=== PATIENT | male | born 1955 | race African-American/Black ===

== ENCOUNTER 2017-05-06 11:20 | Inpatient (IN) | payer OTHER ==
[2017-05-06 13:55] VITALS: BMI 29.8
--- NOTE | 2017-05-06 13:59 | HP ---
Admission ROS S - HPI Allergies/Adverse Reactions: Allergies Allergy/AdvReac Type Severity Reaction Status Date / Time No Known Allergies Allergy Verified 04/05/15 13:32 - Ebola screening Have you traveled outside of the country in the last 21 days: No Have you had contact with anyone from an Ebola affected area: No Have you been sick,other than usual withdrawal symptoms: No Do you have a fever: No Patient History - Patient Medical History Hx Anemia: No Hx Asthma: No Hx Chronic Obstructive Pulmonary Disease (COPD): No Hx Cancer: No Hx Cardiac Disorders: No Hx Congestive Heart Failure: No Hx Hypertension: Yes Hx Hypercholesterolemia: No Hx Pacemaker: No HX Cerebrovascular Accident: No Hx Seizures: Yes (etoh related seizures ) Hx Dementia: No Hx Diabetes: No Hx Gastrointestinal Disorders: Yes (GERD, gallstones) Hx Liver Disease: No Hx Genitourinary Disorders: No Hx Sexually Transmitted Disorders: No Hx Renal Disease (ESRD): No Hx Thyroid Disease: No Hx Human Immunodeficiency Virus (HIV): No Hx Hepatitis C: Yes Hx Depression: Yes Hx Suicide Attempt: No (denies) Hx Bipolar Disorder: No Hx Schizophrenia: No - Patient Surgical History Past Surgical History: No Hx Neurologic Surgery: No Hx Cataract Extraction: No Hx Cardiac Surgery: No Hx Lung Surgery: No Hx Breast Surgery: No Hx Breast Biopsy: No Hx Abdominal Surgery: No Hx Appendectomy: No Hx Cholecystectomy: No Hx Genitourinary Surgery: No Hx Section: No Hx Orthopedic Surgery: No Anesthesia Reaction: No - PPD History Date: 04/07/15 Results: 0 mm - Smoking Cessation Smoking history: Current every day smoker Have you smoked in the past 12 months: Yes Aproximately how many cigarettes per day: 5 Hx Chewing Tobacco Use: No Family Disease History - Family Disease History Family Disease History: Heart Disease: Father (), CA: Mother () Admission Physical Exam BHS - Vital Signs Vital Signs: Vital Signs - 24 hr 05/06/17 13:45 Temperature 98.8 F Pulse Rate 112 H Respiratory 20 Rate Blood Pressure 130/86 BHS Breath Alcohol Content Breath Alcohol Content: 0.057 Urine Drug Screen - Results Drug Screen Negative: Yes Urine Drug Screen Results: BAR-Barbiturates
--- NOTE | 2017-05-06 14:19 | HP ---
CIWA Score - CIWA Score Nausea/Vomitin Muscle Tremors: 3 Anxiety: 3 Agitation: 3 Paroxysmal Sweats: 1-Minimal Palms Moist Orientation: 0-Oriented Tacttile Disturbances: 2-Mild Itch/Numbness/Burn Auditory Disturbances: 2-Mild Harshness/Frighten Visual Disturbances: 2-Mild Sensitivity Headache: 2-Mild CIWA-Ar Total Score: 21 Admission ROS BHS - HPI Chief Complaint: i need help to stop drinking alcohol Allergies/Adverse Reactions: Allergies Allergy/AdvReac Type Severity Reaction Status Date / Time No Known Allergies Allergy Verified 05/06/17 14:20 History of Present Illness: this 62 years old male with alcohol dependence,history of suboxone maintenance but stopped 03/05,last treatment 04/05/15 to 04/09/15 multiple admissions in detox, anxiety and depression hepatitis c history of hypertension,heptitis c,insomnia longest period of sobriety 6 and half years Exam Limitations: No Limitations - Ebola screening Have you traveled outside of the country in the last 21 days: No Have you had contact with anyone from an Ebola affected area: No Have you been sick,other than usual withdrawal symptoms: No Do you have a fever: No - Review of Systems Constitutional: Loss of Appetite, Malaise, Night Sweats, Changes in sleep, Weakness EENT: reports: Nose Congestion Respiratory: reports: No Symptoms reported, Other (copd) Cardiac: reports: Palpitations GI: reports: Diarrhea, Nausea, Vomiting, Abdominal cramping : reports: No Symptoms Reported Musculoskeletal: reports: Back Pain, Muscle Pain Integumentary: reports: Dryness Neuro: reports: Headache, Tremors Endocrine: reports: No Symptoms Reported Hematology: reports: No Symptoms Reported Psychiatric: reports: No Sypmtoms Reported, Judgement Intact, Mood/Affect Appropiate, Depressed, other Patient History - Patient Medical History Hx Anemia: No Hx Asthma: No Hx Chronic Obstructive Pulmonary Disease (COPD): No Hx Cancer: No Hx Cardiac Disorders: No Hx Congestive Heart Failure: No Hx Hypertension: Yes (on med) Hx Hypercholesterolemia: No Hx Pacemaker: No HX Cerebrovascular Accident: No Hx Seizures: Yes (etoh related seizures on 05/02/17) Hx Dementia: No Hx Diabetes: No Hx Gastrointestinal Disorders: Yes (GERD, gallstones) Hx Liver Disease: No Hx Genitourinary Disorders: No Hx Sexually Transmitted Disorders: No Hx Renal Disease (ESRD): No Hx Thyroid Disease: No Hx Human Immunodeficiency Virus (HIV): No Hx Hepatitis C: Yes (treated) Hx Depression: Yes Hx Suicide Attempt: No (denies) Hx Bipolar Disorder: No Hx Schizophrenia: No Other Medical History: no suicidal,no homicidal - Patient Surgical History Past Surgical History: No Hx Neurologic Surgery: No Hx Cataract Extraction: No Hx Cardiac Surgery: No Hx Lung Surgery: No Hx Breast Surgery: No Hx Breast Biopsy: No Hx Abdominal Surgery: No Hx Appendectomy: No Hx Cholecystectomy: No Hx Genitourinary Surgery: No Hx Section: No Hx Orthopedic Surgery: No Anesthesia Reaction: No - PPD History Previous Implant?: Yes Implanted On Prior [facility] Admission?: Yes Date: 04/07/15 Results: 0 mm PPD to be Administered?: Yes - Smoking Cessation Smoking history: Current every day smoker Have you smoked in the past 12 months: Yes Aproximately how many cigarettes per day: 5 Hx Chewing Tobacco Use: No Initiated information on smoking cessation: Yes 'Breaking Loose' booklet given: 05/06/17 - Substance & Tx. History Hx Alcohol Use: Yes Hx Substance Use: Yes Substance Use Type: Alcohol Hx Substance Use Treatment: Yes (last 04/05/15 to 04/09/15) - Substances Abused Alcohol Route: Oral Frequency: Daily Amount used: 2-3 pints vodka/ 2-3 6pk beers Age of first use: 11 Date of Last Use: 05/06/17 suboxone Route: Oral Frequency: 3-6 times per week Amount used: 2.8mg Age of first use: 61 Date of Last Use: 05/05/17 Family Disease History - Family Disease History Family Disease History: Heart Disease: Father (), CA: Mother () Admission Physical Exam BHS - Vital Signs Vital Signs: Vital Signs - 24 hr 05/06/17 13:45 Temperature 98.8 F Pulse Rate 112 H Respiratory 20 Rate Blood Pressure 130/86 - Physical General Appearance: Yes: Moderate Distress, Tremorous, Irritable, Sweating, Anxious HEENTM: Yes: Hearing grossly Normal, Normal ENT Inspection, BILLIE, Pharynx Normal Respiratory: Yes: Lungs Clear, Normal Breath Sounds, No Respiratory Distress Neck: Yes: Within Normal Limits Breast: Yes: Within Normal Limits Cardiology: Yes: Within Normal Limits, Regular Rhythm, Regular Rate, S1, S2 Abdominal: Yes: Within Normal Limits, Normal Bowel Sounds, Non Tender, Flat, Soft Genitourinary: Yes: Within Normal Limits Back: Yes: Muscle Spasm Musculoskeletal: Yes: Back pain, Muscle Pain Extremities: Yes: Within Normal Limits, Normal Range of Motion, Tremors Neurological: Yes: stretch box tender II-XII NML intact, Fully Oriented, Alert, Motor Strength 5/5 Integumentary: Yes: Dry Lymphatic: Yes: Within Normal Limits - Diagnostic (1) Alcohol dependence with uncomplicated withdrawal Current Visit: Yes Status: Acute (2) Essential hypertension Current Visit: Yes Status: Chronic Comment: stable, on meds, sees new primary at [facility] (3) GERD (gastroesophageal reflux disease) Current Visit: Yes Status: Chronic Comment: doing well with prilosec to f/u with GI, cont activia, probiotics not covered, (4) Low back pain Current Visit: Yes Status: Chronic Comment: flexeril, heat, stretches ORT = 7 (moderate risk) DIRE = 14 (borderline candidate for moth exterminator opiates) - (5) Nicotine dependence Current Visit: Yes Status: Acute Comment: counseled cessation - (6) Alcohol related seizure Current Visit: Yes Status: Acute (7) Hepatitis C Current Visit: Yes Status: Acute (8) Asthma Current Visit: Yes Status: Acute Cleared for Admission [facility] - Detox or Rehab [facility] Level of Care: Medically Managed Detox Regimen/Protocol: Librium [facility] Breath Alcohol Content Breath Alcohol Content: 0.057 Urine Drug Screen - Results Drug Screen Negative: Yes Urine Drug Screen Results: BAR-Barbiturates
[2017-05-06] MEDS ORDERED: ACETAMINOPHEN 325 MG TABLET (FP) PO PRN (14:48)
[2017-05-06] MEDS ORDERED: P-EPHED 60MG/TRIPROLIDI 2.5MG TABLET PO PRN (14:48)
[2017-05-06] MEDS ORDERED: MENTHOL/PHENOL 1 EACH UD MM PRN (14:48)
[2017-05-06] MEDS ORDERED: chlordiazePOXIDE HCL 25 MG CAPSULE PO PRN (14:48)
[2017-05-06] MEDS ORDERED: guaiFENesin/D-METHORPHAN HB 10 ML UNIT-DOSE CUPS PO PRN (14:48)
[2017-05-06] MEDS ORDERED: hydrOXYzine PAMOATE 50 MG CAPSULE (FP) PO PRN (14:48)
[2017-05-06] MEDS ORDERED: LOPERAMIDE HCL 2 MG CAPSULE PO PRN (14:48)
[2017-05-06] MEDS ORDERED: MAGNESIUM CITRATE 300 ML BOTTLE PO PRN (14:48)
[2017-05-06] MEDS ORDERED: IBUPROFEN 400 MG TABLET (FP) PO PRN (14:48)
[2017-05-06] MEDS ORDERED: diphenhydrAMINE HCL 50 MG CAPSULE PO PRN (14:48)
[2017-05-06] MEDS ORDERED: ALBUTEROL SO4 6.7 GM HFA INHALER IH PRN (14:53)
[2017-05-06] MEDS ORDERED: chlordiazePOXIDE HCL 25 MG CAPSULE PO ONE (15:54)
[2017-05-06] MEDS: chlordiazePOXIDE HCL 25 MG CAPSULE PO SCH ×2 (17:36→22:48)
[2017-05-06] MEDS: GABAPENTIN 300 MG CAPSULE (FP) PO SCH ×2 (17:36→22:48)
[2017-05-06] MEDS: CYCLOBENZAPRINE HCL 10 MG TABLET (FP) PO PRN ×2 (17:41→22:54)
--- NOTE | 2017-05-06 17:56 | CONSULT ---
[facility] Psychiatric Consult - Data Date of interview: 05/06/17 Admission source: [facility] Identifying data: Readmission to [facility] for this 62 y/o AA male seeking detox treatment on for alcohol and opioid dependence.Patient is a ,father of four,domiciled,unemployed and supported on Section 8 + SSD benefits. Substance Abuse History: Discussed with patient.Mr Singh confirms this [facility] report. Smoking Cessation. Smoking history: Current every day smoker. Have you smoked in the past 12 months: Yes. Aproximately how many cigarettes per day : 5. Hx Chewing Tobacco Use: No. Initiated information on smoking cessation: Yes. 'Breaking Loose' booklet given: 05/06/17. - Substance & Tx. History. Hx Alcohol Use: Yes. Hx Substance Use: Yes. Substance Use Type: Alcohol. Hx Substance Use Treatment: Yes (last 04/05/15 to 04/09/15) Medical History: Hypertension,arthritis,hepatitis C,withdrawat-related seizures, GERD/gallstones and a history of interstitial lung disease. Psychiatric History: Patient denies history of psychiatric hospitalizations.Mr Singh indicates that he is on seroquel 200 mg/hs to address chronic insomnia.Patient denies history of suicide attempts. Physical/Sexual Abuse/Trauma History: Patient denies. Additional Comment: Urine Drug Screen Results: BAR-Barbiturates.Noted. Mental Status Exam - Mental Status Exam Alert and Oriented to: Time Cognitive Function: Good Patient Appearance: Well Groomed Mood: Hopeful, Euthymic Affect: Appropriate, Normal Range Patient Behavior: Appropriate, Cooperative Speech Pattern: Clear Voice Loudness: Normal Thought Process: Goal Oriented Hallucinations: Denies Suicidal Ideation: Denies Homicidal Ideation: Denies Sleep: Poorly, Difficulty falling asleep Appetite: Good Muscle strength/Tone: Normal Gait/Station: Normal Psychiatric Findings - Problem List ([facility] 1, 2,3) (1) Alcohol dependence with uncomplicated withdrawal Current Visit: Yes Status: Acute (2) Opiate dependence Current Visit: Yes Status: Acute Comment: in suboxone program at [facility] (3) Nicotine dependence Current Visit: Yes Status: Acute Comment: counseled cessation - (4) Alcohol related seizure Current Visit: Yes Status: Acute (5) Hepatitis C Current Visit: Yes Status: Acute (6) Essential hypertension Current Visit: Yes Status: Chronic Comment: stable, on meds, sees new primary at [facility] (7) GERD (gastroesophageal reflux disease) Current Visit: Yes Status: Chronic Comment: doing well with prilosec to f/u with GI, cont activia, probiotics not covered, (8) Hepatitis C carrier Current Visit: Yes Status: Chronic Comment[facility] (9) Interstitial lung disease Current Visit: Yes Status: Chronic Comment: for f/u with pulmonary - has appt with pulmonary 3/4 but missed it - counseled nicotine cessation (10) Low back pain Current Visit: Yes Status: Chronic Comment: flexeril, heat, stretches ORT = 7 (moderate risk) DIRE = 14 (borderline candidate for supervisor intermediates opiates) - (11) Vitamin D deficiency Current Visit: Yes Status: Chronic Comment: cont weekly vitamin D 40771 (12) Insomnia Current Visit: Yes Status: Acute - Initial Treatment Plan Initial Treatment Plan: Psychoeducation.Detoxification.Seroquel 100 mg po hs ( reduced).Will titrate back to 200 mg/hs in next 24 hours if no oversedation.Side effects/benefits discussed with patient.Mr Singh is in agreement with this careplan.Observation.
[2017-05-06] MEDS: NICOTINE 21 MG/24 HOURS TOPICAL PATCH TD SCH (18:57)
[2017-05-06] MEDS: NICOTINE POLACRILEX 2 MG GUM BUC PRN ×2 (18:57→22:56)
[2017-05-06] MEDS ORDERED: PHENYTOIN NA EXTENDED 100 MG CAPSULE (FP) PO SCH (22:00)
[2017-05-06] MEDS: THIAMINE HCL 100 MG TABLET (FP) PO SCH (22:48)
[2017-05-06] MEDS: PHENobarbital 30 MG TABLET PO SCH (22:48)
[2017-05-06] MEDS: VERAPAMIL HCL 240 MG E.R. TABLET (FP) PO SCH (22:48)
[2017-05-06 23:33] LABS: URINE APPEARANCE CLEAR; URINE BILIRUBIN NEGATIVE (NEGATIVE); URINE BLOOD NEGATIVE (NEGATIVE); URINE COLOR LT. YELLOW; URINE GLUCOSE (UA) NEGATIVE (NEGATIVE); URINE KETONE NEGATIVE (NEGATIVE); URINE LEUK ESTERASE NEGATIVE (NEGATIVE); URINE NITRITE NEGATIVE (NEGATIVE); URINE PROTEIN NEGATIVE (NEGATIVE); URINE UROBILINOGEN 0.2 mg/dL (0.2-1.0)
[2017-05-07] MEDS: GABAPENTIN 300 MG CAPSULE (FP) PO SCH ×3 (05:50→22:43)
[2017-05-07] MEDS: chlordiazePOXIDE HCL 25 MG CAPSULE PO SCH ×4 (05:50→22:43)
[2017-05-07] MEDS: CYCLOBENZAPRINE HCL 10 MG TABLET (FP) PO PRN ×3 (05:50→22:53)
[2017-05-07] MEDS: NICOTINE POLACRILEX 2 MG GUM BUC PRN ×2 (05:54→12:52)
[2017-05-07] MEDS ORDERED: NICOTINE 21 MG/24 HOURS TOPICAL PATCH TD SCH (10:00)
[2017-05-07 10:03] LABS: MCH 31.9 pg (25.7-33.7); MCHC 34.3 g/dl (32.0-35.9); MEAN CELL VOLUME 93.1 fl (80-96); MEAN PLT VOLUME 10.3 fl (7.5-11.1); PLATELET COUNT 230 K/MM3 (134-434); RDW 14.9 % (11.9-15.9); WHITE BLOOD COUNT 7.9 K/mm3 (4.0-10.0)
[2017-05-07 10:29] LABS: ALBUMIN 3.7 g/dl (3.4-5.0); ALK PHOS 94 U/L (45-117); ANION GAP 11 (8-16); BILIRUBIN,TOTAL 0.3 mg/dL (0.2-1.0); CALCIUM 9.4 mg/dL (8.5-10.1); CO2 22 mmol/L (21-32); CREATININE 0.9 mg/dL (0.7-1.3); GLUCOSE,RANDOM 103 mg/dL (74-106); SGOT/AST 17 U/L (15-37); SGPT/ALT 23 U/L (12-78); TOT PROT 7.9 g/dl (6.4-8.2)
[2017-05-07] MEDS: HYDROCHLOROTHIAZIDE 25 MG TABLET (FP) PO SCH (10:53)
[2017-05-07] MEDS: ASPIRIN 81 MG CHEWABLE TABLETS PO SCH (10:53)
[2017-05-07] MEDS: VERAPAMIL HCL 240 MG E.R. TABLET (FP) PO SCH ×2 (10:53→22:43)
[2017-05-07] MEDS: PRENATAL VITAMINS W/ FOLIC ACID TABLET (FP) PO SCH (10:53)
[2017-05-07] MEDS: PHENobarbital 30 MG TABLET PO SCH ×2 (10:53→22:43)
[2017-05-07] MEDS: NICOTINE 21 MG/24 HOURS TOPICAL PATCH TD SCH (10:54)
--- NOTE | 2017-05-07 10:55 | PN ---
S CIWA - CIWA Score Nausea/Vomitin Muscle Tremors: 4-Moderate,w/Arms Extend Anxiety: 3 Agitation: 4-Moderately Restless Paroxysmal Sweats: 3 Orientation: 0-Oriented Tacttile Disturbances: 1-Very Mild Itch/Numbness Auditory Disturbances: 0-None Visual Disturbances: 0-None Headache: 1-Very Mild CIWA-Ar Total Score: 19 BHS Progress Note (SOAP) Subjective: nausea, sweats, interrupted sleep, anxiety, tremors Objective: 05/07/17 10:52 Vital Signs - 24 hr 05/06/17 05/06/17 05/06/17 13:45 18:06 22:29 Temperature 98.8 F 98.4 F 98.9 F Pulse Rate 112 H 114 H 102 H Respiratory 20 18 18 Rate Blood Pressure 130/86 121/88 121/94 05/07/17 05/07/17 05/07/17 03:30 06:50 10:25 Temperature 97.1 F L 97 F L Pulse Rate 87 81 Respiratory 18 18 18 Rate Blood Pressure 128/87 132/89 Laboratory Tests 05/06/17 05/07/17 05/07/17 20:56 06:00 06:00 WBC 7.9 RBC 4.85 Hgb 15.5 Hct 45.2 MCV 93.1 MCH 31.9 MCHC 34.3 RDW 14.9 Plt Count 230 MPV 10.3 Sodium 139 Potassium 4.2 Chloride 106 Carbon Dioxide 22 Anion Gap 11 BUN 6 L D Creatinine 0.9 Creat Clearance w eGFR > 60 Random Glucose 103 Calcium 9.4 Total Bilirubin 0.3 D AST 17 ALT 23 D Alkaline Phosphatase 94 Total Protein 7.9 Albumin 3.7 Urine Color Lt. yellow Urine Appearance Clear Urine pH 6.0 D Ur Specific [place] 1.010 Urine Protein Negative Urine Glucose (UA) Negative Urine Ketones Negative Urine Blood Negative Urine Nitrite Negative Urine Bilirubin Negative Urine Urobilinogen 0.2 Ur Leukocyte Esterase Negative RPR Titer 05/07/17 06:00 WBC RBC Hgb Hct MCV MCH MCHC RDW Plt Count MPV Sodium Potassium Chloride Carbon Dioxide Anion Gap BUN Creatinine Creat Clearance w eGFR Random Glucose Calcium Total Bilirubin AST ALT Alkaline Phosphatase Total Protein Albumin Urine Color Urine Appearance Urine pH Ur Specific [place] Urine Protein Urine Glucose (UA) Urine Ketones Urine Blood Urine Nitrite Urine Bilirubin Urine Urobilinogen Ur Leukocyte Esterase RPR Titer Nonreactive Assessment: 05/07/17 10:53 withdrawal sx Plan: cont detox, fluids, encourage ambulation, phenytoin level pending
[2017-05-07] MEDS ORDERED: PHENYTOIN NA EXTENDED 100 MG CAPSULE (FP) PO ONE (12:08)
[2017-05-07] MEDS ORDERED: RANITIDINE HCL 150 MG TABLET (FP) PO SCH (12:15)
[2017-05-07] MEDS: PANTOPRAZOLE 40 MG TABLET (FP) PO SCH (12:49)
[2017-05-07] MEDS: PHENYTOIN NA EXTENDED 100 MG CAPSULE (FP) PO SCH ×2 (14:08→22:46)
--- NOTE | 2017-05-07 14:30 | PN ---
[facility] Progress Note Note: NURSE Daniel JACOBS CALLED TO REPORT PT REFUSED DILANTIN AT 2PM DOSE DUE TO LOADING DOSE OF DILANTIN 300 MG ALREADY TAKEN THIS MORNING AND DOES NOT WANT MORE THAN 300 MG IN A DAY. PT'S DILANTIN LEVEL = <2.5. PLAN: MONITOR PT.
--- NOTE | 2017-05-07 15:02 | EKG ---
Test Reason : Blood Pressure : / mmHG Vent. Rate : 098 BPM Atrial Rate : 098 BPM P-R Int : 172 ms QRS Dur : 074 ms QT Int : 340 ms P-R-T Axes : 046 024 057 degrees QTc Int : 434 ms NORMAL SINUS RHYTHM POSSIBLE LEFT ATRIAL ENLARGEMENT BORDERLINE ECG NO PREVIOUS ECGS AVAILABLE Confirmed by ANDRES ALMEIDA, ARNALDO ([id number]) on 05/07/2017 3:02:33 PM Referred By: Confirmed By:ARNALDO CAMPOS MD
[2017-05-07] MEDS: MAG HYDROX/AL HYDROX/SIMETH 30 ML UNIT-DOSE CUP PO PRN ×2 (15:07→20:58)
[2017-05-07] MEDS: QUEtiapine FUMARATE 100 MG TABLET (FP) PO SCH (22:43)
[2017-05-07] MEDS: THIAMINE HCL 100 MG TABLET (FP) PO SCH (22:43)
[2017-05-08] MEDS: MAGNESIUM HYDROX 2400MG/30ML ORAL SUSPENSION 30 ML CUP PO PRN ×2 (03:10→13:19)
[2017-05-08] MEDS: MAG HYDROX/AL HYDROX/SIMETH 30 ML UNIT-DOSE CUP PO PRN ×2 (03:12→18:58)
[2017-05-08] MEDS: PHENYTOIN NA EXTENDED 100 MG CAPSULE (FP) PO SCH ×3 (05:55→22:37)
[2017-05-08] MEDS: GABAPENTIN 300 MG CAPSULE (FP) PO SCH ×3 (05:55→22:37)
[2017-05-08] MEDS: chlordiazePOXIDE HCL 25 MG CAPSULE PO SCH ×2 (05:55→10:51)
[2017-05-08] MEDS: PHENobarbital 30 MG TABLET PO SCH ×2 (10:50→22:32)
[2017-05-08] MEDS: PRENATAL VITAMINS W/ FOLIC ACID TABLET (FP) PO SCH (10:51)
[2017-05-08] MEDS: PANTOPRAZOLE 40 MG TABLET (FP) PO SCH (10:51)
[2017-05-08] MEDS: ASPIRIN 81 MG CHEWABLE TABLETS PO SCH (10:51)
[2017-05-08] MEDS: NICOTINE 21 MG/24 HOURS TOPICAL PATCH TD SCH (10:51)
[2017-05-08] MEDS: VERAPAMIL HCL 240 MG E.R. TABLET (FP) PO SCH ×2 (10:51→22:32)
--- NOTE | 2017-05-08 10:51 | PN ---
[facility] CIWA - CIWA Score Nausea/Vomitin-No Nausea/No Vomiting Muscle Tremors: 4-Moderate,w/Arms Extend Anxiety: 4-Mod. Anxious/Guarded Agitation: 3 Paroxysmal Sweats: 3 Orientation: 0-Oriented Tacttile Disturbances: 0-None Auditory Disturbances: 0-None Visual Disturbances: 0-None Headache: 0-None Present CIWA-Ar Total Score: 14 S Progress Note (SOAP) Subjective: Anxiety,tremors,sweating,interrupted sleep,restless. Objective: 05/08/17 10:50 Vital Signs - 8 hr 05/08/17 05/08/17 06:44 09:42 Temperature 97.4 F L 98.7 F Pulse Rate 105 H 92 H Respiratory 16 20 Rate Blood Pressure 107/77 121/88 Laboratory Last Values WBC 7.9 K/mm3 (4.0-10.0) 05/07/17 06:00 RBC 4.85 M/mm3 (4.00-5.60) 05/07/17 06:00 Hgb 15.5 GM/dL (11.7-16.9) 05/07/17 06:00 Hct 45.2 % (35.4-49) 05/07/17 06:00 MCV 93.1 fl (80-96) 05/07/17 06:00 MCH 31.9 pg (25.7-33.7) 05/07/17 06:00 MCHC 34.3 g/dl (32.0-35.9) 05/07/17 06:00 RDW 14.9 % (11.9-15.9) 05/07/17 06:00 Plt Count 230 K/MM3 (134-434) 05/07/17 06:00 MPV 10.3 fl (7.5-11.1) 05/07/17 06:00 Sodium 139 mmol/L (136-145) 05/07/17 06:00 Potassium 4.2 mmol/L (3.5-5.1) 05/07/17 06:00 Chloride 106 mmol/L (98-107) 05/07/17 06:00 Carbon Dioxide 22 mmol/L (21-32) 05/07/17 06:00 Anion Gap 11 (8-16) 05/07/17 06:00 BUN 6 mg/dL (7-18) L D 05/07/17 06:00 Creatinine 0.9 mg/dL (0.7-1.3) 05/07/17 06:00 Creat Clearance w eGFR > 60 (>60) 05/07/17 06:00 Random Glucose 103 mg/dL (74-106) 05/07/17 06:00 Calcium 9.4 mg/dL (8.5-10.1) 05/07/17 06:00 Total Bilirubin 0.3 mg/dL (0.2-1.0) D 05/07/17 06:00 AST 17 U/L (15-37) 05/07/17 06:00 ALT 23 U/L (12-78) D 05/07/17 06:00 Alkaline Phosphatase 94 U/L (45-117) 05/07/17 06:00 Total Protein 7.9 g/dl (6.4-8.2) 05/07/17 06:00 Albumin 3.7 g/dl (3.4-5.0) 05/07/17 06:00 Urine Color Lt. yellow 05/06/17 20:56 Urine Appearance Clear 05/06/17 20:56 Urine pH 6.0 (5.0-8.0) D 05/06/17 20:56 Ur Specific [place] 1.010 (1.005-1.025) 05/06/17 20:56 Urine Protein Negative (NEGATIVE) 05/06/17 20:56 Urine Glucose (UA) Negative (NEGATIVE) 05/06/17 20:56 Urine Ketones Negative (NEGATIVE) 05/06/17 20:56 Urine Blood Negative (NEGATIVE) 05/06/17 20:56 Urine Nitrite Negative (NEGATIVE) 05/06/17 20:56 Urine Bilirubin Negative (NEGATIVE) 05/06/17 20:56 Urine Urobilinogen 0.2 mg/dL (0.2-1.0) 05/06/17 20:56 Ur Leukocyte Esterase Negative (NEGATIVE) 05/06/17 20:56 Phenytoin < 2.5 ug/ml (10.0-20.0) L 05/07/17 06:00 RPR Titer Nonreactive (NONREACTIVE) 05/07/17 06:00 labs noted Assessment: 05/08/17 10:50 Withdrawal sx. Plan: Continue detox
[2017-05-08] MEDS: HYDROCHLOROTHIAZIDE 25 MG TABLET (FP) PO SCH (10:52)
[2017-05-08] MEDS: CYCLOBENZAPRINE HCL 10 MG TABLET (FP) PO PRN ×2 (10:54→22:39)
[2017-05-08] MEDS: METHYL SALICYLATE/MENTHOL OINT 30 GM TUBE TP SCH ×2 (11:02→22:37)
[2017-05-08] MEDS: NICOTINE POLACRILEX 2 MG GUM BUC PRN ×3 (11:03→22:39)
[2017-05-08] MEDS: chlordiazePOXIDE 5 MG CAPSULE PO SCH ×2 (18:53→23:00)
[2017-05-08] MEDS: THIAMINE HCL 100 MG TABLET (FP) PO SCH (22:32)
[2017-05-08] MEDS: QUEtiapine FUMARATE 100 MG TABLET (FP) PO SCH (22:33)
[2017-05-09] MEDS: chlordiazePOXIDE 5 MG CAPSULE PO SCH ×2 (05:21→10:59)
[2017-05-09] MEDS: GABAPENTIN 300 MG CAPSULE (FP) PO SCH ×4 (05:21→22:48)
[2017-05-09] MEDS: PHENYTOIN NA EXTENDED 100 MG CAPSULE (FP) PO SCH ×4 (05:21→22:45)
[2017-05-09] MEDS: NICOTINE POLACRILEX 2 MG GUM BUC PRN ×4 (05:27→22:49)
[2017-05-09] MEDS: NICOTINE 21 MG/24 HOURS TOPICAL PATCH TD SCH (10:58)
[2017-05-09] MEDS: PHENobarbital 30 MG TABLET PO SCH ×2 (10:59→22:46)
[2017-05-09] MEDS: HYDROCHLOROTHIAZIDE 25 MG TABLET (FP) PO SCH (10:59)
[2017-05-09] MEDS: ASPIRIN 81 MG CHEWABLE TABLETS PO SCH (10:59)
[2017-05-09] MEDS: PRENATAL VITAMINS W/ FOLIC ACID TABLET (FP) PO SCH (10:59)
[2017-05-09] MEDS: VERAPAMIL HCL 240 MG E.R. TABLET (FP) PO SCH ×2 (10:59→22:45)
[2017-05-09] MEDS: PANTOPRAZOLE 40 MG TABLET (FP) PO SCH (11:00)
[2017-05-09] MEDS: MAG HYDROX/AL HYDROX/SIMETH 30 ML UNIT-DOSE CUP PO PRN (11:02)
[2017-05-09] MEDS: METHYL SALICYLATE/MENTHOL OINT 30 GM TUBE TP SCH ×2 (11:02→22:45)
[2017-05-09] MEDS: CYCLOBENZAPRINE HCL 10 MG TABLET (FP) PO PRN ×2 (15:18→23:34)
[2017-05-09] MEDS: chlordiazePOXIDE HCL 10 MG CAPSULE PO SCH ×2 (18:09→22:46)
[2017-05-09] MEDS ORDERED: PHENYTOIN NA EXTENDED 100 MG CAPSULE (FP) PO ONE (21:42)
--- NOTE | 2017-05-09 21:48 | PN ---
BHS Progress Note (SOAP) Subjective: Tremors, Stomach Cramping, Vomiting, Diarrhea, Anxious, Body Aches, sweating. Objective: PT. A & O X 3, OBSERVED AMBULATING ON UNIT. NO ACUTE DISTRESS. 05/09/17 21:45 Vital Signs Temperature 97.7 F 05/09/17 19:09 Pulse Rate 86 05/09/17 19:09 Respiratory Rate 18 05/09/17 19:09 Blood Pressure 103/71 05/09/17 19:09 O2 Sat by Pulse Oximetry (%) Laboratory Tests 05/06/17 05/07/17 05/07/17 20:56 06:00 06:00 WBC 7.9 RBC 4.85 Hgb 15.5 Hct 45.2 MCV 93.1 MCH 31.9 MCHC 34.3 RDW 14.9 Plt Count 230 MPV 10.3 Sodium 139 Potassium 4.2 Chloride 106 Carbon Dioxide 22 Anion Gap 11 BUN 6 L D Creatinine 0.9 Creat Clearance w eGFR > 60 Random Glucose 103 Calcium 9.4 Total Bilirubin 0.3 D AST 17 ALT 23 D Alkaline Phosphatase 94 Total Protein 7.9 Albumin 3.7 Urine Color Lt. yellow Urine Appearance Clear Urine pH 6.0 D Ur Specific [place] 1.010 Urine Protein Negative Urine Glucose (UA) Negative Urine Ketones Negative Urine Blood Negative Urine Nitrite Negative Urine Bilirubin Negative Urine Urobilinogen 0.2 Ur Leukocyte Esterase Negative Phenytoin RPR Titer 05/07/17 05/07/17 05/09/17 06:00 06:00 08:00 WBC RBC Hgb Hct MCV MCH MCHC RDW Plt Count MPV Sodium Potassium Chloride Carbon Dioxide Anion Gap BUN Creatinine Creat Clearance w eGFR Random Glucose Calcium Total Bilirubin AST ALT Alkaline Phosphatase Total Protein Albumin Urine Color Urine Appearance Urine pH Ur Specific [place] Urine Protein Urine Glucose (UA) Urine Ketones Urine Blood Urine Nitrite Urine Bilirubin Urine Urobilinogen Ur Leukocyte Esterase Phenytoin < 2.5 L < 2.5 L RPR Titer Nonreactive LABS NOTED. RESULT OF REPEAT DILANTIN LEVEL FROM 05/09/2017 NOTED. 05/09/17 21:45 Assessment: 05/09/17 21:46 WITHDRAWAL SYMPTOMS. Plan: CONTINUE DETOX. DILANTIN, 300 MG PO X 1 ORDERED.
[2017-05-09] MEDS: QUEtiapine FUMARATE 100 MG TABLET (FP) PO SCH (22:46)
[2017-05-09] MEDS: THIAMINE HCL 100 MG TABLET (FP) PO SCH (22:46)
[2017-05-10] MEDS: MAG HYDROX/AL HYDROX/SIMETH 30 ML UNIT-DOSE CUP PO PRN (04:41)
[2017-05-10] MEDS: GABAPENTIN 300 MG CAPSULE (FP) PO SCH (05:52)
[2017-05-10] MEDS: PHENYTOIN NA EXTENDED 100 MG CAPSULE (FP) PO SCH (05:52)
[2017-05-10] MEDS: CYCLOBENZAPRINE HCL 10 MG TABLET (FP) PO PRN (05:53)
[2017-05-10] MEDS: chlordiazePOXIDE HCL 10 MG CAPSULE PO SCH ×2 (05:53→10:03)
[2017-05-10 09:50] VITALS: BP 110/79; PULSE 93; TEMP 97.8
[2017-05-10] MEDS: PRENATAL VITAMINS W/ FOLIC ACID TABLET (FP) PO SCH (10:03)
[2017-05-10] MEDS: HYDROCHLOROTHIAZIDE 25 MG TABLET (FP) PO SCH (10:03)
[2017-05-10] MEDS: METHYL SALICYLATE/MENTHOL OINT 30 GM TUBE TP SCH (10:03)
[2017-05-10] MEDS: ASPIRIN 81 MG CHEWABLE TABLETS PO SCH (10:03)
[2017-05-10] MEDS: PANTOPRAZOLE 40 MG TABLET (FP) PO SCH (10:03)
[2017-05-10] MEDS: NICOTINE 21 MG/24 HOURS TOPICAL PATCH TD SCH (10:04)
[2017-05-10] MEDS: VERAPAMIL HCL 240 MG E.R. TABLET (FP) PO SCH (10:04)
[2017-05-10] MEDS: PHENobarbital 30 MG TABLET PO SCH (10:04)
--- NOTE | 2017-05-10 14:13 | DS ---
[facility] Detox Discharge Summary Admission Date: 05/06/17 - History Present History: Alcohol Dependence Pertinent Past History: HTN Hepatitis C GERD Alcohol related seizure disorder - Physical Exam Results Vital Signs: Vital Signs Temperature 97.8 F 05/10/17 09:50 Pulse Rate 93 H 05/10/17 09:50 Respiratory Rate 18 05/10/17 09:50 Blood Pressure 110/79 05/10/17 09:50 O2 Sat by Pulse Oximetry (%) Pertinent Admission Physical Exam Findings: Withdrawal symptoms Laboratory Tests 05/06/17 05/07/17 05/07/17 20:56 06:00 06:00 WBC 7.9 RBC 4.85 Hgb 15.5 Hct 45.2 MCV 93.1 MCH 31.9 MCHC 34.3 RDW 14.9 Plt Count 230 MPV 10.3 Sodium 139 Potassium 4.2 Chloride 106 Carbon Dioxide 22 Anion Gap 11 BUN 6 L D Creatinine 0.9 Creat Clearance w eGFR > 60 Random Glucose 103 Calcium 9.4 Total Bilirubin 0.3 D AST 17 ALT 23 D Alkaline Phosphatase 94 Total Protein 7.9 Albumin 3.7 Urine Color Lt. yellow Urine Appearance Clear Urine pH 6.0 D Ur Specific [place] 1.010 Urine Protein Negative Urine Glucose (UA) Negative Urine Ketones Negative Urine Blood Negative Urine Nitrite Negative Urine Bilirubin Negative Urine Urobilinogen 0.2 Ur Leukocyte Esterase Negative Phenytoin RPR Titer 05/07/17 05/07/17 05/09/17 06:00 06:00 08:00 WBC RBC Hgb Hct MCV MCH MCHC RDW Plt Count MPV Sodium Potassium Chloride Carbon Dioxide Anion Gap BUN Creatinine Creat Clearance w eGFR Random Glucose Calcium Total Bilirubin AST ALT Alkaline Phosphatase Total Protein Albumin Urine Color Urine Appearance Urine pH Ur Specific [place] Urine Protein Urine Glucose (UA) Urine Ketones Urine Blood Urine Nitrite Urine Bilirubin Urine Urobilinogen Ur Leukocyte Esterase Phenytoin < 2.5 L < 2.5 L RPR Titer Nonreactive Labs noted - Treatment Hospital Course: Detox Protocol Followed, Detoxed Safely, Responded well, Discharged Condition Good - Medication Discharge Medications: Ambulatory Orders Aspirin [ASA -] 81 mg PO DAILY #30 tab.chew 04/08/15 Albuterol Sulfate Inhaler - [Ventolin Hfa Inhaler -] 2 inh PO Q4H PRN 05/06/17 Cyclobenzaprine HCl [Flexeril -] 10 mg PO TID 05/06/17 Gabapentin [Neurontin -] 300 mg PO Q8H 05/06/17 Hydrochlorothiazide [Hctz -] 25 mg PO DAILY 05/06/17 Omeprazole 20 mg PO DAILY 05/06/17 Phenobarbital - 30 mg PO BID 05/06/17 Phenytoin Na Extended [Dilantin -] 100 mg PO TID 05/06/17 Quetiapine Fumarate [Seroquel -] 200 mg PO HS 05/06/17 Verapamil HCl [Verapamil ER] 240 mg PO BID 05/06/17 Quetiapine Fumarate [Seroquel -] 200 mg PO HS #30 tab 05/07/17 - Diagnosis (1) Alcohol dependence with uncomplicated withdrawal Status: Acute (2) Alcohol related seizure Status: Acute (3) Hepatitis C Status: Chronic (4) Nicotine dependence Status: Chronic (5) Anxiety and depression Status: Chronic (6) Essential hypertension Status: Chronic (7) GERD (gastroesophageal reflux disease) Status: Chronic - AMA Did Patient Leave Against Medical Advice: No
== END 2017-05-10 10:20 | disposition home or self-care (01) | DRG 775 ==
LOC: YASAS 11:20 → Y3N 15:41
PROVIDERS: ADMIT Internal Medicine; ATTEND Internal Medicine
PROC: HZ2ZZZZ Detoxification Services for Substance Abuse Treatment (ICD-10-PCS; principal; 2017-05-06)
DX: F10.230 Alcohol dependence with withdrawal, uncomplicated (principal); F17.210 Nicotine dependence, cigarettes, uncomplicated; F41.8 Other specified anxiety disorders; I10 Essential (primary) hypertension; K21.9 Gastro-esophageal reflux disease without esophagitis; B18.2 Chronic viral hepatitis C; G40.909 Epilepsy, unspecified, not intractable, without status epilepticus; M54.5 Low back pain; E55.9 Vitamin D deficiency, unspecified; G47.00 Insomnia, unspecified
CPT/HCPCS: 36415; 80053; 80185; 81003; 85027; 86593; 93005; 93010

== ENCOUNTER 2017-05-14 15:38 | Inpatient (IN) | payer OTHER ==
[2017-05-14 15:57] VITALS: BMI 29.8
[2017-05-14] MEDS ORDERED: SODIUM CHLORIDE 1,000 ML IV STA (16:59)
--- NOTE | 2017-05-14 16:59 | PDOC ---
History of Present Illness - General Chief Complaint: Lethargy Stated Complaint: LETHARGY Time Seen by Provider: 05/14/17 15:44 History Source: Patient Exam Limitations: Clinical Condition - History of Present Illness Initial Comments: 05/14/17 17:17 Patient is a 62M with a history of HTN, EtOH abuse, Seizures 2/2 alcohol withdrawal, GERD, HCV and gallstones here today with altered mental status. He was found by EMS after a call in for intoxication, polisher implant found no evidence of intox at the scene. He was satting at 88% in the field which came up to 96% on nasal cannula. Per EMS, he was altered and confused. Today, he's complaining of pain in his left knee. He's confused and difficult to redirect. Past History - Past Medical History Allergies/Adverse Reactions: Allergies Allergy/AdvReac Type Severity Reaction Status Date / Time No Known Allergies Allergy Verified 05/14/17 15:57 Home Medications: Ambulatory Orders Aspirin [ASA -] 81 mg PO DAILY #30 tab.chew 04/08/15 Albuterol Sulfate Inhaler - [Ventolin Hfa Inhaler -] 2 inh PO Q4H PRN 05/06/17 Cyclobenzaprine HCl [Flexeril -] 10 mg PO TID 05/06/17 Gabapentin [Neurontin -] 300 mg PO Q8H 05/06/17 Hydrochlorothiazide [Hctz -] 25 mg PO DAILY 05/06/17 Omeprazole 20 mg PO DAILY 05/06/17 Phenobarbital - 30 mg PO BID 05/06/17 Phenytoin Na Extended [Dilantin -] 100 mg PO TID 05/06/17 Quetiapine Fumarate [Seroquel -] 200 mg PO HS 05/06/17 Verapamil HCl [Verapamil ER] 240 mg PO BID 05/06/17 Quetiapine Fumarate [Seroquel -] 200 mg PO HS #30 tab 05/07/17 Anemia: No Asthma: No Cancer: No Cardiac Disorders: No CVA: No COPD: No CHF: No Dementia: No Diabetes: No GI Disorders: Yes (GERD, gallstones) Disorders: No HTN: Yes (on med) Hypercholesterolemia: No Kidney Stones: No Liver Disease: No Suicide Attempt (Hx): No (denies) Seizures: Yes (etoh related seizures on 05/02/17) Thyroid Disease: No - Surgical History Abdominal Surgery: No Appendectomy: No Cardiac Surgery: No Cholecystectomy: No Lung Surgery: No Neurologic Surgery: No Orthopedic Surgery: No - Reproductive History Testicular Surgery: No - Psycho/Social/Smoking Cessation Hx Anxiety: Yes Suicidal Ideation: No Smoking Status: Yes Smoking History: Current every day smoker Have you smoked in the past 12 months: Yes Number of Cigarettes Smoked Daily: 10 Information on smoking cessation initiated: No 'Breaking Loose' booklet given: 05/06/17 Hx Alcohol Use: Yes Drug/Substance Use Hx: No Substance Use Type: Alcohol Hx Substance Use Treatment: Yes (last 04/05/15 to 04/09/15) Review of Systems - Review of Systems Able to Perform ROS?: No (Secondary to confusion) *Physical Exam - Vital Signs Last Vital Signs Temp Pulse Resp BP Pulse Ox 98.8 F 121 H 24 121/96 72 L 05/14/17 15:53 05/14/17 15:53 05/14/17 15:53 05/14/17 15:53 05/14/17 15:53 - Physical Exam Comments: 05/14/17 15:00 GENERAL: Alert but sleepy, difficult to redirect HEAD: No signs of trauma, normocephalic, atraumatic EYES: PERRLA, EOMI, conjunctiva clear ENT: Auricles normal inspection, hearing grossly normal, nares patent, oropharynx has reddish-orange deposits on tongue. LUNGS: Tachypneic, crackles at bases HEART: Regular rhythm, tachycardic, peripheral pulses normal and equal bilaterally. ABDOMEN: Soft, nontender, normoactive bowel sounds. No guarding, no rebound. No masses EXTREMITIES: Normal inspection, left knee pain with palpation NEUROLOGICAL: Cranial nerves II through XII grossly intact. Slurred speech, no focal sensorimotor deficits SKIN: Warm, Dry, normal turgor, orange-red material on right arm ED Treatment Course - LABORATORY CBC & Chemistry Diagram: 05/14/17 16:31 05/14/17 16:31 - RADIOLOGY Radiology Studies Ordered: Category Date Time Status HEAD CT WITHOUT CONTRAST [CT] Stat CT Scan 05/14/17 16:29 Ordered CHEST X-RAY PORTABLE* [RAD] Stat Radiology 05/14/17 16:12 Taken Medical Decision Making - Medical Decision Making 05/14/17 18:46 Patient is a 62M with a history of COPD, etoh abuse, etoh seizures, HCV, and GERD here today with AMS. Tachycardic, afebrile, blood pressure normal, tachypneic, and desatting on room air. Patient is confused. Differential diagnosis is broad, and includes: sepsis, copd exacerbation, aspiration pneumonia, and seizure. Will do broad workup to evaluate. SIRS plus possible lung source for sepsis. Sepsis order set used, given 1L, vanc, zosyn, duonebs. Patients mental status has improved significantly from initial presentation. CBC shows white count to 10.4. UA negative. CXR shwos bilateral infiltrates. Lactate 4.7. Possible seizure with aspiration. 05/14/17 19:[address] shows no intracranial pathology. Knee x-ray shows arthritic changes, no acute process is seen. 05/14/17 23:27 Admitted to med/surg. *DC/Admit/Observation/Transfer Diagnosis at time of Disposition: Pneumonia Qualifiers: Pneumonia type: due to unspecified organism Laterality: bilateral Lung location : unspecified part of lung Qualified Code(s): J18.9 - Pneumonia, unspecified organism - Discharge Dispostion Condition at time of disposition: Stable Admit: Yes
[2017-05-14 17:26] LABS: BASOPHIL 0.4 % (0-2.0); EOSINOPHIL 0.3 % (0-4.5); MCH 31.6 pg (25.7-33.7); MCHC 33.4 g/dl (32.0-35.9); MEAN CELL VOLUME 94.6 fl (80-96); MEAN PLT VOLUME 9.3 fl (7.5-11.1); RDW 15.1 % (11.9-15.9); WHITE BLOOD COUNT 10.4 K/mm3 (4.0-10.0)
[2017-05-14 17:42] LABS: URINE MARIJUANA THC POSITIVE ng/ml (CUTOFF=50)
[2017-05-14 17:46] LABS: INR 1.2 (0.82-1.09); PROTHROMBIN TIME (PATIENT) 13.2 SEC (9.98-11.88)
--- NOTE | 2017-05-14 17:46 | PDOC ---
Attending Attestation - Resident Resident Name: Randall Selby - ED Attending Attestation I have performed the following: I have examined & evaluated the patient, The case was reviewed & discussed with the resident, I agree w/resident's findings & plan, Exceptions are as noted - HPI HPI: 05/14/17 17:37 62 yo male with h/o etoh abuse, withdrawal seizures, copd hep C, recenlty dc'd from detox 05/10, here by EMS who stated pt was found outside homeless [facility] on ground. confused and hypoxic. per pt , states he drank half beer today, and was at the [facility] donating some clothes, states they found him in the bathroom. denies n/v no f/c denies any trauma. - Physicial Exam PE: 05/14/17 17:40 awake but drowsy, speech clear. lungs with crackles bilaterally heart regular tachycardic. abd soft NT ext wwp no edema. left knee FROM. no effusion. ankle hips NT FROM. all else atraumatic. - Medical Decision Making 05/14/17 17:46 62 yo M with h/o etoh , withdrawal seizures , copd, hep C, recently dc 05/10, here today with AMS, more lucid now than on arrival. differential seizure, withdrawal, intox, aspiration, copd, pna, bronchspasm from drug use. plan labs ekg nebs, cxr head ct tox screen. pt hypoxic oxygen sats 94% will likley admit for hypoxia , AMS 05/14/17 20:00 focused ED TTE, indication hypoxia focused ED cardiac ultrasound performed with curvilinear transducer. four view obtainedn ( parasternal long, short and subxiphoid and apical view) good contractility. no pericardial effusion. no signs of RV strain. impression: normal cardiac echo. lung ultrasound bilaterally, indication hypoxia bilateral lung sliding noted B lines bilaterally no plueral effusion impression: bilateral b lines, no pleural effusion, good sliding. cirilli will treat for pneumonia. elevated lactate and improving mental status concerns for post ictal, treated with nebs. abx. will admit to medicine. Heart Score/ECG Review #1 General ECG Interpretation: Sinus Rhythm (sinus tachycardia), Normal Rate (111) , Normal Intervals, No acute ischemic changes (q wave III) Compared to previous ECG there are: No significant change (comparison 05/06/17)
[2017-05-14 17:49] LABS: ACTIVATED PTT 34.4 SECONDS (26.9-34.4)
[2017-05-14] MEDS ORDERED: ALBUTEROL SO4 2.5/IPRATROPIUM 0.5 INH SOL 3 ML VIAL.NEB. NEB ONE ×2 (17:49→17:57)
[2017-05-14] MEDS ORDERED: VANCOMYCIN 1,500 MG in DEXTROSE 5%-WATER - 500 ML IVPB ONE (17:49)
[2017-05-14] MEDS ORDERED: PIPERACILLIN/TAZOB 3.375 GM/50 ML PRE-DOCKED IV ONE (17:50)
[2017-05-14] MEDS ORDERED: PIPERACILLIN/TAZOB 3.375 GM 50 ML IVPB ONE (17:57)
[2017-05-14 17:58] LABS: ALBUMIN 4.1 g/dl (3.4-5.0); ALK PHOS 101 U/L (45-117); ANION GAP 13 (8-16); BILIRUBIN,TOTAL 0.4 mg/dL (0.2-1.0); CALCIUM 9.5 mg/dL (8.5-10.1); CO2 24 mmol/L (21-32); CREATININE 1.4 mg/dL (0.7-1.3); GLUCOSE,RANDOM 101 mg/dL (74-106); SGOT/AST 21 U/L (15-37); SGPT/ALT 20 U/L (12-78); TOT PROT 8.9 g/dl (6.4-8.2)
[2017-05-14 18:00] LABS: PLATELET COUNT 289 K/MM3 (134-434)
[2017-05-14 18:01] LABS: CPK 325 IU/L (39-308); TROPONIN I < 0.02 ng/ml (0.00-0.05)
[2017-05-14 18:01] LABS: URINE APPEARANCE SLCLOUDY; URINE BILIRUBIN NEGATIVE (NEGATIVE); URINE BLOOD NEGATIVE (NEGATIVE); URINE COLOR YELLOW; URINE GLUCOSE (UA) NEGATIVE (NEGATIVE); URINE KETONE NEGATIVE (NEGATIVE); URINE LEUK ESTERASE NEGATIVE (NEGATIVE); URINE NITRITE NEGATIVE (NEGATIVE); URINE UROBILINOGEN NEGATIVE mg/dL (0.2-1.0)
[2017-05-14 18:03] LABS: URINE PROTEIN 1+ (NEGATIVE)
[2017-05-14 18:04] LABS: URINE HYALINE CAST 25 /lpf; URINE RBC NONE SEEN /hpf (0-3); URINE WBC 1 /hpf (3-5)
[2017-05-14 18:05] LABS: URINE MUCUS RARE
[2017-05-14 18:50] LABS: VENOUS BLOOD GAS HCO3 19.6 meq/L (19-25)
[2017-05-14 18:52] LABS: VENOUS PH 7.28 (7.32-7.42)
[2017-05-14] MEDS ORDERED: IBUPROFEN 600 MG TABLET (FP) PO ONE ×2 (20:27→20:41)
[2017-05-14] MEDS ORDERED: MAG HYDROX/AL HYDROX/SIMETH 30 ML UNIT-DOSE CUP PO ONE (20:27)
[2017-05-14] MEDS ORDERED: MAG HYDROX/AL HYDROX/SIMETH 30 ML UNIT-DOSE CUP ONE (20:41)
[2017-05-14] MEDS ORDERED: FOLIC ACID INJECTION - 1 MG, THIAMINE HCL 100 MG, MULTIVIT INJECTION ADULT 10 ML in SOD... IVPB ONE (20:44)
--- NOTE | 2017-05-14 20:55 | PN ---
Teaching Attending Note Name of Resident: Nikolay Cabrera ATTENDING PHYSICIAN STATEMENT I saw and evaluated the patient. I reviewed the resident's note and discussed the case with the resident. I agree with the resident's findings and plan as documented. SUBJECTIVE: 62 M with pmhx. of HTN, ETOH abuse, seizures due to Etoh withdrawlm GERD, HCV, and Gallstones who presents with AMS. Called by EMS for being ontoxicated and 02 sat 88% en field. Pt. states he was brought in by friend for knee pain on left. OBJECTIVE: Physical: VS: Vital Signs Period Temp Pulse Resp BP Sys/Causey Pulse Ox Last 24 Hr 98.8 F 106-121 24-24 113-124/95-100 72-94 GEN: NAD, Resting in bed HEENT: NCAT, PERRL, Tongue with white patches CARD: RRR S1, S2 RESP: Coarse breath sounds bilaterally bases ABD: BSx4, NTD to palpation EXT: - C/C/E, Pain on l. Knee palapation, no surrounding edema or erythema, no injury noted CBCD WBC 10.4 K/mm3 (4.0-10.0) H D 05/14/17 16:31 RBC 5.02 M/mm3 (4.00-5.60) 05/14/17 16:31 Hgb 15.9 GM/dL (11.7-16.9) 05/14/17 16:31 Hct 47.5 % (35.4-49) 05/14/17 16:31 MCV 94.6 fl (80-96) 05/14/17 16:31 MCHC 33.4 g/dl (32.0-35.9) 05/14/17 16:31 RDW 15.1 % (11.9-15.9) 05/14/17 16:31 Plt Count 289 K/MM3 (134-434) D 05/14/17 16:31 MPV 9.3 fl (7.5-11.1) 05/14/17 16:31 CMP Sodium 137 mmol/L (136-145) 05/14/17 16:31 Potassium 4.1 mmol/L (3.5-5.1) 05/14/17 16:31 Chloride 100 mmol/L (98-107) 05/14/17 16:31 Carbon Dioxide 24 mmol/L (21-32) 05/14/17 16:31 Anion Gap 13 (8-16) 05/14/17 16:31 BUN 9 mg/dL (7-18) D 05/14/17 16:31 Creatinine 1.4 mg/dL (0.7-1.3) H D 05/14/17 16:31 Creat Clearance w eGFR 51.18 (>60) 05/14/17 16:31 Random Glucose 101 mg/dL (74-106) 05/14/17 16:31 Calcium 9.5 mg/dL (8.5-10.1) 05/14/17 16:31 Total Bilirubin 0.4 mg/dL (0.2-1.0) D 05/14/17 16:31 AST 21 U/L (15-37) D 05/14/17 16:31 ALT 20 U/L (12-78) 05/14/17 16:31 Alkaline Phosphatase 101 U/L (45-117) 05/14/17 16:31 Total Protein 8.9 g/dl (6.4-8.2) H 05/14/17 16:31 Albumin 4.1 g/dl (3.4-5.0) 05/14/17 16:31 CARDIAC ENZYMES Creatine Kinase 325 IU/L (39-308) H 05/14/17 17:07 Troponin I < 0.02 ng/ml (0.00-0.05) 05/14/17 17:07 CXR: Bilateral airspace opacities c/w noncardiogenic pulmonary venous congestion Vs. PNA CT HEAD: Negative Knee Xray: Degenerative changes Home Medications Medication Instructions Recorded Aspirin [ASA -] 81 mg PO DAILY #30 tab.chew 04/08/15 Albuterol Sulfate Inhaler - 2 inh PO Q4H PRN 05/06/17 [Ventolin Hfa Inhaler -] Cyclobenzaprine HCl [Flexeril -] 10 mg PO TID 05/06/17 Gabapentin [Neurontin -] 300 mg PO Q8H 05/06/17 Hydrochlorothiazide [Hctz -] 25 mg PO DAILY 05/06/17 Omeprazole 20 mg PO DAILY 05/06/17 Phenobarbital - 30 mg PO BID 05/06/17 Phenytoin Na Extended [Dilantin -] 100 mg PO TID 05/06/17 Quetiapine Fumarate [Seroquel -] 200 mg PO HS 05/06/17 Verapamil HCl [Verapamil ER] 240 mg PO BID 05/06/17 Quetiapine Fumarate [Seroquel -] 200 mg PO HS #30 tab 05/07/17 ASSESSMENT AND PLAN: 62 M with pmhx of HTN, ETOH Abuse, COPD, Seizures due to Etoh withdrawl, GERD, HCV, and gallstones presents with AMS found to have bilateral pna 1.) AMS - Most likely due to polysubstance abuse - CIWA once pt. is more alert - Detox Consult - Banana bagm Thiamine, Folic A - Hold Flexaril 2.) Hypoxia - Most likely due to PNA, less likely COPD Exacerbation - ABG - CT Chest if no improvement 3.) Community Aquired Pna - Administered Vanco/Zosyn in ED - Chong cx - Urine Ag - Can switch to Ceftriaxone, Azithromycin in am 4.) ZEFERINO - IVF-Gentle - Hold HCTZ - IF no improvement can chk U. Lytes 5.) Seizure DO - C/W home meds - CHk. Dilantin levels 4.) HTN - Hold HCTZ - Continue other home meds 5.) COPD - Not in Exacerbation - C/W Nebs 5.) Dvt Ppx - Low risk SCDs Place in Med-Sx
--- NOTE | 2017-05-14 21:12 | HP ---
Admitting History and Physical - Admission History of Present Illness: 62yo M with significant history of COPD, Polysubstance abuse, seizures secondary to withdrawals, and HTN who was brought in by EMS when his friend found him with altered mental status, hypoxic, and in the bathroom at a homeless senior care he was donating to. Pt currently is fully alert and not confused, however he does not recall any of the events that occurred to bring him here. Pt states his friend brought him here for his knee pain that is related to his arthritis. He states recently he has been coughing up green- brown mucous, however he has had his cough ever since he was diagnosed with COPD. Pt admits to a long-term history of polysubstance abuse with his last drink at 2:00am 05/14 and last use of cocaine at 12:00am 05/14. Pt states he learned the cocaine was laced with other illicit drug after he had inhaled it. Denies any other symptoms including fever/chills, diarrhea/ constipation, dyspnea on exertion, headache, palpitations. ER Course notable for: 1) Vancomycin and Zosyn x1 dose administered 2) CXR revealing bilateral opacities without cardiomegaly 3) Knee Xray showing L knee with moderate degenerative changes 4) Labs - Lactic acidosis of 4.7, second LA pending 5) Increasing lucency in pt since first seen 6) Utox - Alcohol quant +, Opiates +, Benzo +, Cocaine +, Marijuana + History Source: Patient, Medical Record - Past Medical History Cardiovascular: Yes: HTN Pulmonary: Yes: COPD Gastrointestinal: Yes: GERD - Smoking History Smoking history: Current every day smoker Have you smoked in the past 12 months: Yes Aproximately how many cigarettes per day: 10 - Alcohol/Substance Use Hx Alcohol Use: Yes Home Medications - Allergies Allergies/Adverse Reactions: Allergies Allergy/AdvReac Type Severity Reaction Status Date / Time No Known Allergies Allergy Verified 05/14/17 15:57 - Home Medications Home Medications: Ambulatory Orders Aspirin [ASA -] 81 mg PO DAILY #30 tab.chew 04/08/15 Albuterol Sulfate Inhaler - [Ventolin Hfa Inhaler -] 2 inh PO Q4H PRN 05/06/17 Cyclobenzaprine HCl [Flexeril -] 10 mg PO TID 05/06/17 Gabapentin [Neurontin -] 300 mg PO Q8H 05/06/17 Hydrochlorothiazide [Hctz -] 25 mg PO DAILY 05/06/17 Omeprazole 20 mg PO DAILY 05/06/17 Phenobarbital - 30 mg PO BID 05/06/17 Phenytoin Na Extended [Dilantin -] 100 mg PO TID 05/06/17 Quetiapine Fumarate [Seroquel -] 200 mg PO HS 05/06/17 Verapamil HCl [Verapamil ER] 240 mg PO BID 05/06/17 Quetiapine Fumarate [Seroquel -] 200 mg PO HS #30 tab 05/07/17 Family Disease History - Family Disease History Family Disease History: Heart Disease: Father (), CA: Mother () Physical Examination Vital Signs: Vital Signs Temperature 98.8 F 05/14/17 15:53 Pulse Rate 98 H 05/14/17 20:54 Respiratory Rate 22 05/14/17 20:54 Blood Pressure 115/77 05/14/17 20:54 O2 Sat by Pulse Oximetry (%) 93 L 05/14/17 20:54 Constitutional: Yes: No Distress, Calm, Other (Resting comfortably with food at bedside) Eyes: Yes: Conjunctiva Clear, EOM Intact, PERRL HENT: Yes: Atraumatic, Normocephalic, Thrush, Other (Moist mucosa) Cardiovascular: Yes: Tachycardia (regular rhythm). No: Murmur Respiratory: Yes: Regular, Cough, On Nasal O2 (2.5L NC), Rhonchi (throughout all lung castillo). No: Accessory Muscle Use Gastrointestinal: Yes: Normal Bowel Sounds, Soft. No: Tenderness Edema: No Peripheral Pulses WNL: Yes Neurological: Yes: Alert, Oriented (oriented x3) Psychiatric: Yes: Alert, Oriented (x3) Labs: CBC, BMP 05/14/17 16:31 05/14/17 16:31 Imaging - Results Chest X-ray: Image Reviewed X-ray: Image Reviewed EKG: Image Reviewed Assessment/Plan 62yo M w/ pmhx of polysubstance abuse, COPD, alcohol withdrawal seizures who presented to the ER as hypoxic and altered. PT currently alert and not confused at this point. CXR shows b/l infilitrates/opacities. Knee XR shows mod osteoarthritis/degen changes. LA 4.7, 2.2. Utox + for cocaine, benzo, opiate, marijuana. Alcohol quant + # Altered mental status --Resolved --Pt is currently alert and oriented x3 --Most likely due to intoxication as alcohol quantitative was positive, but minimal --Resume regular diet in light of resolution # Hypoxia --Currently 2.5L NC SpO2 92% --Titrate to SpO2 >90% --History of COPD, but hypoxemia driven due to b/l opacities --Duonebs PRN --No steroids needed for current management # Sepsis 2/2 CAPna --Rocephin 1g IV q24h --Azithromycin 500mg IV qDaily --Lactic acidosis trending down; will continue to trend until normal --Gentle hydration due to underlying congestion on xray --Gentle boluses if needed --Blood Cx's x2 drawn, Urine culture # ZEFERINO --Cr 1.4; baseline ~0.8 from prior records --Most likely due to dehydration from sepsis pneumonia --Gentle boluses --Avoid nephrotoxic agents --Holding home HCTZ --Trend BMP --Urine electrolytes if not improving # Polysubstance abuse --CIWA 0 currently; Benzo + in Utox --Will follow and add librium taper if needed --Consulted En --Banana bag being administered currently --Folic acid daily --Thiamine daily --Low dosage nicotine patch ordered --Smoking cessation counselling --Holding home Flexeril # HTN --Continue home Verapamil 240mg PO BID --Vitals q4h FEN: Fluids: Gentle boluses if needed due to underlying congestion on CXR Electrolyte abnormalities: None currently Nutrition: Regular diet (AMS has resolved) PPX: DVT - SCDs both legs due to fall risk GI - Not truly needed; will continue home PPI for GERD Dispo: Admit to M/S Visit type - Emergency Visit Emergency Visit: Yes ED Registration Date: 05/14/17 Care time: The patient presented to the Emergency Department on the above date and was hospitalized for further evaluation of their emergent condition. - New Patient This patient is new to me today: Yes Date on this admission: 05/15/17 - Critical Care Critical Care patient: No
[2017-05-14] MEDS ORDERED: ALBUTEROL SO4 2.5/IPRATROPIUM 0.5 INH SOL 3 ML VIAL.NEB. NEB PRN (22:14)
[2017-05-14] MEDS: VERAPAMIL HCL 240 MG E.R. TABLET (FP) PO SCH (23:09)
[2017-05-14] MEDS: NICOTINE 7 MG/24 HOURS TOPICAL PATCH TD SCH (23:10)
[2017-05-14] MEDS: GABAPENTIN 300 MG CAPSULE (FP) PO SCH (23:10)
[2017-05-14] MEDS: QUEtiapine FUMARATE 200 MG TABLET PO SCH (23:10)
[2017-05-14] MEDS: NYSTATIN 500,000 UNITS/5 ML SUSPENSION PO SCH (23:10)
[2017-05-15] MEDS: GABAPENTIN 300 MG CAPSULE (FP) PO SCH ×3 (06:03→21:26)
[2017-05-15] MEDS ORDERED: chlordiazePOXIDE HCL 25 MG CAPSULE PO PRN (09:32)
[2017-05-15] MEDS ORDERED: chlordiazePOXIDE HCL 25 MG CAPSULE PO ONE (09:32)
[2017-05-15] MEDS ORDERED: PT OWN MED DRAWER 7, Y5N ONE ×3 (10:10→20:56)
[2017-05-15] MEDS ORDERED: cefTRIAXone SODIUM 1 GM VIAL ONE (10:10)
[2017-05-15] MEDS ORDERED: DEXTROSE 5%-WATER - 50 ML IVPB ONE (10:11)
[2017-05-15] MEDS: NYSTATIN 500,000 UNITS/5 ML SUSPENSION PO SCH (10:15)
[2017-05-15] MEDS: VERAPAMIL HCL 240 MG E.R. TABLET (FP) PO SCH ×2 (10:15→21:26)
[2017-05-15] MEDS: AZITHROMYCIN IVPB 250 ML IVPB SCH (10:15)
[2017-05-15] MEDS: ASPIRIN 81 MG CHEWABLE TABLETS PO SCH (10:15)
[2017-05-15] MEDS: FOLIC ACID 1 MG TABLET (FP) PO SCH (10:15)
[2017-05-15] MEDS: PANTOPRAZOLE 20 MG TABLET (FP) PO SCH (10:16)
[2017-05-15] MEDS: CEFTRIAXONE 1 GM in DEXTROSE 5%-WATER - 50 ML IVPB SCH (10:16)
[2017-05-15] MEDS: THIAMINE HCL 100 MG TABLET (FP) PO SCH (10:16)
[2017-05-15] MEDS: NICOTINE 7 MG/24 HOURS TOPICAL PATCH TD SCH (10:17)
[2017-05-15] MEDS: chlordiazePOXIDE HCL 25 MG CAPSULE PO SCH ×3 (11:06→22:26)
[2017-05-15 12:09] LABS: ALBUMIN 3.4 g/dl (3.4-5.0); ALK PHOS 86 U/L (45-117); ANION GAP 6 (8-16); BILIRUBIN,TOTAL 0.3 mg/dL (0.2-1.0); CALCIUM 9.3 mg/dL (8.5-10.1); CO2 28 mmol/L (21-32); CREATININE 0.9 mg/dL (0.7-1.3); GLUCOSE,RANDOM 97 mg/dL (74-106); SGOT/AST 17 U/L (15-37); SGPT/ALT 18 U/L (12-78); TOT PROT 7.3 g/dl (6.4-8.2)
--- NOTE | 2017-05-15 12:54 | EKG ---
Test Reason : Blood Pressure : / mmHG Vent. Rate : 116 BPM Atrial Rate : 116 BPM P-R Int : 166 ms QRS Dur : 076 ms QT Int : 308 ms P-R-T Axes : 040 -15 034 degrees QTc Int : 428 ms SINUS TACHYCARDIA POSSIBLE INFERIOR INFARCT , AGE UNDETERMINED POSSIBLE ANTERIOR INFARCT , AGE UNDETERMINED ABNORMAL ECG Confirmed by MD KAT, CLARISSA ([id number]) on 05/15/2017 12:54:23 PM Referred By: Confirmed By:CLARISSA STEPHENS MD
[2017-05-15 12:55] LABS: BASOPHIL 0.4 % (0-2.0); EOSINOPHIL 4.9 % (0-4.5); MCH 30.6 pg (25.7-33.7); MCHC 32.9 g/dl (32.0-35.9); MEAN CELL VOLUME 93.1 fl (80-96); MEAN PLT VOLUME 8.8 fl (7.5-11.1); NEUTROPHILS 56.8 % (42.8-82.8); PLATELET COUNT 211 K/MM3 (134-434); RDW 14.9 % (11.9-15.9); WHITE BLOOD COUNT 6.3 K/mm3 (4.0-10.0)
[2017-05-15] MEDS: ACETAMINOPHEN 325 MG TABLET (FP) PO PRN (13:22)
--- NOTE | 2017-05-15 13:23 | PN ---
Physical Exam: SUBJECTIVE: Patient seen and examined at bedside. No acute events overnight. Pt complains of vague mild abdominal discomfort. When asked, pt admits to feeling sweaty and slightly anxious. Initially pt stated he drank "occasionally", but on further questioning, pt admits to drinking a quart of vodka and a 6-pack of beer per day. No other complaints. Denies headache, cp, sob, vomiting. OBJECTIVE: Vital Signs Period Temp Pulse Resp BP Sys/Causey Pulse Ox Last 24 Hr 97.8 F-98 F 72-98 16-22 100-123/68-86 93-93 Limited physical exam due to lack of cooperation by patient GENERAL: rousable and somnolent, AAOx3, in no acute distress. HEAD: Normal with no signs of trauma. EYES: PERRLA, extraocular movements intact, sclera anicteric, conjunctiva clear. No ptosis. ENT: nares patent, oropharynx clear without exudates, moist mucous membranes. NECK: Trachea midline, full range of motion, supple. LUNGS: Breath sounds equal, clear to auscultation bilaterally, no wheezes, no crackles, no accessory muscle use. HEART: Regular rate and rhythm, S1, S2 without murmur, rub or gallop. ABDOMEN: Soft,nontender, nondistended, normoactive bowel sounds, no guarding, no rebound, no hepatosplenomegaly, no masses. EXTREMITIES: 2+ pulses, warm, well-perfused, no edema. NEUROLOGICAL: Cranial nerves II through XII grossly intact. Normal speech, gait not observed. PSYCH: Normal mood, normal affect. SKIN: Warm, dry, normal turgor, no rashes or lesions noted Laboratory Results - last 24 hr 05/14/17 05/15/17 05/15/17 23:20 11:35 11:35 WBC RBC Hgb Hct MCV MCH MCHC RDW Plt Count MPV Neutrophils % Lymphocytes % Monocytes % Eosinophils % Basophils % Sodium 139 Potassium 4.5 Chloride 105 Carbon Dioxide 28 Anion Gap 6 L BUN 9 Creatinine 0.9 D Creat Clearance w eGFR > 60 Random Glucose 97 Lactic Acid 1.8 Calcium 9.3 Total Bilirubin 0.3 D AST 17 ALT 18 Alkaline Phosphatase 86 Total Protein 7.3 Albumin 3.4 Phenytoin < 2.5 L 05/15/17 12:20 WBC 6.3 D RBC 4.39 Hgb 13.5 D Hct 40.9 MCV 93.1 MCH 30.6 MCHC 32.9 RDW 14.9 Plt Count 211 D MPV 8.8 Neutrophils % 56.8 D Lymphocytes % 29.1 D Monocytes % 8.8 Eosinophils % 4.9 H D Basophils % 0.4 Sodium Potassium Chloride Carbon Dioxide Anion Gap BUN Creatinine Creat Clearance w eGFR Random Glucose Lactic Acid Calcium Total Bilirubin AST ALT Alkaline Phosphatase Total Protein Albumin Phenytoin Active Medications Generic Name Dose Route Start Last Admin Trade Name Freq PRN Reason Stop Dose Admin Acetaminophen 650 mg 05/14/17 20:45 Tylenol - PO Q4H PRN FEVER OR PAIN Albuterol/Ipratropium 1 amp 05/14/17 22:14 Duoneb - NEB Q6H PRN SHORTNESS OF BREATH Aspirin 81 mg 05/15/17 10:00 05/15/17 10:15 Asa - PO 81 mg DAILY NICO Administration Chlordiazepoxide HCl 25 mg 05/15/17 09:32 Librium - PO 05/18/17 09:31 Q4H PRN WITHDRAWAL(CONT SUBST) Chlordiazepoxide HCl 50 mg 05/15/17 11:00 05/15/17 11:06 Librium - PO 05/16/17 05:01 Not Given [id number] NICO Chlordiazepoxide HCl 25 mg 05/16/17 11:00 Librium - PO 05/17/17 05:01 [id number] NICO Chlordiazepoxide HCl 15 mg 05/17/17 11:00 Librium - PO 05/18/17 05:01 [id number] NICO Folic Acid 1 mg 05/15/17 10:00 05/15/17 10:15 Folic Acid - PO 1 mg DAILY NICO Administration Gabapentin 300 mg 05/14/17 22:30 05/15/17 06:03 Neurontin - PO 300 mg TID NICO Administration Azithromycin 250 mls @ 250 mls/hr 05/15/17 10:00 05/15/17 10:15 Zithromax 500mg Ivpb (Pre-Docked) IVPB 250 mls/hr DAILY NICO Administration Ceftriaxone Sodium 1 gm/ 50 mls @ 100 mls/hr 05/15/17 10:00 05/15/17 10:16 Dextrose IVPB 100 mls/hr DAILY NICO Administration Nicotine 7 mg 05/14/17 22:00 05/15/17 10:17 Nicoderm Patch - TD 7 mg DAILY NICO Administration Nystatin 500,000 units 05/14/17 22:00 05/15/17 10:15 Nystatin Oral Suspension - PO 500,000 units DAILY NICO Administration Pantoprazole Sodium 20 mg 05/15/17 10:00 05/15/17 10:16 Protonix - PO 20 mg DAILY NICO Administration Quetiapine Fumarate 200 mg 05/14/17 22:00 05/14/17 23:10 Seroquel - PO 200 mg HS NICO Administration Thiamine HCl 100 mg 05/15/17 10:00 05/15/17 10:16 Vitamin B1 - PO 100 mg DAILY NICO Administration Verapamil HCl 240 mg 05/14/17 22:00 05/15/17 10:15 Calan Sr - PO 240 mg BID NICO Administration ASSESSMENT/PLAN: 62yo M w/ pmhx of polysubstance abuse, COPD, alcohol withdrawal seizures who presented to the ER as hypoxic and altered. PT currently alert and not confused at this point. CXR shows b/l infilitrates/opacities. Knee XR shows mod osteoarthritis/degen changes. LA 4.7, 2.2. Utox + for cocaine, benzo, opiate, marijuana. Alcohol quant + # Polysubstance abuse -Utox pos for multiple substances -Pt reports consumption of large volumes of alcohol until tomorrow -librium taper -Consulted En -Folic acid daily -Thiamine daily -Low dosage nicotine patch ordered -Smoking cessation counselling -Holding home Flexeril # Hypoxia -Currently 2.5L NC SpO2 93% -Titrate to SpO2 >90% -History of COPD, but hypoxemia driven due to b/l opacities -Duonebs PRN -No steroids needed for current management #possible CAP -Rocephin 1g IV q24h -Azithromycin 500mg IV qDaily -Gentle hydration due to underlying congestion on xray -Blood Cx's x2 drawn, Urine culture # HTN -Continue home Verapamil 240mg PO BID -Vitals q4h # ZEFERINO: Resolved -Cr 1.4-> 0.9; baseline ~0.8 from prior records -Most likely due to dehydration from sepsis pneumonia -Avoid nephrotoxic agents -Holding home HCTZ # Altered mental status: Resolved -Pt is currently alert and oriented x3 -Most likely due to intoxication as alcohol quantitative was positive, but minimal -Resume regular diet in light of resolution # Lactic acidosis: resolved -LA 4.7 -> 1.8 FEN: - Fluids: Gentle boluses if needed due to underlying congestion on CXR - Electrolyte abnormalities: None currently - Nutrition: Regular diet (AMS has resolved) PPX: DVT - SCDs both legs due to fall risk GI - Not truly needed; will continue home PPI for GERD Dispo: Admit to M/S Visit type - Emergency Visit Emergency Visit: No - New Patient This patient is new to me today: Yes Date on this admission: 05/15/17 - Critical Care Critical Care patient: No - Discharge Referral Referred to [facility] Med [facility] No
[2017-05-15] MEDS ORDERED: MAG HYDROX/AL HYDROX/SIMETH 30 ML UNIT-DOSE CUP PO ONE (14:07)
--- NOTE | 2017-05-15 14:25 | CONSULT ---
Consult Detox [facility] Reason for Current Admission/Consult: 62 y/o m pt admitted to 8w 2nd to hypoxia and AMS . Has h/o chronic alcoholism/polysubstance abuse and withdrawal sz's. - History History of Present Illness: M.pt with h/o chronic alcoholism reports 6 yrs sobriety , relapsed about 2 yrs ago . Since then he states drinking 2 pints of vodka and 2 six packs of beer / d. Went to detox 1yr. ago . Had no f/up services and started drinking again. - History Source History Provided By: Patient Limitations to Obtaining History: No Limitations - Alcohol/Substance Use Hx Alcohol Use: Yes Hx Substance Use: Yes Hx Substance Use Treatment: Yes ([facility] treatment center 2016) - Current Drug/Alcohol Use Alcohol Route: Oral Frequency: Daily Amount used: vodka 2 pts./d;beer 2 six pks /d Age of first use: 11 Date of Last Use: 05/14/17 - Past Medical History Cardio/Vascular: Yes: HTN Pulmonary: Yes: COPD Gastrointestinal: Yes: GERD Musculoskeletal: Yes: Osteoarthritis (left knee) - Significant Medical Findings: 62 y/o m pt aox3 ,w/o lying in bed c/o left knee pain pt w/o tremor, diaphoresis, pt is not agitated but calm states he recieved librium and is tolerating it well w/o withdrawl or sz. CIWA Score - CIWA Score Nausea/Vomitin-Mild Nausea/No Vomiting Muscle Tremors: 1-None Visible, but [place] Anxiety: 2 Agitation: 1-Slight > Activity Paroxysmal Sweats: 1-Minimal Palms Moist Orientation: 0-Oriented Tacttile Disturbances: 2-Mild Itch/Numbness/Burn Auditory Disturbances: 0-None Visual Disturbances: 0-None Headache: 0-None Present CIWA-Ar Total Score: 8 Assessment Plan - Diagnosis (1) Alcohol dependence with uncomplicated withdrawal Status: Chronic Comment: Pt has been to rehab in the past but does not want it at this time .States he adriano be attending AA once he is d/c'ed . Pt strongly encouraged to obtain in patient or out patient f/up treatment for chronic alcoholism upon completion of detox with librium. (2) Essential hypertension Status: Chronic Comment: stable, on meds, sees new primary at [facility] (3) GERD (gastroesophageal reflux disease) Status: Chronic Qualifiers: Esophagitis presence: esophagitis presence not specified Qualified Code(s): K21.9 - Gastro-esophageal reflux disease without esophagitis Comment: doing well with prilosec to f/u with GI, cont activia, probiotics not covered, (4) Hepatitis C Status: Chronic Qualifiers: Hepatic coma status: without hepatic coma - Plan Plan: alcohol detox with librium protocol. - Medication Detox Regimen/Protocol: Librium
--- NOTE | 2017-05-15 16:46 | PN ---
Teaching Attending Note Name of Resident: Rakesh Styles ATTENDING PHYSICIAN STATEMENT I saw and evaluated the patient. I reviewed the resident's note and discussed the case with the resident. I agree with the resident's findings and plan as documented. SUBJECTIVE: Patient has no complaints. OBJECTIVE: Vital Signs Period Temp Pulse Resp BP Sys/Causey Pulse Ox Last 24 Hr 97.8 F-98.4 F 72-110 16-24 100-125/68-100 92-98 HEART: S1S2, RRR LUNGS: Clear ABDOMEN: Soft, non-tender, non-distended, normal BS EXTREMITIES: No edema ASSESSMENT AND PLAN: This is a 62 year old man with a history of polysubstance abuse, COPD, alcohol withdrawal seizures who presented to the ER with confusion. 1. Acute metabolic encephalopathy secondary to substance abuse, sepsis, hypoxia - Improved 2. Acute hypoxic respiratory failure secondary to pneumonia - Continue oxygen to maintain saturation > 90% - Continue Rocephin, Zithromax, DuoNeb as needed 3. Severe sepsis (tachypnea, tachycardia, lactic acidosis) secondary to pneumonia - HR, RR, lactic acid improved - Continue Rocephin, Zithromax - If no improvement, consider changing abx to cover aspiration 4. Acute kidney injury secondary to dehydration, sepsis - Improved with IV fluid 5. Alcohol intoxication - Resolved 6. Alcohol withdrawal - Continue Librium detox 7. Polysubstance abuse - Continue thiamine, folic acid, nicotine patch 8. HTN - Continue Verapamil 9. COPD - Stable - Continue DuoNeb as needed
[2017-05-15] MEDS ORDERED: chlordiazePOXIDE 5 MG CAPSULE PO STA (17:17)
[2017-05-15] MEDS ORDERED: ONDANSETRON 4 MG/2 ML VIAL IVPUSH PRN (17:18)
[2017-05-15] MEDS ORDERED: chlordiazePOXIDE HCL 25 MG CAPSULE PO STA (17:53)
[2017-05-15] MEDS: MAG HYDROX/AL HYDROX/SIMETH 30 ML UNIT-DOSE CUP PO PRN (20:24)
[2017-05-15] MEDS: QUEtiapine FUMARATE 200 MG TABLET PO SCH (21:26)
[2017-05-16] MEDS: MAG HYDROX/AL HYDROX/SIMETH 30 ML UNIT-DOSE CUP PO PRN ×3 (02:02→17:07)
[2017-05-16] MEDS: ACETAMINOPHEN 325 MG TABLET (FP) PO PRN ×2 (03:44→19:59)
[2017-05-16] MEDS: chlordiazePOXIDE HCL 25 MG CAPSULE PO SCH ×4 (06:04→22:39)
[2017-05-16] MEDS: GABAPENTIN 300 MG CAPSULE (FP) PO SCH ×3 (06:05→22:40)
[2017-05-16] MEDS ORDERED: PT OWN MED DRAWER 7, Y5N ONE ×2 (09:32→22:35)
[2017-05-16] MEDS ORDERED: cefTRIAXone SODIUM 1 GM VIAL ONE (09:32)
[2017-05-16] MEDS ORDERED: DEXTROSE 5%-WATER - 50 ML IVPB ONE (09:33)
[2017-05-16] MEDS: ASPIRIN 81 MG CHEWABLE TABLETS PO SCH ×2 (09:36→09:50)
[2017-05-16] MEDS: VERAPAMIL HCL 240 MG E.R. TABLET (FP) PO SCH ×2 (09:37→22:39)
[2017-05-16] MEDS: PANTOPRAZOLE 20 MG TABLET (FP) PO SCH (09:37)
[2017-05-16] MEDS: NYSTATIN 500,000 UNITS/5 ML SUSPENSION PO SCH (09:37)
[2017-05-16] MEDS: FOLIC ACID 1 MG TABLET (FP) PO SCH (09:37)
[2017-05-16] MEDS: THIAMINE HCL 100 MG TABLET (FP) PO SCH (09:38)
[2017-05-16] MEDS: CEFTRIAXONE 1 GM in DEXTROSE 5%-WATER - 50 ML IVPB SCH (09:38)
[2017-05-16] MEDS: AZITHROMYCIN IVPB 250 ML IVPB SCH (09:39)
[2017-05-16] MEDS: NICOTINE 7 MG/24 HOURS TOPICAL PATCH TD SCH (09:40)
[2017-05-16] MEDS: CYCLOBENZAPRINE HCL 10 MG TABLET (FP) PO PRN ×2 (13:10→22:42)
--- NOTE | 2017-05-16 14:21 | PN ---
Physical Exam: SUBJECTIVE: Patient seen and examined at bedside. No acute events overnight. Pt complains of vague mild abdominal discomfort. Pt also has rhinorrhea. No other complaints at this time. Denies headache, cp, sob, diarrhea, fever. OBJECTIVE: Vital Signs Period Temp Pulse Resp BP Sys/Causey Pulse Ox Last 24 Hr 97.9 F-98.8 F 79-88 18-20 125-156/79-96 GENERAL: The patient is awake, alert, and fully oriented, in no acute distress. HEAD: Normal with no signs of trauma. EYES: sclera anicteric, conjunctiva clear. No ptosis. ENT: nares patent, oropharynx clear without exudates, moist mucous membranes. NECK: Trachea midline, full range of motion, supple. LUNGS: Breath sounds equal, clear to auscultation bilaterally, no wheezes, no crackles, no accessory muscle use. HEART: Regular rate and rhythm, S1, S2 without murmur, rub or gallop. ABDOMEN: Soft, nontender, nondistended, normoactive bowel sounds, no guarding, no rebound, no hepatosplenomegaly, no masses. EXTREMITIES: 2+ pulses, warm, well-perfused, no edema. NEUROLOGICAL: Cranial nerves II through XII grossly intact. Normal speech, gait not observed. PSYCH: Normal mood, normal affect. SKIN: Warm, dry, normal turgor, no rashes or lesions noted Active Medications Generic Name Dose Route Start Last Admin Trade Name Freq PRN Reason Stop Dose Admin Acetaminophen 650 mg 05/14/17 20:45 05/16/17 03:44 Tylenol - PO 650 mg Q4H PRN Administration FEVER OR PAIN Al Hydroxide/Mg Hydroxide 30 ml 05/15/17 20:07 05/16/17 09:41 Mylanta Oral Suspension - PO 30 ml Q6H PRN Administration DYSPEPSIA Albuterol/Ipratropium 1 amp 05/14/17 22:14 Duoneb - NEB Q6H PRN SHORTNESS OF BREATH Aspirin 81 mg 05/15/17 10:00 05/16/17 09:50 Asa - PO Not Given DAILY NICO Chlordiazepoxide HCl 25 mg 05/15/17 09:32 Librium - PO 05/18/17 09:31 Q4H PRN WITHDRAWAL(CONT SUBST) Chlordiazepoxide HCl 25 mg 05/16/17 11:00 05/16/17 11:19 Librium - PO 05/17/17 05:01 25 mg [id number] NICO Administration Chlordiazepoxide HCl 15 mg 05/17/17 11:00 Librium - PO 05/18/17 05:01 [id number] NICO Chlordiazepoxide HCl 10 mg 05/19/17 05:01 Librium - PO 05/19/17 18:01 Q6HPO NICO Cyclobenzaprine HCl 10 mg 05/16/17 11:27 05/16/17 13:10 Flexeril - PO 10 mg TID PRN Administration MUSCLE SPASMS Folic Acid 1 mg 05/15/17 10:00 05/16/17 09:37 Folic Acid - PO 1 mg DAILY NICO Administration Gabapentin 300 mg 05/14/17 22:30 05/16/17 13:09 Neurontin - PO 300 mg TID NICO Administration Azithromycin 250 mls @ 250 mls/hr 05/15/17 10:00 05/16/17 09:39 Zithromax 500mg Ivpb (Pre-Docked) IVPB 250 mls/hr DAILY NICO Administration Ceftriaxone Sodium 1 gm/ 50 mls @ 100 mls/hr 05/15/17 10:00 05/16/17 09:38 Dextrose IVPB 100 mls/hr DAILY NICO Administration Methyl Salicylate 1 applic 05/16/17 13:00 Moises-Pratt - TP DAILY NICO Nicotine 7 mg 05/14/17 22:00 05/16/17 09:40 Nicoderm Patch - TD 7 mg DAILY NICO Administration Nystatin 500,000 units 05/14/17 22:00 05/16/17 09:37 Nystatin Oral Suspension - PO 500,000 units DAILY NICO Administration Ondansetron HCl 4 mg 05/15/17 17:18 05/15/17 17:50 Zofran Injection IVPUSH 4 mg Q6H PRN Administration NAUSEA AND/OR VOMITING Pantoprazole Sodium 20 mg 05/15/17 10:00 05/16/17 09:37 Protonix - PO 20 mg DAILY NICO Administration Quetiapine Fumarate 200 mg 05/14/17 22:00 05/15/17 21:26 Seroquel - PO 200 mg HS NICO Administration Thiamine HCl 100 mg 05/15/17 10:00 05/16/17 09:38 Vitamin B1 - PO 100 mg DAILY NICO Administration Verapamil HCl 240 mg 05/14/17 22:00 05/16/17 09:37 Calan Sr - PO 240 mg BID NICO Administration ASSESSMENT/PLAN: 62yo M w/ pmhx of polysubstance abuse, COPD, alcohol withdrawal seizures who presented to the ER as hypoxic and altered. PT currently alert and not confused at this point. CXR shows b/l infilitrates/opacities. Knee XR shows mod osteoarthritis/degen changes. LA 4.7, 2.2. Utox + for cocaine, benzo, opiate, marijuana. Alcohol quant + # Polysubstance abuse -Utox pos for multiple substances -Pt reports consumption of large volumes of alcohol -Consulted En -Folic acid & Thiamine daily -Low dosage nicotine patch ordered -librium taper # Hypoxia -Currently 2.5L NC SpO2 93% -Titrate to SpO2 >90% -History of COPD -Duonebs PRN -No steroids needed for current management #Possible CAP -Rocephin, Azithromycin -Blood Cx's x2 drawn, Urine culture # HTN -Continue home Verapamil 240mg PO BID -Vitals q4h # ZEFERINO: Resolved -Cr 1.4-> 0.9; baseline ~0.8 from prior records -Most likely due to dehydration from sepsis pneumonia -Avoid nephrotoxic agents -Holding home HCTZ # Altered mental status: Resolved -Pt is currently alert and oriented x3 -Most likely due to intoxication as alcohol quantitative was positive, but minimal -Resume regular diet in light of resolution # Lactic acidosis: resolved -LA 4.7 -> 1.8 FEN: - Fluids: no on fluids - Electrolyte abnormalities: None currently - Nutrition: Regular diet (AMS has resolved) PPX: DVT - SCDs both legs due to fall risk GI - Not truly needed; will continue home PPI for GERD Dispo: Admit to M/S Visit type - Emergency Visit Emergency Visit: No - New Patient This patient is new to me today: No - Critical Care Critical Care patient: No - Discharge Referral [facility]erred to [facility] Med P.C.: No
[2017-05-16] MEDS: LORATADINE 10 MG TABLET PO SCH (15:20)
[2017-05-16] MEDS: METHYL SALICYLATE/MENTHOL OINT 30 GM TUBE TP SCH (15:21)
--- NOTE | 2017-05-16 15:52 | PN ---
Teaching Attending Note Name of Resident: Rakesh Styles ATTENDING PHYSICIAN STATEMENT I saw and evaluated the patient. I reviewed the resident's note and discussed the case with the resident. I agree with the resident's findings and plan as documented. SUBJECTIVE: Patient complains of abdominal pain for which he says he applies BenGay at home with relief. OBJECTIVE: Vital Signs Period Temp Pulse Resp BP Sys/Causey Pulse Ox Last 24 Hr 97.9 F-98.8 F 80-88 20-20 130-156/79-97 HEART: S1S2, RRR LUNGS: Clear ABDOMEN: Soft, non-tender, non-distended, normal BS EXTREMITIES: No edema ASSESSMENT AND PLAN: This is a 62 year old man with a history of polysubstance abuse, COPD, alcohol withdrawal seizures, GERD, hepatitis C who presented to the ER with confusion. 1. Acute metabolic encephalopathy secondary to substance abuse, sepsis, hypoxia - Resolved 2. Acute hypoxic respiratory failure secondary to pneumonia - Continue oxygen to maintain saturation > 90% - Continue Rocephin, Zithromax, DuoNeb as needed 3. Severe sepsis (tachypnea, tachycardia, lactic acidosis) secondary to pneumonia - Afebrile - HR, RR, lactic acid improved - Continue Rocephin, Zithromax 4. Acute kidney injury secondary to dehydration, sepsis - Improved with IV fluid 5. Alcohol intoxication - Resolved 6. Alcohol withdrawal - Continue Librium detox 7. Polysubstance abuse - Continue thiamine, folic acid, nicotine patch 8. HTN - Continue Verapamil 9. COPD - Stable - Continue DuoNeb as needed 10. GERD - Continue Protonix 11. Hepatitis C
[2017-05-16] MEDS: QUEtiapine FUMARATE 200 MG TABLET PO SCH (22:39)
[2017-05-17] MEDS: chlordiazePOXIDE HCL 25 MG CAPSULE PO SCH (06:26)
[2017-05-17] MEDS: GABAPENTIN 300 MG CAPSULE (FP) PO SCH ×3 (06:26→23:05)
[2017-05-17 07:36] LABS: BASOPHIL 0.5 % (0-2.0); EOSINOPHIL 3.9 % (0-4.5); MCH 30.8 pg (25.7-33.7); MCHC 33.5 g/dl (32.0-35.9); MEAN CELL VOLUME 91.8 fl (80-96); MEAN PLT VOLUME 8.5 fl (7.5-11.1); NEUTROPHILS 47.8 % (42.8-82.8); PLATELET COUNT 249 K/MM3 (134-434); RDW 14.9 % (11.9-15.9); WHITE BLOOD COUNT 7.2 K/mm3 (4.0-10.0)
[2017-05-17 08:20] LABS: ALBUMIN 3.2 g/dl (3.4-5.0); ANION GAP 8 (8-16); CALCIUM 8.8 mg/dL (8.5-10.1); CO2 27 mmol/L (21-32); GLUCOSE,RANDOM 89 mg/dL (74-106)
[2017-05-17 08:25] LABS: ALK PHOS 67 U/L (45-117); BILIRUBIN,TOTAL 0.6 mg/dL (0.2-1.0); CREATININE 0.8 mg/dL (0.7-1.3); SGOT/AST 13 U/L (15-37); SGPT/ALT 15 U/L (12-78); TOT PROT 6.7 g/dl (6.4-8.2)
--- NOTE | 2017-05-17 09:21 | PN ---
Physical Exam: SUBJECTIVE: Patient seen and examined. Abdominal pain is better. OBJECTIVE: Vital Signs Period Temp Pulse Resp BP Sys/Causey Pulse Ox Last 24 Hr 98.0 F-99.3 F 73-92 18-20 118-130/73-97 GENERAL: The patient is awake, alert, and fully oriented, in no acute distress. LUNGS: Breath sounds equal, clear to auscultation bilaterally, no wheezes, no crackles, no accessory muscle use. HEART: Regular rate and rhythm, S1, S2 without murmur, rub or gallop. ABDOMEN: Soft, nontender, nondistended, normoactive bowel sounds, no guarding, no rebound, no hepatosplenomegaly, no masses. EXTREMITIES: 2+ pulses, warm, well-perfused, no edema. Laboratory Results - last 24 hr 05/17/17 05/17/17 06:30 06:30 WBC 7.2 RBC 4.68 Hgb 14.4 Hct 42.9 MCV 91.8 MCH 30.8 MCHC 33.5 RDW 14.9 Plt Count 249 MPV 8.5 Neutrophils % 47.8 Lymphocytes % 40.2 H D Monocytes % 7.6 Eosinophils % 3.9 Basophils % 0.5 Sodium 142 Potassium 3.7 Chloride 107 Carbon Dioxide 27 Anion Gap 8 BUN 3 L D Creatinine 0.8 Creat Clearance w eGFR > 60 Random Glucose 89 Calcium 8.8 Total Bilirubin 0.6 D AST 13 L D ALT 15 Alkaline Phosphatase 67 D Total Protein 6.7 Albumin 3.2 L Active Medications Generic Name Dose Route Start Last Admin Trade Name Freq PRN Reason Stop Dose Admin Acetaminophen 650 mg 05/14/17 20:45 05/16/17 19:59 Tylenol - PO 650 mg Q4H PRN Administration FEVER OR PAIN Al Hydroxide/Mg Hydroxide 30 ml 05/15/17 20:07 05/16/17 17:07 Mylanta Oral Suspension - PO 30 ml Q6H PRN Administration DYSPEPSIA Albuterol/Ipratropium 1 amp 05/14/17 22:14 Duoneb - NEB Q6H PRN SHORTNESS OF BREATH Aspirin 81 mg 05/15/17 10:00 05/16/17 09:50 Asa - PO Not Given DAILY NICO Chlordiazepoxide HCl 25 mg 05/15/17 09:32 Librium - PO 05/18/17 09:31 Q4H PRN WITHDRAWAL(CONT SUBST) Chlordiazepoxide HCl 15 mg 05/17/17 11:00 Librium - PO 05/18/17 05:01 [id number] NICO Chlordiazepoxide HCl 10 mg 05/19/17 05:01 Librium - PO 05/19/17 18:01 Q6HPO NICO Cyclobenzaprine HCl 10 mg 05/16/17 11:27 05/16/17 22:42 Flexeril - PO 10 mg TID PRN Administration MUSCLE SPASMS Folic Acid 1 mg 05/15/17 10:00 05/16/17 09:37 Folic Acid - PO 1 mg DAILY NICO Administration Gabapentin 300 mg 05/14/17 22:30 05/17/17 06:26 Neurontin - PO 300 mg TID NICO Administration Azithromycin 250 mls @ 250 mls/hr 05/15/17 10:00 05/16/17 09:39 Zithromax 500mg Ivpb (Pre-Docked) IVPB 250 mls/hr DAILY NICO Administration Ceftriaxone Sodium 1 gm/ 50 mls @ 100 mls/hr 05/15/17 10:00 05/16/17 09:38 Dextrose IVPB 100 mls/hr DAILY NICO Administration Loratadine 10 mg 05/16/17 14:45 05/16/17 15:20 Claritin - PO 10 mg DAILY NICO Administration Methyl Salicylate 1 applic 05/16/17 13:00 05/16/17 15:21 Moises-Pratt - TP 1 applic DAILY NICO Administration Nicotine 7 mg 05/14/17 22:00 05/16/17 09:40 Nicoderm Patch - TD 7 mg DAILY NCIO Administration Nystatin 500,000 units 05/14/17 22:00 05/16/17 09:37 Nystatin Oral Suspension - PO 500,000 units DAILY NICO Administration Ondansetron HCl 4 mg 05/15/17 17:18 05/15/17 17:50 Zofran Injection IVPUSH 4 mg Q6H PRN Administration NAUSEA AND/OR VOMITING Pantoprazole Sodium 20 mg 05/15/17 10:00 05/16/17 09:37 Protonix - PO 20 mg DAILY NICO Administration Quetiapine Fumarate 200 mg 05/14/17 22:00 05/16/17 22:39 Seroquel - PO 200 mg HS NICO Administration Thiamine HCl 100 mg 05/15/17 10:00 08/26/17 09:38 Vitamin B1 - PO 100 mg DAILY NICO Administration Verapamil HCl 240 mg 05/14/17 22:00 05/16/17 22:39 Calan Sr - PO 240 mg BID NICO Administration ASSESSMENT/PLAN: This is a 62 year old man with a history of polysubstance abuse, COPD, alcohol withdrawal seizures, GERD, hepatitis C who presented to the ER with confusion. 1. Acute metabolic encephalopathy secondary to substance abuse, sepsis, hypoxia - Resolved 2. Acute hypoxic respiratory failure secondary to pneumonia - Continue oxygen to maintain saturation > 90% - Continue Rocephin, Zithromax (day 3) - Continue DuoNeb as needed 3. Severe sepsis (tachypnea, tachycardia, lactic acidosis) secondary to pneumonia - Afebrile - HR, RR, lactic acid improved - Continue Rocephin, Zithromax (day 3) 4. Acute kidney injury secondary to dehydration, sepsis - Improved with IV fluid 5. Alcohol intoxication - Resolved 6. Alcohol withdrawal - Continue Librium detox (finishes 05/19) 7. Polysubstance abuse - Continue thiamine, folic acid, nicotine patch 8. HTN - Continue Verapamil 9. COPD - Stable - Continue DuoNeb as needed 10. GERD - Continue Protonix 11. Hepatitis C Visit type - Emergency Visit Emergency Visit: Yes ED Registration Date: 05/14/17 Care time: The patient presented to the Emergency Department on the above date and was hospitalized for further evaluation of their emergent condition. - New Patient This patient is new to me today: No - Critical Care Critical Care patient: No - Discharge Referral Referred to [facility] Med P.C.: No
[2017-05-17] MEDS ORDERED: PT OWN MED DRAWER 7, Y5N ONE ×2 (09:26→21:03)
[2017-05-17] MEDS ORDERED: DEXTROSE 5%-WATER - 50 ML IVPB ONE (09:27)
[2017-05-17] MEDS ORDERED: cefTRIAXone SODIUM 1 GM VIAL ONE (09:27)
[2017-05-17] MEDS: ASPIRIN 81 MG CHEWABLE TABLETS PO SCH (09:31)
[2017-05-17] MEDS: VERAPAMIL HCL 240 MG E.R. TABLET (FP) PO SCH ×2 (09:31→23:05)
[2017-05-17] MEDS: FOLIC ACID 1 MG TABLET (FP) PO SCH (09:31)
[2017-05-17] MEDS: LORATADINE 10 MG TABLET PO SCH (09:31)
[2017-05-17] MEDS: CEFTRIAXONE 1 GM in DEXTROSE 5%-WATER - 50 ML IVPB SCH (09:32)
[2017-05-17] MEDS: THIAMINE HCL 100 MG TABLET (FP) PO SCH (09:32)
[2017-05-17] MEDS: PANTOPRAZOLE 20 MG TABLET (FP) PO SCH (09:32)
[2017-05-17] MEDS: AZITHROMYCIN IVPB 250 ML IVPB SCH (09:33)
[2017-05-17] MEDS: NICOTINE 7 MG/24 HOURS TOPICAL PATCH TD SCH (09:35)
[2017-05-17] MEDS: METHYL SALICYLATE/MENTHOL OINT 30 GM TUBE TP SCH (09:36)
[2017-05-17] MEDS: NYSTATIN 500,000 UNITS/5 ML SUSPENSION PO SCH (09:48)
[2017-05-17] MEDS: MAG HYDROX/AL HYDROX/SIMETH 30 ML UNIT-DOSE CUP PO PRN ×3 (10:39→23:04)
[2017-05-17] MEDS: CYCLOBENZAPRINE HCL 10 MG TABLET (FP) PO PRN (10:39)
[2017-05-17] MEDS: chlordiazePOXIDE 5 MG CAPSULE PO SCH ×3 (10:39→23:04)
[2017-05-17] MEDS: ACETAMINOPHEN 325 MG TABLET (FP) PO PRN ×3 (10:40→21:55)
[2017-05-17] MEDS: QUEtiapine FUMARATE 200 MG TABLET PO SCH (23:04)
[2017-05-18] MEDS: chlordiazePOXIDE 5 MG CAPSULE PO SCH ×3 (05:30→22:27)
[2017-05-18] MEDS: ACETAMINOPHEN 325 MG TABLET (FP) PO PRN ×3 (05:30→14:13)
[2017-05-18] MEDS: GABAPENTIN 300 MG CAPSULE (FP) PO SCH ×3 (05:30→22:28)
[2017-05-18] MEDS: CYCLOBENZAPRINE HCL 10 MG TABLET (FP) PO PRN ×3 (05:35→22:33)
[2017-05-18] MEDS ORDERED: PT OWN MED DRAWER 7, Y5N ONE (09:32)
[2017-05-18] MEDS ORDERED: cefTRIAXone SODIUM 1 GM VIAL ONE (09:32)
[2017-05-18] MEDS ORDERED: DEXTROSE 5%-WATER - 50 ML IVPB ONE (09:33)
[2017-05-18] MEDS: CEFTRIAXONE 1 GM in DEXTROSE 5%-WATER - 50 ML IVPB SCH ×2 (09:41→15:11)
[2017-05-18] MEDS: AZITHROMYCIN IVPB 250 ML IVPB SCH ×2 (09:42→15:11)
[2017-05-18] MEDS: THIAMINE HCL 100 MG TABLET (FP) PO SCH (09:43)
[2017-05-18] MEDS: NYSTATIN 500,000 UNITS/5 ML SUSPENSION PO SCH ×2 (09:43→12:22)
[2017-05-18] MEDS: NICOTINE 7 MG/24 HOURS TOPICAL PATCH TD SCH (09:43)
[2017-05-18] MEDS: LORATADINE 10 MG TABLET PO SCH (09:43)
[2017-05-18] MEDS: ASPIRIN 81 MG CHEWABLE TABLETS PO SCH ×2 (09:43→12:22)
[2017-05-18] MEDS: VERAPAMIL HCL 240 MG E.R. TABLET (FP) PO SCH ×2 (09:43→22:28)
[2017-05-18] MEDS: FOLIC ACID 1 MG TABLET (FP) PO SCH (09:43)
[2017-05-18] MEDS: MAG HYDROX/AL HYDROX/SIMETH 30 ML UNIT-DOSE CUP PO PRN ×3 (09:43→21:02)
[2017-05-18] MEDS: PANTOPRAZOLE 20 MG TABLET (FP) PO SCH (09:43)
[2017-05-18] MEDS: METHYL SALICYLATE/MENTHOL OINT 30 GM TUBE TP SCH (09:44)
[2017-05-18] MEDS ORDERED: LEVOFLOXACIN 750 MG TABLET PO SCH (15:30)
[2017-05-18] MEDS ORDERED: HYDROCHLOROTHIAZIDE 25 MG TABLET (FP) PO SCH (16:30)
--- NOTE | 2017-05-18 18:45 | PN ---
Addendum entered and electronically signed by Venkatesh Gonzalez, RES 05/18/17 19:16: PE: Neuro: AAOx3, horizontal nystagmus present when asking pt to track pen, + dysdiadokokinesia Pulm: b/l expiratory wheezing present Original Note: Physical Exam: SUBJECTIVE: Patient seen and examined, EMR consulted. Pt reports some L knee pain, a runny nose, and states that his breathing is better. He states that he feels ready for discharge. OBJECTIVE: Vital Signs Period Temp Pulse Resp BP Sys/Causey Pulse Ox Last 24 Hr 97.6 F-98.4 F 68-91 16-20 138-148/79-104 96-98 GENERAL: The patient is awake, alert, and fully oriented, in no acute distress. HEAD: Normal with no signs of trauma. EYES: PERRL, extraocular movements intact, sclera anicteric, conjunctiva clear. No ptosis. ENT: Ears normal, nares patent, oropharynx clear without exudates, moist mucous membranes. NECK: Trachea midline, full range of motion, supple. LUNGS: Breath sounds equal, clear to auscultation bilaterally, no wheezes, no crackles, no accessory muscle use. HEART: Regular rate and rhythm, S1, S2 without murmur, rub or gallop. ABDOMEN: Soft, nontender, nondistended, normoactive bowel sounds, no guarding, no rebound, no hepatosplenomegaly, no masses. EXTREMITIES: 2+ pulses, warm, well-perfused, no edema. NEUROLOGICAL: Cranial nerves II through XII grossly intact. Normal speech, gait not observed. PSYCH: Normal mood, normal affect. SKIN: Warm, dry, normal turgor, no rashes or lesions noted Active Medications Generic Name Dose Route Start Last Admin Trade Name Freq PRN Reason Stop Dose Admin Acetaminophen 650 mg 05/14/17 20:45 05/18/17 14:13 Tylenol - PO 650 mg Q4H PRN Administration FEVER OR PAIN Al Hydroxide/Mg Hydroxide 30 ml 05/15/17 20:07 05/18/17 14:13 Mylanta Oral Suspension - PO 30 ml Q6H PRN Administration DYSPEPSIA Albuterol/Ipratropium 1 amp 05/14/17 22:14 Duoneb - NEB Q6H PRN SHORTNESS OF BREATH Aspirin 81 mg 05/15/17 10:00 05/18/17 12:22 Asa - PO Not Given DAILY NICO Chlordiazepoxide HCl 10 mg 05/19/17 05:01 Librium - PO 05/19/17 18:01 Q6HPO NICO Chlordiazepoxide HCl 15 mg 05/18/17 15:15 05/18/17 16:44 Librium - PO 05/18/17 21:16 15 mg Q6H NICO Administration Cyclobenzaprine HCl 10 mg 05/16/17 11:27 05/18/17 12:23 Flexeril - PO 10 mg TID PRN Administration MUSCLE SPASMS Folic Acid 1 mg 05/15/17 10:00 05/18/17 09:43 Folic Acid - PO 1 mg DAILY NICO Administration Gabapentin 300 mg 05/14/17 22:30 05/18/17 14:13 Neurontin - PO Not Given TID NICO Hydrochlorothiazide 25 mg 05/18/17 16:30 05/18/17 16:44 Hctz - PO 25 mg DAILY NICO Administration Levofloxacin 750 mg 05/18/17 15:30 05/18/17 18:22 Levaquin PO 05/19/17 10:01 750 mg DAILY NICO Administration Loratadine 10 mg 05/16/17 14:45 05/18/17 09:43 Claritin - PO 10 mg DAILY [facility] Administration Methyl Salicylate 1 applic 05/16/17 13:00 05/18/17 09:44 Moises-Pratt - TP 1 applic DAILY [facility] Administration Nicotine 7 mg 05/14/17 22:00 05/18/17 09:43 Nicoderm Patch - TD 7 mg DAILY [facility] Administration Nystatin 500,000 units 05/14/17 22:00 05/18/17 12:22 Nystatin Oral Suspension - PO Not Given DAILY [facility] Ondansetron HCl 4 mg 05/15/17 17:18 05/15/17 17:50 Zofran Injection IVPUSH 4 mg Q6H PRN Administration NAUSEA AND/OR VOMITING Pantoprazole Sodium 20 mg 05/15/17 10:00 05/18/17 09:43 Protonix - PO 20 mg DAILY NICO Administration Quetiapine Fumarate 200 mg 05/14/17 22:00 05/17/17 23:04 Seroquel - PO 200 mg HS NICO Administration Thiamine HCl 100 mg 05/15/17 10:00 05/18/17 09:43 Vitamin B1 - PO 100 mg DAILY NICO Administration Verapamil HCl 240 mg 05/14/17 22:00 05/18/17 09:43 Calan Sr - PO 240 mg BID NICO Administration ASSESSMENT/PLAN: 62 year old man with a history of polysubstance abuse, COPD, alcohol withdrawal seizures, GERD, hepatitis C who presented to the ER with AMS and hypoxia, found to have acute alcohol intoxication and b/l lung opacities consistent with CAP. 1. Acute metabolic encephalopathy secondary to substance abuse, sepsis, hypoxia - Resolved 2. Acute hypoxic respiratory failure secondary to pneumonia - Pt satting 96% on RA - rocephin and azithromycin changed to levaquin 750mg PO (one dose today and one more courntey) - Continue DuoNeb as needed 3. Severe sepsis (tachypnea, tachycardia, lactic acidosis) secondary to pneumonia - Afebrile - HR, RR, lactic acid improved - levaquin 750mg PO 4. Acute kidney injury secondary to dehydration, sepsis - Improved with IV fluid 5. Alcohol intoxication - Resolved 6. Alcohol withdrawal - Continue Librium detox (finishes 05/19) 7. Polysubstance abuse - Continue thiamine, folic acid, nicotine patch 8. HTN - Continue Verapamil - resumed home med HCTZ 25mg PO qd as ZEFERINO is resolved and BP still a little high 9. COPD - Stable - Continue DuoNeb as needed 10. GERD - Continue Protonix #Dispo -discharge home once librium taper is finished -- Venkatesh Gonzalez MD PGY1 Problem List - Problems (1) Sepsis Code(s): A41.9 - SEPSIS, UNSPECIFIED ORGANISM (2) ZEFERINO (acute kidney injury) Code(s): N17.9 - ACUTE KIDNEY FAILURE, UNSPECIFIED (3) Hypertension Code(s): I10 - ESSENTIAL (PRIMARY) HYPERTENSION Visit type - Emergency Visit Emergency Visit: Yes ED Registration Date: 05/14/17 Care time: The patient presented to the Emergency Department on the above date and was hospitalized for further evaluation of their emergent condition. - New Patient This patient is new to me today: Yes Date on this admission: 05/18/17 - Critical Care Critical Care patient: No
--- NOTE | 2017-05-18 19:06 | EKG ---
Test Reason : Blood Pressure : / mmHG Vent. Rate : 111 BPM Atrial Rate : 111 BPM P-R Int : 162 ms QRS Dur : 074 ms QT Int : 322 ms P-R-T Axes : 034 -07 026 degrees QTc Int : 437 ms SINUS TACHYCARDIA INFERIOR INFARCT (CITED ON OR BEFORE 14-MAY-2017) ABNORMAL ECG WHEN COMPARED WITH ECG OF 14-MAY-2017 15:53, NO SIGNIFICANT CHANGE WAS FOUND Confirmed by ZAK BREWER MD ([id number]) on 05/18/2017 7:05:54 PM Referred By: Confirmed By:ZAK BREWER MD
--- NOTE | 2017-05-18 20:07 | PN ---
Teaching Attending Note Name of Resident: Venkatesh Gonzalez ATTENDING PHYSICIAN STATEMENT I saw and evaluated the patient. I reviewed the resident's note and discussed the case with the resident. I agree with the resident's findings and plan as documented. SUBJECTIVE: no fever or chills . no SOB OBJECTIVE: NAD CV : RRR LUngs : CTAB Ext : no edema . has tremor in hands ASSESSMENT AND PLAN: 62 year old man with a history of polysubstance abuse, COPD, alcohol withdrawal seizures, GERD, hepatitis C who presented to the ER with confusion, and was found to have severe sepsis from PNA. 1- severe sepsis 2/2 CAP: improved - lost his IV access. no fever or leukocytosis , can switch to levaquin for 2 more doses ( total 5 days ) - monitor 2- ETOH withdrawal : cont librium does not have signs of Wernicke's 3- ZEFERINO : resolved 4- H/o HTN : cont verapamil , add HCTZ possible dc tomorrow
[2017-05-18] MEDS: QUEtiapine FUMARATE 200 MG TABLET PO SCH (22:33)
[2017-05-19] MEDS: MAG HYDROX/AL HYDROX/SIMETH 30 ML UNIT-DOSE CUP PO PRN (03:08)
[2017-05-19] MEDS: ACETAMINOPHEN 325 MG TABLET (FP) PO PRN ×2 (03:15→06:25)
[2017-05-19] MEDS ORDERED: chlordiazePOXIDE 5 MG CAPSULE PO SCH ×2 (05:01)
[2017-05-19] MEDS: GABAPENTIN 300 MG CAPSULE (FP) PO SCH (05:09)
[2017-05-19 06:07] VITALS: BP 133/80; PULSE 66; TEMP 97.9
[2017-05-19] MEDS: CYCLOBENZAPRINE HCL 10 MG TABLET (FP) PO PRN (06:32)
--- NOTE | 2017-05-19 08:03 | DS ---
Physical Exam: SUBJECTIVE: Patient seen and examined. Per pt and nurse, no problems overnight. Pt complains of mild stomach pain after starting levaquin without nausea, emesis, diarrhea, or constipation. He states that he is ready to leave and needs help with transportation. He denies chest pain, SOB, cough, dizziness, confusion, and anxiety. OBJECTIVE: Vital Signs Period Temp Pulse Resp BP Sys/Causey Pulse Ox Last 24 Hr 97.9 F-98.4 F 66-91 16-20 133-148/80-104 98-98 PHYSICAL EXAM GENERAL: The patient is awake, alert, and fully oriented, in no acute distress. HEAD: Normal with no signs of trauma. EYES: PERRL, extraocular movements intact ENT: Ears normal, nares patent, oropharynx clear without exudates, moist mucous membranes. NECK: Trachea midline, full range of motion, supple. LUNGS: rales in RLL HEART: Regular rate and rhythm, S1, S2 without murmur, rub or gallop. ABDOMEN: Soft, nontender, nondistended, normoactive bowel sounds, no guarding, no rebound, no hepatosplenomegaly, no masses. EXTREMITIES: 2+ pulses, warm, well-perfused, no edema. NEUROLOGICAL: Cranial nerves II through XII grossly intact. Normal speech, gait not observed. PSYCH: slightly agitated SKIN: Warm, dry, normal turgor, no rashes or lesions noted. LABS CBC WBC 7.2 K/mm3 (4.0-10.0) 05/17/17 06:30 RBC 4.68 M/mm3 (4.00-5.60) 05/17/17 06:30 Hgb 14.4 GM/dL (11.7-16.9) 05/17/17 06:30 Hct 42.9 % (35.4-49) 05/17/17 06:30 MCV 91.8 fl (80-96) 05/17/17 06:30 MCH 30.8 pg (25.7-33.7) 05/17/17 06:30 MCHC 33.5 g/dl (32.0-35.9) 05/17/17 06:30 RDW 14.9 % (11.9-15.9) 05/17/17 06:30 Plt Count 249 K/MM3 (134-434) 05/17/17 06:30 MPV 8.5 fl (7.5-11.1) 05/17/17 06:30 Neutrophils % 47.8 % (42.8-82.8) 05/17/17 06:30 Lymphocytes % 40.2 % (8-40) H D 05/17/17 06:30 Monocytes % 7.6 % (3.8-10.2) 05/17/17 06:30 Eosinophils % 3.9 % (0-4.5) 05/17/17 06:30 Basophils % 0.5 % (0-2.0) 05/17/17 06:30 CMP Sodium 142 mmol/L (136-145) 05/17/17 06:30 Potassium 3.7 mmol/L (3.5-5.1) 05/17/17 06:30 Chloride 107 mmol/L (98-107) 05/17/17 06:30 Carbon Dioxide 27 mmol/L (21-32) 05/17/17 06:30 Anion Gap 8 (8-16) 05/17/17 06:30 BUN 3 mg/dL (7-18) L D 05/17/17 06:30 Creatinine 0.8 mg/dL (0.7-1.3) 05/17/17 06:30 Creat Clearance w eGFR > 60 (>60) 05/17/17 06:30 Random Glucose 89 mg/dL (74-106) 05/17/17 06:30 Lactic Acid 1.8 mmol/L (0.4-2.0) 05/14/17 23:20 Calcium 8.8 mg/dL (8.5-10.1) 05/17/17 06:30 Total Bilirubin 0.6 mg/dL (0.2-1.0) D 05/17/17 06:30 AST 13 U/L (15-37) L D 05/17/17 06:30 ALT 15 U/L (12-78) 05/17/17 06:30 Alkaline Phosphatase 67 U/L (45-117) D 05/17/17 06:30 Creatine Kinase 325 IU/L (39-308) H 05/14/17 17:07 Creatine Kinase Index 0.6 % (0.0-5.0) 05/14/17 17:07 CK-MB (CK-2) 2.135 ng/mL (0.5-3.6) 05/14/17 17:07 Troponin I < 0.02 ng/ml (0.00-0.05) 05/14/17 17:07 Total Protein 6.7 g/dl (6.4-8.2) 05/17/17 06:30 Albumin 3.2 g/dl (3.4-5.0) L 05/17/17 06:30 HOSPITAL COURSE: 62M w/ hx of polysubstance abuse, COPD, and alcohol withdrawal seizures who presented to ED with acute hypoxic respiratory failure and acute metabolic encephalopathy, found to have b/l lung infiltrates on CXR, admitted for CAP and acute alcohol intoxication. Utox tested positive for opiates, barbiturates, benzodiazepines, cocaine, marijuana, and alcohol. Pt was given O2, duonebs PRN, started on IV ceftriaxone and azithromycin and then transitioned to PO levaquin on day 4 for a total of a 5 day abx course. He was also given a librium taper, thiamine, folic acid, nicotine patch, verapamil for HTN, and protonix for GERD. On day of discharge, pt is afebrile, has no wbc count, has no SOB, is tolerating and improving on PO abx. Today is the last day of his librium taper. At around 9:30am, pt became agitated and wanted to leave AMA. The physician was paged by the nurse, but before he could arrive to the floor and speak with the patient, the pt already signed an AMA form and left. Date of Admission:05/14/17 Date of Discharge: 05/19/17 Minutes to complete discharge: 35 Discharge Summary Reason For Visit: PNEUMONIA Current Active Problems ZEFERINO (acute kidney injury) (Acute) Hypertension (Acute) Pneumonia (Acute) Sepsis (Acute) Condition: Improved - Instructions Disposition: AGAINST MEDICAL ADVICE - Home Medications Comprehensive Discharge Medication List: Ambulatory Orders Aspirin [ASA -] 81 mg PO DAILY #30 tab.chew 04/08/15 Albuterol Sulfate Inhaler - [Ventolin Hfa Inhaler -] 2 inh PO Q4H PRN 05/06/17 Cyclobenzaprine HCl [Flexeril -] 10 mg PO TID 05/06/17 Hydrochlorothiazide [Hctz -] 25 mg PO DAILY 05/06/17 Omeprazole 20 mg PO DAILY 05/06/17 Phenytoin Na Extended [Dilantin -] 100 mg PO TID 05/06/17 Quetiapine Fumarate [Seroquel -] 200 mg PO HS 05/06/17 Verapamil HCl [Verapamil ER] 240 mg PO BID 05/06/17 Omeprazole 40 mg PO DAILY 05/15/17 Tamsulosin HCl [Flomax] 0.4 mg PO DAILY 05/15/17 Thiamine HCl [B-1] 100 mg PO DAILY 05/15/17 Vitamin B Complex [B Complex] 1 each PO DAILY 05/15/17 Problem List - Problems (1) Sepsis Code(s): A41.9 - SEPSIS, UNSPECIFIED ORGANISM (2) ZEFERINO (acute kidney injury) Code(s): N17.9 - ACUTE KIDNEY FAILURE, UNSPECIFIED (3) Hypertension Code(s): I10 - ESSENTIAL (PRIMARY) HYPERTENSION This patient is new to me today: No Emergency Visit: Yes ED Registration Date: 05/14/17 Care time: The patient presented to the Emergency Department on the above date and was hospitalized for further evaluation of their emergent condition. Critical Care patient: No - Discharge Referral Referred to [facility] Med P.C.: No
--- NOTE | 2017-05-19 13:41 | PN ---
Teaching Attending Note Name of Resident: Venkatesh Gonzalez ATTENDING PHYSICIAN STATEMENT I saw and evaluated the patient. I reviewed the resident's note and discussed the case with the resident. I agree with the resident's findings and plan as documented. went to see patient , to learn that pt signed out AMA without waiting for information technology internship to see him and discuss risks
== END 2017-05-19 09:22 | disposition left against medical advice (07) | DRG 720 ==
LOC: JER 15:38 → J8W 20:37
PROVIDERS: ADMIT Internal Medicine; ATTEND Internal Medicine
PROC: HZ2ZZZZ Detoxification Services for Substance Abuse Treatment (ICD-10-PCS; principal; 2017-05-14)
DX: A41.9 Sepsis, unspecified organism (principal); J18.9 Pneumonia, unspecified organism; N17.9 Acute kidney failure, unspecified; J96.01 Acute respiratory failure with hypoxia; G93.41 Metabolic encephalopathy; I10 Essential (primary) hypertension; R65.20 Severe sepsis without septic shock; J44.9 Chronic obstructive pulmonary disease, unspecified; K21.9 Gastro-esophageal reflux disease without esophagitis; E87.2 Acidosis; E86.0 Dehydration; B19.20 Unspecified viral hepatitis C without hepatic coma; R41.82 Altered mental status, unspecified; F17.210 Nicotine dependence, cigarettes, uncomplicated; G40.909 Epilepsy, unspecified, not intractable, without status epilepticus; F10.230 Alcohol dependence with withdrawal, uncomplicated
CPT/HCPCS: 36415; 70450-TC; 71010-TC; 73560-TC-LT; 80053; 80185; 80307; 81003; 81015; 82553; 82803; 83605; 84484; 85025; 85610; 85730; 87040; 93005; 93010; 99285-25

== ENCOUNTER 2017-11-28 13:48 | Inpatient (IN) | payer OTHER ==
[2017-11-28 13:54] VITALS: BMI 31.1
[2017-11-28] MEDS ORDERED: ALBUTEROL SO4 2.5/IPRATROPIUM 0.5 INH SOL 3 ML VIAL.NEB. NEB ONE ×2 (14:01→16:54)
--- NOTE | 2017-11-28 14:16 | PDOC ---
Attending Attestation - HPI HPI: 11/28/17 15:21 The patient is a 62-year-old male, with a significant past medical history of EtOH abuse, withdrawal seizures, COPD, Hep C, who presents to the ED with progressively worsening cough, dyspnea on exertion, and chest discomfort over the past week. Patient states that his pain is beginning to radiate to his back and is associated with fever, chills, diaphoresis, nausea (1 episode of vomiting yesterday), and shortness of breath. Patient reports that he was diagnosed with bronchitis 2 months ago, which was treated with antibiotics and steroids. Patient's current symptoms are similar to his prior episode of bronchitis. Denies any diarrhea, or abdominal pain. Denies any urinary changes. Denies any recent travel. Allergies: NKA Surgical History: No reported surgeries Social History: Reports tobacco use (5 cigarettes a day) and alcohol use. PCP: Dr. Lu Gaitan - Physicial Exam PE: 11/28/17 15:23 Vitals: Triage Vital signs reviewed General Appearance: no acute distress, well nourished well developed, Head: Atraumatic, normocephalic Chest Wall: Nontender Cardiac: Regular rate and rhythm, no murmurs, no rubs, no gallops, Lungs: (+)Coarse breath sounds bilaterally. Abdomen: Soft, nondistended, normal bowel sounds, nontender to palpation Rectal: Exam deferred Extremities: Full range of motion to all extremities, no cyanosis, clubbing, or edema Skin: Warm and dry, no rashes or lesions, no petechiae Neuro: AOX3; Cranial Nerves 2-12 grossly intact. Psych: normal mood, normal affect - Medical Decision Making 11/28/17 15:30 62 year old male with history of EtOH abuse, withdrawal seizures, COPD, Hep C, who presents to the ED with progressively worsening cough, dyspnea on exertion, and chest discomfort over the past week. Plan: -labs -Chest X-Ray -EKG <Amy Payne - Last Filed: 11/28/17 15:30> - Resident Resident Name: Randall Selby - ED Attending Attestation I have performed the following: I have examined & evaluated the patient, The case was reviewed & discussed with the resident, I agree w/resident's findings & plan, Exceptions are as noted - Medical Decision Making 62 years old past medical history significant for EtOH abuse, withdrawal seizures COPD C progressive progressively worsening cough dyspnea on exertion and chest pain upon arrival to the emergency Department patient satting 85% status post DuoNeb's and Solu-Medrol patient feeling somewhat better We'll observe overnight for continued COPD treatment azithromycin for possible atypical pneumonia and further management. <Lucho Moon - Last Filed: 11/28/17 16:20> Heart Score/ECG Review - ECG Impressions Comment:: 11/28/17 14:15 EKG performed at 1403. Demonstrates a rate of sinus rhythm at 91 septal infarct age indeterminate no ST elevations no T-wave inversions Interpreted by me <Lucho Moon - Last Filed: 11/28/17 16:20> *Review of Systems - Review of Systems Able to Perform ROS?: Yes Comments:: 11/28/17 15:24 A complete review of 10 out of 10 review of systems is taken and is negative apart from what is previously mentioned below and in the HPI. <Amy Payne - Last Filed: 11/28/17 15:30> Attestations - Attestations 11/28/17 15:25 Documentation prepared by Amy Payne, acting as medical laboratory technicians for Lucho Moon MD. <Amy Payne - Last Filed: 11/28/17 15:30> - Attestations Physician Attestation: 11/28/17 16:20 A portion of this note was documented by scribe services under my direction I reviewed the details of note within reason and agree with the documentation with the following case summary and management plan written by me <Lucho Moon - Last Filed: 11/28/17 16:20>
[2017-11-28 14:34] LABS: BASO % 0.6 % (0-2.0); EOS % 2.7 % (0-4.5); HEMATOCRIT 41.5 % (35.4-49); HEMOGLOBIN 14.3 GM/dL (11.7-16.9); MCH 31.8 pg (25.7-33.7); MCHC 34.4 g/dl (32.0-35.9); MEAN CELL VOLUME 92.5 fl (80-96); MEAN PLT VOLUME 8.6 fl (7.5-11.1); MONO % 8.2 % (3.8-10.2); NEUT % 47.5 % (42.8-82.8); PLATELET COUNT 244 K/MM3 (134-434); RBC 4.49 M/mm3 (4.00-5.60); RDW 14.1 % (11.9-15.9); VENOUS PC02 49.7 mmHg (38-52); VENOUS PH 7.37 (7.32-7.42); WHITE BLOOD COUNT 8.9 K/mm3 (4.0-10.0)
[2017-11-28 14:35] LABS: VENOUS PO2 38.9 mmHg (28-48)
[2017-11-28 14:49] LABS: INR 1.11 (0.82-1.09); PROTHROMBIN TIME (PATIENT) 12.5 SEC (9.98-11.88)
[2017-11-28 14:52] LABS: ACTIVATED PTT 34.8 SECONDS (26.9-34.4)
[2017-11-28 15:02] LABS: ALBUMIN 3.8 g/dl (3.4-5.0); ANION GAP 12 (8-16); BLOOD UREA NITROGEN 11 mg/dL (7-18); CALCIUM 9.4 mg/dL (8.5-10.1); CHLORIDE 99 mmol/L (98-107); CO2 29 mmol/L (21-32); GLUCOSE,RANDOM 98 mg/dL (74-106); SGPT/ALT 16 U/L (12-78); SODIUM 140 mmol/L (136-145); TOT PROT 8.3 g/dl (6.4-8.2)
[2017-11-28 15:05] LABS: ALK PHOS 98 U/L (45-117); BILIRUBIN,TOTAL 0.4 mg/dL (0.2-1.0)
[2017-11-28 15:08] LABS: POTASSIUM 3.7 mmol/L (3.5-5.1); SGOT/AST 25 U/L (15-37)
[2017-11-28] MEDS ORDERED: methylPREDNISolone NA SUCC 125 MG/2 ML VIAL IVPB ONE (15:13)
[2017-11-28] MEDS ORDERED: AZITHROMYCIN IVPB 500 MG in DEXTROSE 5%-WATER - 250 ML IVPB ONE (15:13)
[2017-11-28] MEDS ORDERED: AZITHROMYCIN IVPB 250 ML IVPB ONE (15:15)
[2017-11-28] MEDS ORDERED: methylPREDNISolone NA SUCC 125 MG/2 ML VIAL ONE (15:15)
[2017-11-28 15:25] LABS: N-TERMINAL BNP 36 pg/ml (5-125)
--- NOTE | 2017-11-28 15:25 | PDOC ---
History of Present Illness - General Chief Complaint: Shortness of Breath Stated Complaint: CHEST DISCOMFORT Time Seen by Provider: 11/28/17 13:58 History Source: Patient Exam Limitations: No Limitations - History of Present Illness Initial Comments: 11/28/17 15:16 Patient is 62M with HTN, polysubstance abuse, seizures 2/2 alcohol withdrawal, HCV here today complaining of cough worsening over the past two weeks. He endorses associated chills, fevers. He states that he was diagnosed with bronchitis 2 months ago and was given antibiotics and steroids. He says that he felt better initially but worsened over the past two weeks. He states that he also got a letter from [facility] saying he had an abnormal chest x-ray. He endorses some associated right sided chest pain and shortness of breath. Patient is active smoker. Past History - Past Medical History Allergies/Adverse Reactions: Allergies Allergy/AdvReac Type Severity Reaction Status Date / Time No Known Allergies Allergy Verified 11/28/17 13:49 Home Medications: Ambulatory Orders Aspirin [ASA -] 81 mg PO DAILY #30 tab.chew 04/08/15 Albuterol Sulfate Inhaler - [Ventolin Hfa Inhaler -] 2 inh PO Q4H PRN 05/06/17 Cyclobenzaprine HCl [Flexeril -] 10 mg PO TID PRN 05/06/17 Hydrochlorothiazide [Hctz -] 25 mg PO DAILY 05/06/17 Phenytoin Na Extended [Dilantin -] 100 mg PO TID 05/06/17 Quetiapine Fumarate [Seroquel -] 200 mg PO HS 05/06/17 Verapamil HCl [Verapamil ER] 240 mg PO BID 05/06/17 Omeprazole 40 mg PO DAILY 05/15/17 Tamsulosin HCl [Flomax] 0.4 mg PO DAILY 05/15/17 Budesonide/Formeterol Fumarate [SYMBICORT 80/4.5mcg -] 2 inh PO BID 07/01/17 Phenobarbital - 30 mg PO BID 11/28/17 Anemia: No Asthma: No Cancer: No Cardiac Disorders: No CVA: No COPD: Yes (Interstitial Lung Disease) CHF: No Dementia: No Diabetes: No GI Disorders: Yes (GERD, gallstones) Disorders: No HTN: Yes (on med) Hypercholesterolemia: No Kidney Stones: No Liver Disease: No Seizures: Yes (etoh related seizures on 05/02/17) Thyroid Disease: No - Surgical History Abdominal Surgery: No Appendectomy: No Cardiac Surgery: No Cholecystectomy: No Lung Surgery: No Neurologic Surgery: No Orthopedic Surgery: No - Reproductive History Testicular Surgery: No - Suicide/Smoking/Psychosocial Hx Smoking Status: Yes Smoking History: Current every day smoker Have you smoked in the past 12 months: Yes Number of Cigarettes Smoked Daily: 4 Information on smoking cessation initiated: No 'Breaking Loose' booklet given: 05/06/17 Hx Alcohol Use: No Drug/Substance 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 HEAD, EYES, EARS, NOSE AND THROAT: No change in vision. No sore throat. CARDIOVASCULAR: Positive for chest pain or shortness of breath RESPIRATORY: Positive for cough, wheezing. Negative for hemoptysis. GASTROINTESTINAL: No nausea, vomiting, diarrhea or constipation. GENITOURINARY: No dysuria, frequency, or change in urination. SKIN: No rash NEUROLOGIC: Positive for headache. Negative for vertigo, loss of consciousness, or change in strength/sensation. HEMATOLOGIC/LYMPHATIC: No anemia, easy bleeding, or history of blood clots. ALLERGIC/IMMUNOLOGIC: No hives or skin allergy. *Physical Exam - Vital Signs Last Vital Signs Temp Pulse Resp BP Pulse Ox 98.5 F 99 H 20 139/83 93 L 11/28/17 13:50 11/28/17 13:50 11/28/17 13:50 11/28/17 13:50 11/28/17 14:45 - Physical Exam Comments: 11/28/17 15:26 GENERAL: Awake, alert, and fully oriented, in no acute distress HEAD: No signs of trauma, normocephalic, atraumatic EYES: PERRLA, EOMI, sclera anicteric, conjunctiva clear ENT: Auricles normal inspection, hearing grossly normal, nares patent, oropharynx clear without exudates. Moist mucosa NECK: Normal ROM, supple, no lymphadenopathy, JVD, or masses LUNGS: Tachypneic speaks full sentences, bilateral rales HEART: Regular rate and rhythm, normal S1 and S2, no murmurs, rubs or gallops, peripheral pulses normal and equal bilaterally. ABDOMEN: Soft, nontender, normoactive bowel sounds. No guarding, no rebound. No masses EXTREMITIES: Normal inspection, Normal range of motion, no edema. No clubbing or cyanosis. NEUROLOGICAL: Cranial nerves II through XII grossly intact. Normal speech, normal gait, no focal sensorimotor deficits SKIN: Warm, Dry, normal turgor, no rashes or lesions noted. ED Treatment Course - LABORATORY CBC & Chemistry Diagram: 11/28/17 14:20 11/28/17 14:20 - ADDITIONAL ORDERS Additional order review: Laboratory Results 11/28/17 11/28/17 11/28/17 14:20 14:20 14:20 PT with INR INR PTT (Actin FS) VBG pH 7.37 POC VBG pCO2 49.7 POC VBG pO2 38.9 Mixed VBG HCO3 27.8 H Sodium 140 Potassium 3.7 Chloride 99 Carbon Dioxide 29 Anion Gap 12 BUN 11 Creatinine 1.0 Creat Clearance w eGFR > 60 Random Glucose 98 Lactic Acid 2.0 Calcium 9.4 Total Bilirubin 0.4 D AST 25 D ALT 16 Alkaline Phosphatase 98 D Troponin I < 0.02 Total Protein 8.3 H D Albumin 3.8 11/28/17 14:20 PT with INR 12.50 H INR 1.11 PTT (Actin FS) 34.8 H VBG pH POC VBG pCO2 POC VBG pO2 Mixed VBG HCO3 Sodium Potassium Chloride Carbon Dioxide Anion Gap BUN Creatinine Creat Clearance w eGFR Random Glucose Lactic Acid Calcium Total Bilirubin AST ALT Alkaline Phosphatase Troponin I Total Protein Albumin 11/28/17 14:20 RBC 4.49 MCV 92.5 MCHC 34.4 RDW 14.1 MPV 8.6 Neutrophils % 47.5 Lymphocytes % 41.0 H Monocytes % 8.2 Eosinophils % 2.7 Basophils % 0.6 - RADIOLOGY Radiology Studies Ordered: Category Date Time Status CHEST X-RAY PORTABLE* [RAD] Stat Radiology 11/28/17 14:13 Completed Medical Decision Making - Medical Decision Making 11/28/17 15:33 Patient is 62M with history of HCV, HTN, polysubstance abuse, seizures secondary to withdrawal here today with shortness of breath. Vital signs notable for O2 saturation of 85%. Patient was started on duonebs immediately. Will evaluate with cbc, cmp, trop, ekg, cxr, blood cultures. On re-evaluation, patient's sat improved to 95% on duonebs, refused after 1 treatment completed because he says it makes him anxious. After removing duonebs , oxygen saturation dropped down to 86%, lungs sound slightly improved. EKG shows normal sinus rhythm, normal rate = 91. No st elevation/depression. No t wave inversions. Normal SC/QRS/QTc intervals. Bed side ultrasound shows no B-lines in either lung, moderate EF. 11/28/17 15:50 Laboratory Tests 11/28/17 11/28/17 11/28/17 14:13 14:20 14:20 WBC 8.9 Hgb 14.3 Hct 41.5 Plt Count 244 INR 1.11 VBG pH POC VBG pCO2 Troponin I B-Natriuretic Peptide Urine Nitrite Negative Ur Leukocyte Esterase Trace Urine WBC (Auto) <1 Urine RBC (Auto) <1 11/28/17 11/28/17 14:20 14:20 WBC Hgb Hct Plt Count INR VBG pH 7.37 POC VBG pCO2 49.7 Troponin I < 0.02 B-Natriuretic Peptide 36 Urine Nitrite Ur Leukocyte Esterase Urine WBC (Auto) Urine RBC (Auto) CBC normal. INR normal. VBG reassuring. Ua negative. Trop undetectable. BNP reassuring. CXR shows increased lung markings with signs of chronic lung disease, no acute infiltrate. Will give azithromycin and solumedrol and admit to obs due to hypoxia. *DC/Admit/Observation/Transfer Diagnosis at time of Disposition: COPD exacerbation - Discharge Dispostion Condition at time of disposition: Stable Admit: Yes - Referrals Referrals: Lu Gaitan [Primary Care Provider] - - Patient Instructions - Post Discharge Activity
[2017-11-28 15:30] LABS: URINE APPEARANCE CLEAR; URINE BILIRUBIN NEGATIVE (NEGATIVE); URINE BLOOD NEGATIVE (NEGATIVE); URINE COLOR YELLOW; URINE GLUCOSE (UA) NEGATIVE (NEGATIVE); URINE KETONE NEGATIVE (NEGATIVE); URINE LEUK ESTERASE TRACE (NEGATIVE); URINE NITRITE NEGATIVE (NEGATIVE); URINE PROTEIN NEGATIVE (NEGATIVE); URINE UROBILINOGEN NEGATIVE mg/dL (0.2-1.0)
[2017-11-28 15:32] LABS: EPI CELLS RARE /HPF (FEW); URINE MUCUS RARE
--- NOTE | 2017-11-28 16:14 | HP ---
CHIEF COMPLAINT: cough, shortness of breath, chest discomfort PCP: HISTORY OF PRESENT ILLNESS: Patient is a 62 year old male with a significant past medical history of ETOH abuse, withdrawal seizures, COPD and Hep C. He presents to the ED today with worsening coughing, dyspnea with ambulation and right discomfort x 1 week. States that he tried to manage his symptoms at home, but noted that his breathing became worse and he became weaker, prompting an ER visit. Patient further states that his chest pain is radiating to his back with associated fever and chills. Patient reports that he was treated for bronchitis 2 months prior with antibiotics and steriods but his symptoms never fully resolved. States his symptoms are similar to his prior episode. In the ED he was noted to have an oxygen saturation of 85%, room air after receiving the duoneb and solumedrol. He is a current everyday smoker. Reports his last seizure was over a year ago. ER course was notable for: (1) Trop 0.02 (2) chest xray - increased interstitial markings which have appearance of chronic lung disease (3) solumedrol 125mg (4) oxygen sat 85% room air Recent Travel: denies PAST MEDICAL HISTORY: ETOH abuse, withdrawal seizures, COPD and Hep C. PAST SURGICAL HISTORY: Social History: Smoking: current everyday smoker, 10 cigarettes per day Alcohol: ETOH abuse hx Drugs: denies Family History: Allergies No Known Allergies Allergy (Verified 11/28/17 13:49) HOME MEDICATIONS: Home Medications Medication Instructions Recorded Aspirin [ASA -] 81 mg PO DAILY #30 tab.chew 04/08/15 Albuterol Sulfate Inhaler - 2 inh PO Q4H PRN 05/06/17 [Ventolin Hfa Inhaler -] Cyclobenzaprine HCl [Flexeril -] 10 mg PO TID PRN 05/06/17 Hydrochlorothiazide [Hctz -] 25 mg PO DAILY 05/06/17 Phenytoin Na Extended [Dilantin -] 100 mg PO TID 05/06/17 Quetiapine Fumarate [Seroquel -] 200 mg PO HS 05/06/17 Verapamil HCl [Verapamil ER] 240 mg PO BID 05/06/17 Omeprazole 40 mg PO DAILY 05/15/17 Tamsulosin HCl [Flomax] 0.4 mg PO DAILY 05/15/17 Budesonide/Formeterol Fumarate 2 inh PO BID 07/01/17 [SYMBICORT 80/4.5mcg -] Phenobarbital - 30 mg PO BID 11/28/17 PHYSICAL EXAMINATION Vital Signs - 24 hr 11/28/17 11/28/17 11/28/17 13:50 14:45 16:02 Temperature 98.5 F Pulse Rate 99 H Pulse Rate [ 84 Apical] Respiratory 20 18 Rate Blood Pressure 139/83 Blood Pressure 125/78 [Left Arm] O2 Sat by Pulse 85 L 93 L 100 Oximetry (%) GENERAL: Awake, alert, and fully oriented, in no acute distress. HEAD: Normal with no signs of trauma. EYES: Pupils equal, round and reactive to light, extraocular movements intact, sclera anicteric, conjunctiva clear. No lid lag. EARS, NOSE, THROAT: Ears normal, nares patent, oropharynx clear without exudates. Moist mucous membranes. NECK: Normal range of motion, supple without lymphadenopathy, JVD, or masses. LUNGS:course breath sounds, right > left, mild wheezing, on 2 liters of nasal cannula HEART: Regular rate and rhythm ABDOMEN: Soft, nontender, not distended, normoactive bowel sounds, no guarding, no rebound, no masses. MUSCULOSKELETAL: Normal range of motion at all joints. No bony deformities or tenderness. No CVA tenderness. LOWER EXTREMITIES: non pitting edema bilateral lower extremity NEUROLOGICAL: Normal speech. Normal gait. PSYCHIATRIC: Cooperative. Good eye contact. Appropriate mood and affect. SKIN: Warm, dry, normal turgor, no rashes or lesions noted, normal capillary refill. Laboratory Results - last 24 hr 11/28/17 11/28/17 11/28/17 14:13 14:20 14:20 WBC 8.9 RBC 4.49 Hgb 14.3 Hct 41.5 MCV 92.5 MCH 31.8 MCHC 34.4 RDW 14.1 Plt Count 244 MPV 8.6 Neutrophils % 47.5 Lymphocytes % 41.0 H Monocytes % 8.2 Eosinophils % 2.7 Basophils % 0.6 PT with INR 12.50 H INR 1.11 PTT (Actin FS) 34.8 H VBG pH POC VBG pCO2 POC VBG pO2 Mixed VBG HCO3 Sodium Potassium Chloride Carbon Dioxide Anion Gap BUN Creatinine Creat Clearance w eGFR Random Glucose Lactic Acid Calcium Total Bilirubin AST ALT Alkaline Phosphatase Troponin I B-Natriuretic Peptide Total Protein Albumin Urine Color Yellow Urine Appearance Clear Urine pH 7.0 Ur Specific Murphy 1.012 Urine Protein Negative Urine Glucose (UA) Negative Urine Ketones Negative Urine Blood Negative Urine Nitrite Negative Urine Bilirubin Negative Urine Urobilinogen Negative Ur Leukocyte Esterase Trace Urine WBC (Auto) <1 Urine RBC (Auto) <1 Ur Epithelial Cells Rare Urine Mucus Rare 11/28/17 11/28/17 11/28/17 14:20 14:20 14:20 WBC RBC Hgb Hct MCV MCH MCHC RDW Plt Count MPV Neutrophils % Lymphocytes % Monocytes % Eosinophils % Basophils % PT with INR INR PTT (Actin FS) VBG pH 7.37 POC VBG pCO2 49.7 POC VBG pO2 38.9 Mixed VBG HCO3 27.8 H Sodium 140 Potassium 3.7 Chloride 99 Carbon Dioxide 29 Anion Gap 12 BUN 11 Creatinine 1.0 Creat Clearance w eGFR > 60 Random Glucose 98 Lactic Acid 2.0 Calcium 9.4 Total Bilirubin 0.4 D AST 25 D ALT 16 Alkaline Phosphatase 98 D Troponin I < 0.02 B-Natriuretic Peptide 36 Total Protein 8.3 H D Albumin 3.8 Urine Color Urine Appearance Urine pH Ur Specific Murphy Urine Protein Urine Glucose (UA) Urine Ketones Urine Blood Urine Nitrite Urine Bilirubin Urine Urobilinogen Ur Leukocyte Esterase Urine WBC (Auto) Urine RBC (Auto) Ur Epithelial Cells Urine Mucus ASSESSMENT/PLAN: Patient is a 62 year old male with a significant past medical history of ETOH abuse, withdrawal seizures, COPD and Hep C. He presents to the ED today with worsening coughing, dyspnea with ambulation and right discomfort x 1 week. States that he tried to manage his symptoms at home, but noted that his breathing became worse and he became weaker, prompting an ER visit. Patient further states that his chest pain is radiating to his back with associated fever and chills. Patient reports that he was treated for bronchitis 2 months prior with antibiotics and steriods but his symptoms never fully resolved. States his symptoms are similar to his prior episode. In the ED he was noted to have an oxygen saturation of 85%, room air after receiving the duoneb and solumedrol. He is a current everyday smoker. Reports his last seizure was over a year ago. Pulmonary: Shortness of breath Atypical pneumonia vs. acute bronchitis Monitor on tele Duonebs Antibotics for possible bronchitis Monitor on tele Azithromycin Cardiology Shortness of breath Rule out ACS Trend trops Echo Cardiology consult Neuro Seizure history Last seizure 1 yr ago On Dilantin 100mg TID Phenobarbital 30mg BID F.E.N. Fluids: PO Eletrolytes: monitor Nutrition: low sodium diet Prophylaxis: DVT: ambulatory GI: [facility] Hospitalist Screening - Colonoscopy Questionnaire Colonoscopy Questionnaire: Colonoscopy Questionnaire
--- NOTE | 2017-11-28 18:33 | EKG ---
Test Reason : Blood Pressure : / mmHG Vent. Rate : 091 BPM Atrial Rate : 091 BPM P-R Int : 168 ms QRS Dur : 076 ms QT Int : 350 ms P-R-T Axes : 049 012 059 degrees QTc Int : 430 ms NORMAL SINUS RHYTHM CANNOT RULE OUT SEPTAL INFARCT , AGE UNDETERMINED ABNORMAL ECG WHEN COMPARED WITH ECG OF 14-MAY-2017 17:06, SEPTAL INFARCT IS NOW PRESENT Confirmed by DANIELLA ALMEIDA, ZAK ([id number]) on 11/28/2017 6:33:10 PM Referred By: Confirmed By:ZAK BREWER MD
[2017-11-28] MEDS: NICOTINE 21 MG/24 HOURS TOPICAL PATCH TD SCH (18:44)
[2017-11-28] MEDS: PHENYTOIN NA EXTENDED 100 MG CAPSULE (FP) PO SCH (22:21)
[2017-11-28] MEDS: QUEtiapine FUMARATE 100 MG TABLET (FP) PO SCH (22:21)
[2017-11-28] MEDS: PHENobarbital 30 MG TABLET PO SCH (22:21)
[2017-11-28] MEDS: BUDESONIDE/FORMETEROL FUMARATE 80/4.5 mcg INHALER IH SCH (22:21)
[2017-11-28] MEDS: VERAPAMIL HCL 240 MG E.R. TABLET (FP) PO SCH (22:46)
[2017-11-29] MEDS: methylPREDNISolone NA SUCC 40 MG/1 ML VIAL IVPUSH SCH ×3 (03:35→17:48)
[2017-11-29] MEDS: PHENYTOIN NA EXTENDED 100 MG CAPSULE (FP) PO SCH ×3 (06:03→21:24)
[2017-11-29] MEDS ORDERED: METHADONE HCL 10 MG TABLET PO ONE (08:24)
--- NOTE | 2017-11-29 08:34 | PN ---
Physical Exam: SUBJECTIVE: Patient seen and examined at the bedside. States had some coughing overnight, but feels slightly better. Refused solumedrol overnight. No chest pain OBJECTIVE: Trops not drawn overnight NSR on monitoring manager, with PVCs Methadone dose verified by primary RN and ordered Vital Signs Period Temp Pulse Resp BP Sys/Causey Pulse Ox Last 24 Hr 97.8 F-98.9 F 66-99 18-20 105-139/63-83 85-100 GENERAL: Awake, alert, and fully oriented, in no acute distress. HEAD: Normal with no signs of trauma. EYES: Pupils equal, round and reactive to light, extraocular movements intact, sclera anicteric, conjunctiva clear. No lid lag. EARS, NOSE, THROAT: Ears normal, nares patent, oropharynx clear without exudates. Moist mucous membranes. NECK: Normal range of motion, supple without lymphadenopathy, JVD, or masses. LUNGS:course breath sounds, right > left, no wheezing, on 2 liters of nasal cannula, but now tolerating room air HEART: Regular rate and rhythm ABDOMEN: Soft, nontender, not distended, normoactive bowel sounds, no guarding, no rebound, no masses. MUSCULOSKELETAL: Normal range of motion at all joints. No bony deformities or tenderness. No CVA tenderness. LOWER EXTREMITIES: non pitting edema bilateral lower extremity NEUROLOGICAL: Normal speech. Normal gait. PSYCHIATRIC: Cooperative. Good eye contact. Appropriate mood and affect. SKIN: Warm, dry, normal turgor, no rashes or lesions noted, normal capillary refill. Laboratory Results - last 24 hr 11/28/17 11/28/17 11/28/17 14:13 14:20 14:20 WBC 8.9 RBC 4.49 Hgb 14.3 Hct 41.5 MCV 92.5 MCH 31.8 MCHC 34.4 RDW 14.1 Plt Count 244 MPV 8.6 Neutrophils % 47.5 Lymphocytes % 41.0 H Monocytes % 8.2 Eosinophils % 2.7 Basophils % 0.6 PT with INR 12.50 H INR 1.11 PTT (Actin FS) 34.8 H VBG pH POC VBG pCO2 POC VBG pO2 Mixed VBG HCO3 Sodium Potassium Chloride Carbon Dioxide Anion Gap BUN Creatinine Creat Clearance w eGFR Random Glucose Lactic Acid Calcium Total Bilirubin AST ALT Alkaline Phosphatase Troponin I B-Natriuretic Peptide Total Protein Albumin Urine Color Yellow Urine Appearance Clear Urine pH 7.0 Ur Specific [place] 1.012 Urine Protein Negative Urine Glucose (UA) Negative Urine Ketones Negative Urine Blood Negative Urine Nitrite Negative Urine Bilirubin Negative Urine Urobilinogen Negative Ur Leukocyte Esterase Trace Urine WBC (Auto) <1 Urine RBC (Auto) <1 Ur Epithelial Cells Rare Urine Mucus Rare 11/28/17 11/28/17 11/28/17 14:20 14:20 14:20 WBC RBC Hgb Hct MCV MCH MCHC RDW Plt Count MPV Neutrophils % Lymphocytes % Monocytes % Eosinophils % Basophils % PT with INR INR PTT (Actin FS) VBG pH 7.37 POC VBG pCO2 49.7 POC VBG pO2 38.9 Mixed VBG HCO3 27.8 H Sodium 140 Potassium 3.7 Chloride 99 Carbon Dioxide 29 Anion Gap 12 BUN 11 Creatinine 1.0 Creat Clearance w eGFR > 60 Random Glucose 98 Lactic Acid 2.0 Calcium 9.4 Total Bilirubin 0.4 D AST 25 D ALT 16 Alkaline Phosphatase 98 D Troponin I < 0.02 B-Natriuretic Peptide 36 Total Protein 8.3 H D Albumin 3.8 Urine Color Urine Appearance Urine pH Ur Specific [place] Urine Protein Urine Glucose (UA) Urine Ketones Urine Blood Urine Nitrite Urine Bilirubin Urine Urobilinogen Ur Leukocyte Esterase Urine WBC (Auto) Urine RBC (Auto) Ur Epithelial Cells Urine Mucus Active Medications Generic Name Dose Route Start Last Admin Trade Name Freq PRN Reason Stop Dose Admin Albuterol/Ipratropium 1 amp 11/28/17 18:37 Duoneb - NEB Q6H PRN SHORTNESS OF BREATH Aspirin 81 mg 11/29/17 10:00 Asa - PO DAILY [facility] Budesonide/Formoterol Fumarate 2 puff 11/28/17 22:00 11/28/17 22:21 Symbicort 80/4.5mcg - IH 2 puff BID NICO Administration Hydrochlorothiazide 25 mg 11/29/17 10:00 Hctz - PO DAILY NICO Azithromycin 500 mg/ Dextrose 250 mls @ 250 mls/hr 11/29/17 10:00 IVPB DAILY NICO Methadone HCl 50 mg 11/29/17 08:24 Dolophine - PO 11/29/17 08:25 ONCE ONE Methylprednisolone Sodium Succinate 40 mg 11/29/17 03:00 11/29/17 03:35 Solu-Medrol - IVPUSH Not Given Q8H-IV NICO Nicotine 21 mg 11/28/17 17:45 11/28/17 18:44 Nicoderm Patch - TD 21 mg DAILY NICO Administration Pantoprazole Sodium 40 mg 11/29/17 10:00 Protonix - PO DAILY NICO Phenobarbital 30 mg 11/28/17 22:00 11/28/17 22:21 Phenobarbital - PO 30 mg BID NICO Administration Phenytoin Sodium 100 mg 11/28/17 22:00 11/29/17 06:03 Dilantin - PO 100 mg TID NICO Administration Quetiapine Fumarate 200 mg 11/28/17 22:00 11/28/17 22:21 Seroquel - PO 200 mg HS NICO Administration Verapamil HCl 240 mg 11/28/17 22:00 11/28/17 22:46 Calan Sr - PO Not Given BID NICO ASSESSMENT/PLAN: Patient is a 62 year old male with a significant past medical history of ETOH abuse, withdrawal seizures, COPD and Hep C. He presents to the ED today with worsening coughing, dyspnea with ambulation and right discomfort x 1 week. States that he tried to manage his symptoms at home, but noted that his breathing became worse and he became weaker, prompting an ER visit. Patient further states that his chest pain is radiating to his back with associated fever and chills. Patient reports that he was treated for bronchitis 2 months prior with antibiotics and steriods but his symptoms never fully resolved. States his symptoms are similar to his prior episode. In the ED he was noted to have an oxygen saturation of 85%, room air after receiving the duoneb and solumedrol. He is a current everyday smoker. Reports his last seizure was over a year ago. Pulmonary: Shortness of breath/hypoxemia Atypical pneumonia vs. acute bronchitis Monitor on tele Duonebs Antibiotics for possible bronchitis Monitor on tele Sputum culture ordered Supplemental oxygen to maintain oxygen >90% Respiratory pre and post prior to d/c Cardiology Shortness of breath Rule out ACS No chest pain, dyspnea improving Trend trops Echo Cardiology consult Neuro Seizure history Last seizure > 1 yr ago On Dilantin 100mg TID Phenobarbital 30mg BID F.E.N. Fluids: PO Eletrolytes: monitor Nutrition: low sodium diet Prophylaxis: DVT: ambulatory GI: Protonix Disposition: full code. Visit type - Emergency Visit Emergency Visit: Yes ED Registration Date: 11/28/17 Care time: The patient presented to the Emergency Department on the above date and was hospitalized for further evaluation of their emergent condition. - New Patient This patient is new to me today: No - Critical Care Critical Care patient: No - Discharge Referral Referred to [facility] No
[2017-11-29 08:38] LABS: BASO % 0.1 % (0-2.0); HEMATOCRIT 40.6 % (35.4-49); HEMOGLOBIN 13.6 GM/dL (11.7-16.9); LYMPH % 6.6 % (8-40); MCH 31.1 pg (25.7-33.7); MCHC 33.6 g/dl (32.0-35.9); MEAN CELL VOLUME 92.7 fl (80-96); MEAN PLT VOLUME 8.7 fl (7.5-11.1); MONO % 2.3 % (3.8-10.2); PLATELET COUNT 233 K/MM3 (134-434); RBC 4.38 M/mm3 (4.00-5.60); RDW 13.9 % (11.9-15.9); WHITE BLOOD COUNT 12.6 K/mm3 (4.0-10.0)
[2017-11-29] MEDS ORDERED: METHADONE 40 MG, METHADONE 10 MG PO ONE (09:00)
[2017-11-29 09:01] LABS: ALBUMIN 3.6 g/dl (3.4-5.0); ANION GAP 7 (8-16); BILIRUBIN,TOTAL 0.4 mg/dL (0.2-1.0); BLOOD UREA NITROGEN 13 mg/dL (7-18); CALCIUM 9.1 mg/dL (8.5-10.1); CHLORIDE 102 mmol/L (98-107); CO2 28 mmol/L (21-32); CREATININE 0.9 mg/dL (0.7-1.3); GLUCOSE,RANDOM 121 mg/dL (74-106); SGOT/AST 14 U/L (15-37); SGPT/ALT 15 U/L (12-78); SODIUM 137 mmol/L (136-145)
[2017-11-29 09:03] LABS: ALK PHOS 93 U/L (45-117)
[2017-11-29] MEDS ORDERED: METHADONE HCL 40 MG DISPERSABLE TABLET ONE (09:13)
[2017-11-29] MEDS ORDERED: METHADONE HCL 10 MG TABLET ONE (09:14)
[2017-11-29] MEDS: ALBUTEROL SO4 2.5/IPRATROPIUM 0.5 INH SOL 3 ML VIAL.NEB. NEB PRN (09:15)
[2017-11-29] MEDS: PHENobarbital 30 MG TABLET PO SCH ×2 (09:16→21:24)
[2017-11-29] MEDS: PANTOPRAZOLE 40 MG TABLET (FP) PO SCH (09:17)
[2017-11-29] MEDS: HYDROCHLOROTHIAZIDE 25 MG TABLET (FP) PO SCH (09:17)
[2017-11-29] MEDS: ASPIRIN 81 MG CHEWABLE TABLETS PO SCH (09:17)
[2017-11-29] MEDS: VERAPAMIL HCL 240 MG E.R. TABLET (FP) PO SCH ×2 (09:17→21:25)
[2017-11-29] MEDS: BUDESONIDE/FORMETEROL FUMARATE 80/4.5 mcg INHALER IH SCH ×2 (09:18→21:24)
[2017-11-29] MEDS: NICOTINE 21 MG/24 HOURS TOPICAL PATCH TD SCH (09:18)
--- NOTE | 2017-11-29 09:24 | CON.CARD ---
Consult Consult Specialty:: Cardiology Referred by:: Hospitalist Reason for Consultation:: Cardiac evaluation - History of Present Illness Chief Complaint: Right sided chest pain History of Present Illness: Patient is a 62 year old male with underlying history of ETOH use, withdrawal seizures, COPD, hypertension and Hepatitis C who presents with cough, dyspnea and right chest discomfort. He tried to manage himself at home but his symptoms got worse prompting him to come into the hospital. He denies left sided chest pain, shortness of breath or palpitations at this time. He denies paroxysmal nocturnal dyspnea or orthopnea. He denies fever or chills. He denies nausea, vomiting, diarrhea or abdominal pain. He denies headache or lightheadedness. Patient reports that he was treated for bronchitis 2 months prior with antibiotics and steriods but his symptoms never fully resolved. - History Source History Provided By: Patient, Medical Record Limitations to Obtaining History: No Limitations - Past Medical History Cardio/Vascular: Yes: HTN Pulmonary: Yes: COPD Gastrointestinal: Yes: GERD, Other (Hepatitis C) Musculoskeletal: Yes: Osteoarthritis - Alcohol/Substance Use Hx Alcohol Use: Yes History of Substance Use: reports: Heroin - Smoking History Smoking history: Current every day smoker Have you smoked in the past 12 months: Yes Aproximately how many cigarettes per day: 4 Home Medications - Allergies Allergies/Adverse Reactions: Allergies Allergy/AdvReac Type Severity Reaction Status Date / Time No Known Allergies Allergy Verified 11/28/17 13:49 - Home Medications Home Medications: Ambulatory Orders Aspirin [ASA -] 81 mg PO DAILY #30 tab.chew 04/08/15 Albuterol Sulfate Inhaler - [Ventolin Hfa Inhaler -] 2 inh PO Q4H PRN 05/06/17 Cyclobenzaprine HCl [Flexeril -] 10 mg PO TID PRN 05/06/17 Hydrochlorothiazide [Hctz -] 25 mg PO DAILY 05/06/17 Phenytoin Na Extended [Dilantin -] 100 mg PO TID 05/06/17 Quetiapine Fumarate [Seroquel -] 200 mg PO HS 05/06/17 Verapamil HCl [Verapamil ER] 240 mg PO BID 05/06/17 Omeprazole 40 mg PO DAILY 05/15/17 Tamsulosin HCl [Flomax] 0.4 mg PO DAILY 05/15/17 Budesonide/Formeterol Fumarate [SYMBICORT 80/4.5mcg -] 2 inh PO BID 07/01/17 Methadone [Dolophine -] 50 mg PO DAILY 11/28/17 Phenobarbital - 30 mg PO BID 11/28/17 Loratadine [Claritin] 10 mg PO DAILY 11/29/17 Family Disease History - Family Disease History Family Disease History: Heart Disease: Father (), CA: Mother () Review of Systems - Review of Systems Constitutional: denies: Chills, Fever Cardiovascular: reports: Chest Pain, Shortness of Breath. denies: Palpitations Respiratory: reports: Cough, SOB. denies: Hemoptysis, Orthopnea, PND, SOB on Exertion Gastrointestinal: denies: Abdominal Pain, Constipation, Diarrhea, Melena, Nausea , Rectal Bleeding, Vomiting Musculoskeletal: reports: Joint Pain Neurological: denies: Dizziness, Headache, Seizure, Syncope Vital Signs: Vital Signs Temperature 98.4 F 11/29/17 06:30 Pulse Rate 90 11/29/17 06:30 Respiratory Rate 20 11/29/17 06:30 Blood Pressure 131/82 11/29/17 06:30 O2 Sat by Pulse Oximetry (%) 99 11/28/17 21:00 Constitutional: Yes: Well Nourished Eyes: Yes: PERRL HENT: Yes: Atraumatic Neck: Yes: Supple Respiratory: Yes: Diminished Gastrointestinal: Yes: Normal Bowel Sounds, Soft. No: Tenderness Cardiovascular: Yes: Regular Rate and Rhythm JVD: No Carotid Bruit: No PMI: Non-Displaced Heart Sounds: Yes: S1, S2 Edema: No - Other Data Labs, Other Data: CBC, BMP 11/29/17 08:15 11/29/17 08:15 INR, PTT INR 1.11 (0.82-1.09) 11/28/17 14:20 Troponin, BNP 11/28/17 11/29/17 11/29/17 14:20 08:15 08:15 Troponin I < 0.02 < 0.02 Cancelled B-Natriuretic Peptide 36 Laboratory Results - last 24 hr 11/29/17 11/29/17 11/29/17 08:15 08:15 08:15 WBC 12.6 H D RBC 4.38 Hgb 13.6 Hct 40.6 MCV 92.7 MCH 31.1 MCHC 33.6 RDW 13.9 Plt Count 233 MPV 8.7 Neutrophils % 91.0 H D Lymphocytes % 6.6 L D Monocytes % 2.3 L Eosinophils % 0.0 D Basophils % 0.1 Sodium 137 Potassium 4.0 Chloride 102 Carbon Dioxide 28 Anion Gap 7 L BUN 13 Creatinine 0.9 Creat Clearance w eGFR > 60 Random Glucose 121 H D Hemoglobin A1c % 5.6 Calcium 9.1 Magnesium 2.0 Total Bilirubin 0.4 AST 14 L D ALT 15 Alkaline Phosphatase 93 Troponin I < 0.02 Total Protein 8.0 Albumin 3.6 Normal sinus rhythm with nonspecific T abnormality Echo: Pending Imaging - Results Chest X-ray: Report Reviewed (Interstitial marking) Cat Scan: Report Reviewed (Chest CT interstitial lung disease, pulmonary hypertension, pumonary nodule) EKG: Report Reviewed Problem List - Problems (1) COPD exacerbation Code(s): J44.1 - CHRONIC OBSTRUCTIVE PULMONARY DISEASE W (ACUTE) EXACERBATION (2) Chest pain Code(s): R07.9 - CHEST PAIN, UNSPECIFIED Qualifiers: Chest pain type: unspecified Qualified Code(s): R07.9 - Chest pain, unspecified (3) HTN (hypertension) Code(s): I10 - ESSENTIAL (PRIMARY) HYPERTENSION Qualifiers: Hypertension type: essential hypertension Qualified Code(s): I10 - Essential (primary) hypertension (4) Alcohol related seizure Code(s): R56.9 - UNSPECIFIED CONVULSIONS (5) Alcohol dependence Code(s): F10.20 - ALCOHOL DEPENDENCE, UNCOMPLICATED Qualifiers: Substance use status: uncomplicated Qualified Code(s): F10.20 - Alcohol dependence, uncomplicated (6) GERD (gastroesophageal reflux disease) Code(s): K21.9 - GASTRO-ESOPHAGEAL REFLUX DISEASE WITHOUT ESOPHAGITIS Qualifiers: Esophagitis presence: esophagitis presence not specified Qualified Code(s) : K21.9 - Gastro-esophageal reflux disease without esophagitis (7) Hepatitis C Code(s): B19.20 - UNSPECIFIED VIRAL HEPATITIS C WITHOUT HEPATIC COMA Qualifiers: Hepatic coma status: without hepatic coma (8) Interstitial lung disease Code(s): J84.9 - INTERSTITIAL PULMONARY DISEASE, UNSPECIFIED Assessment/Plan 1. Right sided chest pain, etiology to be determined, ?musculoskeletal, underlying pulmonary nodule 2. Underlying interstitial lung disease 3. COPD 4. ETOH abuse with withdrawal seizures and previous drug use now on Methadone therapy 5. History of hypertension PLAN: 1. Further work up for pulmonary nodule to be considered 2. Continue Verapamil and HCTZ 3. Bronchodilator, steroids and O2 as needed 4. Transthoracic echocardiography to assess LV/RV and valvular function 5. Continue ASA Further plans are to follow Joshua Powell MD
[2017-11-29] MEDS: AZITHROMYCIN IVPB 500 MG in DEXTROSE 5%-WATER - 250 ML IVPB SCH (12:04)
--- NOTE | 2017-11-29 12:46 | PN ---
Progress Note (short form) - Note Progress Note: PULMONARY CONSULTATION DICTATED 11/29/17 IMP ACUTE HYPOXEMIC RESPIRATORY FAILURE COPD EXACERBATION BRONCHITIS CP ILD HTN TOBACCO ABUSE PLAN IV STEROIDS INHALED BRONCHODILATORS ABX O2 CHEST CT SPUTUM C+S PFTS OUTPATIENT SMOKING CESSATION COUNSELED DR CAMPUZANO Problem List - Problems (1) Acute hypoxemic respiratory failure Code(s): J96.01 - ACUTE RESPIRATORY FAILURE WITH HYPOXIA (2) COPD exacerbation Code(s): J44.1 - CHRONIC OBSTRUCTIVE PULMONARY DISEASE W (ACUTE) EXACERBATION (3) Alcohol dependence in early full remission Code(s): F10.21 - ALCOHOL DEPENDENCE, IN REMISSION (4) Interstitial lung disease Code(s): J84.9 - INTERSTITIAL PULMONARY DISEASE, UNSPECIFIED (5) Nicotine dependence Code(s): F17.200 - NICOTINE DEPENDENCE, UNSPECIFIED, UNCOMPLICATED (6) HTN (hypertension) Code(s): I10 - ESSENTIAL (PRIMARY) HYPERTENSION (7) Chest pain Code(s): R07.9 - CHEST PAIN, UNSPECIFIED
[2017-11-29] MEDS ORDERED: PT OWN MED DRAWER 7, Y5N ONE ×2 (14:52→21:18)
[2017-11-29] MEDS: MAGNESIUM HYDROX 2400MG/30ML ORAL SUSPENSION 30 ML CUP PO PRN (16:16)
[2017-11-29] MEDS: LORATADINE 10 MG TABLET PO SCH (16:16)
--- NOTE | 2017-11-29 17:41 | CONS ---
PULMONARY CONSULTATION DATE OF CONSULTATION: 11/29/2017 REFERRING PHYSICIAN: Sania Jules NP HISTORY OF PRESENT ILLNESS: The patient is a 62-year-old black male with past medical history of hypertension, COPD, polysubstance abuse ,history of seizures secondary to alcohol withdrawal, has not drank within 9 months. Admitted to [facility] with complaint of increasing shortness of breath, cough and chest congestion. The patient states he started developing similar symptoms approximately 2 months ago. At the time he was treated with steroids and antibiotics which offered some improvement. Since that time he had progressive shortness of breath, dyspnea on exertion, cough productive of greenish sputum. For the past 2 weeks he has increasing shortness of breath, dyspnea on exertion as well as orthopnea. Denied any fever, chills, nausea, vomiting, diaphoresis. States that he has cough productive of green sputum. He denies any hemoptysis. He also has been complaining of right-sided chest pain on and off, increasing with inspiration for the past couple of months. He has a history of tobacco use and he does have a history of chemical exposure in the past. PAST MEDICAL HISTORY: Again includes COPD, GERD, EtOH, seizures secondary to EtOH. CURRENT MEDICATIONS: Include Symbicort, Solu-Medrol, Zithromax, Seroquel, NicoDerm, phenobarbital, DuoNeb, Calan, Dilantin, aspirin, Protonix, hydrochlorothiazide. REVIEW OF SYSTEMS: Positive for cough, positive shortness of breath, positive sputum. No fever, no chills, no hemoptysis. Positive right-sided chest pain. No abdominal pain. No lower extremity edema. PHYSICAL EXAMINATION:General: The patient is a well-developed, well-nourished male, awake, alert, in no acute distress. Vital Signs: He is currently afebrile. Blood pressure is 131/82, respiratory rate 20, O2 saturation is 99% on 4 L. HEENT: Normocephalic, atraumatic. Neck: Supple. Heart: Regular. S1, S2. Chest: Bilateral wheezes and rhonchi throughout. Abdomen: Soft, bowel sounds are positive. Extremities: No cyanosis or edema. LABORATORY DATA: O2 saturation on admission was 85 on room air, currently 99% on 4 L. WBC is 12.6, hemoglobin 13.6, hematocrit 40.6, platelet count 233,000, 91 polyps, 6.6 lymphocytes and 2.3 monocytes. BUN 13, creatinine 0.9. Chest x-ray reveals no acute infiltrates and/or effusions. There are increased interstitial markings bilaterally. IMPRESSION: 1. Acute hypoxemic respiratory failure and chronic obstructive pulmonary disease. 2. Chronic obstructive pulmonary disease with acute exacerbation. 3. Likely underlying interstitial lung disease. 4. Chest pain, possibly pleuritic or viral, likely pleuritic. 5. Hypertension. 6. Tobacco abuse. PLAN: IV steroids, inhaled bronchodilators, CT scan of the chest, antibiotic therapy, supplemental O2, PFTs as an outpatient. Also check O2 saturation and post-exercise prior to discharge to determine whether the patient is a candidate for home O2. Also smoking cessation counseled. Monitor . Also sputum for culture and sensitivity. ISABEL CAMPUZANO M.D. [id number]
[2017-11-29] MEDS: QUEtiapine FUMARATE 100 MG TABLET (FP) PO SCH (21:25)
[2017-11-30] MEDS: methylPREDNISolone NA SUCC 40 MG/1 ML VIAL IVPUSH SCH ×3 (02:02→21:11)
[2017-11-30] MEDS ORDERED: PT OWN MED DRAWER 7, Y5N ONE ×2 (06:12→21:02)
[2017-11-30] MEDS: PHENYTOIN NA EXTENDED 100 MG CAPSULE (FP) PO SCH ×3 (06:14→21:11)
[2017-11-30] MEDS: BUDESONIDE/FORMETEROL FUMARATE 80/4.5 mcg INHALER IH SCH ×2 (09:09→21:11)
[2017-11-30] MEDS: LORATADINE 10 MG TABLET PO SCH (09:10)
[2017-11-30] MEDS: ASPIRIN 81 MG CHEWABLE TABLETS PO SCH (09:10)
[2017-11-30] MEDS: PHENobarbital 30 MG TABLET PO SCH ×2 (09:10→21:11)
[2017-11-30] MEDS: HYDROCHLOROTHIAZIDE 25 MG TABLET (FP) PO SCH (09:11)
[2017-11-30] MEDS: PANTOPRAZOLE 40 MG TABLET (FP) PO SCH (09:11)
[2017-11-30] MEDS: VERAPAMIL HCL 240 MG E.R. TABLET (FP) PO SCH ×2 (09:12→21:11)
[2017-11-30] MEDS: NICOTINE 21 MG/24 HOURS TOPICAL PATCH TD SCH (09:12)
[2017-11-30] MEDS ORDERED: METHADONE HCL 40 MG DISPERSABLE TABLET PO SCH (09:30)
[2017-11-30] MEDS ORDERED: METHADONE HCL 40 MG DISPERSABLE TABLET ONE (09:53)
[2017-11-30] MEDS ORDERED: METHADONE HCL 10 MG TABLET ONE (09:53)
[2017-11-30] MEDS: METHADONE 40 MG, METHADONE 10 MG PO SCH (09:58)
[2017-11-30] MEDS: AZITHROMYCIN IVPB 500 MG in DEXTROSE 5%-WATER - 250 ML IVPB SCH (10:51)
--- NOTE | 2017-11-30 11:18 | PN ---
Progress Note, Physician Chief Complaint: Not in distress Complains of right chest pain, but less History of Present Illness: Patient was seen and examined. Awake and alert. Chart was reviewed Denies shortness of breath or palpitations - Current Medication List Current Medications: Active Medications Albuterol/Ipratropium (Duoneb -) 1 amp NEB Q6H PRN PRN Reason: SHORTNESS OF BREATH Last Admin: 11/29/17 09:15 Dose: 1 amp Aspirin (Asa -) 81 mg PO DAILY [facility] Last Admin: 11/30/17 09:10 Dose: 81 mg Budesonide/Formoterol Fumarate (Symbicort 80/4.5mcg -) 2 puff IH BID [facility] Last Admin: 11/30/17 09:09 Dose: 2 puff Hydrochlorothiazide (Hctz -) 25 mg PO DAILY [facility] Last Admin: 11/30/17 09:11 Dose: 25 mg Azithromycin 500 mg/ Dextrose 250 mls @ 250 mls/hr IVPB DAILY [facility] Last Admin: 11/30/17 10:51 Dose: 250 mls/hr Loratadine (Claritin -) 10 mg PO DAILY [facility] Last Admin: 11/30/17 09:10 Dose: 10 mg Magnesium Hydroxide (Milk Of Magnesia -) 30 ml PO DAILY PRN PRN Reason: CONSTIPATION Last Admin: 11/29/17 16:16 Dose: 30 ml Methadone HCl 40 mg/ Methadone (HCl 10 mg) 50 mg PO DAILY@0600 [facility] Last Admin: 11/30/17 09:58 Dose: 50 mg Methylprednisolone Sodium Succinate (Solu-Medrol -) 40 mg IVPUSH Q8H-IV [facility] Last Admin: 11/30/17 09:09 Dose: 40 mg Nicotine (Nicoderm Patch -) 21 mg TD DAILY [facility] Last Admin: 11/30/17 09:12 Dose: 21 mg Pantoprazole Sodium (Protonix -) 40 mg PO DAILY [facility] Last Admin: 11/30/17 09:11 Dose: 40 mg Phenobarbital (Phenobarbital -) 30 mg PO BID [facility] Last Admin: 11/30/17 09:10 Dose: 30 mg Phenytoin Sodium (Dilantin -) 100 mg PO TID [facility] Last Admin: 11/30/17 06:14 Dose: 100 mg Quetiapine Fumarate (Seroquel -) 200 mg PO HS [facility] Last Admin: 11/29/17 21:25 Dose: 200 mg Verapamil HCl (Calan Sr -) 240 mg PO BID NICO Last Admin: 11/30/17 09:12 Dose: 240 mg - Objective Vital Signs: Vital Signs Temperature 98.0 F 11/30/17 09:00 Pulse Rate 87 11/30/17 09:00 Respiratory Rate 18 11/30/17 09:00 Blood Pressure 142/90 11/30/17 09:00 O2 Sat by Pulse Oximetry (%) 98 11/30/17 09:00 Constitutional: Yes: Well Nourished Eyes: Yes: PERRL HENT: Yes: Atraumatic Neck: Yes: Supple Cardiovascular: Yes: Regular Rate and Rhythm, S1, S2 Respiratory: Yes: CTA Bilaterally Gastrointestinal: Yes: Normal Bowel Sounds, Soft. No: Tenderness Edema: No Additional Findings/Remarks: - Review of Systems Constitutional: denies: Chills, Fever Cardiovascular: reports: Chest Pain, Shortness of Breath. denies: Palpitations Respiratory: reports: Cough, SOB. denies: Hemoptysis, Orthopnea, PND, SOB on Exertion Gastrointestinal: denies: Abdominal Pain, Constipation, Diarrhea, Melena, Nausea , Rectal Bleeding, Vomiting Musculoskeletal: reports: Joint Pain Neurological: denies: Dizziness, Headache, Seizure, Syncope Labs: CBC, BMP 11/29/17 08:15 11/29/17 08:15 INR, PTT INR 1.11 (0.82-1.09) 11/28/17 14:20 Problem List - Problems (1) COPD exacerbation Code(s): J44.1 - CHRONIC OBSTRUCTIVE PULMONARY DISEASE W (ACUTE) EXACERBATION (2) Chest pain Code(s): R07.9 - CHEST PAIN, UNSPECIFIED Qualifiers: Chest pain type: unspecified Qualified Code(s): R07.9 - Chest pain, unspecified (3) HTN (hypertension) Code(s): I10 - ESSENTIAL (PRIMARY) HYPERTENSION Qualifiers: Hypertension type: essential hypertension Qualified Code(s): I10 - Essential (primary) hypertension (4) Alcohol related seizure Code(s): R56.9 - UNSPECIFIED CONVULSIONS (5) Alcohol dependence Code(s): F10.20 - ALCOHOL DEPENDENCE, UNCOMPLICATED Qualifiers: Substance use status: uncomplicated Qualified Code(s): F10.20 - Alcohol dependence, uncomplicated (6) GERD (gastroesophageal reflux disease) Code(s): K21.9 - GASTRO-ESOPHAGEAL REFLUX DISEASE WITHOUT ESOPHAGITIS Qualifiers: Esophagitis presence: esophagitis presence not specified Qualified Code(s) : K21.9 - Gastro-esophageal reflux disease without esophagitis (7) Hepatitis C Code(s): B19.20 - UNSPECIFIED VIRAL HEPATITIS C WITHOUT HEPATIC COMA Qualifiers: Hepatic coma status: without hepatic coma (8) Interstitial lung disease Code(s): J84.9 - INTERSTITIAL PULMONARY DISEASE, UNSPECIFIED Assessment/Plan 1. Right sided chest pain, etiology to be determined, ?musculoskeletal, underlying pulmonary nodule 2. Underlying interstitial lung disease 3. COPD 4. ETOH abuse with withdrawal seizures and previous drug use now on Methadone therapy 5. History of hypertension PLAN: 1. Further work up for pulmonary nodule to be considered 2. Continue Verapamil and HCTZ 3. Bronchodilator, steroids and O2 as needed 4. Transthoracic echocardiography to assess LV/RV and valvular function 5. Continue ASA Further plans are to follow Joshua Powell MD
--- NOTE | 2017-11-30 14:54 | PN ---
Physical Exam: SUBJECTIVE: Patient seen and examined at the bedside. feels better, tolerating room air. No chest pain. OBJECTIVE: Respiratory pre and post ordered Lungs still course but improving since admission Vital Signs Period Temp Pulse Resp BP Sys/Causey Pulse Ox Last 24 Hr 97.7 F-98.3 F 79-87 18-20 117-142/71-90 98-98 GENERAL: Awake, alert, and fully oriented, in no acute distress. HEAD: Normal with no signs of trauma. EYES: Pupils equal, round and reactive to light, extraocular movements intact, sclera anicteric, conjunctiva clear. No lid lag. EARS, NOSE, THROAT: Ears normal, nares patent, oropharynx clear without exudates. Moist mucous membranes. NECK: Normal range of motion, supple without lymphadenopathy, JVD, or masses. LUNGS:course breath sounds, right > left, no wheezing, on room air HEART: Regular rate and rhythm ABDOMEN: Soft, nontender, not distended, normoactive bowel sounds, no guarding, no rebound, no masses. MUSCULOSKELETAL: Normal range of motion at all joints. No bony deformities or tenderness. No CVA tenderness. LOWER EXTREMITIES: non pitting edema bilateral lower extremity NEUROLOGICAL: Normal speech. Normal gait. PSYCHIATRIC: Cooperative. Good eye contact. Appropriate mood and affect. SKIN: Warm, dry, normal turgor, no rashes or lesions noted, normal capillary refill. Laboratory Results - last 24 hr 11/29/17 08:15 Hemoglobin A1c % 5.6 Active Medications Generic Name Dose Route Start Last Admin Trade Name Freq PRN Reason Stop Dose Admin Albuterol/Ipratropium 1 amp 11/28/17 18:37 11/29/17 09:15 Duoneb - NEB 1 amp Q6H PRN Administration SHORTNESS OF BREATH Aspirin 81 mg 11/29/17 10:00 11/30/17 09:10 Asa - PO 81 mg DAILY NICO Administration Budesonide/Formoterol Fumarate 2 puff 11/28/17 22:00 11/30/17 09:09 Symbicort 80/4.5mcg - IH 2 puff BID NICO Administration Hydrochlorothiazide 25 mg 11/29/17 10:00 11/30/17 09:11 Hctz - PO 25 mg DAILY NICO Administration Azithromycin 500 mg/ Dextrose 250 mls @ 250 mls/hr 11/29/17 10:00 11/30/17 10 :51 IVPB 250 mls/hr DAILY NICO Administration Loratadine 10 mg 11/29/17 15:30 11/30/17 09:10 Claritin - PO 10 mg DAILY NICO Administration Magnesium Hydroxide 30 ml 11/29/17 15:31 11/29/17 16:16 Milk Of Magnesia - PO 30 ml DAILY PRN Administration CONSTIPATION Methadone HCl 40 mg/ Methadone 50 mg 11/30/17 09:30 11/30/17 09:58 HCl 10 mg PO 50 mg DAILY@0600 NICO Administration Methylprednisolone Sodium Succinate 40 mg 11/29/17 03:00 11/30/17 09:09 Solu-Medrol - IVPUSH 40 mg Q8H-IV NICO Administration Nicotine 21 mg 11/28/17 17:45 11/30/17 09:12 Nicoderm Patch - TD 21 mg DAILY NICO Administration Pantoprazole Sodium 40 mg 11/29/17 10:00 11/30/17 09:11 Protonix - PO 40 mg DAILY NICO Administration Phenobarbital 30 mg 11/28/17 22:00 11/30/17 09:10 Phenobarbital - PO 30 mg BID NICO Administration Phenytoin Sodium 100 mg 11/28/17 22:00 11/30/17 14:26 Dilantin - PO 100 mg TID NICO Administration Quetiapine Fumarate 200 mg 11/28/17 22:00 11/29/17 21:25 Seroquel - PO 200 mg HS NICO Administration Verapamil HCl 240 mg 11/28/17 22:00 11/30/17 09:12 Calan Sr - PO 240 mg BID NICO Administration ASSESSMENT/PLAN: Patient is a 62 year old male with a significant past medical history of ETOH abuse with withdrawal seizures (last seizure 1 year ago), COPD, current everyday smoker and Hep C. He presents to the ED on 11/28/2017 with worsening coughing, dyspnea with ambulation and right discomfort x 1 week. States that he tried to manage his symptoms at home, but noted that his breathing became worse and he became weaker, prompting an ER visit. Patient further states that his chest pain is radiating to his back with associated fever and chills. Patient reports that he was treated for bronchitis 2 months prior with antibiotics and steriods but his symptoms never fully resolved. States his symptoms are similar to his prior episode. In the ED he was noted to have an oxygen saturation of 85%, room air after receiving the duoneb and solumedrol. Pulmonary: Shortness of breath/hypoxemia, improving COPD exacerbation/Bronchitis On Solumedrol 40mg q12 with taper Duonebs Antibiotics for possible bronchitis Monitor on tele Sputum culture ordered Supplemental oxygen to maintain oxygen >90% Respiratory pre and post prior to d/c Pulmonary referral on discharge Cardiology: Shortness of breath Rule out ACS No chest pain, dyspnea improving Trops negative x 2 Echo pending read Cardiology consult Neuro: Seizure history Last seizure > 1 yr ago On Dilantin 100mg TID Phenobarbital 30mg BID Psyche: Tobacco dependence On Nicotine patch Smoking cessation encouraged F.E.N. Fluids: PO Eletrolytes: monitor Nutrition: low sodium diet Prophylaxis: DVT: ambulatory GI: Protonix Disposition: full code. Visit type - Emergency Visit Emergency Visit: Yes ED Registration Date: 11/28/17 Care time: The patient presented to the Emergency Department on the above date and was hospitalized for further evaluation of their emergent condition. - New Patient This patient is new to me today: No - Critical Care Critical Care patient: No - Discharge Referral Referred to [facility] Med P.C.: No
--- NOTE | 2017-11-30 15:02 | PN ---
Progress Note, Physician History of Present Illness: PULMONARY ALERT,FEELING BETTER,LESS DYSPNEIC - Current Medication List Current Medications: Active Medications Albuterol/Ipratropium (Duoneb -) 1 amp NEB Q6H PRN PRN Reason: SHORTNESS OF BREATH Last Admin: 11/29/17 09:15 Dose: 1 amp Aspirin (Asa -) 81 mg PO DAILY [facility] Last Admin: 11/30/17 09:10 Dose: 81 mg Budesonide/Formoterol Fumarate (Symbicort 80/4.5mcg -) 2 puff IH BID [facility] Last Admin: 11/30/17 09:09 Dose: 2 puff Hydrochlorothiazide (Hctz -) 25 mg PO DAILY [facility] Last Admin: 11/30/17 09:11 Dose: 25 mg Azithromycin 500 mg/ Dextrose 250 mls @ 250 mls/hr IVPB DAILY [facility] Last Admin: 11/30/17 10:51 Dose: 250 mls/hr Loratadine (Claritin -) 10 mg PO DAILY [facility] Last Admin: 11/30/17 09:10 Dose: 10 mg Magnesium Hydroxide (Milk Of Magnesia -) 30 ml PO DAILY PRN PRN Reason: CONSTIPATION Last Admin: 11/29/17 16:16 Dose: 30 ml Methadone HCl 40 mg/ Methadone (HCl 10 mg) 50 mg PO DAILY@0600 [facility] Last Admin: 11/30/17 09:58 Dose: 50 mg Methylprednisolone Sodium Succinate (Solu-Medrol -) 40 mg IVPUSH Q8H-IV [facility] Last Admin: 11/30/17 09:09 Dose: 40 mg Nicotine (Nicoderm Patch -) 21 mg TD DAILY [facility] Last Admin: 11/30/17 09:12 Dose: 21 mg Pantoprazole Sodium (Protonix -) 40 mg PO DAILY [facility] Last Admin: 11/30/17 09:11 Dose: 40 mg Phenobarbital (Phenobarbital -) 30 mg PO BID [facility] Last Admin: 11/30/17 09:10 Dose: 30 mg Phenytoin Sodium (Dilantin -) 100 mg PO TID [facility] Last Admin: 11/30/17 14:26 Dose: 100 mg Quetiapine Fumarate (Seroquel -) 200 mg PO HS [facility] Last Admin: 11/29/17 21:25 Dose: 200 mg Verapamil HCl (Calan Sr -) 240 mg PO BID [facility] Last Admin: 11/30/17 09:12 Dose: 240 mg - Objective Vital Signs: Vital Signs Temperature 98.2 F 11/30/17 14:28 Pulse Rate 82 11/30/17 14:28 Respiratory Rate 18 11/30/17 14:28 Blood Pressure 117/73 11/30/17 14:28 O2 Sat by Pulse Oximetry (%) 98 11/30/17 09:00 Constitutional: Yes: Well Nourished, Calm Eyes: Yes: WNL HENT: Yes: WNL Neck: Yes: WNL Cardiovascular: Yes: Regular Rate and Rhythm, S1, S2 Respiratory: Yes: Wheezes (SCATTERED ELIZABETH WHEEZES) Gastrointestinal: Yes: Normal Bowel Sounds, Soft Extremities: Yes: WNL Edema: No Labs: CBC, BMP Problem List - Problems (1) Acute hypoxemic respiratory failure Code(s): J96.01 - ACUTE RESPIRATORY FAILURE WITH HYPOXIA (2) COPD exacerbation Code(s): J44.1 - CHRONIC OBSTRUCTIVE PULMONARY DISEASE W (ACUTE) EXACERBATION (3) Alcohol dependence in early full remission Code(s): F10.21 - ALCOHOL DEPENDENCE, IN REMISSION (4) Interstitial lung disease Code(s): J84.9 - INTERSTITIAL PULMONARY DISEASE, UNSPECIFIED (5) Nicotine dependence Code(s): F17.200 - NICOTINE DEPENDENCE, UNSPECIFIED, UNCOMPLICATED (6) HTN (hypertension) Code(s): I10 - ESSENTIAL (PRIMARY) HYPERTENSION Qualifiers: Hypertension type: essential hypertension Qualified Code(s): I10 - Essential (primary) hypertension (7) Chest pain Code(s): R07.9 - CHEST PAIN, UNSPECIFIED Qualifiers: Chest pain type: unspecified Qualified Code(s): R07.9 - Chest pain, unspecified Assessment/Plan IMP ACUTE HYPOXEMIC RESPIRATORY FAILURE IMPROVING COPD EXACERBATION IMPROVED BRONCHITIS CP ILD HTN TOBACCO ABUSE RLL NODULE MEDIASTINAL ADENOPATHY ? INFLAMMATORY ,? MALIGNANT PLAN IV STEROIDS INHALED BRONCHODILATORS ABX O2 PFTS OUTPATIENT SMOKING CESSATION COUNSELED PET SCAN OUTPATIENT TO EVALUATE RLL NODULE AND MEDIASTINAL ADENOPATHY DR CAMPUZANO Problem List - Problems (1) Acute hypoxemic respiratory failure Code(s): J96.01 - ACUTE RESPIRATORY FAILURE WITH HYPOXIA (2) COPD exacerbation Code(s): J44.1 - CHRONIC OBSTRUCTIVE PULMONARY DISEASE W (ACUTE) EXACERBATION (3) Alcohol dependence in early full remission Code(s): F10.21 - ALCOHOL DEPENDENCE, IN REMISSION (4) Interstitial lung disease Code(s): J84.9 - INTERSTITIAL PULMONARY DISEASE, UNSPECIFIED (5) Nicotine dependence Code(s): F17.200 - NICOTINE DEPENDENCE, UNSPECIFIED, UNCOMPLICATED (6) HTN (hypertension) Code(s): I10 - ESSENTIAL (PRIMARY) HYPERTENSION (7) Chest pain Code(s): R07.9 - CHEST PAIN, UNSPECIFIED
[2017-11-30] MEDS: ALBUTEROL SO4 2.5/IPRATROPIUM 0.5 INH SOL 3 ML VIAL.NEB. NEB PRN (15:24)
[2017-11-30] MEDS: MAGNESIUM HYDROX 2400MG/30ML ORAL SUSPENSION 30 ML CUP PO PRN (19:38)
[2017-11-30] MEDS: QUEtiapine FUMARATE 100 MG TABLET (FP) PO SCH (21:11)
[2017-12-01] MEDS ORDERED: METHADONE HCL 40 MG DISPERSABLE TABLET ONE (06:06)
[2017-12-01] MEDS ORDERED: METHADONE HCL 10 MG TABLET ONE (06:06)
[2017-12-01] MEDS: METHADONE 40 MG, METHADONE 10 MG PO SCH (06:08)
[2017-12-01] MEDS: PHENYTOIN NA EXTENDED 100 MG CAPSULE (FP) PO SCH ×2 (06:09→13:58)
[2017-12-01 09:31] VITALS: BP 132/89; PULSE 80; TEMP 98
[2017-12-01] MEDS: ASPIRIN 81 MG CHEWABLE TABLETS PO SCH (09:31)
[2017-12-01] MEDS: NICOTINE 21 MG/24 HOURS TOPICAL PATCH TD SCH (09:31)
[2017-12-01] MEDS: PHENobarbital 30 MG TABLET PO SCH (09:31)
[2017-12-01] MEDS: LORATADINE 10 MG TABLET PO SCH (09:31)
[2017-12-01] MEDS: PANTOPRAZOLE 40 MG TABLET (FP) PO SCH (09:31)
[2017-12-01] MEDS: HYDROCHLOROTHIAZIDE 25 MG TABLET (FP) PO SCH (09:31)
[2017-12-01] MEDS: methylPREDNISolone NA SUCC 40 MG/1 ML VIAL IVPUSH SCH (09:32)
[2017-12-01] MEDS: AZITHROMYCIN IVPB 500 MG in DEXTROSE 5%-WATER - 250 ML IVPB SCH (09:32)
--- NOTE | 2017-12-01 09:32 | PN ---
Progress Note (short form) - Note Progress Note: Chief Complaint: Events noted, notes reviewed, denies any chest pain but reports persistent dyspnea, History of Present Illness: Seen and examined on telemetry. Events noted, notes reviewed, denies any chest pain but reports persistent dyspnea, Echocardiography report noted normal LV systolic function with LVEF 55-60%, no valvular pathology noted, limited study - Current Medication List Current Medications Albuterol/Ipratropium (Duoneb -) 1 amp NEB Q6H PRN PRN Reason: SHORTNESS OF BREATH Last Admin: 11/30/17 15:24 Dose: 1 amp Aspirin (Asa -) 81 mg PO DAILY [facility] Last Admin: 11/30/17 09:10 Dose: 81 mg Budesonide/Formoterol Fumarate (Symbicort 80/4.5mcg -) 2 puff IH BID [facility] Last Admin: 11/30/17 21:11 Dose: 2 puff Hydrochlorothiazide (Hctz -) 25 mg PO DAILY [facility] Last Admin: 11/30/17 09:11 Dose: 25 mg Azithromycin 500 mg/ Dextrose 250 mls @ 250 mls/hr IVPB DAILY [facility] Last Admin: 11/30/17 10:51 Dose: 250 mls/hr Loratadine (Claritin -) 10 mg PO DAILY [facility] Last Admin: 11/30/17 09:10 Dose: 10 mg Magnesium Hydroxide (Milk Of Magnesia -) 30 ml PO DAILY PRN PRN Reason: CONSTIPATION Last Admin: 11/30/17 19:38 Dose: 30 ml Methadone HCl 40 mg/ Methadone (HCl 10 mg) 50 mg PO DAILY@0600 [facility] Last Admin: 12/01/17 06:08 Dose: 50 mg Methylprednisolone Sodium Succinate (Solu-Medrol -) 40 mg IVPUSH BID [facility] Last Admin: 11/30/17 21:11 Dose: 40 mg Nicotine (Nicoderm Patch -) 21 mg TD DAILY [facility] Last Admin: 11/30/17 09:12 Dose: 21 mg Pantoprazole Sodium (Protonix -) 40 mg PO DAILY [facility] Last Admin: 11/30/17 09:11 Dose: 40 mg Phenobarbital (Phenobarbital -) 30 mg PO BID [facility] Last Admin: 11/30/17 21:11 Dose: 30 mg Phenytoin Sodium (Dilantin -) 100 mg PO TID [facility] Last Admin: 12/01/17 06:09 Dose: 100 mg Quetiapine Fumarate (Seroquel -) 200 mg PO [facility] Last Admin: 11/30/17 21:11 Dose: 200 mg Verapamil HCl (Calan Sr -) 240 mg PO BID [facility] Last Admin: 11/30/17 21:11 Dose: 240 mg - Review of Systems Constitutional: denies: Chills, Fever Cardiovascular: As noted above Respiratory: denies: Cough or Sputum Production Gastrointestinal: denies: Nausea, Vomiting, Diarrhea, Constipation or Abdominal Pain Neurological: denies: Dizziness or Headache - Objective Vital Signs: Last Vital Signs Temp Pulse Resp BP Pulse Ox 98 F 80 20 132/89 96 12/01/17 09:30 12/01/17 09:30 12/01/17 09:30 12/01/17 09:30 11/30/17 21:00 Intake & Output 11/28/17 11/29/17 11/30/17 12/01/17 22:59 23:59 23:59 23:59 Intake Total 1171 Balance 1171 Weight Constitutional: Well Nourished Eyes: MAXIM, EOMI Neck: Supple Negative JVD No Bruit Cardiovascular: S1 S2 Regular Rate and Rhythm Respiratory: CTA Bilaterally Gastrointestinal: Soft Benign Normal Bowel Sounds Ext: No Edema Labs: CBC, BMP 11/29/17 08:15 11/29/17 08:15 Assessment/Plan ASSESSMENT: 1. Right sided chest pain, etiology to be determined, probably musculo-skeletal in origin 2. Interstitial lung disease 3. COPD 4. HTN 5. ETOH abuse with withdrawal seizures 6. Tobacco abuse 7. Prior history of drug abuse/on Methadone therapy PLAN: 1. Continue Verapamil SR 2. Add ACEI or ARBS, unless it is contraindicated 3. Continue HCTZ 4. Continue ASA 5. Steroids and bronchodilators as per the primary team 6. Antibiotics as per the primary team Rocío Abreu MD
[2017-12-01] MEDS: VERAPAMIL HCL 240 MG E.R. TABLET (FP) PO SCH (11:20)
[2017-12-01] MEDS: BUDESONIDE/FORMETEROL FUMARATE 80/4.5 mcg INHALER IH SCH (11:20)
--- NOTE | 2017-12-01 12:24 | PN ---
Progress Note, Physician History of Present Illness: pulmonary alert,feeling bettet,sob improving - Current Medication List Current Medications: Active Medications Albuterol/Ipratropium (Duoneb -) 1 amp NEB Q6H PRN PRN Reason: SHORTNESS OF BREATH Last Admin: 11/30/17 15:24 Dose: 1 amp Aspirin (Asa -) 81 mg PO DAILY [facility] Last Admin: 12/01/17 09:31 Dose: 81 mg Budesonide/Formoterol Fumarate (Symbicort 80/4.5mcg -) 2 puff IH BID [facility] Last Admin: 12/01/17 11:20 Dose: 2 puff Hydrochlorothiazide (Hctz -) 25 mg PO DAILY [facility] Last Admin: 12/01/17 09:31 Dose: 25 mg Azithromycin 500 mg/ Dextrose 250 mls @ 250 mls/hr IVPB DAILY [facility] Last Admin: 12/01/17 09:32 Dose: 250 mls/hr Loratadine (Claritin -) 10 mg PO DAILY [facility] Last Admin: 12/01/17 09:31 Dose: 10 mg Magnesium Hydroxide (Milk Of Magnesia -) 30 ml PO DAILY PRN PRN Reason: CONSTIPATION Last Admin: 11/30/17 19:38 Dose: 30 ml Methadone HCl 40 mg/ Methadone (HCl 10 mg) 50 mg PO DAILY@0600 [facility] Last Admin: 12/01/17 06:08 Dose: 50 mg Nicotine (Nicoderm Patch -) 21 mg TD DAILY [facility] Last Admin: 12/01/17 09:31 Dose: 21 mg Pantoprazole Sodium (Protonix -) 40 mg PO DAILY [facility] Last Admin: 12/01/17 09:31 Dose: 40 mg Phenobarbital (Phenobarbital -) 30 mg PO BID [facility] Last Admin: 12/01/17 09:31 Dose: 30 mg Phenytoin Sodium (Dilantin -) 100 mg PO TID [facility] Last Admin: 12/01/17 06:09 Dose: 100 mg Prednisone (Deltasone -) 40 mg PO BID [facility] Quetiapine Fumarate (Seroquel -) 200 mg PO HS [facility] Last Admin: 11/30/17 21:11 Dose: 200 mg Verapamil HCl (Calan Sr -) 240 mg PO BID [facility] Last Admin: 12/01/17 11:20 Dose: 240 mg - Objective Vital Signs: Vital Signs Temperature 98 F 12/01/17 09:30 Pulse Rate 80 03/13/18 09:30 Respiratory Rate 20 12/01/17 09:30 Blood Pressure 132/89 12/01/17 09:30 O2 Sat by Pulse Oximetry (%) 96 11/30/17 21:00 Constitutional: Yes: Well Nourished, Calm Eyes: Yes: WNL HENT: Yes: WNL Neck: Yes: WNL Cardiovascular: Yes: Regular Rate and Rhythm, S1, S2 Respiratory: Yes: Wheezes (few wheezes) Gastrointestinal: Yes: Normal Bowel Sounds, Soft Extremities: Yes: WNL Edema: No Labs: CBC, BMP Problem List - Problems (1) Acute hypoxemic respiratory failure Code(s): J96.01 - ACUTE RESPIRATORY FAILURE WITH HYPOXIA (2) COPD exacerbation Code(s): J44.1 - CHRONIC OBSTRUCTIVE PULMONARY DISEASE W (ACUTE) EXACERBATION (3) Alcohol dependence in early full remission Code(s): F10.21 - ALCOHOL DEPENDENCE, IN REMISSION (4) Interstitial lung disease Code(s): J84.9 - INTERSTITIAL PULMONARY DISEASE, UNSPECIFIED (5) Nicotine dependence Code(s): F17.200 - NICOTINE DEPENDENCE, UNSPECIFIED, UNCOMPLICATED (6) HTN (hypertension) Code(s): I10 - ESSENTIAL (PRIMARY) HYPERTENSION Qualifiers: Hypertension type: essential hypertension Qualified Code(s): I10 - Essential (primary) hypertension (7) Chest pain Code(s): R07.9 - CHEST PAIN, UNSPECIFIED Qualifiers: Chest pain type: unspecified Qualified Code(s): R07.9 - Chest pain, unspecified Assessment/Plan IMP ACUTE HYPOXEMIC RESPIRATORY FAILURE IMPROVING COPD EXACERBATION IMPROVED BRONCHITIS CP ILD HTN TOBACCO ABUSE RLL NODULE MEDIASTINAL ADENOPATHY ? INFLAMMATORY ,? MALIGNANT PLAN PREDNISONE WITH TAPER INHALED BRONCHODILATORS ABX HOME O2 PFTS OUTPATIENT SMOKING CESSATION COUNSELED PET SCAN OUTPATIENT TO EVALUATE RLL NODULE AND MEDIASTINAL ADENOPATHY DR CAMPUZANO Problem List - Problems (1) Acute hypoxemic respiratory failure Code(s): J96.01 - ACUTE RESPIRATORY FAILURE WITH HYPOXIA (2) COPD exacerbation Code(s): J44.1 - CHRONIC OBSTRUCTIVE PULMONARY DISEASE W (ACUTE) EXACERBATION (3) Alcohol dependence in early full remission Code(s): F10.21 - ALCOHOL DEPENDENCE, IN REMISSION (4) Interstitial lung disease Code(s): J84.9 - INTERSTITIAL PULMONARY DISEASE, UNSPECIFIED (5) Nicotine dependence Code(s): F17.200 - NICOTINE DEPENDENCE, UNSPECIFIED, UNCOMPLICATED (6) HTN (hypertension) Code(s): I10 - ESSENTIAL (PRIMARY) HYPERTENSION (7) Chest pain Code(s): R07.9 - CHEST PAIN, UNSPECIFIED
--- NOTE | 2017-12-01 13:07 | DS ---
Physical Exam: SUBJECTIVE: Patient seen and examined at the bedside. Sitting in chair, tolerating periods of room air. Noted to be de-sats with ambulations to 79% RA OBJECTIVE: Home oxygen ordered for patient Vital Signs Period Temp Pulse Resp BP Sys/Causey Pulse Ox Last 24 Hr 98 F-98.5 F 59-100 18-20 104-143/73-90 91-96 PHYSICAL EXAM GENERAL: Awake, alert, and fully oriented, in no acute distress. HEAD: Normal with no signs of trauma. EYES: Pupils equal, round and reactive to light, extraocular movements intact, sclera anicteric, conjunctiva clear. No lid lag. EARS, NOSE, THROAT: Ears normal, nares patent, oropharynx clear without exudates. Moist mucous membranes. NECK: Normal range of motion, supple without lymphadenopathy, JVD, or masses. LUNGS: diminished breath sounds, much improved, no wheezing, no accessory muscle , tolerating room air HEART: Regular rate and rhythm ABDOMEN: Soft, nontender, not distended, normoactive bowel sounds, no guarding, no rebound, no masses. MUSCULOSKELETAL: Normal range of motion at all joints. No bony deformities or tenderness. No CVA tenderness. LOWER EXTREMITIES: non pitting edema bilateral lower extremity NEUROLOGICAL: Normal speech. Normal gait. PSYCHIATRIC: Cooperative. Good eye contact. Appropriate mood and affect. SKIN: Warm, dry, normal turgor, no rashes or lesions noted, normal capillary refill. LABS HOSPITAL COURSE: Date of Admission:11/28/17 Date of Discharge: 12/01/17 ASSESSMENT/PLAN: Patient is a 62 year old male with a significant past medical history of ETOH abuse with withdrawal seizures (last seizure 1 year ago), COPD, current everyday smoker and Hep C. He presents to the ED on 11/28/2017 with worsening coughing, dyspnea with ambulation and right discomfort x 1 week. States that he tried to manage his symptoms at home, but noted that his breathing became worse and he became weaker, prompting an ER visit. Patient further states that his chest pain is radiating to his back with associated fever and chills. Patient reports that he was treated for bronchitis 2 months prior with antibiotics and steriods but his symptoms never fully resolved. States his symptoms are similar to his prior episode. In the ED he was noted to have an oxygen saturation of 85%, room air after receiving the duoneb and solumedrol. Pulmonary: Shortness of breath/hypoxemia, improving with steroids COPD exacerbation/Bronchitis Will need home oxygen, ordered Prednisone taper as outlined in d/c instructions Azithomycin 500m x 7 more days Pulmonary follow up with Dr. Vega in 2 weeks Cardiology: Shortness of breathing Ruled out for ACS Trops negative x 2 Cardiology followed during hospitalization Hypertension, chronic/controlled Neuro: Seizure history Last seizure > 1 yr ago On Dilantin 100mg TID Phenobarbital 30mg BID Psyche: Tobacco dependence On Nicotine patch Smoking cessation encouraged Disposition: full code. Discharge home Minutes to complete discharge: 60 Discharge Summary Reason For Visit: ACUTE EXACERBATION OF COPD Current Active Problems Acute hypoxemic respiratory failure (Acute) COPD exacerbation (Acute) Chest pain (Acute) HTN (hypertension) (Acute) Condition: Improved - Instructions Diet, Activity, Other Instructions: Mr. Rodrigues: Please continue the antibiotics and prednisone taper as ordered: Date Dose 12/02/2017 Prednisone 60mg daily at 8am 12/03/2017 Prednisone 60mg daily at 8am 12/04/2017 Prednisone 40mg daily at 8am 12/05/2017 Prednisone 40mg daily at 8am 12/06/2017 Prednisone 30mg daily at 8am 12/07/2017 Prednisone 30mg daily at 8am 12/08/2017 Prednisone 20mg daily at 8am 12/09/2017 Prednisone 20mg daily at 8am 12/10/2017 Prednisone 10mg daily at 8am 12/11/2017 Prednisone 10mg daily at 8am In addition, please continue the Azithromycin 500mg tablets daily for 7 more days to complete a 10 day course. During your hospitalization, we did a Chest CT that found a solid right lower lobe pulmonary nodule. We recommend that you repeat the CT chest in 3 month follow up with your primary care physician or with Dr. Vega. Please call me with any questions that you may have. Niyah Gregg Emerson SERVICE SUPPORT REPRESENTATIVE [phone] [facility] Referrals: Edis Vega MD [Staff Physician] - 2 Weeks Lu Gaitan [Primary Care Provider] - 1 Week - Home Medications Comprehensive Discharge Medication List: Ambulatory Orders Aspirin [ASA -] 81 mg PO DAILY #30 tab.chew 04/08/15 Albuterol Sulfate Inhaler - [Ventolin HFA Inhaler -] 2 inh PO Q4H PRN 08/16/17 Cyclobenzaprine HCl [Flexeril -] 10 mg PO TID PRN 05/06/17 Hydrochlorothiazide [Hctz -] 25 mg PO DAILY 05/06/17 Phenytoin Na Extended [Dilantin -] 100 mg PO TID 05/06/17 Quetiapine Fumarate [Seroquel -] 200 mg PO HS 05/06/17 Verapamil HCl [Verapamil ER] 240 mg PO BID 05/06/17 Omeprazole 40 mg PO DAILY 05/15/17 Tamsulosin HCl [Flomax] 0.4 mg PO DAILY 05/15/17 Methadone [Dolophine -] 50 mg PO DAILY 11/28/17 Phenobarbital - 30 mg PO BID 11/28/17 Loratadine [Claritin] 10 mg PO DAILY 11/29/17 Azithromycin 500 mg PO DAILY #7 tablet 12/01/17 Budesonide/Formeterol Fumarate [SYMBICORT 80/4.5mcg -] 2 inh PO BID #1 inhaler 12/01/17 Loratadine [Claritin -] 10 mg PO DAILY tablet 12/01/17 Nicotine Patch [Nicoderm Patch -] 21 mg TD DAILY #20 patch 12/01/17 Pantoprazole Sodium [Protonix -] 40 mg PO DAILY #10 tablet.ec 12/01/17 predniSONE [Deltasone -] See Taper PO DAILY #40 tablet 12/01/17 This patient is new to me today: No Emergency Visit: Yes ED Registration Date: 12/01/17 Care time: The patient presented to the Emergency Department on the above date and was hospitalized for further evaluation of their emergent condition. Critical Care patient: No - Discharge Referral Referred to [facility] Med P.C.: No
[2017-12-01] MEDS ORDERED: predniSONE 20 MG TABLET (UD) PO ONE (14:00)
[2017-12-01] MEDS ORDERED: predniSONE 20 MG TABLET (UD) PO SCH (22:00)
== END 2017-12-01 13:59 | disposition home or self-care (01) | DRG 140 ==
LOC: JER 13:48 → JERBED 16:18 → J4S 17:33 → OBSVTOIN 12-01 13:02
PROVIDERS: ADMIT Internal Medicine; ATTEND Nurse Practitioner Family
DX: J44.1 Chronic obstructive pulmonary disease with (acute) exacerbation (principal); J96.01 Acute respiratory failure with hypoxia; B19.20 Unspecified viral hepatitis C without hepatic coma; F17.210 Nicotine dependence, cigarettes, uncomplicated; I10 Essential (primary) hypertension; F10.20 Alcohol dependence, uncomplicated; K21.9 Gastro-esophageal reflux disease without esophagitis; J84.9 Interstitial pulmonary disease, unspecified; R91.1 Solitary pulmonary nodule; R59.9 Enlarged lymph nodes, unspecified
CPT/HCPCS: 36415; 71045-TC-FY; 71250-TC; 80053; 81003; 81015; 82803; 83036; 83605; 83735; 83880; 84484; 85025; 85610; 85730; 87040; 87070; 87086; 87186; 87205; 93005; 93010; 93306-TC; 94640; 94761; 99284-25; G0378; J7620

== ENCOUNTER 2018-09-03 11:42 | Emergency (ER) | payer OTHER ==
[2018-09-03 11:53] VITALS: TEMP 99; BMI 30.2
--- NOTE | 2018-09-03 13:05 | PDOC ---
History of Present Illness - General Chief Complaint: Shortness of Breath Stated Complaint: CHEST PAIN Time Seen by Provider: 09/03/18 12:31 History Source: Patient - History of Present Illness Initial Comments: 09/03/18 15:23 The patient is a 63 year old male with a PMH of COPD on 4 L on Oxygen, Hepatitis C, current smoker, h/o of RLL nodule, ETOH abuse, withdrawal seizures? , that presents to ED complaining of productive cough, right sided chest pain for 2 weeks, worse in the past 3 days. The pain is present on right side of the chest, intermittent, worse with respiration, 7/10 in severity, associated with SOB and coughing up brownish sputum. The patient went to his Pulmunologist 2-3 days ago and was prescribed steroids and antibiotics. Due to unknown reason, the patient was not able to pick it up from pharmacy. the patient also states that doesn't have supply of Oxygen at home for the past 3 weeks. He denies fever, chills, sick contact, recent travel, hemoptysis, weight loss, palpitations, dizziness. Past History - Past Medical History Allergies/Adverse Reactions: Allergies Allergy/AdvReac Type Severity Reaction Status Date / Time No Known Allergies Allergy Verified 11/28/17 13:49 Home Medications: Ambulatory Orders Aspirin [ASA -] 81 mg PO DAILY #30 tab.chew 04/08/15 Albuterol Sulfate Inhaler - [Ventolin HFA Inhaler -] 2 inh PO Q4H PRN 05/06/17 Hydrochlorothiazide [Hctz -] 25 mg PO DAILY 05/06/17 Quetiapine Fumarate [Seroquel -] 200 mg PO HS 05/06/17 Verapamil HCl [Verapamil ER] 240 mg PO BID 05/06/17 Omeprazole 40 mg PO DAILY 05/15/17 Tamsulosin HCl [Flomax] 0.4 mg PO DAILY 05/15/17 Methadone [Dolophine -] 70 mg PO DAILY 11/28/17 Loratadine [Claritin] 10 mg PO DAILY 11/29/17 Budesonide/Formeterol Fumarate [SYMBICORT 80/4.5mcg -] 2 inh PO BID #1 inhaler 12/01/17 Azithromycin 250 mg PO DAILY 4 Days #4 tablet 09/03/18 Furosemide 20 mg PO DAILY 3 Days #3 tablet 09/03/18 Prednisone [Deltasone] 60 mg PO DAILY #9 tablet 09/03/18 Anemia: No Asthma: No Cancer: No Cardiac Disorders: No CVA: No COPD: Yes (Interstitial Lung Disease) CHF: No Dementia: No Diabetes: No GI Disorders: Yes (GERD, gallstones) Disorders: No HTN: Yes (on med) Hypercholesterolemia: No Kidney Stones: No Liver Disease: No Seizures: Yes (etoh related seizures on 05/02/17) Thyroid Disease: No Other medical history: 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 - Surgical History Abdominal Surgery: No Appendectomy: No Cardiac Surgery: No Cholecystectomy: No Lung Surgery: No Neurologic Surgery: No Orthopedic Surgery: No - Reproductive History Testicular Surgery: No - Suicide/Smoking/Psychosocial Hx Smoking Status: Yes Smoking History: Current every day smoker Have you smoked in the past 12 months: Yes Number of Cigarettes Smoked Daily: 5 Information on smoking cessation initiated: No 'Breaking Loose' booklet given: 05/06/17 Hx Alcohol Use: No Drug/Substance Use Hx: Yes (methadone program) Substance Use Type: Alcohol, Cocaine, Heroin Hx Substance Use Treatment: Yes (detox, [facility]hab[facility] Respiratory Specific PMHX - Complaint Specific PMHX TB (Tuberculosis): No Review of Systems - Review of Systems Able to Perform ROS?: Yes Constitutional: No: Symptoms Reported HEENTM: No: Symptoms Reported Respiratory: Yes: Symptoms reported, See HPI, Cough, Shortness of Breath, Wheezing, Productive cough. No: Hemoptysis Cardiac (ROS): Yes: See HPI ABD/GI: No: Symptoms Reported, Diarrhea, Nausea, Vomiting : No: Symptoms Reported, Burning, Dysuria Musculoskeletal: No: Symptoms Reported Neurological: No: Symptoms reported, Headache *Physical Exam - Vital Signs Last Vital Signs Temp Pulse Resp BP Pulse Ox 99.0 F 99 H 18 133/83 92 L 09/03/18 11:45 09/03/18 11:45 09/03/18 11:45 09/03/18 11:45 09/03/18 11:45 - Physical Exam General Appearance: Yes: Nourished, Appropriately Dressed, Mild Distress. No: Apparent Distress HEENT: positive: EOMI, BILLIE Respiratory/Chest: positive: Crackles, Rales, Rhonchi, Wheezing (expiratory). negative: Chest Tender, Accessory Muscle Use Cardiovascular: positive: Regular Rhythm, Regular Rate, S1, S2, Edema (1+ peripheral edema). negative: Murmur Vascular Pulses: Dorsalis-Pedis (R): 2+, Doralis-Pedis (L): 2+ Gastrointestinal/Abdominal: positive: Normal Bowel Sounds, Soft. negative: Organomegaly, Guarding Neurologic: positive: software designer II-XII NML intact, Alert, Motor Strength 5/5 Moderate Sedation - Procedure Monitoring Vital Signs: Procedure Monitoring Vital Signs Temperature 99.0 F 09/03/18 11:45 Pulse Rate 99 H 09/03/18 11:45 Respiratory Rate 18 09/03/18 11:45 Blood Pressure 133/83 09/03/18 11:45 O2 Sat by Pulse Oximetry (%) 92 L 09/03/18 11:45 ED Treatment Course - LABORATORY CBC & Chemistry Diagram: 09/03/18 12:54 09/03/18 12:54 Medical Decision Making - Medical Decision Making 09/03/18 15:37 The patient is a 63 year old male that presents complaining of SOB, chest pain and productive cough. Differential diagnosis includes COPD, bronchitis, pneumonia, ACS. We ordered CBC, CMP, cardiac profile, EKG, CXR. He was given Azithromycin 500 mg, Prednisone 60 mg and Furosemide 20 mg, Tylenol. 09/03/18 15:39 Lab work came back normal, he is feeling better. The patient walked without Oxygen, his Oxygen Saturation went down to 80 %. 95 % on 4 l of Oxygen. 09/03/18 16:10 The patient is going to be discharged on Prednisone 60 mg for 3 days, Azithromycin 250 mg for 4 more days and Lasix 20 mg for 3 days. We recommend follow up with Pulmunologist and PCP in a week. 09/03/18 16:22 troponins negative 09/03/18 16:39 *DC/Admit/Observation/Transfer Diagnosis at time of Disposition: COPD (chronic obstructive pulmonary disease) Qualifiers: COPD type: unspecified COPD Qualified Code(s): J44.9 - Chronic obstructive pulmonary disease, unspecified - Discharge Dispostion Disposition: HOME Condition at time of disposition: Good Decision to Admit order: No - Prescriptions Prescriptions: Azithromycin 250 mg PO DAILY 4 Days #4 tablet Furosemide 20 mg PO DAILY 3 Days #3 tablet Prednisone [Deltasone] 60 mg PO DAILY #9 tablet - Referrals Referrals: Lu Gaitan [Primary Care Provider] - 1 week Edis Vega MD [Staff Physician] - 1 week - Patient Instructions Printed Discharge Instructions: Chronic Obstructive Pulmonary Disease Additional Instructions: You were seen in Emergency Room for cough, chest pain and shortness of breath. You had lab work done that was normal. We also did chest x ray that didn't show pneumonia or new changes. We prescribed Prednisone 60 mg daily (3 tablets/day) for 3 days, Lasix 20 mg daily, Azithromycin 250 mg (antibiotic) for 4 days. Please see your primary care physician and Pulmunologist next week. If you have shortness of breath, chest pain, palpitations, or worsening of any of your symptoms come to Emergency Room as soon as possible. - Post Discharge Activity
[2018-09-03 13:11] LABS: BASO % 0.7 % (0-2.0); EOS % 1.3 % (0-4.5); HEMATOCRIT 43.4 % (35.4-49); LYMPH % 27.5 % (8-40); MCH 31.8 pg (25.7-33.7); MCHC 34.5 g/dl (32.0-35.9); MEAN CELL VOLUME 92.2 fl (80-96); MEAN PLT VOLUME 10.3 fl (7.5-11.1); MONO % 5.1 % (3.8-10.2); NEUT % 65.4 % (42.8-82.8); PLATELET COUNT 253 K/MM3 (134-434); RBC 4.71 M/mm3 (4.00-5.60); RDW 15.5 % (11.9-15.9); WHITE BLOOD COUNT 8.2 K/mm3 (4.0-10.0)
--- NOTE | 2018-09-03 13:26 | PDOC ---
Attending Attestation - Resident Resident Name: JenaKarthikObederikTeresa - ED Attending Attestation I have performed the following: I have examined & evaluated the patient, The case was reviewed & discussed with the resident, I agree w/resident's findings & plan, Exceptions are as noted - Medical Decision Making 09/03/18 15:46 63 years old EtOH abuse COPD presents to the ED for lack of portable oxygen at home productive cough with sputum dyspnea and difficulty filling prescriptions Chest x-ray with congestive changes patient states he has intermittently needed some Lasix in the past he was treated with albuterol and steroids here in the emergency department and is feeling subjectively better we have enlisted the services of our social work [employer] however arranged for his oxygen to be delivered home his insurance is active we will call in a prescription for azithromycin as well as steroids and bloody treatment and a 3 day course of Lasix He was advised to follow-up with his doctor on Thursday or return to the emergency department for any severe worsening symptoms or for any concerns. <Lucho Moon - Last Filed: 09/03/18 15:57> - HPI HPI: 09/03/18 14:44 The patient is a 63 year old male with a significant past medical history of etoh abuse, withdrawal seizures, COPD, and Hepatitis C who presents to the emergency department with shortness of breath for about 2 weeks. The patient reports some associated productive cough with his shortness of breath that has been intermittent. He states that he has had some similar presentation in the past. He denies any fever, chills, nausea, vomiting, diarrhea, constipation or urinary symptoms. He denies any sick contact, chest pain, headache or dizziness. The patient denies any other complaints. Documentation prepared by Shila Owusu, acting as medical insurance coder for Lucho Moon MD. - Physicial Exam PE: 09/03/18 14:51 Vitals: Triage vital signs reviewed General Appearance: No acute distress, well nourished, well developed Head: Atraumatic Neck: Supple; No nuchal rigidity Chest Wall: Nontender Cardiac: Regular rate and rhythm, no murmurs, no rubs, no gallops Lungs: (+)expiratory wheezing. good air movement bilaterally Abdomen: Soft, nondistended, normal bowel sounds, nontender to palpation Genitourinary: Rectal: Exam deferred Extremities: Full range of motion to all extremities, no cyanosis, clubbing, or edema Skin: Warm and dry, no rashes or lesions, no rash, no petechiae Neuro: AOX3; Cranial Nerves 2-12 grossly intact, Strength intact to all extremities, Sensation intact to all extremities, gait normal Psych: Normal mood, normal affect <Shila Owusu - Last Filed: 09/03/18 16:15> Heart Score/ECG Review - ECG Impressions Comment:: 09/03/18 15:57 EKG performed at 1147 demonstrates sinus tachycardia [address] elevations or T- wave inversions normal access Interpreted by me. <Lucho Moon - Last Filed: 09/03/18 15:57>
[2018-09-03] MEDS ORDERED: predniSONE 20 MG TABLET (UD) PO ONE (13:41)
[2018-09-03] MEDS ORDERED: AZITHROMYCIN 500 MG TABLET PO ONE (13:41)
[2018-09-03] MEDS ORDERED: ACETAMINOPHEN 500 MG TABLET (FP) PO ONE ×2 (13:42→13:57)
[2018-09-03] MEDS ORDERED: predniSONE 20 MG TABLET (UD) ONE (13:54)
[2018-09-03] MEDS ORDERED: AZITHROMYCIN 250 MG TABLET ONE (13:55)
[2018-09-03] MEDS ORDERED: ACETAMINOPHEN 325 MG TABLET (FP) ONE (13:55)
[2018-09-03 14:03] LABS: ALBUMIN 3.5 g/dl (3.4-5.0); ALK PHOS 92 U/L (45-117); ANION GAP 5 MMOL/L (8-16); BILIRUBIN,TOTAL 0.5 mg/dL (0.2-1); BLOOD UREA NITROGEN 8 mg/dL (7-18); CALCIUM 9.1 mg/dL (8.5-10.1); CHLORIDE 102 mmol/L (98-107); CO2 30 mmol/L (21-32); GLUCOSE,RANDOM 84 mg/dL (74-106); POTASSIUM 4.6 mmol/L (3.5-5.1); SGOT/AST 41 U/L (15-37); SGPT/ALT 20 U/L (13-61); SODIUM 137 mmol/L (136-145); TOT PROT 8.2 g/dl (6.4-8.2)
[2018-09-03] MEDS ORDERED: FUROSEMIDE 100 MG/10 ML INJECTABLE VIAL IVPB ONE (14:05)
--- NOTE | 2018-09-03 14:10 | EKG ---
Test Reason : Blood Pressure : / mmHG Vent. Rate : 103 BPM Atrial Rate : 103 BPM P-R Int : 182 ms QRS Dur : 078 ms QT Int : 338 ms P-R-T Axes : 043 012 047 degrees QTc Int : 442 ms SINUS TACHYCARDIA WITH OCCASIONAL PREMATURE VENTRICULAR COMPLEXES POSSIBLE LEFT ATRIAL ENLARGEMENT ANTERIOR INFARCT (CITED ON OR BEFORE 14-MAY-2017) ABNORMAL ECG WHEN COMPARED WITH ECG OF 28-NOV-2017 14:03, PREMATURE VENTRICULAR COMPLEXES ARE NOW PRESENT QUESTIONABLE CHANGE IN INITIAL FORCES OF SEPTAL LEADS Confirmed by RED PINTO MD ([id number]) on 09/03/2018 2:10:20 PM Referred By: Confirmed By:RED PINTO MD
[2018-09-03] MEDS ORDERED: FUROSEMIDE 40 MG/4 ML INJECTABLE VIAL ONE (14:13)
[2018-09-03 15:07] VITALS: BP 122/82; PULSE 79
== END 2018-09-03 16:34 | disposition home or self-care (01) ==
LOC: JER 11:42
PROC: 3E033GC Introduction of Other Therapeutic Substance into Peripheral Vein, Percutaneous Approach (ICD-10-PCS; principal; 2018-09-03)
DX: J44.9 Chronic obstructive pulmonary disease, unspecified (principal)
CPT/HCPCS: 36415; 71045-TC-FY; 80053; 84484; 85025; 87804; 93005; 93010; 96374; 99284-25

== ENCOUNTER 2019-06-30 10:57 | Inpatient (IN) | payer OTHER ==
--- NOTE | 2019-06-30 11:14 | PDOC ---
Attending Attestation - Resident Resident Name: Marivel Bradshaw - HPI HPI: 06/30/19 11:17 pt presents to the ED complaining of a two week history of worsening shortness of breath and productive cough. History of COPD, supposed to be on home O2 but "doesn't have it". STates that his PMD told him two weeks ago that he needed to go to the hospital to be admitted for IV antibiotics. - Physicial Exam PE: 06/30/19 12:14 Agree with resident exam. PAtient is saturating 98% on NRB and speaking in complete sentences. Lungs: diffuse rhonchi. CV: rrr no m/r/g Ext: + non pitting, symmetric edema. - Critical Care Time Total Critical Care Time: 30 Critical Care Statement: The care of this patient involved high complexity decision making to prevent further life threatening deterioration of the patient 's condition and/or to evaluate & treat vital organ system(s) failure or risk of failure. - Medical Decision Making 06/30/19 12:30 Pt presents to the ED complaining of worsening shortness of breath and productive cough. History of severe COPD, non compliant with home O2. Differential includes PNA, COPD exacerbation, less likely PE. will check labs and CXR, treat with nebs, steroids and antibiotics and admit to medicine.
[2019-06-30] MEDS ORDERED: methylPREDNISolone NA SUCC 125 MG/2 ML VIAL IVPUSH ONE (11:15)
[2019-06-30] MEDS ORDERED: methylPREDNISolone NA SUCC 125 MG/2 ML VIAL ONE (11:38)
[2019-06-30] MEDS ORDERED: ALBUTEROL SO4 2.5/IPRATROPIUM 0.5 INH SOL 3 ML VIAL.NEB. NEB ONE ×2 (11:38→14:07)
[2019-06-30 11:42] LABS: BASO % 0.7 % (0-2.0); EOS % 1.3 % (0-4.5); HEMOGLOBIN 14.4 GM/dL (11.7-16.9); LYMPH % 22.6 % (8-40); MCH 27.1 pg (25.7-33.7); MCHC 31.2 g/dl (32.0-35.9); MEAN CELL VOLUME 86.9 fl (80-96); MEAN PLT VOLUME 8.9 fl (7.5-11.1); MONO % 6.2 % (3.8-10.2); NEUT % 69.2 % (42.8-82.8); PLATELET COUNT 220 K/MM3 (134-434); RDW 18.1 % (11.9-15.9); WHITE BLOOD COUNT 8.1 K/mm3 (4.0-10.0)
[2019-06-30] MEDS: ALBUTEROL SO4 2.5/IPRATROPIUM 0.5 INH SOL 3 ML VIAL.NEB. NEB SCH ×3 (11:46→19:55)
--- NOTE | 2019-06-30 12:28 | PDOC ---
History of Present Illness - General Chief Complaint: Shortness of Breath Stated Complaint: SHORTNESS OF BREATH Time Seen by Provider: 06/30/19 11:10 Past History - Past Medical History Allergies/Adverse Reactions: Allergies Allergy/AdvReac Type Severity Reaction Status Date / Time No Known Allergies Allergy Verified 11/28/17 13:49 Home Medications: Ambulatory Orders Aspirin [ASA -] 81 mg PO DAILY #30 tab.chew 04/08/15 Albuterol Sulfate Inhaler - [Ventolin HFA Inhaler -] 2 inh PO Q4H PRN 05/06/17 Hydrochlorothiazide [Hctz -] 25 mg PO DAILY 05/06/17 Quetiapine Fumarate [Seroquel -] 300 mg PO HS 05/06/17 Verapamil HCl [Verapamil ER] 240 mg PO BID 05/06/17 Omeprazole 40 mg PO DAILY 05/15/17 Methadone [Dolophine -] 70 mg PO DAILY 11/28/17 Anemia: No Asthma: No Cancer: No Cardiac Disorders: No CVA: No COPD: Yes (Interstitial Lung Disease) CHF: No Dementia: No Diabetes: No GI Disorders: Yes (GERD, gallstones) Disorders: No HTN: Yes (on med) Hypercholesterolemia: No Kidney Stones: No Liver Disease: No Seizures: Yes (etoh related seizures on 05/02/17) Thyroid Disease: No - Surgical History Abdominal Surgery: No Appendectomy: No Cardiac Surgery: No Cholecystectomy: No Lung Surgery: No Neurologic Surgery: No Orthopedic Surgery: No - Reproductive History Testicular Surgery: No - Immunization History Immunization Up to Date: Yes - Psycho Social/Smoking Cessation Hx Smoking Status: Yes Smoking History: Never smoked Have you smoked in the past 12 months: Yes Number of Cigarettes Smoked Daily: 5 Information on smoking cessation initiated: No 'Breaking Loose' booklet given: 05/06/17 Hx Alcohol Use: No Drug/Substance Use Hx: No Substance Use Type: Alcohol, Cocaine, Heroin Hx Substance Use Treatment: Yes [facility]detox[facility] *Physical Exam - Vital Signs Last Vital Signs Temp Pulse Resp BP Pulse Ox 98.0 F 101 H 26 H 117/73 99 06/30/19 11:02 06/30/19 11:02 06/30/19 11:02 06/30/19 11:02 06/30/19 11:53 ED Treatment Course - LABORATORY CBC & Chemistry Diagram: 06/30/19 11:21 06/30/19 12:34 - ADDITIONAL ORDERS Additional order review: Laboratory Results 06/30/19 06/30/19 11:21 11:00 Sodium Cancelled Potassium Cancelled Chloride Cancelled Carbon Dioxide Cancelled Anion Gap Cancelled BUN Cancelled Creatinine Cancelled Est GFR (CKD-EPI)AfAm Cancelled Est GFR (CKD-EPI)NonAf Cancelled Random Glucose Cancelled Calcium Cancelled Total Bilirubin Cancelled AST Cancelled ALT Cancelled Alkaline Phosphatase Cancelled Creatine Kinase 209 Troponin I 0.04 B-Natriuretic Peptide Cancelled Total Protein Cancelled Albumin Cancelled 06/30/19 11:21 RBC 5.30 MCV 86.9 MCHC 31.2 L RDW 18.1 H MPV 8.9 D Neutrophils % 69.2 Lymphocytes % 22.6 Monocytes % 6.2 Eosinophils % 1.3 Basophils % 0.7 - Medications Given in the ED: ED Medications Discontinued Medications Generic Name Dose Route Start Last Admin Trade Name Freq PRN Reason Stop Dose Admin Levofloxacin 500 mg in 100 mls @ 100 mls/hr 06/30/19 11:15 06/30/19 11:46 Levaquin 500 Mg Premixed Ivpb - IVPB 06/30/19 12:14 100 mls/hr ONCE ONE Administration Protocol Methylprednisolone Sodium Succinate 125 mg 06/30/19 11:15 06/30/19 11:46 Solu-Medrol - IVPUSH 06/30/19 11:16 125 mg ONCE ONE Administration Medical Decision Making - Medical Decision Making HPI: 64yoM with PMH of EtOH abuse, smoking since age 12, COPD (supposed to be on 3- 4 L oxygen at home) presenting with shortness of breath and cough. Patient states he has been short of breath for the past month. He has not had home oxygen for the past month due to insurance issues. Patient has also not been taking albuterol due to insurance reasons as well. Was last on steroids about two weeks ago. His shortness of breath is such that he has almost passed out, having fallen on his knees today. Reports congestion and cough productive of brown sputum for the past month. Also has chest pain. Endorses chills and subjective fever. PCP: a provider in [facility] (does not remember the name) Pulm: Dr. Ellison ROS: Constitutional: +fever, +chills HEENT: no throat pain, +congestion Cardiovascular: +chest pain, no palpitations Respiratory: +cough, +shortness of breath Gastrointestinal: no abdominal pain, no nausea Genitourinary: no dysuria, no hematuria Musculoskeletal: no myalgia, no arthralgia Skin: no rash, no itching Neurologic: no headache, +weakness PE: General: Awake, alert, and fully oriented, in no acute distress Head: No signs of trauma Eyes: EOMI, sclera anicteric ENT: Moist mucus membranes Neck: Normal ROM, supple Lungs: Rales at bilateral bases with prolonged expiratory phase Cardio: Regular rhythm, S1 and S2 present Abdomen: Soft, nontender. No guarding, no rebound, no masses Extremities: Normal range of motion, Distal pulses present SKIN: Warm, Dry, normal turgor Neurologic: Cranial nerves II through XII grossly intact. Normal speech ED Course/MDM: DDX including but not limited to COPD exacerbation, CHF, ACS, PE, PNE, bronchitis Per staff report, Patient was satting in the 70s upon arrival Labs, EKG Duonebs Solu-medrol Levaquin EKG: rate 89, Qtc 464, NSR, flattened/inverted t waves in anterior and inferior distribution not present on previous EKG in 08/2018 Patient states he feels better after receiving duonebs and steroids 06/30/19 12:27 CBC WBC 8.1 K/mm3 (4.0-10.0) 06/30/19 11:21 RBC 5.30 M/mm3 (4.00-5.60) 06/30/19 11:21 Hgb 14.4 GM/dL (11.7-16.9) 06/30/19 11:21 Hct 46.0 % (35.4-49) 06/30/19 11:21 MCV 86.9 fl (80-96) 06/30/19 11:21 MCH 27.1 pg (25.7-33.7) D 06/30/19 11:21 MCHC 31.2 g/dl (32.0-35.9) L 06/30/19 11:21 RDW 18.1 % (11.9-15.9) H 06/30/19 11:21 Plt Count 220 K/MM3 (134-434) 06/30/19 11:21 MPV 8.9 fl (7.5-11.1) D 06/30/19 11:21 Absolute Neuts (auto) 5.6 K/mm3 (1.5-8.0) 06/30/19 11:21 Neutrophils % 69.2 % (42.8-82.8) 06/30/19 11:21 Lymphocytes % 22.6 % (8-40) 06/30/19 11:21 Monocytes % 6.2 % (3.8-10.2) 06/30/19 11:21 Eosinophils % 1.3 % (0-4.5) 06/30/19 11:21 Basophils % 0.7 % (0-2.0) 06/30/19 11:21 Nucleated RBC % 0 % (0-0) 06/30/19 11:21 No leukocytosis CMP Sodium 138 mmol/L (136-145) 06/30/19 12:34 Potassium 4.2 mmol/L (3.5-5.1) 06/30/19 12:34 Chloride 105 mmol/L (98-107) 06/30/19 12:34 Carbon Dioxide 29 mmol/L (21-32) 06/30/19 12:34 Anion Gap 4 MMOL/L (8-16) L 06/30/19 12:34 BUN 13.9 mg/dL (7-18) 06/30/19 12:34 Creatinine 1.1 mg/dL (0.55-1.3) 06/30/19 12:34 Est GFR (CKD-EPI)AfAm 81.22 06/30/19 12:34 Est GFR (CKD-EPI)NonAf 70.07 06/30/19 12:34 Random Glucose 109 mg/dL (74-106) H 06/30/19 12:34 Calcium 9.0 mg/dL (8.5-10.1) 06/30/19 12:34 Total Bilirubin 0.6 mg/dL (0.2-1) 06/30/19 12:34 AST 17 U/L (15-37) 06/30/19 12:34 ALT 14 U/L (13-61) 06/30/19 12:34 Alkaline Phosphatase 83 U/L (45-117) 06/30/19 12:34 Creatine Kinase 209 U/L (26-308) 06/30/19 11:00 Creatine Kinase Index 1.1 % (0.0-5.0) 06/30/19 11:00 CK-MB (CK-2) 2.4 ng/mL (0.5-3.6) 06/30/19 11:00 Troponin I 0.04 ng/ml (0.00-0.05) 06/30/19 11:00 B-Natriuretic Peptide 1326.2 pg/ml (5-125) H 06/30/19 12:34 Total Protein 7.4 g/dl (6.4-8.2) 06/30/19 12:34 Albumin 3.2 g/dl (3.4-5.0) L 06/30/19 12:34 Electrolytes unremarkable Cr normal Tpn 0.04 BNP elevated (was 36 in November 2017) 40 lasix ordered Patient satting in the low 90s on 5L NC. Explained the benefits of nonrebreather mask. Patient declined as the mask is uncomfortable. CXR: "Findings: No osseous abnormalities are identified. Cardiac silhouette is within normal limits with diffuse airspace disease which appears to have mildly progressed compared to prior exam.. Mediastinum is within normal limits with no evidence of widening. Aortic knob and descending aorta are well defined. There is no focal infiltrate or pleural effusion. No pneumothorax or pulmonary contusion is identified. IMPRESSION: Diffuse airspace disease with no evidence of focal infiltrate or significant pleural effusion. " 06/30/19 14:42 Patient with severe underlying COPD with worsened signs of COPD including cough , dyspnea, and sputum production. Discussed case with Dr. Yeboah who accepted patient for admission under Dr. Bartholomew 06/30/19 15:34 Discharge - Discharge Information Problems reviewed: Yes Clinical Impression/Diagnosis: COPD exacerbation Condition: Guarded - Admission Yes - Follow up/Referral - Patient Discharge Instructions - Post Discharge Activity
[2019-06-30 13:40] LABS: ALBUMIN 3.2 g/dl (3.4-5.0); BILIRUBIN,TOTAL 0.6 mg/dL (0.2-1); BLOOD UREA NITROGEN 13.9 mg/dL (7-18); CREATININE 1.1 mg/dL (0.55-1.3); POTASSIUM 4.2 mmol/L (3.5-5.1); TOT PROT 7.4 g/dl (6.4-8.2)
[2019-06-30] MEDS ORDERED: FUROSEMIDE 40 MG/4 ML INJECTABLE VIAL IVPUSH ONE ×2 (13:53→19:11)
[2019-06-30] MEDS ORDERED: FUROSEMIDE 40 MG/4 ML INJECTABLE VIAL ONE (14:07)
[2019-06-30] MEDS ORDERED: ALBUTEROL SO4 0.083% IH SOL 2.5 MG/3 ML VIAL.NEB. NEB PRN (16:19)
--- NOTE | 2019-06-30 16:24 | HP ---
CHIEF COMPLAINT: SOB PCP: HISTORY OF PRESENT ILLNESS: Patient is a 64 y/o male with a history of ETOH abuse, COPD ( on 3-4 liters), HTN, and GERD who presents shortness of breath. Patient reports he has been having it for a week but it is getting worse. Patient reprots he can usually walk a few blocks but hasnt been able to walk half a block before getting short of breath. Patient reports he has also been coughing and having green productive sputum. Denies sick contacts. Patient is supposed to be on 3-4 L of oxygen at home but has not had insurance for the past month. Patient has not been compliant with his medications. Patient denies nausea, vomiting, chest pain , or diarrhea. ER course was notable for: (1) (2) (3) Recent Travel: denies PAST MEDICAL HISTORY: ETOH abuse, COPD ( on 3-4 liters), HTN, and GERD PAST SURGICAL HISTORY: Social History: Smokin-12 cigarettes a day Alcohol: not for "years" Drugs: denies Allergies No Known Allergies Allergy (Verified 11/28/17 13:49) HOME MEDICATIONS: Home Medications Medication Instructions Recorded Aspirin [ASA -] 81 mg PO DAILY #30 tab.chew 04/08/15 Albuterol Sulfate Inhaler - 2 inh PO Q4H PRN 05/06/17 [Ventolin HFA Inhaler -] Hydrochlorothiazide [Hctz -] 25 mg PO DAILY 05/06/17 Quetiapine Fumarate [Seroquel -] 300 mg PO HS 05/06/17 Verapamil HCl [Verapamil ER] 240 mg PO BID 05/06/17 Omeprazole 40 mg PO DAILY 05/15/17 Methadone [Dolophine -] 70 mg PO DAILY 11/28/17 REVIEW OF SYSTEMS CONSTITUTIONAL: Absent: fever, chills, diaphoresis, generalized weakness, malaise, loss of appetite, weight change HEENT: Absent: rhinorrhea, nasal congestion, throat pain, throat swelling, difficulty swallowing, mouth swelling, ear pain, eye pain, visual changes CARDIOVASCULAR: Absent: chest pain, syncope, palpitations, irregular heart rate, lightheadedness , peripheral edema RESPIRATORY: ough, shortness of breath, dyspnea with exertion, Absent: corthopnea, wheezing, stridor, hemoptysis GASTROINTESTINAL: Absent: abdominal pain, abdominal distension, nausea, vomiting, diarrhea, constipation, melena, hematochezia GENITOURINARY: Absent: dysuria, frequency, urgency, hesitancy, hematuria, flank pain, genital pain MUSCULOSKELETAL: Absent: myalgia, arthralgia, joint swelling, back pain, neck pain SKIN: Absent: rash, itching, pallor HEMATOLOGIC/IMMUNOLOGIC: Absent: easy bleeding, easy bruising, lymphadenopathy, frequent infections ENDOCRINE: Absent: unexplained weight gain, unexplained weight loss, heat intolerance, cold intolerance NEUROLOGIC: Absent: headache, focal weakness or paresthesias, dizziness, unsteady gait, seizure, mental status changes, bladder or bowel incontinence PSYCHIATRIC: Absent: anxiety, depression, suicidal or homicidal ideation, hallucinations. PHYSICAL EXAMINATION Vital Signs - 24 hr 06/30/19 06/30/19 06/30/19 11:02 11:53 16:04 Temperature 98.0 F Pulse Rate 101 H Respiratory 26 H Rate Blood Pressure 117/73 O2 Sat by Pulse 73 L 99 91 L Oximetry (%) GENERAL: Awake, alert, and fully oriented, in no acute distress. Obese HEAD: Normal with no signs of trauma. EYES: Pupils equal, round and reactive to light, extraocular movements intact, EARS, NOSE, THROAT: Moist mucous membranes. LUNGS: expiratory wheezing, not tacypnic, no accessory muscle use HEART: Regular rate and rhythm, normal S1 and S2 without murmur, rub or gallop. ABDOMEN: Soft, nontender, not distended, normoactive bowel sounds, no guarding, no rebound, no masses. MUSCULOSKELETAL: Normal range of motion at all joints. LOWER EXTREMITIES: 2+ pulses, warm, well-perfused. No calf tenderness. 1+ pitting edema. SKIN: Warm, dry, normal turgor, no rashes or lesions noted, normal capillary refill. CBC, BMP 06/30/19 11:21 06/30/19 12:34 ASSESSMENT/PLAN: Patient is a 64 y/o male with a history of ETOH abuse, COPD ( on 3-4 liters), HTN, and GERD who is admitted for COPD exacerbation. #COPD exacerbation - likely 2/2 to non compliance with oxygen, medications, and concurrent infection - solumedrol 60 q6h - Ceftriaxone and Azithromycin - duonebs and albuterol - f/u with Dr. Vega - patient on 6L NC and satting ~92 - change patient to venti mask if saturation does not stay between 88-92 - f/u urine legionella, sputum cx - symbicort 2 puff bid #RLL nodule - seen on CT last year - patient reports primary postie aware but has not had repeat imaging per patient #ETOH abuse - Methadone 70 #HTN - continue verapamil - continue HCTZ #DVT ppx - Lovenox 40 sq FEN - sodium controlled diet Dispo: monitor on med surg Visit type - Emergency Visit Emergency Visit: Yes ED Registration Date: 06/30/19 Care time: The patient presented to the Emergency Department on the above date and was hospitalized for further evaluation of their emergent condition. - New Patient This patient is new to me today: Yes Date on this admission: 06/30/19 - Critical Care Critical Care patient: No ATTENDING PHYSICIAN STATEMENT I saw and evaluated the patient. I reviewed the resident's note and discussed the case with the resident. I agree with the resident's findings and plan as documented. SUBJECTIVE: OBJECTIVE: ASSESSMENT AND PLAN:
--- NOTE | 2019-06-30 16:45 | PN ---
Teaching Attending Note Name of Resident: Ayala Yeboah ATTENDING PHYSICIAN STATEMENT I saw and evaluated the patient. I reviewed the resident's note and discussed the case with the resident. I agree with the resident's findings and plan as documented. SUBJECTIVE: Patient is a 64 y/o male with a history of ETOH abuse, COPD ( 4 liters at home) , HTN, and GERD who presents shortness of breath. c/o having brownish sputum. Patient uses 4liter oxygen at home, but run out of oxygen and the insurance was not paying for and his symptoms were getting worse ,came to ED. for worsening symptoms. OBJECTIVE: Vital Signs Temperature 98.0 F 06/30/19 11:02 Pulse Rate 101 H 06/30/19 11:02 Respiratory Rate 26 H 06/30/19 11:02 Blood Pressure 117/73 06/30/19 11:02 O2 Sat by Pulse Oximetry (%) 91 L 06/30/19 16:04 GENERAL: The patient is awake, alert, and fully oriented, in no acute distress. HEAD: Normal with no signs of trauma. EYES: PERRL, extraocular movements intact, sclera anicteric, conjunctiva clear. ENT: Ears normal, oropharynx clear without exudates, moist mucous membranes. NECK: Trachea midline, full range of motion, supple. LUNGS: decreased Breath sounds bl, positive for rhonchi , no crackles, no accessory muscle use. HEART: Regular rate and rhythm, S1, S2 without murmur, rub or gallop. ABDOMEN: Soft, NT,ND, normoactive bowel sounds, no guarding, no rebound, no hepatosplenomegaly, no masses. EXTREMITIES: 2+ pulses, warm, well-perfused, no edema. NEUROLOGICAL: Cranial nerves II through XII grossly intact. Normal speech, gait not observed. PSYCH: Normal mood, normal affect. SKIN: Warm, dry, normal turgor, no rashes or lesions noted CBCD WBC 8.1 K/mm3 (4.0-10.0) 06/30/19 11:21 RBC 5.30 M/mm3 (4.00-5.60) 06/30/19 11:21 Hgb 14.4 GM/dL (11.7-16.9) 06/30/19 11:21 Hct 46.0 % (35.4-49) 06/30/19 11:21 MCV 86.9 fl (80-96) 06/30/19 11:21 MCHC 31.2 g/dl (32.0-35.9) L 06/30/19 11:21 RDW 18.1 % (11.9-15.9) H 06/30/19 11:21 Plt Count 220 K/MM3 (134-434) 06/30/19 11:21 MPV 8.9 fl (7.5-11.1) D 06/30/19 11:21 CMP Sodium 138 mmol/L (136-145) 06/30/19 12:34 Potassium 4.2 mmol/L (3.5-5.1) 06/30/19 12:34 Chloride 105 mmol/L (98-107) 06/30/19 12:34 Carbon Dioxide 29 mmol/L (21-32) 06/30/19 12:34 Anion Gap 4 MMOL/L (8-16) L 06/30/19 12:34 BUN 13.9 mg/dL (7-18) 06/30/19 12:34 Creatinine 1.1 mg/dL (0.55-1.3) 06/30/19 12:34 Random Glucose 109 mg/dL (74-106) H 06/30/19 12:34 Calcium 9.0 mg/dL (8.5-10.1) 06/30/19 12:34 Total Bilirubin 0.6 mg/dL (0.2-1) 06/30/19 12:34 AST 17 U/L (15-37) 06/30/19 12:34 ALT 14 U/L (13-61) 06/30/19 12:34 Alkaline Phosphatase 83 U/L (45-117) 06/30/19 12:34 Total Protein 7.4 g/dl (6.4-8.2) 06/30/19 12:34 Albumin 3.2 g/dl (3.4-5.0) L 06/30/19 12:34 CARDIAC ENZYMES Creatine Kinase 209 U/L (26-308) 06/30/19 11:00 Troponin I 0.04 ng/ml (0.00-0.05) 06/30/19 11:00 Current Medications Generic Name Dose Route Start Last Admin Trade Name Freq PRN Reason Stop Dose Admin Albuterol Sulfate 1 amp 06/30/19 16:19 Ventolin 0.083% Nebulizer Soln - NEB Q4H PRN WHEEZING Albuterol/Ipratropium 1 amp 06/30/19 20:00 Duoneb - NEB RQID NICO Budesonide/Formoterol Fumarate 2 puff 06/30/19 22:00 Symbicort 160/4.5mcg - IH BID NICO Enoxaparin Sodium 40 mg 07/01/19 10:00 Lovenox - SQ DAILY NICO Methylprednisolone Sodium Succinate 60 mg 06/30/19 18:00 Solu-Medrol - IVPUSH Q8H-IV [facility] Home Medications Medication Instructions Recorded Aspirin [ASA -] 81 mg PO DAILY #30 tab.chew 04/08/15 Albuterol Sulfate Inhaler - 2 inh PO Q4H PRN 05/06/17 [Ventolin HFA Inhaler -] Hydrochlorothiazide [Hctz -] 25 mg PO DAILY 05/06/17 Quetiapine Fumarate [Seroquel -] 300 mg PO HS 05/06/17 Verapamil HCl [Verapamil ER] 240 mg PO BID 05/06/17 Omeprazole 40 mg PO DAILY 05/15/17 Methadone [Dolophine -] 70 mg PO DAILY 11/28/17 ASSESSMENT AND PLAN: Patient is a 64 y/o male with a history of ETOH abuse, COPD ( 4 liters at home) , HTN, and GERD who presents shortness of breath, with javed color sputum with worsening symptoms since he run out of his oxygen supply. # Acute COpd exacerbation: on Solu medrol, symbicort, pulmonary consult, Duoneb.CXr report reviewed. increased the oxygen to 5liter for now. # Acute Bronchitis: on Rocephin, zithromax continue # Hx of Polysubstance abuse: on Methadone # Hx of HTN: on verapamil # Elevated BNP: CHF exacerbation , will give a dose of lasix 20mg iv x 1 dose now. DVT Px: Lovenox
[2019-06-30] MEDS: NICOTINE 14 MG/24 HOURS TOPICAL PATCH TD SCH (18:31)
[2019-06-30] MEDS: methylPREDNISolone NA SUCC 40 MG/1 ML VIAL IVPUSH SCH ×2 (18:31→18:52)
[2019-06-30 18:48] VITALS: BMI 30.2
[2019-06-30] MEDS ORDERED: FLU VACCINE QUAD 60 MCG/0.5 ML (MDV 19-20) IM ONE (18:49)
[2019-06-30] MEDS: VERAPAMIL HCL 240 MG E.R. TABLET PO SCH (21:17)
[2019-06-30] MEDS: BUDESONIDE/FORMETEROL FUMARATE 160/4.5 mcg INHALER IH SCH (21:17)
[2019-06-30] MEDS ORDERED: QUEtiapine FUMARATE 300 MG TABLET PO ONE (22:15)
[2019-07-01] MEDS ORDERED: PT OWN MED DRAWER 7, Y5N ONE ×3 (04:24→20:26)
[2019-07-01] MEDS: methylPREDNISolone NA SUCC 40 MG/1 ML VIAL IVPUSH SCH ×3 (05:48→17:34)
[2019-07-01] MEDS ORDERED: METHADONE 40 MG, METHADONE 30 MG PO SCH ×2 (07:30)
[2019-07-01] MEDS ORDERED: METHADONE HCL 10 MG TABLET ONE (08:02)
[2019-07-01] MEDS ORDERED: METHADONE HCL 40 MG DISPERSABLE TABLET ONE (08:03)
[2019-07-01] MEDS: METHADONE 40 MG, METHADONE 30 MG PO SCH (08:05)
[2019-07-01] MEDS: ALBUTEROL SO4 2.5/IPRATROPIUM 0.5 INH SOL 3 ML VIAL.NEB. NEB SCH ×4 (08:15→20:51)
[2019-07-01 08:23] LABS: BASO % 0.3 % (0-2.0); HEMATOCRIT 44.6 % (35.4-49); HEMOGLOBIN 14.1 GM/dL (11.7-16.9); LYMPH % 7.2 % (8-40); MCH 27.3 pg (25.7-33.7); MCHC 31.6 g/dl (32.0-35.9); MEAN CELL VOLUME 86.5 fl (80-96); MEAN PLT VOLUME 9.1 fl (7.5-11.1); MONO % 3.7 % (3.8-10.2); NEUT % 88.8 % (42.8-82.8); PLATELET COUNT 237 K/MM3 (134-434); RBC 5.16 M/mm3 (4.00-5.60); RDW 18.5 % (11.9-15.9); WHITE BLOOD COUNT 8.7 K/mm3 (4.0-10.0)
[2019-07-01 08:52] LABS: ALBUMIN 3.3 g/dl (3.4-5.0); BILIRUBIN,TOTAL 0.5 mg/dL (0.2-1); BLOOD UREA NITROGEN 22.4 mg/dL (7-18); CALCIUM 9.3 mg/dL (8.5-10.1); CREATININE 1.2 mg/dL (0.55-1.3); MAGNESIUM 1.8 mg/dL (1.8-2.4); PHOSPHOROUS 2.1 mg/dL (2.5-4.9); POTASSIUM 4.7 mmol/L (3.5-5.1); TOT PROT 7.8 g/dl (6.4-8.2)
--- NOTE | 2019-07-01 09:08 | PN ---
Teaching Attending Note Name of Resident: Rosa Vazquez ATTENDING PHYSICIAN STATEMENT I saw and evaluated the patient. I reviewed the resident's note and discussed the case with the resident. I agree with the resident's findings and plan as documented. SUBJECTIVE: Patient is feeling better with no acute distress. continues oxygen 5 liter for now. OBJECTIVE: Vital Signs Temperature 98.3 F 07/01/19 05:56 Pulse Rate 79 07/01/19 05:56 Respiratory Rate 18 07/01/19 05:56 Blood Pressure 115/75 07/01/19 05:56 O2 Sat by Pulse Oximetry (%) 92 L 06/30/19 21:00 GENERAL: The patient is awake, alert, and fully oriented, in no acute distress. HEAD: Normal with no signs of trauma. EYES: PERRL, extraocular movements intact, sclera anicteric, conjunctiva clear. ENT: Ears normal, oropharynx clear without exudates, moist mucous membranes. NECK: Trachea midline, full range of motion, supple. LUNGS: decreased Breath sounds bl, positive for rhonchi , no crackles, no accessory muscle use. HEART: RRR, S1, S2 without murmur, rub or gallop. ABDOMEN: Soft, NT,ND, normoactive bowel sounds, no guarding, no rebound, no hepatosplenomegaly, no masses. EXTREMITIES: 2+ pulses, warm, well-perfused, no edema. NEUROLOGICAL: Cranial nerves II through XII grossly intact. Normal speech, gait not observed. PSYCH: Normal mood, normal affect. SKIN: Warm, dry, normal turgor, no rashes or lesions noted CBCD WBC 8.7 K/mm3 (4.0-10.0) 07/01/19 07:40 RBC 5.16 M/mm3 (4.00-5.60) 07/01/19 07:40 Hgb 14.1 GM/dL (11.7-16.9) 07/01/19 07:40 Hct 44.6 % (35.4-49) 07/01/19 07:40 MCV 86.5 fl (80-96) 07/01/19 07:40 MCHC 31.6 g/dl (32.0-35.9) L 07/01/19 07:40 RDW 18.5 % (11.9-15.9) H 07/01/19 07:40 Plt Count 237 K/MM3 (134-434) 07/01/19 07:40 MPV 9.1 fl (7.5-11.1) 07/01/19 07:40 CMP Sodium 138 mmol/L (136-145) 07/01/19 07:45 Potassium 4.7 mmol/L (3.5-5.1) 07/01/19 07:45 Chloride 100 mmol/L (98-107) 07/01/19 07:45 Carbon Dioxide 29 mmol/L (21-32) 07/01/19 07:45 Anion Gap 8 MMOL/L (8-16) 07/01/19 07:45 BUN 22.4 mg/dL (7-18) H 07/01/19 07:45 Creatinine 1.2 mg/dL (0.55-1.3) 07/01/19 07:45 Random Glucose 128 mg/dL (74-106) H 07/01/19 07:45 Calcium 9.3 mg/dL (8.5-10.1) 07/01/19 07:45 Total Bilirubin 0.5 mg/dL (0.2-1) 07/01/19 07:45 AST 14 U/L (15-37) L 07/01/19 07:45 ALT 15 U/L (13-61) 07/01/19 07:45 Alkaline Phosphatase 81 U/L (45-117) 07/01/19 07:45 Total Protein 7.8 g/dl (6.4-8.2) 07/01/19 07:45 Albumin 3.3 g/dl (3.4-5.0) L 07/01/19 07:45 CARDIAC ENZYMES Creatine Kinase 209 U/L (26-308) 06/30/19 11:00 Troponin I 0.03 ng/ml (0.00-0.05) 06/30/19 21:30 Current Medications Generic Name Dose Route Start Last Admin Trade Name Freq PRN Reason Stop Dose Admin Albuterol Sulfate 1 amp 06/30/19 16:19 06/30/19 21:10 Ventolin 0.083% Nebulizer Soln - NEB 1 amp Q4H PRN Administration WHEEZING Albuterol/Ipratropium 1 amp 06/30/19 20:00 06/30/19 19:55 Duoneb - NEB Not Given RQID NICO Aspirin 81 mg 07/01/19 10:00 Asa - PO DAILY [facility] Azithromycin 500 mg 07/01/19 10:00 Zithromax - PO 07/01/19 10:01 ONCE ONE Budesonide/Formoterol Fumarate 2 puff 06/30/19 22:00 06/30/19 21:17 Symbicort 160/4.5mcg - IH 2 puff BID NICO Administration Enoxaparin Sodium 40 mg 07/01/19 10:00 Lovenox - SQ DAILY [facility] Ceftriaxone Sodium 1 gm/ 50 mls @ 200 mls/hr 07/01/19 10:00 Dextrose IVPB DAILY [facility] Protocol Methadone HCl 40 mg/ Methadone 70 mg 07/01/19 07:30 07/01/19 08:05 HCl 30 mg PO 70 mg DAILY@0600 NICO Administration Methylprednisolone Sodium Succinate 60 mg 07/01/19 06:00 07/01/19 05:48 Solu-Medrol - IVPUSH 60 mg Q8H-IV NICO Administration Nicotine 14 mg 06/30/19 16:54 06/30/19 18:31 Nicoderm Patch - TD 14 mg DAILY [facility] Administration Pantoprazole Sodium 40 mg 07/01/19 10:00 Protonix - PO DAILY [facility] Verapamil HCl 240 mg 06/30/19 22:00 06/30/19 21:17 Calan Sr - PO 240 mg BID NICO Administration Home Medications Medication Instructions Recorded Aspirin [ASA -] 81 mg PO DAILY #30 tab.chew 04/08/15 Albuterol Sulfate Inhaler - 2 inh PO Q4H PRN 05/06/17 [Ventolin HFA Inhaler -] Hydrochlorothiazide [Hctz -] 25 mg PO DAILY 05/06/17 Quetiapine Fumarate [Seroquel -] 300 mg PO HS 05/06/17 Verapamil HCl [Verapamil ER] 240 mg PO BID 05/06/17 Omeprazole 40 mg PO DAILY 05/15/17 Methadone [Dolophine -] 70 mg PO DAILY 11/28/17 CXR: diffuse airway disease, no infiltrate ASSESSMENT AND PLAN: Patient is a 64 y/o male with a history of ETOH abuse, COPD ( 4 liters at home) , HTN, and GERD who presents shortness of breath, with javed color sputum with worsening symptoms since he run out of his oxygen supply. # Acute COpd exacerbation: on Solu medrol, symbicort, pulmonary consult, Duoneb.CXr report reviewed. increased the oxygen to 5liter for now. # Acute Bronchitis: on Rocephin, zithromax will continue # Hx of Polysubstance abuse: on Methadone # Hx of HTN: on verapamil # Elevated BNP: CHF exacerbation , will give a dose of lasix 20mg iv x 1 dose now. # Low phos: replete, repeat the level in am , ordered 3 doses. level is 2.1 DVT Px: Lovenox cxr for am
[2019-07-01] MEDS ORDERED: cefTRIAXone SODIUM 1 GM VIAL ONE (09:30)
[2019-07-01] MEDS ORDERED: DEXTROSE 5%-WATER - 50 ML IVPB ONE (09:31)
[2019-07-01] MEDS: VERAPAMIL HCL 240 MG E.R. TABLET PO SCH ×2 (09:33→21:06)
[2019-07-01] MEDS: ASPIRIN 81 MG CHEWABLE TABLETS PO SCH (09:33)
[2019-07-01] MEDS: ENOXAPARIN NA (PORCINE) 40 MG/0.4 ML DISP.SYRIN SQ SCH (09:33)
[2019-07-01] MEDS: PANTOPRAZOLE 40 MG TABLET (FP) PO SCH (09:33)
[2019-07-01] MEDS: NICOTINE 14 MG/24 HOURS TOPICAL PATCH TD SCH (09:34)
[2019-07-01] MEDS: BUDESONIDE/FORMETEROL FUMARATE 160/4.5 mcg INHALER IH SCH ×2 (09:34→21:09)
[2019-07-01] MEDS: CEFTRIAXONE 1 GM in DEXTROSE 5%-WATER - 50 ML IVPB SCH (09:34)
[2019-07-01] MEDS ORDERED: AZITHROMYCIN 250 MG TABLET PO ONE ×2 (10:00→16:30)
[2019-07-01] MEDS ORDERED: HYDROCHLOROTHIAZIDE 25 MG TABLET (FP) PO SCH (10:00)
[2019-07-01] MEDS ORDERED: METHADONE HCL 40 MG DISPERSABLE TABLET PO SCH (10:00)
--- NOTE | 2019-07-01 14:36 | EKG ---
Test Reason : Blood Pressure : / mmHG Vent. Rate : 089 BPM Atrial Rate : 089 BPM P-R Int : 168 ms QRS Dur : 074 ms QT Int : 382 ms P-R-T Axes : 046 043 -33 degrees QTc Int : 464 ms NORMAL SINUS RHYTHM BIATRIAL ENLARGEMENT ANTERIOR INFARCT (CITED ON OR BEFORE 14-MAY-2017) NONSPECIFIC ST ABNORMALITY ABNORMAL ECG Confirmed by NORM PRATT MD ([id number]) on 07/01/2019 2:36:02 PM Referred By: Confirmed By:NORM PRATT MD
--- NOTE | 2019-07-01 14:37 | PN ---
Progress Note (short form) - Note Progress Note: PULMONARY CONSULTATION DICTATED 07/01/19 IMP ACUTE ON CHRONIC HYPOXEMIC RESPIRATORY FAILURE COPD O2 DEPENDENT WITH ACUTE EXACERBATION ILD ETOH TOBACCO ABUSE RLL NODULE PLAN IV STEROIDS INHALED BRONCHODILATORS O2 CHEST CT SMOKING CESSATION COUNSELED DR CAMPUZANO Problem List - Problems (1) Acute on chronic respiratory failure with hypoxemia Code(s): J96.21 - ACUTE AND CHRONIC RESPIRATORY FAILURE WITH HYPOXIA (2) COPD exacerbation Code(s): J44.1 - CHRONIC OBSTRUCTIVE PULMONARY DISEASE W (ACUTE) EXACERBATION (3) COPD (chronic obstructive pulmonary disease) Code(s): J44.9 - CHRONIC OBSTRUCTIVE PULMONARY DISEASE, UNSPECIFIED Qualifiers: COPD type: unspecified COPD Qualified Code(s): J44.9 - Chronic obstructive pulmonary disease, unspecified (4) Tobacco abuse Code(s): Z72.0 - TOBACCO USE (5) Tobacco abuse counseling Code(s): Z71.6 - TOBACCO ABUSE COUNSELING (6) Lung nodule Code(s): R91.1 - SOLITARY PULMONARY NODULE
--- NOTE | 2019-07-01 15:16 | PN ---
Physical Exam: SUBJECTIVE: Patient seen and examined. pt endorsed improvement of shortness of breath and improved work of breathing. OBJECTIVE: Vital Signs Period Temp Pulse Resp BP Sys/Causey Pulse Ox Last 24 Hr 97.6 F-99.8 F 68-103 18-20 105-149/69-99 89-97 GENERAL: The patient is awake, alert, and fully oriented, in no acute distress. HEAD: Normal with no signs of trauma. EYES: PERRL, extraocular movements intact, sclera anicteric, conjunctiva clear. No ptosis. ENT: oropharynx clear without exudates, moist mucous membranes. LUNGS: Breath sounds equal, clear to auscultation bilaterally decreased in lower castillo,and crackles, but no accessory muscle use. HEART: Regular rate and rhythm, S1, S2 without murmur, rub or gallop. ABDOMEN: Soft, nontender, nondistended, normoactive bowel sounds, no guarding, no rebound, no hepatosplenomegaly, no masses. EXTREMITIES: 2+ pulses, warm, well-perfused, no edema. Laboratory Results - last 24 hr 06/30/19 07/01/19 07/01/19 21:30 07:40 07:45 WBC 8.7 RBC 5.16 Hgb 14.1 Hct 44.6 MCV 86.5 MCH 27.3 MCHC 31.6 L RDW 18.5 H Plt Count 237 MPV 9.1 Absolute Neuts (auto) 7.8 Neutrophils % 88.8 H D Lymphocytes % 7.2 L D Monocytes % 3.7 L Eosinophils % 0.0 D Basophils % 0.3 Nucleated RBC % 0 Sodium 138 Potassium 4.7 Chloride 100 Carbon Dioxide 29 Anion Gap 8 BUN 22.4 H Creatinine 1.2 Est GFR (CKD-EPI)AfAm 73.11 Est GFR (CKD-EPI)NonAf 63.08 Random Glucose 128 H Calcium 9.3 Phosphorus 2.1 L Magnesium 1.8 Total Bilirubin 0.5 AST 14 L ALT 15 Alkaline Phosphatase 81 Troponin I 0.03 Total Protein 7.8 Albumin 3.3 L Active Medications Generic Name Dose Route Start Last Admin Trade Name Freq PRN Reason Stop Dose Admin Albuterol Sulfate 1 amp 06/30/19 16:19 06/30/19 21:10 Ventolin 0.083% Nebulizer Soln - NEB 1 amp Q4H PRN Administration WHEEZING Albuterol/Ipratropium 1 amp 06/30/19 20:00 07/01/19 11:17 Duoneb - NEB 1 amp RQID NICO Administration Aspirin 81 mg 07/01/19 10:00 07/01/19 09:33 Asa - PO 81 mg DAILY NICO Administration Budesonide/Formoterol Fumarate 2 puff 06/30/19 22:00 07/01/19 09:34 Symbicort 160/4.5mcg - IH 2 puff BID NICO Administration Enoxaparin Sodium 40 mg 07/01/19 10:00 07/01/19 09:33 Lovenox - SQ 40 mg DAILY NICO Administration Ceftriaxone Sodium 1 gm/ 50 mls @ 200 mls/hr 07/01/19 10:00 07/01/19 09:34 Dextrose IVPB 200 mls/hr DAILY NICO Administration Protocol Methadone HCl 40 mg/ Methadone 70 mg 07/01/19 07:30 07/01/19 08:05 HCl 30 mg PO 70 mg DAILY@0600 NICO Administration Methylprednisolone Sodium Succinate 60 mg 07/01/19 06:00 07/01/19 09:34 Solu-Medrol - IVPUSH 60 mg Q8H-IV NICO Administration Nicotine 14 mg 06/30/19 16:54 07/01/19 09:34 Nicoderm Patch - TD 14 mg DAILY NICO Administration Pantoprazole Sodium 40 mg 07/01/19 10:00 07/01/19 09:33 Protonix - PO 40 mg DAILY NICO Administration Potassium Phos/Sodium Phos 1 packet 07/01/19 10:00 Phos-Nak Packet - PO 07/02/19 10:01 BID NICO Verapamil HCl 240 mg 06/30/19 22:00 07/01/19 09:33 Calan Sr - PO 240 mg BID NICO Administration ASSESSMENT/PLAN: Patient is a 64 y/o male with a history of ETOH abuse, COPD ( on 3-4 liters), HTN, and GERD who is admitted for COPD exacerbation. COPD exacerbation Improved pt ran out of oxygen for a few months and has been non compliant to medication regimen IV solumedrol 60 q6h Ceftriaxone and Azithromycin duonebs and albuterol Pt on 5L symbicort [address] Vega CHEST CT ordered , COUNSELED on SMOKING CESSATION change patient to venti mask if saturation does not stay between 88-92 f/u urine legionella, sputum cx ICS at bedside Dizziness negative orthostatics on VS RLL nodule seen on CT last year patient reports primary wash and greaser aware but has not had repeat imaging per patient Chest CT ordered Polysubstance abuse Methadone 70 monitor for alcohol withdrawal HTN continue verapamil DVT ppx Lovenox 40 sq FEN sodium controlled diet Visit type - Emergency Visit Emergency Visit: Yes ED Registration Date: 06/30/19 Care time: The patient presented to the Emergency Department on the above date and was hospitalized for further evaluation of their emergent condition. - New Patient This patient is new to me today: Yes Date on this admission: 07/01/19 - Critical Care Critical Care patient: No - Discharge Referral Referred to [facility] No ATTENDING PHYSICIAN STATEMENT I saw and evaluated the patient. I reviewed the resident's note and discussed the case with the resident. I agree with the resident's findings and plan as documented. SUBJECTIVE: OBJECTIVE: ASSESSMENT AND PLAN:
[2019-07-01] MEDS: NAPH,MB-DB/K PH,MBDB POWDER PACKET PO SCH ×2 (16:17→21:06)
--- NOTE | 2019-07-01 18:15 | CONS ---
DATE OF CONSULTATION: 07/01/2019 PULMONARY CONSULTATION REFERRING PHYSICIAN: Levon Bartholomew MD HISTORY OF PRESENT ILLNESS: Patient is a 64-year-old male known to me from previous hospitalizations with past medical history of COPD on home O2 at 3-4 L, questionable compliance, EtOH abuse, hypertension, GERD, longstanding history of tobacco use, smoked 2 packs per day for many years, currently smokes 8-12 cigarettes daily who presented to [facility] with complaint of 1-week history of increasing shortness of breath, cough, and chest congestion. He is normally able to ambulate a few blocks and for the past week or so, started developing shortness of breath with minimal exertion. Denies any chest pain. Has an occasional cough, which is productive of green sputum. Denies hemoptysis. There is no history of recent travel. There is no history of DVT or PE in the past. 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 There is no history of respiratory failure in the past and no ventilator support. PAST MEDICAL HISTORY: Again, includes hypertension, GERD, COPD, EtOH. REVIEW OF SYSTEMS: Positive for cough. Positive shortness of breath. No fever. No chills. No hemoptysis. No abdominal pain. CURRENT MEDICATIONS: Include Solu-Medrol 60 q.8, Symbicort 160/4.5, ceftriaxone, Lovenox, NicoDerm, Ventolin, DuoNeb, Calan, aspirin, methadone, Protonix, phosphorus. PHYSICAL EXAMINATION: General: Patient is a well-developed, well-nourished male, awake, alert, currently in no acute distress. Vital Signs: He is afebrile, blood pressure is 115/74, respiratory rate is 18, and O2 saturation is 89% on 4 L. HEENT: Exam is normocephalic, atraumatic. Neck: Supple. Heart: Regular, S1, S2. Chest: Bilateral wheezes. Abdomen: Soft. Bowel sounds positive. Extremities: No cyanosis. Edema. LABORATORY DATA: WBC is 8.7, hemoglobin 14.1, hematocrit 44.6, platelet count 237,000. BUN 22, creatinine 1.2. BNP is 1326. CHEST X-RAY: Reveals decreased airspace bilaterally. Note is patient underwent a chest CT in 2018, at that time, was noted to have evidence of interstitial lung disease as well as COPD with a right lower lobe nodule and mediastinal adenopathy. Patient never followed up as an outpatient and apparently is being followed by a row boss hoeing in the [place] who is aware of the x-ray findings, but the patient has not had followup chest CT. IMPRESSION: Acute on chronic hypoxemic respiratory failure secondary to: 1. Chronic obstructive pulmonary disease with acute exacerbation. 2. Advanced interstitial lung disease. 3. Tobacco abuse. 4. EtOH abuse. 5. Right lower lobe nodule. PLAN: IV steroids. Inhaled bronchodilators. Supplemental O2. CT scan of the chest. Smoking cessation counseled. ISABEL CAMPUZANO M.D. [id number]
[2019-07-01] MEDS ORDERED: DOCUSATE SODIUM 100 MG CAPSULE (FP) PO ONE (21:27)
[2019-07-01] MEDS: QUEtiapine FUMARATE 300 MG TABLET PO SCH (22:38)
[2019-07-02] MEDS: methylPREDNISolone NA SUCC 40 MG/1 ML VIAL IVPUSH SCH ×3 (02:01→17:38)
[2019-07-02] MEDS ORDERED: METHADONE HCL 40 MG DISPERSABLE TABLET ONE (06:03)
[2019-07-02] MEDS ORDERED: METHADONE HCL 10 MG TABLET ONE (06:03)
[2019-07-02] MEDS: METHADONE 40 MG, METHADONE 30 MG PO SCH (06:07)
[2019-07-02 08:09] LABS: BASO % 0.3 % (0-2.0); HEMATOCRIT 44.7 % (35.4-49); LYMPH % 2.9 % (8-40); MCH 26.8 pg (25.7-33.7); MCHC 31.2 g/dl (32.0-35.9); MEAN CELL VOLUME 85.7 fl (80-96); MEAN PLT VOLUME 9.2 fl (7.5-11.1); MONO % 5.1 % (3.8-10.2); NEUT % 91.7 % (42.8-82.8); PLATELET COUNT 244 K/MM3 (134-434); RBC 5.22 M/mm3 (4.00-5.60); RDW 18.6 % (11.9-15.9); WHITE BLOOD COUNT 17.7 K/mm3 (4.0-10.0)
[2019-07-02 08:26] LABS: BLOOD UREA NITROGEN 27.7 mg/dL (7-18); CALCIUM 9.5 mg/dL (8.5-10.1); CREATININE 1.1 mg/dL (0.55-1.3); POTASSIUM 4.6 mmol/L (3.5-5.1)
[2019-07-02] MEDS: ALBUTEROL SO4 2.5/IPRATROPIUM 0.5 INH SOL 3 ML VIAL.NEB. NEB SCH ×4 (09:05→20:38)
[2019-07-02] MEDS ORDERED: cefTRIAXone SODIUM 1 GM VIAL ONE (10:51)
[2019-07-02] MEDS ORDERED: DEXTROSE 5%-WATER - 50 ML IVPB ONE (10:51)
[2019-07-02] MEDS ORDERED: PT OWN MED DRAWER 7, Y5N ONE (10:51)
[2019-07-02] MEDS: ASPIRIN 81 MG CHEWABLE TABLETS PO SCH (11:05)
[2019-07-02] MEDS: ENOXAPARIN NA (PORCINE) 40 MG/0.4 ML DISP.SYRIN SQ SCH (11:05)
[2019-07-02] MEDS: VERAPAMIL HCL 240 MG E.R. TABLET PO SCH ×2 (11:05→21:28)
[2019-07-02] MEDS: CEFTRIAXONE 1 GM in DEXTROSE 5%-WATER - 50 ML IVPB SCH (11:06)
[2019-07-02] MEDS: PANTOPRAZOLE 40 MG TABLET (FP) PO SCH (11:06)
[2019-07-02] MEDS: NICOTINE 14 MG/24 HOURS TOPICAL PATCH TD SCH (11:06)
[2019-07-02] MEDS: NAPH,MB-DB/K PH,MBDB POWDER PACKET PO SCH (11:06)
[2019-07-02] MEDS: BUDESONIDE/FORMETEROL FUMARATE 160/4.5 mcg INHALER IH SCH ×2 (11:07→21:27)
--- NOTE | 2019-07-02 11:18 | PN ---
Progress Note (short form) - Note Progress Note: Patient is comfortable with no acute distress. Vital Signs Temperature 97.4 F L 07/02/19 06:11 Pulse Rate 74 07/02/19 06:11 Respiratory Rate 18 07/02/19 06:11 Blood Pressure 129/81 07/02/19 06:11 O2 Sat by Pulse Oximetry (%) 90 L 07/01/19 21:00 GENERAL: The patient is awake, alert, and fully oriented, in no acute distress. HEAD: Normal with no signs of trauma. EYES: PERRL, extraocular movements intact, sclera anicteric, conjunctiva clear. ENT: Ears normal, oropharynx clear without exudates, moist mucous membranes. NECK: Trachea midline, full range of motion, supple. LUNGS: decreased Breath sounds bl, positive for rhonchi , no crackles, no accessory muscle use. HEART: RRR, S1, S2 without murmur, rub or gallop. ABDOMEN: Soft, NT,ND, normoactive bowel sounds, no guarding, no rebound, no hepatosplenomegaly, no masses. EXTREMITIES: 2+ pulses, warm, well-perfused, no edema. NEUROLOGICAL: Cranial nerves II through XII grossly intact. Normal speech, gait not observed. PSYCH: Normal mood, normal affect. SKIN: Warm, dry, normal turgor, no rashes or lesions noted CBCD WBC 17.7 K/mm3 (4.0-10.0) H 07/02/19 06:54 RBC 5.22 M/mm3 (4.00-5.60) 07/02/19 06:54 Hgb 14.0 GM/dL (11.7-16.9) 07/02/19 06:54 Hct 44.7 % (35.4-49) 07/02/19 06:54 MCV 85.7 fl (80-96) 07/02/19 06:54 MCHC 31.2 g/dl (32.0-35.9) L 07/02/19 06:54 RDW 18.6 % (11.9-15.9) H 07/02/19 06:54 Plt Count 244 K/MM3 (134-434) 07/02/19 06:54 MPV 9.2 fl (7.5-11.1) 07/02/19 06:54 CMP Sodium 138 mmol/L (136-145) 07/02/19 07:00 Potassium 4.6 mmol/L (3.5-5.1) 07/02/19 07:00 Chloride 101 mmol/L (98-107) 07/02/19 07:00 Carbon Dioxide 30 mmol/L (21-32) 07/02/19 07:00 Anion Gap 6 MMOL/L (8-16) L 07/02/19 07:00 BUN 27.7 mg/dL (7-18) H 07/02/19 07:00 Creatinine 1.1 mg/dL (0.55-1.3) 07/02/19 07:00 Random Glucose 114 mg/dL (74-106) H 07/02/19 07:00 Calcium 9.5 mg/dL (8.5-10.1) 07/02/19 07:00 Total Bilirubin 0.5 mg/dL (0.2-1) 07/01/19 07:45 AST 14 U/L (15-37) L 07/01/19 07:45 ALT 15 U/L (13-61) 07/01/19 07:45 Alkaline Phosphatase 81 U/L (45-117) 07/01/19 07:45 Total Protein 7.8 g/dl (6.4-8.2) 07/01/19 07:45 Albumin 3.3 g/dl (3.4-5.0) L 07/01/19 07:45 CARDIAC ENZYMES Creatine Kinase 209 U/L (26-308) 06/30/19 11:00 Troponin I 0.03 ng/ml (0.00-0.05) 06/30/19 21:30 Current Medications Generic Name Dose Route Start Last Admin Trade Name Freq PRN Reason Stop Dose Admin Albuterol Sulfate 1 amp 06/30/19 16:19 06/30/19 21:10 Ventolin 0.083% Nebulizer Soln - NEB 1 amp Q4H PRN Administration WHEEZING Albuterol/Ipratropium 1 amp 06/30/19 20:00 07/02/19 09:05 Duoneb - NEB 1 amp RQID NICO Administration Aspirin 81 mg 07/01/19 10:00 07/01/19 09:33 Asa - PO 81 mg DAILY NICO Administration Budesonide/Formoterol Fumarate 2 puff 06/30/19 22:00 10/11/19 21:09 Symbicort 160/4.5mcg - IH 2 puff BID NICO Administration Enoxaparin Sodium 40 mg 07/01/19 10:00 07/01/19 09:33 Lovenox - SQ 40 mg DAILY NICO Administration Ceftriaxone Sodium 1 gm/ 50 mls @ 200 mls/hr 07/01/19 10:00 07/01/19 09:34 Dextrose IVPB 200 mls/hr DAILY NICO Administration Protocol Methadone HCl 40 mg/ Methadone 70 mg 07/01/19 07:30 07/02/19 06:07 HCl 30 mg PO 70 mg DAILY@0600 NICO Administration Methylprednisolone Sodium Succinate 60 mg 07/01/19 06:00 07/02/19 02:01 Solu-Medrol - IVPUSH Not Given Q8H-IV NICO Nicotine 14 mg 06/30/19 16:54 07/01/19 09:34 Nicoderm Patch - TD 14 mg DAILY NICO Administration Pantoprazole Sodium 40 mg 07/01/19 10:00 07/01/19 09:33 Protonix - PO 40 mg DAILY NICO Administration Quetiapine Fumarate 300 mg 07/01/19 22:00 07/01/19 22:38 Seroquel - PO 300 mg HS NICO Administration Verapamil HCl 240 mg 06/30/19 22:00 07/01/19 21:06 Calan Sr - PO 240 mg BID NICO Administration Home Medications Medication Instructions Recorded Aspirin [ASA -] 81 mg PO DAILY #30 tab.chew 04/08/15 Albuterol Sulfate Inhaler - 2 inh PO Q4H PRN 05/06/17 [Ventolin HFA Inhaler -] Hydrochlorothiazide [Hctz -] 25 mg PO DAILY 05/06/17 Quetiapine Fumarate [Seroquel -] 300 mg PO HS 05/06/17 Verapamil HCl [Verapamil ER] 240 mg PO BID 05/06/17 Omeprazole 40 mg PO DAILY 05/15/17 Methadone [Dolophine -] 70 mg PO DAILY 11/28/17 CXR: diffuse airway disease, no infiltrate ASSESSMENT AND PLAN: Patient is a 64 y/o male with a history of ETOH abuse, COPD ( 4 liters at home) , HTN, and GERD who presents shortness of breath, with javed color sputum with worsening symptoms since he run out of his oxygen supply. # Acute COpd exacerbation: on Solu medrol, symbicort, pulmonary consult, Navdeep. CXr report reviewed. keep sao2 more than 93%. # Acute Bronchitis: on Rocephin, continue # Hx of Polysubstance abuse: on Methadone # Hx of HTN: on verapamil # Elevated BNP: CHF exacerbation ,s/p one dose of lasix 20mg iv # Low phos: replete, repleted. DVT Px: Lovenox cxr for am Visit type - Emergency Visit Emergency Visit: Yes ED Registration Date: 06/30/19 Care time: The patient presented to the Emergency Department on the above date and was hospitalized for further evaluation of their emergent condition. - New Patient This patient is new to me today: No - Critical Care Critical Care patient: No - Discharge Referral Referred to [facility] No
--- NOTE | 2019-07-02 12:14 | PN ---
Progress Note (short form) - Note Progress Note: Breathing feels a little better today but not at his baseline. No CP. No hemoptysis. Intake & Output 06/29/19 06/30/19 07/01/19 07/02/19 23:59 23:59 23:59 23:59 Intake Total 170 10 Output Total 300 200 850 Balance -300 -30 -840 Weight 222 lb 6.4 oz Last Vital Signs Temp Pulse Resp BP Pulse Ox 97.4 F L 74 18 129/81 90 L 07/02/19 06:11 07/02/19 06:11 07/02/19 06:11 07/02/19 06:11 07/01/19 21:00 Active Medications Albuterol Sulfate (Ventolin 0.083% Nebulizer Soln -) 1 amp NEB Q4H PRN PRN Reason: WHEEZING Last Admin: 06/30/19 21:10 Dose: 1 amp Albuterol/Ipratropium (Duoneb -) 1 amp NEB RQID NICO Last Admin: 07/02/19 09:05 Dose: 1 amp Aspirin (Asa -) 81 mg PO DAILY NICO Last Admin: 07/02/19 11:05 Dose: 81 mg Budesonide/Formoterol Fumarate (Symbicort 160/4.5mcg -) 2 puff IH BID NICO Last Admin: 07/02/19 11:07 Dose: 2 puff Enoxaparin Sodium (Lovenox -) 40 mg SQ DAILY NICO Last Admin: 07/02/19 11:05 Dose: 40 mg Ceftriaxone Sodium 1 gm/ (Dextrose) 50 mls @ 200 mls/hr IVPB DAILY NICO; Protocol Last Admin: 07/02/19 11:06 Dose: 200 mls/hr Methadone HCl 40 mg/ Methadone (HCl 30 mg) 70 mg PO DAILY@0600 NICO Last Admin: 07/02/19 06:07 Dose: 70 mg Methylprednisolone Sodium Succinate (Solu-Medrol -) 60 mg IVPUSH Q8H-IV NICO Last Admin: 07/02/19 11:07 Dose: 60 mg Nicotine (Nicoderm Patch -) 14 mg TD DAILY NICO Last Admin: 07/02/19 11:06 Dose: 14 mg Pantoprazole Sodium (Protonix -) 40 mg PO DAILY NICO Last Admin: 07/02/19 11:06 Dose: 40 mg Quetiapine Fumarate (Seroquel -) 300 mg PO HS [facility] Last Admin: 07/01/19 22:38 Dose: 300 mg Verapamil HCl (Calan Sr -) 240 mg PO BID [facility] Last Admin: 07/02/19 11:05 Dose: 240 mg GENERAL: awake, alert, and oriented, in no acute distress. HEAD: Normal with no signs of trauma. EYES: PERRL, extraocular movements intact, sclera anicteric, conjunctiva clear. ENT: Ears normal, oropharynx clear without exudates, moist mucous membranes. NECK: Trachea midline, full range of motion, supple. LUNGS: Scattered rhonchi and mild expiratory wheeze HEART: RRR, S1, S2 without murmur, rub or gallop. ABDOMEN: Soft, NT,ND, normoactive bowel sounds, no guarding, no rebound, no hepatosplenomegaly, no masses. EXTREMITIES: 2+ pulses, warm, well-perfused, no edema. NEUROLOGICAL: non-focal PSYCH: Normal mood, normal affect. SKIN: Warm, dry, normal turgor, no rashes or lesions noted Laboratory Results - last 24 hr 07/02/19 07/02/19 06:54 07:00 WBC 17.7 H RBC 5.22 Hgb 14.0 Hct 44.7 MCV 85.7 MCH 26.8 MCHC 31.2 L RDW 18.6 H Plt Count 244 MPV 9.2 Absolute Neuts (auto) 16.2 H Neutrophils % 91.7 H Lymphocytes % 2.9 L D Monocytes % 5.1 Eosinophils % 0.0 Basophils % 0.3 Nucleated RBC % 0 Sodium 138 Potassium 4.6 Chloride 101 Carbon Dioxide 30 Anion Gap 6 L BUN 27.7 H Creatinine 1.1 Est GFR (CKD-EPI)AfAm 81.22 Est GFR (CKD-EPI)NonAf 70.07 Random Glucose 114 H Calcium 9.5 Problem List - Problems (1) Acute on chronic respiratory failure with hypoxemia Code(s): J96.21 - ACUTE AND CHRONIC RESPIRATORY FAILURE WITH HYPOXIA (2) COPD exacerbation Code(s): J44.1 - CHRONIC OBSTRUCTIVE PULMONARY DISEASE W (ACUTE) EXACERBATION (3) COPD (chronic obstructive pulmonary disease) Code(s): J44.9 - CHRONIC OBSTRUCTIVE PULMONARY DISEASE, UNSPECIFIED Qualifiers: COPD type: unspecified COPD Qualified Code(s): J44.9 - Chronic obstructive pulmonary disease, unspecified (4) Tobacco abuse Code(s): Z72.0 - TOBACCO USE (5) Tobacco abuse counseling Code(s): Z71.6 - TOBACCO ABUSE COUNSELING (6) Lung nodule Code(s): R91.1 - SOLITARY PULMONARY NODULE IMP ACUTE ON CHRONIC HYPOXEMIC RESPIRATORY FAILURE COPD O2 DEPENDENT WITH ACUTE EXACERBATION ILD ETOH TOBACCO ABUSE RLL 10 x 7 mm NODULE PLAN IV STEROIDS INHALED BRONCHODILATORS O2 CHEST CT SMOKING CESSATION COUNSELED DR RANGEL
[2019-07-02 12:30] LABS: ANISOCYTOSIS 1+; MACROCYTOSIS 1+; OVALOCYTE 1+; PLATELET ESTIMATE NORMAL; TARGET CELLS 1+; TEAR DROP CELLS 1+
[2019-07-02] MEDS: QUEtiapine FUMARATE 300 MG TABLET PO SCH (21:28)
[2019-07-03] MEDS: methylPREDNISolone NA SUCC 40 MG/1 ML VIAL IVPUSH SCH ×2 (01:50→10:38)
[2019-07-03] MEDS ORDERED: METHADONE HCL 10 MG TABLET ONE (05:38)
[2019-07-03] MEDS ORDERED: METHADONE HCL 40 MG DISPERSABLE TABLET ONE (05:38)
[2019-07-03] MEDS: METHADONE 40 MG, METHADONE 30 MG PO SCH (05:58)
[2019-07-03] MEDS: ALBUTEROL SO4 2.5/IPRATROPIUM 0.5 INH SOL 3 ML VIAL.NEB. NEB SCH ×5 (08:48→20:05)
--- NOTE | 2019-07-03 10:22 | PN ---
Progress Note (short form) - Note Progress Note: Patient is feeling better today with no acute distress. Vital Signs Temperature 97.9 F 07/03/19 06:00 Pulse Rate 63 07/03/19 06:00 Respiratory Rate 18 07/03/19 06:00 Blood Pressure 126/82 07/03/19 06:00 O2 Sat by Pulse Oximetry (%) 93 L 07/02/19 22:00 GENERAL: The patient is awake, alert, and fully oriented, in no acute distress. HEAD: Normal with no signs of trauma. EYES: PERRL, extraocular movements intact, sclera anicteric, conjunctiva clear. ENT: Ears normal, oropharynx clear without exudates, moist mucous membranes. NECK: Trachea midline, full range of motion, supple. LUNGS: decreased Breath sounds bl, positive for rhonchi , no crackles, no accessory muscle use. HEART: RRR, S1, S2 without murmur, rub or gallop. ABDOMEN: Soft, NT,ND, normoactive bowel sounds, no guarding, no rebound, no hepatosplenomegaly, no masses. EXTREMITIES: 2+ pulses, warm, well-perfused, no edema. NEUROLOGICAL: Cranial nerves II through XII grossly intact. Normal speech, gait is stable PSYCH: Normal mood, normal affect. SKIN: Warm, dry, normal turgor, no rashes or lesions noted CBCD WBC 17.7 K/mm3 (4.0-10.0) H 07/02/19 06:54 RBC 5.22 M/mm3 (4.00-5.60) 07/02/19 06:54 Hgb 14.0 GM/dL (11.7-16.9) 07/02/19 06:54 Hct 44.7 % (35.4-49) 07/02/19 06:54 MCV 85.7 fl (80-96) 07/02/19 06:54 MCHC 31.2 g/dl (32.0-35.9) L 07/02/19 06:54 RDW 18.6 % (11.9-15.9) H 07/02/19 06:54 Plt Count 244 K/MM3 (134-434) 07/02/19 06:54 MPV 9.2 fl (7.5-11.1) 07/02/19 06:54 CMP Sodium 138 mmol/L (136-145) 07/02/19 07:00 Potassium 4.6 mmol/L (3.5-5.1) 07/02/19 07:00 Chloride 101 mmol/L (98-107) 07/02/19 07:00 Carbon Dioxide 30 mmol/L (21-32) 07/02/19 07:00 Anion Gap 6 MMOL/L (8-16) L 07/02/19 07:00 BUN 27.7 mg/dL (7-18) H 07/02/19 07:00 Creatinine 1.1 mg/dL (0.55-1.3) 07/02/19 07:00 Random Glucose 114 mg/dL (74-106) H 07/02/19 07:00 Calcium 9.5 mg/dL (8.5-10.1) 07/02/19 07:00 Total Bilirubin 0.5 mg/dL (0.2-1) 07/01/19 07:45 AST 14 U/L (15-37) L 07/01/19 07:45 ALT 15 U/L (13-61) 07/01/19 07:45 Alkaline Phosphatase 81 U/L (45-117) 07/01/19 07:45 Total Protein 7.8 g/dl (6.4-8.2) 07/01/19 07:45 Albumin 3.3 g/dl (3.4-5.0) L 07/01/19 07:45 CARDIAC ENZYMES Creatine Kinase 209 U/L (26-308) 06/30/19 11:00 Troponin I 0.03 ng/ml (0.00-0.05) 06/30/19 21:30 Current Medications Generic Name Dose Route Start Last Admin Trade Name Freq PRN Reason Stop Dose Admin Albuterol Sulfate 1 amp 06/30/19 16:19 06/30/19 21:10 Ventolin 0.083% Nebulizer Soln - NEB 1 amp Q4H PRN Administration WHEEZING Albuterol/Ipratropium 1 amp 06/30/19 20:00 07/03/19 08:48 Duoneb - NEB 1 amp RQID NICO Administration Aspirin 81 mg 07/01/19 10:00 07/02/19 11:05 Asa - PO 81 mg DAILY NICO Administration Budesonide/Formoterol Fumarate 2 puff 06/30/19 22:00 10/12/19 21:27 Symbicort 160/4.5mcg - IH Not Given BID NICO Enoxaparin Sodium 40 mg 07/01/19 10:00 07/02/19 11:05 Lovenox - SQ 40 mg DAILY NICO Administration Ceftriaxone Sodium 1 gm/ 50 mls @ 200 mls/hr 07/01/19 10:00 07/02/19 11:06 Dextrose IVPB 200 mls/hr DAILY NICO Administration Protocol Methadone HCl 40 mg/ Methadone 70 mg 07/01/19 07:30 07/03/19 05:58 HCl 30 mg PO 70 mg DAILY@0600 NICO Administration Methylprednisolone Sodium Succinate 60 mg 07/01/19 06:00 07/03/19 01:50 Solu-Medrol - IVPUSH Not Given Q8H-IV NICO Nicotine 14 mg 06/30/19 16:54 07/02/19 11:06 Nicoderm Patch - TD 14 mg DAILY NICO Administration Pantoprazole Sodium 40 mg 07/01/19 10:00 07/02/19 11:06 Protonix - PO 40 mg DAILY NICO Administration Quetiapine Fumarate 300 mg 07/01/19 22:00 07/02/19 21:28 Seroquel - PO 300 mg HS NICO Administration Verapamil HCl 240 mg 06/30/19 22:00 07/02/19 21:28 Calan Sr - PO 240 mg BID NICO Administration Home Medications Medication Instructions Recorded Aspirin [ASA -] 81 mg PO DAILY #30 tab.chew 04/08/15 Albuterol Sulfate Inhaler - 2 inh PO Q4H PRN 05/06/17 [Ventolin HFA Inhaler -] Hydrochlorothiazide [Hctz -] 25 mg PO DAILY 05/06/17 Quetiapine Fumarate [Seroquel -] 300 mg PO HS 05/06/17 Verapamil HCl [Verapamil ER] 240 mg PO BID 05/06/17 Omeprazole 40 mg PO DAILY 05/15/17 Methadone [Dolophine -] 70 mg PO DAILY 11/28/17 CXR: diffuse airway disease, no infiltrate ASSESSMENT AND PLAN: Patient is a 64 y/o male with a history of ETOH abuse, COPD ( 4 liters at home) , HTN, and GERD who presents shortness of breath, with javed color sputum with worsening symptoms since he run out of his oxygen supply. # Acute COpd exacerbation: on Solu medrol, symbicort, pulmonary consult, Navdeep. continue oxygen therapy # Acute Bronchitis: continue Rocephin # Hx of Polysubstance abuse: on Methadone # Hx of HTN: on verapamil # Elevated BNP: CHF exacerbation , s/p lasix # Low phos: replete, repeat the level in am , ordered 3 doses. level is 2.1 DVT Px: Lovenox discharge planning with oxygen arrangement Visit type - Emergency Visit Emergency Visit: Yes ED Registration Date: 06/30/19 Care time: The patient presented to the Emergency Department on the above date and was hospitalized for further evaluation of their emergent condition. - New Patient This patient is new to me today: No - Critical Care Critical Care patient: No - Discharge Referral Referred to [facility] No
[2019-07-03] MEDS ORDERED: DEXTROSE 5%-WATER - 50 ML IVPB ONE (10:27)
[2019-07-03] MEDS ORDERED: cefTRIAXone SODIUM 1 GM VIAL ONE (10:27)
[2019-07-03] MEDS: NICOTINE 14 MG/24 HOURS TOPICAL PATCH TD SCH (10:37)
[2019-07-03] MEDS: PANTOPRAZOLE 40 MG TABLET (FP) PO SCH (10:37)
[2019-07-03] MEDS: ENOXAPARIN NA (PORCINE) 40 MG/0.4 ML DISP.SYRIN SQ SCH (10:37)
[2019-07-03] MEDS: VERAPAMIL HCL 240 MG E.R. TABLET PO SCH ×2 (10:37→21:06)
[2019-07-03] MEDS: ASPIRIN 81 MG CHEWABLE TABLETS PO SCH (10:37)
[2019-07-03] MEDS: BUDESONIDE/FORMETEROL FUMARATE 160/4.5 mcg INHALER IH SCH ×2 (10:38→21:05)
[2019-07-03] MEDS: CEFTRIAXONE 1 GM in DEXTROSE 5%-WATER - 50 ML IVPB SCH (10:38)
--- NOTE | 2019-07-03 11:29 | PN ---
Progress Note (short form) - Note Progress Note: Breathing feels a little better today but still not at his baseline. No CP. No hemoptysis. Intake & Output 06/30/19 07/01/19 07/02/19 07/03/19 23:59 23:59 23:59 23:59 Intake Total 170 20 Output Total 300 200 850 300 Balance -300 -30 -830 -300 Weight 222 lb 6.4 oz Last Vital Signs Temp Pulse Resp BP Pulse Ox 97.9 F 63 18 126/82 93 L 07/03/19 06:00 07/03/19 06:00 07/03/19 06:00 07/03/19 06:00 07/02/19 22:00 Active Medications Albuterol Sulfate (Ventolin 0.083% Nebulizer Soln -) 1 amp NEB Q4H PRN PRN Reason: WHEEZING Last Admin: 06/30/19 21:10 Dose: 1 amp Albuterol/Ipratropium (Duoneb -) 1 amp NEB RQID [facility] Last Admin: 07/03/19 08:48 Dose: 1 amp Aspirin (Asa -) 81 mg PO DAILY [facility] Last Admin: 07/03/19 10:37 Dose: 81 mg Budesonide/Formoterol Fumarate (Symbicort 160/4.5mcg -) 2 puff IH BID [facility] Last Admin: 07/03/19 10:38 Dose: 2 puff Enoxaparin Sodium (Lovenox -) 40 mg SQ DAILY [facility] Last Admin: 07/03/19 10:37 Dose: 40 mg Ceftriaxone Sodium 1 gm/ (Dextrose) 50 mls @ 200 mls/hr IVPB DAILY NICO; Protocol Last Admin: 07/03/19 10:38 Dose: 200 mls/hr Methadone HCl 40 mg/ Methadone (HCl 30 mg) 70 mg PO DAILY@0600 [facility] Last Admin: 07/03/19 05:58 Dose: 70 mg Methylprednisolone Sodium Succinate (Solu-Medrol -) 60 mg IVPUSH Q8H-IV NICO Last Admin: 07/03/19 10:38 Dose: 60 mg Nicotine (Nicoderm Patch -) 14 mg TD DAILY [facility] Last Admin: 07/03/19 10:37 Dose: 14 mg Pantoprazole Sodium (Protonix -) 40 mg PO DAILY N[facility] Last Admin: 07/03/19 10:37 Dose: 40 mg Quetiapine Fumarate (Seroquel -) 300 mg PO HS [facility] Last Admin: 07/02/19 21:28 Dose: 300 mg Verapamil HCl (Calan Sr -) 240 mg PO BID [facility] Last Admin: 07/03/19 10:37 Dose: 240 mg GENERAL: awake, alert, and oriented, in no acute distress. HEAD: Normal with no signs of trauma. EYES: PERRL, extraocular movements intact, sclera anicteric, conjunctiva clear. ENT: Ears normal, oropharynx clear without exudates, moist mucous membranes. NECK: Trachea midline, full range of motion, supple. LUNGS: Scattered rhonchi and mild expiratory wheeze HEART: RRR, S1, S2 without murmur, rub or gallop. ABDOMEN: Soft, NT,ND, normoactive bowel sounds, no guarding, no rebound, no hepatosplenomegaly, no masses. EXTREMITIES: 2+ pulses, warm, well-perfused, no edema. NEUROLOGICAL: non-focal PSYCH: Normal mood, normal affect. SKIN: Warm, dry, normal turgor, no rashes or lesions noted Laboratory Results - last 24 hr 07/02/19 06:54 Neutrophils % (Manual) 79.2 Band Neutrophils % 1.0 Lymphocytes % (Manual) 2.9 L Monocytes % (Manual) 3 L Eosinophils % (Manual) 12.9 H Basophils % (Manual) 0.0 Myelocytes % (Man) 0 Promyelocytes % (Man) 0 Blast Cells % (Manual) 0 Metamyelocytes 0 Hypochromia 0 Platelet Estimate Normal Platelet Comment Present Polychromasia 1+ Poikilocytosis 1+ Anisocytosis 1+ Microcytosis 1+ Macrocytosis 1+ Spherocytes 1+ Target Cells 1+ Tear Drop Cells 1+ Ovalocytes 1+ Bovill Cells 1+ Acanthocytes (Spur) 1+ Problem List - Problems (1) Acute on chronic respiratory failure with hypoxemia Code(s): J96.21 - ACUTE AND CHRONIC RESPIRATORY FAILURE WITH HYPOXIA (2) COPD exacerbation Code(s): J44.1 - CHRONIC OBSTRUCTIVE PULMONARY DISEASE W (ACUTE) EXACERBATION (3) COPD (chronic obstructive pulmonary disease) Code(s): J44.9 - CHRONIC OBSTRUCTIVE PULMONARY DISEASE, UNSPECIFIED Qualifiers: COPD type: unspecified COPD Qualified Code(s): J44.9 - Chronic obstructive pulmonary disease, unspecified (4) Tobacco abuse Code(s): Z72.0 - TOBACCO USE (5) Tobacco abuse counseling Code(s): Z71.6 - TOBACCO ABUSE COUNSELING (6) Lung nodule Code(s): R91.1 - SOLITARY PULMONARY NODULE IMP ACUTE ON CHRONIC HYPOXEMIC RESPIRATORY FAILURE COPD O2 DEPENDENT WITH ACUTE EXACERBATION ILD ETOH TOBACCO ABUSE RLL 10 x 7 mm NODULE PLAN IV STEROIDS INHALED BRONCHODILATORS O2 CHEST CT SMOKING CESSATION COUNSELED WILL NEED PRE AND POST AMBULATION O2 SATURATION CHECK PRIOR TO DC: PATIENT REPORTS THAT HE HAD HOME O2 BEFORE DR RANGEL
[2019-07-03] MEDS ORDERED: MINERAL OIL/PETROLAT/WATER TOPICAL CREAM 454 GM JAR TP PRN (12:00)
[2019-07-03] MEDS ORDERED: PT OWN MED DRAWER 7, Y5N ONE ×2 (18:18→20:51)
[2019-07-03] MEDS: QUEtiapine FUMARATE 300 MG TABLET PO SCH (21:06)
[2019-07-04] MEDS: methylPREDNISolone NA SUCC 40 MG/1 ML VIAL IVPUSH SCH ×2 (01:11→09:08)
[2019-07-04] MEDS ORDERED: METHADONE HCL 10 MG TABLET ONE (05:20)
[2019-07-04] MEDS ORDERED: METHADONE HCL 40 MG DISPERSABLE TABLET ONE (05:20)
[2019-07-04] MEDS: METHADONE 40 MG, METHADONE 30 MG PO SCH (05:41)
[2019-07-04] MEDS: ALBUTEROL SO4 2.5/IPRATROPIUM 0.5 INH SOL 3 ML VIAL.NEB. NEB SCH ×2 (07:20→11:45)
[2019-07-04] MEDS ORDERED: cefTRIAXone SODIUM 1 GM VIAL ONE (08:54)
[2019-07-04] MEDS: PANTOPRAZOLE 40 MG TABLET (FP) PO SCH (09:08)
[2019-07-04] MEDS: ASPIRIN 81 MG CHEWABLE TABLETS PO SCH (09:08)
[2019-07-04] MEDS: NICOTINE 14 MG/24 HOURS TOPICAL PATCH TD SCH (09:09)
[2019-07-04] MEDS: BUDESONIDE/FORMETEROL FUMARATE 160/4.5 mcg INHALER IH SCH (09:18)
[2019-07-04] MEDS ORDERED: PT OWN MED DRAWER 7, Y5N ONE (09:21)
[2019-07-04] MEDS: ENOXAPARIN NA (PORCINE) 40 MG/0.4 ML DISP.SYRIN SQ SCH (09:22)
[2019-07-04] MEDS: VERAPAMIL HCL 240 MG E.R. TABLET PO SCH (09:22)
[2019-07-04 09:29] LABS: BASO % 0.2 % (0-2.0); HEMATOCRIT 49.8 % (35.4-49); HEMOGLOBIN 15.2 GM/dL (11.7-16.9); LYMPH % 7.8 % (8-40); MCH 26.3 pg (25.7-33.7); MCHC 30.5 g/dl (32.0-35.9); MEAN CELL VOLUME 86.1 fl (80-96); MEAN PLT VOLUME 9.1 fl (7.5-11.1); MONO % 6.5 % (3.8-10.2); NEUT % 85.5 % (42.8-82.8); PLATELET COUNT 256 K/MM3 (134-434); RBC 5.78 M/mm3 (4.00-5.60); RDW 18.6 % (11.9-15.9); WHITE BLOOD COUNT 18.6 K/mm3 (4.0-10.0)
--- NOTE | 2019-07-04 09:37 | PN ---
Teaching Attending Note Name of Resident: Rosa Vazquez ATTENDING PHYSICIAN STATEMENT I saw and evaluated the patient. I reviewed the resident's note and discussed the case with the resident. I agree with the resident's findings and plan as documented. SUBJECTIVE: OBJECTIVE: Vital Signs Temperature 98.1 F 07/04/19 06:00 Pulse Rate 72 07/04/19 06:00 Respiratory Rate 18 07/04/19 06:00 Blood Pressure 155/106 H 07/04/19 06:00 O2 Sat by Pulse Oximetry (%) 95 07/03/19 21:00 GENERAL: The patient is awake, alert, and fully oriented, in no acute distress. HEAD: Normal with no signs of trauma. EYES: PERRL, extraocular movements intact, sclera anicteric, conjunctiva clear. ENT: Ears normal, oropharynx clear without exudates, moist mucous membranes. NECK: Trachea midline, full range of motion, supple. LUNGS: decreased Breath sounds bl, positive for rhonchi , no crackles, no accessory muscle use. HEART: RRR, S1, S2 without murmur, rub or gallop. ABDOMEN: Soft, NT,ND, normoactive bowel sounds, no guarding, no rebound, no hepatosplenomegaly, no masses. EXTREMITIES: 2+ pulses, warm, well-perfused, no edema. NEUROLOGICAL: Cranial nerves II through XII grossly intact. Normal speech, gait is stable PSYCH: Normal mood, normal affect. SKIN: Warm, dry, normal turgor, no rashes or lesions noted CBCD WBC 18.6 K/mm3 (4.0-10.0) H 07/04/19 09:10 RBC 5.78 M/mm3 (4.00-5.60) H 07/04/19 09:10 Hgb 15.2 GM/dL (11.7-16.9) 07/04/19 09:10 Hct 49.8 % (35.4-49) H 07/04/19 09:10 MCV 86.1 fl (80-96) 07/04/19 09:10 MCHC 30.5 g/dl (32.0-35.9) L 07/04/19 09:10 RDW 18.6 % (11.9-15.9) H 07/04/19 09:10 Plt Count 256 K/MM3 (134-434) 07/04/19 09:10 MPV 9.1 fl (7.5-11.1) 07/04/19 09:10 CMP Sodium 138 mmol/L (136-145) 07/02/19 07:00 Potassium 4.6 mmol/L (3.5-5.1) 07/02/19 07:00 Chloride 101 mmol/L (98-107) 07/02/19 07:00 Carbon Dioxide 30 mmol/L (21-32) 07/02/19 07:00 Anion Gap 6 MMOL/L (8-16) L 07/02/19 07:00 BUN 27.7 mg/dL (7-18) H 07/02/19 07:00 Creatinine 1.1 mg/dL (0.55-1.3) 07/02/19 07:00 Random Glucose 114 mg/dL (74-106) H 07/02/19 07:00 Calcium 9.5 mg/dL (8.5-10.1) 07/02/19 07:00 Total Bilirubin 0.5 mg/dL (0.2-1) 07/01/19 07:45 AST 14 U/L (15-37) L 07/01/19 07:45 ALT 15 U/L (13-61) 07/01/19 07:45 Alkaline Phosphatase 81 U/L (45-117) 07/01/19 07:45 Total Protein 7.8 g/dl (6.4-8.2) 07/01/19 07:45 Albumin 3.3 g/dl (3.4-5.0) L 07/01/19 07:45 CARDIAC ENZYMES Creatine Kinase 209 U/L (26-308) 06/30/19 11:00 Troponin I 0.03 ng/ml (0.00-0.05) 06/30/19 21:30 Current Medications Generic Name Dose Route Start Last Admin Trade Name Freq PRN Reason Stop Dose Admin Albuterol Sulfate 1 amp 06/30/19 16:19 06/30/19 21:10 Ventolin 0.083% Nebulizer Soln - NEB 1 amp Q4H PRN Administration WHEEZING Albuterol/Ipratropium 1 amp 06/30/19 20:00 07/04/19 07:20 Duoneb - NEB 1 amp RQID NICO Administration Aspirin 81 mg 07/01/19 10:00 07/04/19 09:08 Asa - PO 81 mg DAILY NICO Administration Budesonide/Formoterol Fumarate 2 puff 06/30/19 22:00 07/04/19 09:18 Symbicort 160/4.5mcg - IH 2 puff BID NICO Administration Enoxaparin Sodium 40 mg 07/01/19 10:00 07/04/19 09:22 Lovenox - SQ 40 mg DAILY NICO Administration Ceftriaxone Sodium 1 gm/ 50 mls @ 200 mls/hr 07/01/19 10:00 07/03/19 10:38 Dextrose IVPB 200 mls/hr DAILY NICO Administration Protocol Methadone HCl 40 mg/ Methadone 70 mg 07/01/19 07:30 07/04/19 05:41 HCl 30 mg PO 70 mg DAILY@0600 NICO Administration Methylprednisolone Sodium Succinate 60 mg 07/01/19 06:00 07/04/19 09:08 Solu-Medrol - IVPUSH 60 mg Q8H-IV NICO Administration Multi-Ingredient Lotion 1 applic 07/03/19 12:00 Eucerin (Large Jar) - TP DAILY PRN DRY SKIN Nicotine 14 mg 06/30/19 16:54 07/04/19 09:09 Nicoderm Patch - TD 14 mg DAILY NICO Administration Pantoprazole Sodium 40 mg 07/01/19 10:00 07/04/19 09:08 Protonix - PO 40 mg DAILY NICO Administration Quetiapine Fumarate 300 mg 07/01/19 22:00 07/03/19 21:06 Seroquel - PO 300 mg HS NICO Administration Verapamil HCl 240 mg 06/30/19 22:00 07/04/19 09:22 Calan Sr - PO 240 mg BID NICO Administration Home Medications Medication Instructions Recorded Aspirin [ASA -] 81 mg PO DAILY #30 tab.chew 04/08/15 Albuterol Sulfate Inhaler - 2 inh PO Q4H PRN 05/06/17 [Ventolin HFA Inhaler -] Hydrochlorothiazide [Hctz -] 25 mg PO DAILY 05/06/17 Quetiapine Fumarate [Seroquel -] 300 mg PO HS 05/06/17 Verapamil HCl [Verapamil ER] 240 mg PO BID 05/06/17 Omeprazole 40 mg PO DAILY 05/15/17 Methadone [Dolophine -] 70 mg PO DAILY 11/28/17 Microbiology 07/01/19 13:00 Sputum - Expectorated Gram Stain - Final 07/01/19 13:00 Sputum - Expectorated Sputum Culture - Final NORMAL RESPIRATORY PRASANTH 07/01/19 13:00 Urine For Antigen Detection Legionella Antigen - Final; negative 07/01/19 13:00 Urine For Antigen Detection Streptococcus pneumoniae Antigen (M - Final CXR: diffuse airway disease, no infiltrate ASSESSMENT AND PLAN: Patient is a 64 y/o male with a history of ETOH abuse, COPD ( 4 liters at home) , HTN, and GERD who presents shortness of breath, with javed color sputum with worsening symptoms since he run out of his oxygen supply. # Acute COpd exacerbation: on Solu medrol, symbicort, pulmonary consult, Navdeep. continue oxygen therapy # Acute Bronchitis: continue Rocephin # Hx of Polysubstance abuse: on Methadone # Hx of HTN: on verapamil # Elevated BNP: CHF exacerbation , s/p lasix # Low phos: replete, repeat the level in am , ordered 3 doses. level is 2.1 DVT Px: Lovenox discharge planning with oxygen arrangement
[2019-07-04 09:57] LABS: BLOOD UREA NITROGEN 23.7 mg/dL (7-18); CALCIUM 9.8 mg/dL (8.5-10.1); CREATININE 1.2 mg/dL (0.55-1.3); POTASSIUM 4.3 mmol/L (3.5-5.1)
--- NOTE | 2019-07-04 10:18 | PN ---
Progress Note (short form) - Note Progress Note: Breathing feels a little better today. After taking inhalers while trying to scrape the residue off with a plastic spoon noted some blood. No CP. Intake & Output 07/01/19 07/02/19 07/03/19 07/04/19 23:59 23:59 23:59 23:59 Intake Total 170 20 0 130 Output Total 200 850 300 0 Balance -30 -830 -300 130 Last Vital Signs Temp Pulse Resp BP Pulse Ox 98.1 F 72 18 155/106 H 95 07/04/19 06:00 07/04/19 06:00 07/04/19 06:00 07/04/19 06:00 07/03/19 21:00 Active Medications Albuterol Sulfate (Ventolin 0.083% Nebulizer Soln -) 1 amp NEB Q4H PRN PRN Reason: WHEEZING Last Admin: 06/30/19 21:10 Dose: 1 amp Albuterol/Ipratropium (Duoneb -) 1 amp NEB RQID [facility] Last Admin: 07/04/19 07:20 Dose: 1 amp Aspirin (Asa -) 81 mg PO DAILY [facility] Last Admin: 07/04/19 09:08 Dose: 81 mg Budesonide/Formoterol Fumarate (Symbicort 160/4.5mcg -) 2 puff IH BID [facility] Last Admin: 07/04/19 09:18 Dose: 2 puff Enoxaparin Sodium (Lovenox -) 40 mg SQ DAILY [facility] Last Admin: 07/04/19 09:22 Dose: 40 mg Methadone HCl 40 mg/ Methadone (HCl 30 mg) 70 mg PO DAILY@0600 [facility] Last Admin: 07/04/19 05:41 Dose: 70 mg Methylprednisolone Sodium Succinate (Solu-Medrol -) 60 mg IVPUSH Q8H-IV [facility] Last Admin: 07/04/19 09:08 Dose: 60 mg Multi-Ingredient Lotion (Eucerin (Large Jar) -) 1 applic TP DAILY PRN PRN Reason: DRY SKIN Nicotine (Nicoderm Patch -) 14 mg TD DAILY [facility] Last Admin: 07/04/19 09:09 Dose: 14 mg Pantoprazole Sodium (Protonix -) 40 mg PO DAILY [facility] Last Admin: 07/04/19 09:08 Dose: 40 mg Quetiapine Fumarate (Seroquel -) 300 mg PO HS [facility] Last Admin: 07/03/19 21:06 Dose: 300 mg Verapamil HCl (Calan Sr -) 240 mg PO BID [facility] Last Admin: 07/04/19 09:22 Dose: 240 mg GENERAL: awake, alert, and oriented, in no acute distress. HEAD: Normal with no signs of trauma. EYES: PERRL, extraocular movements intact, sclera anicteric, conjunctiva clear. ENT: Ears normal, oropharynx clear without exudates, moist mucous membranes. NECK: Trachea midline, full range of motion, supple. LUNGS: Scattered rhonchi, no wheezing appreciated HEART: RRR, S1, S2 without murmur, rub or gallop. ABDOMEN: Soft, NT,ND, normoactive bowel sounds, no guarding, no rebound, no hepatosplenomegaly, no masses. EXTREMITIES: 2+ pulses, warm, well-perfused, no edema. NEUROLOGICAL: non-focal PSYCH: Normal mood, normal affect. SKIN: Warm, dry, normal turgor, no rashes or lesions noted Laboratory Results - last 24 hr 07/04/19 07/04/19 09:10 09:10 WBC 18.6 H RBC 5.78 H Hgb 15.2 Hct 49.8 H MCV 86.1 MCH 26.3 MCHC 30.5 L RDW 18.6 H Plt Count 256 MPV 9.1 Absolute Neuts (auto) 15.9 H Neutrophils % 85.5 H Lymphocytes % 7.8 L D Monocytes % 6.5 Eosinophils % 0.0 Basophils % 0.2 Nucleated RBC % 0 Sodium 139 Potassium 4.3 Chloride 102 Carbon Dioxide 29 Anion Gap 8 BUN 23.7 H Creatinine 1.2 Est GFR (CKD-EPI)AfAm 73.11 Est GFR (CKD-EPI)NonAf 63.08 Random Glucose 135 H Calcium 9.8 Problem List - Problems (1) Acute on chronic respiratory failure with hypoxemia Code(s): J96.21 - ACUTE AND CHRONIC RESPIRATORY FAILURE WITH HYPOXIA (2) COPD exacerbation Code(s): J44.1 - CHRONIC OBSTRUCTIVE PULMONARY DISEASE W (ACUTE) EXACERBATION (3) COPD (chronic obstructive pulmonary disease) Code(s): J44.9 - CHRONIC OBSTRUCTIVE PULMONARY DISEASE, UNSPECIFIED Qualifiers: COPD type: unspecified COPD Qualified Code(s): J44.9 - Chronic obstructive pulmonary disease, unspecified (4) Tobacco abuse Code(s): Z72.0 - TOBACCO USE (5) Tobacco abuse counseling Code(s): Z71.6 - TOBACCO ABUSE COUNSELING (6) Lung nodule Code(s): R91.1 - SOLITARY PULMONARY NODULE IMP ACUTE ON CHRONIC HYPOXEMIC RESPIRATORY FAILURE COPD O2 DEPENDENT WITH ACUTE EXACERBATION ILD ETOH TOBACCO ABUSE RLL 10 x 7 mm NODULE PLAN CAN CHANGE TO PREDNISONE INHALED BRONCHODILATORS O2 CHEST CT PENDING SMOKING CESSATION COUNSELED PRE AND POST AMBULATION O2 SATURATION CHECK PRIOR TO DC: PATIENT REPORTS THAT HE HAD HOME O2 BEFORE DR RANGEL
[2019-07-04 10:25] VITALS: BP 110/61; TEMP 98.5
[2019-07-04 11:45] VITALS: PULSE 91
--- NOTE | 2019-07-04 12:54 | DS ---
Physical Exam: SUBJECTIVE: Patient seen and examined OBJECTIVE: Vital Signs Period Temp Pulse Resp BP Sys/Causey Pulse Ox Last 24 Hr 97.9 F-99 F 72-91 18-22 110-155/61-106 91-96 PHYSICAL EXAM GENERAL: The patient is awake, alert, and fully oriented, in no acute distress. HEAD: Normal with no signs of trauma. EYES: PERRL, extraocular movements intact, sclera anicteric, conjunctiva clear. No ptosis. ENT: oropharynx clear without exudates, moist mucous membranes. LUNGS: Breath sounds equal, clear to auscultation bilaterally decreased in lower castillo, but no accessory muscle use. HEART: Regular rate and rhythm, S1, S2 without murmur, rub or gallop. ABDOMEN: Soft, nontender, nondistended, normoactive bowel sounds, no guarding, no rebound, no hepatosplenomegaly, no masses. EXTREMITIES: 2+ pulses, warm, well-perfused, no edema. LABS Laboratory Results - last 24 hr 07/04/19 07/04/19 09:10 09:10 WBC 18.6 H RBC 5.78 H Hgb 15.2 Hct 49.8 H MCV 86.1 MCH 26.3 MCHC 30.5 L RDW 18.6 H Plt Count 256 MPV 9.1 Absolute Neuts (auto) 15.9 H Neutrophils % 85.5 H Lymphocytes % 7.8 L D Monocytes % 6.5 Eosinophils % 0.0 Basophils % 0.2 Nucleated RBC % 0 Sodium 139 Potassium 4.3 Chloride 102 Carbon Dioxide 29 Anion Gap 8 BUN 23.7 H Creatinine 1.2 Est GFR (CKD-EPI)AfAm 73.11 Est GFR (CKD-EPI)NonAf 63.08 Random Glucose 135 H Calcium 9.8 HOSPITAL COURSE: Date of Admission:06/30/19 Patient is a 64 y/o male with a history of ETOH abuse, COPD ( on 3-4 liters), HTN, and GERD who is admitted for COPD exacerbation. Pt ran out of oxygen for a few months and has been non compliant to medication regimen. During admission, pt was treated for exacerbation of his COPD with IV solumedrol 60 q6h, Ceftriaxone and Azithromycin,duonebs and albuterol, symbicort 2 puff bid, and [address] Vega CHEST CT needed (RLL nodule as per pt prmary pulm aware but has not repeated any imaging) so pt will f/u o/p. urine legionella, sputum cx were negative. pt advised on smoking cessation as to current health issues. Pt dischaged on prednisone taper with protonix, symbicort, duonebs, albuterol and oxygen. 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) Asthma (Acute) COPD exacerbation (Acute) Tobacco abuse counseling (Acute) Alcohol dependence (Chronic) Alcohol dependence in early full remission (Chronic) Anxiety and depression (Chronic) COPD (chronic obstructive pulmonary disease) (Chronic) Cocaine dependence (Chronic) Cocaine dependence in remission (Chronic) Drug-induced mood disorder (Chronic) Essential hypertension (Chronic) GERD (gastroesophageal reflux disease) (Chronic) HTN (hypertension) (Chronic) Hepatitis C carrier (Chronic) Hypertension (Chronic) Insomnia (Chronic) Interstitial lung disease (Chronic) Low back pain (Chronic) Lung nodule (Chronic) Nicotine dependence (Chronic) Opiate dependence (Chronic) Seizure (Chronic) Tobacco abuse (Chronic) Condition: Improved - Instructions Diet, Activity, Other Instructions: You came in for shortness of breath. You were found to be in a COPD exacerbation. We treated you with supplemental oxygen, steroids, medications to help open your airway and short course of antibiotics. You were seen by a Microbiology Manager, Dr. Vega. As was discussed during your hospital visit, PLEASE STOP SMOKING! This is a dangerous for your health [facility] as you have 2 active diseases affecting your lungs (Interstitial Lung Disease and COPD) AND dangerous short term as you require oxygen and FIRE and OXYGEN DO NOT MIX. You are putting yourself and those around you for an EXPLOSION! We imaged your chest and found that you have a Right Lower Lobe lung nodule. Please follow up for a Chest CT within the next month and discuss with your Microbiology Manager when you follow up. Please resume your medications as they were prescribed. Please follow up with your PCP, Dr. Gaitan, within 1 week. Please follow up with your Microbiology Manager, Dr. Vega within 1 week If you begin to experience Worsening breathing, Shortness of breath, chest pain , fevers, found smelling sputum with cough, or bleeding please return to the Emergency Room immediately Referrals: Edis Vega MD [Staff Physician] - 1 Week Lu Gaitan [Primary Care Provider] - 1 Week Disposition: HOME - Home Medications Comprehensive Discharge Medication List: Ambulatory Orders Quetiapine Fumarate [Seroquel -] 300 mg PO HS 05/06/17 Methadone [Dolophine -] 70 mg PO DAILY 11/28/17 Albuterol 2.5/Ipratropium 0.5 [Duoneb -] 1 amp NEB RQID #25 amp 07/04/19 Albuterol Sulfate Inhaler - [Ventolin HFA Inhaler -] 2 inh PO Q4H PRN #1 inhaler 07/04/19 Budesonide/Formeterol Fumarate [SYMBICORT 160/4.5mcg -] 2 inh IH BID #1 inhaler 07/04/19 Nicotine Patch [Nicoderm Patch -] 14 mg TD DAILY #2 patch 07/04/19 Pantoprazole Sodium [Protonix -] 40 mg PO DAILY #30 tablet.ec 07/04/19 Prednisone [Prednisone 50 MG TABLETS] See Taper PO DAILY #30 tablet 07/04/19 Verapamil HCl ER [Calan Sr -] 240 mg PO BID #60 tablet.er 07/04/19 Problem List - Problems (1) Acute hypoxemic respiratory failure Problems reviewed: Yes Code(s): J96.01 - ACUTE RESPIRATORY FAILURE WITH HYPOXIA (2) Acute on chronic respiratory failure with hypoxemia Code(s): J96.21 - ACUTE AND CHRONIC RESPIRATORY FAILURE WITH HYPOXIA (3) Alcohol-induced mood disorder Code(s): F10.94 - ALCOHOL USE, UNSPECIFIED WITH ALCOHOL-INDUCED MOOD DISORDER (4) Alcohol-induced sleep disorder Code(s): F10.982 - ALCOHOL USE, UNSPECIFIED WITH ALCOHOL-INDUCED SLEEP DISORDER (5) COPD exacerbation Code(s): J44.1 - CHRONIC OBSTRUCTIVE PULMONARY DISEASE W (ACUTE) EXACERBATION (6) Chest pain Code(s): R07.9 - CHEST PAIN, UNSPECIFIED Qualifiers: Chest pain type: unspecified Qualified Code(s): R07.9 - Chest pain, unspecified (7) Tobacco abuse counseling Code(s): Z71.6 - TOBACCO ABUSE COUNSELING (8) Alcohol dependence Code(s): F10.20 - ALCOHOL DEPENDENCE, UNCOMPLICATED Qualifiers: Substance use status: uncomplicated Qualified Code(s): F10.20 - Alcohol dependence, uncomplicated (9) COPD (chronic obstructive pulmonary disease) Code(s): J44.9 - CHRONIC OBSTRUCTIVE PULMONARY DISEASE, UNSPECIFIED Qualifiers: COPD type: unspecified COPD Qualified Code(s): J44.9 - Chronic obstructive pulmonary disease, unspecified (10) Cocaine dependence Code(s): F14.20 - COCAINE DEPENDENCE, UNCOMPLICATED (11) Cocaine dependence in remission Code(s): F14.21 - COCAINE DEPENDENCE, IN REMISSION (12) Drug-induced mood disorder Code(s): F19.94 - OTH PSYCHOACTIVE SUBSTANCE USE, UNSP W MOOD DISORDER (13) Essential hypertension Code(s): I10 - ESSENTIAL (PRIMARY) HYPERTENSION (14) GERD (gastroesophageal reflux disease) Code(s): K21.9 - GASTRO-ESOPHAGEAL REFLUX DISEASE WITHOUT ESOPHAGITIS Qualifiers: Esophagitis presence: esophagitis presence not specified Qualified Code(s) : K21.9 - Gastro-esophageal reflux disease without esophagitis (15) HTN (hypertension) Code(s): I10 - ESSENTIAL (PRIMARY) HYPERTENSION Qualifiers: Hypertension type: essential hypertension Qualified Code(s): I10 - Essential (primary) hypertension (16) Hypertension Code(s): I10 - ESSENTIAL (PRIMARY) HYPERTENSION (17) Insomnia Code(s): G47.00 - INSOMNIA, UNSPECIFIED (18) Interstitial lung disease Code(s): J84.9 - INTERSTITIAL PULMONARY DISEASE, UNSPECIFIED (19) Lung nodule Code(s): R91.1 - SOLITARY PULMONARY NODULE (20) Methadone maintenance therapy patient Code(s): F11.20 - OPIOID DEPENDENCE, UNCOMPLICATED (21) Nicotine dependence Code(s): F17.200 - NICOTINE DEPENDENCE, UNSPECIFIED, UNCOMPLICATED (22) Opiate dependence Code(s): F11.20 - OPIOID DEPENDENCE, UNCOMPLICATED (23) Tobacco abuse Code(s): Z72.0 - TOBACCO USE This patient is new to me today: No Emergency Visit: Yes ED Registration Date: 06/30/19 Care time: The patient presented to the Emergency Department on the above date and was hospitalized for further evaluation of their emergent condition. Critical Care patient: No - Discharge Referral Referred to [facility] Med [facility] No ATTENDING PHYSICIAN STATEMENT I saw and evaluated the patient. I reviewed the resident's note and discussed the case with the resident. I agree with the resident's findings and plan as documented. SUBJECTIVE: OBJECTIVE: ASSESSMENT AND PLAN:
== END 2019-07-04 13:33 | disposition home or self-care (01) | DRG 291 ==
LOC: JER 10:57 → JERBED 15:35 → J7W 18:08
PROVIDERS: ADMIT Internal Medicine; ATTEND Internal Medicine
DX: I11.0 Hypertensive heart disease with heart failure (principal); J96.21 Acute and chronic respiratory failure with hypoxia; J44.1 Chronic obstructive pulmonary disease with (acute) exacerbation; J84.9 Interstitial pulmonary disease, unspecified; I50.33 Acute on chronic diastolic (congestive) heart failure; F11.90 Opioid use, unspecified, uncomplicated; R91.1 Solitary pulmonary nodule; Z86.59 Personal history of other mental and behavioral disorders; F17.210 Nicotine dependence, cigarettes, uncomplicated; Z71.6 Tobacco abuse counseling; J20.9 Acute bronchitis, unspecified; K21.9 Gastro-esophageal reflux disease without esophagitis
CPT/HCPCS: 36415; 71045-TC-FY; 80048; 80053; 82550; 82553; 83735; 83880; 84100; 84484; 85025; 87070; 87205; 87899; 93005; 93010; 94010; 94640; 94761; 99284-25; Q2036

== ENCOUNTER 2020-01-13 17:51 | Inpatient (IN) | payer OTHER ==
--- NOTE | 2020-01-13 18:10 | PDOC ---
Documentation entered by Ginger Vaz SCRIBE, acting as scribe for Ann Marie Cabezas MD. Ann Marie Cabezas MD: This documentation has been prepared by the Татьяна coe Adrianna, SCRIBE, under my direction and personally reviewed by me in its entirety. I confirm that the documentation accurately reflects all work, treatment, procedures, and medical decision making performed by me. Attending Attestation - Resident Resident Name: LaurelUrmila - ED Attending Attestation I have performed the following: I have examined & evaluated the patient, The case was reviewed & discussed with the resident, I agree w/resident's findings & plan - HPI HPI: 64yo man with a PMH of alcohol abuse, COPD on 3-4L at baseline, HTN, GERD who was BIBA with low oxygen saturation. Per EMS, Mr Singh was found in the hallway of his home with sats in the 70's on room air. He also appeared confused, with responses that were illogical or nonsensical. He states that he was admitted at [facility] for 11 days but was "sick of being there" and went home. It is unclear wheen he left [facility]. Mr Singh reports that he was tested for COVID 2 weeks ago and was negative but cannot state what he was admitted to the hospital for. He states that his neighbor called an ambulance because he was unable to stand up today. He denies any alcohol or drug use, saying that he last drank 4 days ago, though he did take his home methadone today. Denies chills, chest pain, palpitation, dizziness, weakness, N, V, D, abdominal pain, bladder and bowel problems, focal weakness/paresthesias, leg swelling/pain, rash. No sick contacts or travel. No new changes in medications. No suspicious food intake Allergies: None Past Medical History/PSH: COPD, HTN Social history: +Polysubstance abuse (EtOH, cocaine, heroin- on methadone). Everyday smoker (states he quit 2 months ago). Meds: as documented in EMR Family history: noncontributory PMD: NOS ( Malcolm) Pulm: Dr. Ellison 01/16/20 08:05 - Physicial Exam PE: Agree with the resident's HPI and PE as documented in the electronic medical record. Moderate respiratory distress. EOMI, PERRL, nl conjunctiva, anicteric; neck supple.+Sating well on non-rebreather. +Respiratory distress. +Scant crackles, more on the right. +Mild tachycardia. Regular rhythm, abdomen soft nontender. No rebound, no guarding. Back nontender. GOMES x4, no focal neuro deficits. No peripheral edema. normal color for ethnicity, WWP. no calf tenderness. 01/16/20 08:05 - Critical Care Time Total Critical Care Time: 45 (acute respiratory failure) Critical Care Statement: The care of this patient involved high complexity decision making to prevent further life threatening deterioration of the patient's condition and/or to evaluate & treat vital organ system(s) failure or risk of failure. - Medical Decision Making 01/13/20 18:22 Vital Signs Temp Pulse Resp BP Pulse Ox 100.4 F H 94 H 26 H 125/85 96 01/13/20 18:17 01/13/20 17:58 01/13/20 17:58 01/13/20 17:58 01/13/20 17:58 Lilia Singh is a 64yo man with a PMH of alcohol abuse, COPD on 3-4L at baseline, HTN, GERD who was BIBA with low oxygen saturation and hypoxia. Per EMS, Mr Singh was found in the hallway of his home with sats in the 70's on room air. He also appeared confused, with responses that were illogical or nonsensical. of note he was recently admitted and may have walked out of [facility] where he was admitted for his copd vitals with +fever, tmax 100.4, normal HR. tachypneic. normotensive sats 95-96% on O2 Differential diagnosis includes viral syndrome, pleurisy, covid 19 infection, pneumonia,, pleural effusion, pulmonary edema, pneumonia. ACS, arrhythmia, anemia, electrolyte/metabolic derangements, bacteremia. ACS, PE, PTX, CHF, COPD exac highly suspicious for covid 19 infection Covid 19 testing indicated given his risk of exposures and clinical history will anticipate admission CBC, CMP, lytes, lactic, crp, ldh, trop, inflammatory and prognostic markers, vbg sent - elevated inflammatory markers and trop, myocardial injury. vbg normal etoh level neg. Interpreted by ED Physician: CXR (1 view): bilateral patcy lower lobe infiltrates, bones appear intact and structures normal alignment, cardiac silhouette within normal limits. no free air under diaphragm, no pneumothorax. EKG normal sinus rhythm at 62 bpm, there is prolonged QTc interval at approximately 493 ms. narrow QRS, ST and T wave segments and morphology normal. Nonspecific T wave abnormalities in III only no IVF, keep net euvolemic in setting of suspected covid 19 pt on monitor, gets hypoxic when he gets maneuvered, will attempt partial proning while awake for lung recruitment. he does desat down to 70-83% on NRB while moving. antipyretics, IV abx _ceftriaxone, azithromycin steroids in setting of h/o copd, mdi albuterol inhaler use instead of nebs. admission warranted telemetry, for suspected covid 19 infection/pneumonia droplet/contact precautions, remains on isolation 01/13/20 18:23 01/13/20 19:14 Heart Score/ECG Review #1 ECG reviewed & interpreted by me at: 18:20 General ECG Interpretation: Sinus Rhythm, Normal Rate 01/13/20 18:21 EKG sinus rhythm at 86 bpm, poor baseline. due to artifact and motion. no interval abnormalities, narrow QRS, ST and T wave segments and morphology normal. Nonspecific T wave abnormalities 01/13/20 18:57 Discharge - Discharge Information Problems reviewed: Yes Clinical Impression/Diagnosis: Acute on chronic respiratory failure with hypoxemia, Suspected COVID-19 virus infection Altered mental status Qualifiers: Altered mental status type: disorientation Qualified Code(s): R41.0 - Disorientation, unspecified Condition: Fair - Follow up/Referral - Patient Discharge Instructions - Post Discharge Activity
--- NOTE | 2020-01-13 18:21 | PDOC ---
History of Present Illness - History of Present Illness Initial Comments: Lilia Singh is a 64yo man with a PMH of alcohol abuse, COPD on 3-4L at baseline, HTN, GERD who was BIBA with low oxygen saturation. Per EMS, Mr Singh was found in the hallway of his home with sats in the 70's on room air. He also appeared confused, with responses that were illogical or nonsensical. He states that he was admitted at [facility] for 11 days but was "sick of being there" and went home. It is unclear wheen he left [facility]. Mr Singh reports that he was tested for COVID 2 weeks ago and was negative but cannot state what he was admitted to the hospital for. He states that his neighbor called an ambulance because he was unable to stand up today. He denies any alcohol or drug use, saying that he last drank 4 days ago, though he did take his home methadone today. 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) Thyroid Disease: No - Surgical History Abdominal Surgery: No Appendectomy: No Cardiac Surgery: No Cholecystectomy: No Lung Surgery: No Neurologic Surgery: No Orthopedic Surgery: No - Reproductive History Testicular Surgery: No - Immunization History Immunization Up to Date: Yes - Psycho Social/Smoking Cessation Hx Smoking Status: Yes Smoking History: Former smoker Have you smoked in the past 12 months: Yes Number of Cigarettes Smoked Daily: 5 If you are a former smoker, when did you quit?: 2 MONTHS AGO Information on smoking cessation initiated: No 'Breaking Loose' booklet given: 05/06/17 Hx Alcohol Use: No Drug/Substance Use Hx: Yes (ON METHADONE) Substance Use Type: Alcohol, Cocaine, Heroin Hx Substance Use Treatment: Yes (detox, rehab, [facility]ada[facility] <Urmila Barragan - Last Filed: 01/15/20 13:14> <Ann Marie Cabezas - Last Filed: 01/16/20 08:04> - Past Medical History Allergies/Adverse Reactions: Allergies Allergy/AdvReac Type Severity Reaction Status Date / Time No Known Allergies Allergy Verified 01/13/20 17:58 Home Medications: Ambulatory Orders Quetiapine Fumarate [Seroquel -] 300 mg PO HS 05/06/17 Methadone [Dolophine -] 70 mg PO DAILY 11/28/17 Albuterol 2.5/Ipratropium 0.5 [Duoneb -] 1 amp NEB RQID #25 amp 07/04/19 Albuterol Sulfate Inhaler - [Ventolin HFA Inhaler -] 2 inh PO Q4H PRN #1 inhaler 07/04/19 Budesonide/Formeterol Fumarate [SYMBICORT 160/4.5mcg -] 2 inh IH BID #1 inhaler 07/04/19 Nicotine Patch [Nicoderm Patch -] 14 mg TD DAILY #2 patch 07/04/19 Pantoprazole Sodium [Protonix -] 40 mg PO DAILY #30 tablet.ec 07/04/19 Prednisone [Prednisone 50 MG TABLETS] See Taper PO DAILY #30 tablet 07/04/19 Verapamil HCl ER [Calan Sr -] 240 mg PO BID #60 tablet.er 07/04/19 Review of Systems - Review of Systems Comments:: General: No fevers, no chills, no weight or appetite change, no malaise. +Weakness HEENT: No changes in vision, no changes in hearing, no congestion, no sore throat CV: No chest pain, no palpitations, no LE edema Pulm: No SOB, no cough, no wheezing GI: No nausea or vomiting, no change in bowel habits, no melena : No frequency, no urgency, no dysuria Musc: No back pain, no joint swelling, no recent injury Skin: No rash, no lesions, no erythema Endo: No excessive thirst, no heat/cold intolerance Heme: No unusual bruising or bleeding, no swollen glands Neuro: No syncope, no numbness/tingling, no focal weakness Vasc: No claudication Psych: No recent change in mood, no SI or HI <Urmila Barragan - Last Filed: 01/15/20 13:14> *Physical Exam - Vital Signs Last Vital Signs Temp Pulse Resp BP Pulse Ox 94 H 26 H 125/85 96 01/13/20 17:58 01/13/20 17:58 01/13/20 17:58 01/13/20 17:58 - Physical Exam General: In mild respiratory distress HEENT: Atraumatic, PERRL, EOMI, MMM, voice normal, nonrebreather in place Cards: RRR, no murmur appreciated Pulm: Slightly tachypnic on nonrebreather Abd: Soft, nontender, nondistended Ext: Atraumatic. No LE edema. ROM intact. WWP Skin: Normal color, no rashes or lesions Neuro: A&Ox3, CN grossly intact, normal speech, motor/sensory grossly intact and symmetric Psych: Mood appropriate to situation <LaurelUrmila - Last Filed: 01/15/20 13:14> - Vital Signs Last Vital Signs Temp Pulse Resp BP Pulse Ox 98 F 88 20 125/94 94 L 01/16/20 05:00 01/16/20 05:00 01/16/20 05:00 01/16/20 05:00 01/15/20 21:00 <Ann Marie Cabezas - Last Filed: 01/16/20 08:04> ED Treatment Course - LABORATORY CBC & Chemistry Diagram: 01/14/20 06:00 01/14/20 06:00 - RADIOLOGY Radiology Studies Ordered: Category Date Time Status CHEST X-RAY PORTABLE* [RAD] Stat Radiology 01/13/20 18:00 Ordered <Urmila Barragan - Last Filed: 01/15/20 13:14> - LABORATORY CBC & Chemistry Diagram: 01/14/20 06:00 01/14/20 06:00 - ADDITIONAL ORDERS Additional order review: 01/13/20 18:35 RBC 6.20 H MCV 86.0 MCHC 30.8 L RDW 21.0 H MPV 10.5 D Neutrophils % 83.9 H Lymphocytes % 7.1 L Monocytes % 8.2 Eosinophils % 0.6 D Basophils % 0.2 - Medications Given in the ED: ED Medications Discontinued Medications Generic Name Dose Route Start Last Admin Trade Name Freq PRN Reason Stop Dose Admin Acetaminophen 1,000 mg 01/13/20 19:04 01/13/20 19:11 Ofirmev Injection - IVPB 01/13/20 19:05 1,000 mg ONCE ONE Administration Chlordiazepoxide HCl 25 mg 01/13/20 21:00 01/14/20 22:19 Librium - PO 01/14/20 21:01 25 mg Q8H NICO Administration Chlordiazepoxide HCl 10 mg 01/13/20 22:46 01/15/20 09:22 Librium - PO 01/15/20 23:59 10 mg Q8H PRN Administration Signs/symptoms of Withdrawal Chlordiazepoxide HCl 15 mg 01/15/20 05:00 01/15/20 21:45 Librium - PO 01/15/20 21:01 15 mg Q8H NICO Administration Enoxaparin Sodium 40 mg 01/14/20 10:00 01/15/20 09:13 Lovenox - SQ 40 mg DAILY NICO Administration Haloperidol 2 mg 01/13/20 20:48 01/13/20 21:00 Haldol Injection (Fast Acting) - IM 01/13/20 20:49 2 mg ONCE ONE Administration Heparin Sodium (Porcine) 7,500 unit 01/15/20 14:00 01/15/20 13:32 Heparin - SQ Not Given TID [facility] Azithromycin 500 mg/ Dextrose 250 mls @ 250 mls/hr 01/13/20 19:14 01/13/20 19:58 IVPB 01/13/20 20:13 250 mls/hr ONCE ONE Administration Ceftriaxone Sodium 1 gm/ 50 mls @ 200 mls/hr 01/13/20 19:14 01/13/20 19:48 Dextrose IVPB 01/13/20 19:28 200 mls/hr ONCE ONE Administration Protocol Folic Acid 1 mg/ Thiamine HCl 1,000 mls @ 125 mls/hr 01/14/20 02:00 01/14/20 02:37 100 mg/ Multivitamins/Minerals IVPB 01/14/20 09:59 125 mls/hr 10 ml/ Sodium Chloride ONCE ONE Administration Methylprednisolone Sodium Succinate 125 mg 01/13/20 19:04 01/13/20 19:11 Solu-Medrol - IVPUSH 01/13/20 19:05 125 mg ONCE ONE Administration Pantoprazole Sodium 40 mg 01/15/20 10:30 01/15/20 10:54 Protonix - PO Not Given DAILY NICO Quetiapine Fumarate 300 mg 01/14/20 23:45 01/15/20 21:45 Seroquel - PO 300 mg HS NICO Administration Thiamine HCl 100 mg 01/14/20 10:00 01/14/20 10:41 Vitamin B1 - PO 100 mg DAILY NICO Administration <Ann Marie Cabezas - Last Filed: 01/16/20 08:04> Medical Decision Making - Medical Decision Making 01/13/20 18:13 Lilia Singh is a 64yo man with a PMH of alcohol abuse, COPD on 3-4L at baseline, HTN, GERD who was BIBA after he was found down in his apartment hallway, unable to stand. EMS noted oxygen saturations in the 70's when they arrived. He states that he was recently admitted at [facility] for 11 days but is unable to report why; he may have left AMA as he says that he was "sick of being there." - Sats 88-90% on nonrebreather while sitting. Drops to 70's when laying flat - COVID workup including CBC, CMP, trop, lactate, LDH, ferritin, UA, UCx, COVID, EKG, CXR - Acetaminophen for fever - Albuterol, IV steroids given h/o COPD 01/13/20 19:56 - CXR with bilateral infiltrates - Ceftriaxone/azithromycin for suspected COVID v COPD exacerbation v pneumonia - Pt seen pulling at equipment, wrapping pulse ox around head, etc. Alcohol level added - Labs pending 01/13/20 20:51 - Labs reviewed. Notable for - Slight leukocytosis at 11 - Lact 3.5 - BUN 29 from baseline 22-23 - Tbili 4.3, dbili 1.4. Still w/ no abdominal pain - Ferritin 394, LDH 945 - Trop 0.17 - Pt removed oxygen. Sats in 60's. Replaced mask, increased back to 90's - 2mg haldol ordered 01/13/20 21:08 - Sign out given to Dr Kirby. Discussed with Dr Jovon Barragan PGY2 <Urmila Barragan - Last Filed: 01/15/20 13:14> - Critical Care Time Total Critical Care Time (minutes): 45 (acute respiratory failure) Critical Care Statement: The care of this patient involved high complexity decision making to prevent further life threatening deterioration of the patient's condition and/or to evaluate & treat vital organ system(s) failure or risk of failure. <Ann Marie Cabezas - Last Filed: 01/16/20 08:04> Discharge - Discharge Information Problems reviewed: Yes - Admission Yes <Urmila Barragan - Last Filed: 01/15/20 13:14> <Ann Marie Cabezas - Last Filed: 01/16/20 08:04> - Discharge Information Clinical Impression/Diagnosis: Acute on chronic respiratory failure with hypoxemia, Suspected COVID-19 virus infection Altered mental status Qualifiers: Altered mental status type: disorientation Qualified Code(s): R41.0 - Disorientation, unspecified Condition: Fair
[2020-01-13] MEDS ORDERED: ALBUTEROL SO4 HFA INHALER IH ONE (18:30)
[2020-01-13] MEDS ORDERED: ACETAMINOPHEN INJECTION 100 ML IVPB ONE (18:30)
[2020-01-13] MEDS ORDERED: methylPREDNISolone NA SUCC 125 MG/2 ML VIAL ONE (18:31)
[2020-01-13] MEDS ORDERED: ALBUTEROL SO4 HFA INHALER IH PRN (19:04)
[2020-01-13] MEDS ORDERED: methylPREDNISolone NA SUCC 125 MG/2 ML VIAL IVPUSH ONE (19:04)
[2020-01-13] MEDS ORDERED: ACETAMINOPHEN 1000 MG/100 ML VIAL (NON FORMULARY) IVPB ONE (19:04)
[2020-01-13] MEDS ORDERED: AZITHROMYCIN IVPB 500 MG in DEXTROSE 5%-WATER - 250 ML IVPB ONE (19:14)
[2020-01-13] MEDS ORDERED: CEFTRIAXONE 1 GM in DEXTROSE 5%-WATER - 50 ML IVPB ONE (19:14)
[2020-01-13 19:19] LABS: BASO % 0.2 % (0-2.0); EOS % 0.6 % (0-4.5); HEMATOCRIT 53.3 % (35.4-49); HEMOGLOBIN 16.4 GM/dL (11.7-16.9); LYMPH % 7.1 % (8-40); MCH 26.5 pg (25.7-33.7); MCHC 30.8 g/dl (32.0-35.9); MEAN PLT VOLUME 10.5 fl (7.5-11.1); MONO % 8.2 % (3.8-10.2); NEUT % 83.9 % (42.8-82.8); PLATELET COUNT 113 K/MM3 (134-434); WHITE BLOOD COUNT 11.2 K/mm3 (4.0-10.0)
[2020-01-13 19:20] LABS: VENOUS BASE EXCESS 4.4 mmol/L (-2-2); VENOUS PC02 49.2 mmHg (38-52)
[2020-01-13 19:21] LABS: VENOUS PO2 < 49 mmHg (28-48)
[2020-01-13 19:35] LABS: INR 1.48 (0.83-1.09); PROTHROMBIN TIME (PATIENT) 17.5 SEC (9.7-13.0)
[2020-01-13] MEDS ORDERED: CEFTRIAXONE 1 GM/50 ML BAG ONE (19:36)
[2020-01-13 19:37] LABS: ACTIVATED PTT 37.7 SECONDS (25.2-36.5)
[2020-01-13] MEDS ORDERED: AZITHROMYCIN IVPB 500 MG/250 ML BAG IVPB ONE (19:37)
[2020-01-13 20:09] LABS: ANISOCYTOSIS 2+; MACROCYTOSIS 1+; PLATELET ESTIMATE DECREASED; TARGET CELLS 1+
[2020-01-13 20:30] LABS: ALBUMIN 3.1 g/dl (3.4-5.0); ALK PHOS 90 U/L (45-117); ANION GAP 9 MMOL/L (8-16); BILIRUBIN,DIRECT 1.4 mg/dL (0.0-0.2); BILIRUBIN,TOTAL 4.3 mg/dL (0.2-1); BLOOD UREA NITROGEN 29.1 mg/dL (7-18); CALCIUM 9.6 mg/dL (8.5-10.1); CHLORIDE 104 mmol/L (98-107); CO2 28 mmol/L (21-32); CREATININE 1.3 mg/dL (0.55-1.3); GLUCOSE,RANDOM 78 mg/dL (74-106); LDH 945 U/L (87-246); POTASSIUM 4.1 mmol/L (3.5-5.1); SGOT/AST 51 U/L (15-37); SGPT/ALT 36 U/L (13-61); SODIUM 140 mmol/L (136-145); TOT PROT 6.8 g/dl (6.4-8.2)
[2020-01-13] MEDS ORDERED: HALOPERIDOL LACTATE 5 MG/ML IM ONE (20:48)
[2020-01-13] MEDS ORDERED: HALOPERIDOL LACTATE 5 MG/ML ONE (20:53)
--- NOTE | 2020-01-13 21:13 | PN ---
Teaching Attending Note Name of Resident: Melba Kirby ATTENDING PHYSICIAN STATEMENT I saw and evaluated the patient. I reviewed the resident's note and discussed the case with the resident. I agree with the resident's findings and plan as documented. SUBJECTIVE: Patient is a 64 year old man with a PMH of COPD (supposed to be on 3-4 L oxygen at home), Tobacco use, HTN and Polysubstance abuse (EtOH, cocaine, heroin- on methadone), presenting with SOB and fever. As per EMS, patient was found standing in the hallway of his apartment building short of breath. His O2 saturation was in the 70's on room air. He also appeared confused, with responses that were illogical or nonsensical as per EMS. He states that he was admitted [facility] but was "sick of being there" and went home. It is unclear when he left [facility]. Mr Singh reports that he was tested for COVID-19 two weeks ago and was negative but cannot state what he was admitted to the hospital for. The patient states has not been feeling well since his discharge. He has had fever but denies chills, chest pain, palpitation, dizziness, weakness, nausea, dizziness, diarrhea, abdominal pain, dysuria or frequency. No new changes in medications and no suspicious food intake. No sick contacts or recent travels. OBJECTIVE: Alert Vital Signs Period Temp Pulse Resp BP Sys/Causey Pulse Ox Last 24 Hr 100.4 F 89-94 26-26 125-131/85-93 95-100 HEENT: No Jaundice, eye redness or discharge, PERRLA, EOMI. Normocephalic, atraumatic. External ears are normal and hearing is grossly intact. No nasal discharge. Neck: Supple, nontender. No palpable adenopathy or thyromegaly. No JVD Chest: Good effort. Clear to auscultation and percussion. Heart: Regular. No S3, rub or murmur Abdomen: Not distended, soft, nontender and no HSM. No rebound or guarding. Normal bowel sounds. Ext: Peripheral pulses intact. No leg edema. Skin: Warm and dry. No petechiae, rash or ecchymosis. Neuro: Alert. Oriented x3. CN 2-12 grossly intact. Sensation grossly intact in all four extremities and DTR are symmetric. Psych: Appropriate mood and affect. Good insight. Current Medications Generic Name Dose Route Start Last Admin Trade Name Freq PRN Reason Stop Dose Admin Albuterol Sulfate 2 puff 01/13/20 19:04 01/13/20 19:11 Ventolin Hfa Inhaler - IH 2 puff Q4H PRN Administration SHORT OF BREATH/WHEEZING Home Medications Medication Instructions Recorded Quetiapine Fumarate [Seroquel -] 300 mg PO HS 05/06/17 Methadone [Dolophine -] 70 mg PO DAILY 11/28/17 Albuterol 2.5/Ipratropium 0.5 1 amp NEB RQID #25 amp 07/04/19 [Duoneb -] Albuterol Sulfate Inhaler - 2 inh PO Q4H PRN #1 inhaler 07/04/19 [Ventolin HFA Inhaler -] Budesonide/Formeterol Fumarate 2 inh IH BID #1 inhaler 07/04/19 [SYMBICORT 160/4.5mcg -] Nicotine Patch [Nicoderm Patch -] 14 mg TD DAILY #2 patch 07/04/19 Pantoprazole Sodium [Protonix -] 40 mg PO DAILY #30 tablet.ec 07/04/19 Prednisone [Prednisone 50 MG See Taper PO DAILY #30 tablet 07/04/19 TABLETS] Verapamil HCl ER [Calan Sr -] 240 mg PO BID #60 tablet.er 07/04/19 Abnormal Lab Results 01/13/20 01/13/20 01/13/20 18:35 18:35 18:35 WBC 11.2 H RBC 6.20 H Hct 53.3 H MCHC 30.8 L RDW 21.0 H Plt Count 113 L D Absolute Neuts (auto) 9.4 H Neutrophils % 83.9 H Lymphocytes % 7.1 L PT with INR 17.50 H INR 1.48 H PTT (Actin FS) 37.7 H POC VBG pO2 < 49 H VBG HCO3 30.0 H VBG O2 Sat ([place]) 22.9 L VBG Base Excess 4.4 H BUN Lactic Acid Ferritin Total Bilirubin Direct Bilirubin AST LD Total CK-MB (CK-2) Troponin I Albumin 01/13/20 01/13/20 18:35 18:35 WBC RBC Hct MCHC RDW Plt Count Absolute Neuts (auto) Neutrophils % Lymphocytes % PT with INR INR PTT (Actin FS) POC VBG pO2 VBG HCO3 VBG O2 Sat ([place]) VBG Base Excess BUN 29.1 H Lactic Acid 3.5 H* Ferritin 394.8 H Total Bilirubin 4.3 H Direct Bilirubin 1.4 H AST 51 H LD Total 945 H CK-MB (CK-2) 6.8 H Troponin I 0.17 H Albumin 3.1 L ASSESSMENT AND PLAN: 1. Acute hypoxic respiratory failure/Pneumonia/AMS/Rule out COVID-19 infection - Oxygen saturation was in the 70's on room air. Patient was started on supplemental oxygen via non-rebreather mask and desaturated every time he took off the mask - got IM Haldol in the ER to calm him down. AMS likely due to metabolic encephalopathy from infection and/or hypoxia. CXR shows bilateral interstitial infiltrates, mostly in the lower lobes with R>L. There was concern for COVID-19 and viral testing for COVID-19 was collected and sent out by the ER staff. Patient placed on airborne, droplet and contact isolation. Got Tylenol, Albuterol, Haldol, Solumedrol, Rocephin and Azithromycin in the ER. Troponin elevation may be demand ischemia, but will monitor on telemetry to rule out ACS and get toxicology screen. Initial EKG had a lot of motion artifacts and is being repeated. Will treat patient with Plaquenil, Zinc sulfate, Vitamin C, IV Rocephin and Azithromycin and Tylenol PRN. Continue Duoneb PRN, Symbicort and Solumedrol pending Pulmonary consult. Consult ID and Pulmonary. Monitor QTc daily. Erythrocytosis may be partly due to tobacco use and/or dehydration. Encourge oral rehydration to minimize risk of ARDS in the setting of possible COVID-19 infection. Trend LFTs, lactic acid, and platelets. Get upper abdominal sonogram and D-dimer. Will continue comprehensive care for all of patients comorbid conditions. During the day, will strive to get his medical records from [facility]. 2. Polysubstance/Alcohol abuse - Monitor closely for drug withdrawal and verify his Methadone dose. Implement [facility] librium alcohol withdrawal protocol and do neurochecks. Implement seizure, fall and aspiration precautions. Treat with IV Banana bag, thiamine and folic acid. Monitor and replete electrolytes (Ca,Mg,K,P). Counseled patient about abstaining from alcohol and illicit drugs. Will consult brand specialist and refer to alcohol/drug detox upon discharge. 3. Hypoalbuminemia - Possibly due to combined effects of malnutrition and i nflammation associated with comorbid conditions. Will ensure adequate dietary protein intake and also consult motorcycle deliverer. Urinalysis pending. 4. Tobacco Use Counseled on risks associated with tobacco use. We will provide patient all the necessary assistance to facilitate smoking cessation and prescribe Nicotine patch. 5. Hypertension - Restart suitable outpatient antihypertensive drugs when cli nically appropriate. Revise regimen to ensure [id number] excellent BP control and teacher counselor patient on the injurious effects of uncontrolled hypertension. Nonpharmacologic measures to control hypertension like weight loss, salt restriction and exercise discussed. Importance of adherence to treatment regimen and attainment of normotension emphasized. 6. DVT prophylaxis - Lovenox 40 mg SQ q 24 hours. 7. Advance directives - Full code
--- NOTE | 2020-01-13 21:25 | HP ---
CHIEF COMPLAINT: hypoxia PCP: unknown, in [facility] (per pt) HISTORY OF PRESENT ILLNESS: Lilia Singh is a 64yo man with a PMH of alcohol abuse, COPD on 3-4L at baseline (pt denied this on my questioning), HTN, GERD who was BIBA with low oxygen saturation. Per EMS, Mr Singh was found in the hallway of his home with sats in the 70's on room air. He also appeared confused, with responses that were illogical or nonsensical. He states that he was admitted at [facility] for 11 days but was "sick of being there" and went home. It is unclear when he left [facility]. Mr Singh reports that he was tested for COVID 2 weeks ago and was negative but cannot state what he was admitted to the hospital for. He states that his neighbor called an ambulance because he was unable to stand up today. He denies any alcohol or drug use, saying that he last drank months ago, though he did take his home methadone today. ER course was notable for: (1) Sats 88-90% on nonrebreather while sitting. Drops to 70's when laying flat, Tylenol given for fever - Albuterol, IV steroids given h/o COPD (2) CXR with bilateral infiltrates (3) Lact 3.5, Tbili 4.3, dbili 1.4 but no abdominal pain, Ferritin 394, LDH 945, Trop 0.17 Recent Travel: denies PAST MEDICAL HISTORY: alcohol abuse, COPD on 3-4L at baseline (pt denied this on my questioning), HTN, GERD PAST SURGICAL HISTORY: denies Social History: Smoking: denies Alcohol: denies Drugs: denies Allergies No Known Allergies Allergy (Verified 01/13/20 17:58) HOME MEDICATIONS: Home Medications Medication Instructions Recorded Quetiapine Fumarate [Seroquel -] 300 mg PO HS 05/06/17 Methadone [Dolophine -] 70 mg PO DAILY 11/28/17 Albuterol 2.5/Ipratropium 0.5 1 amp NEB RQID #25 amp 07/04/19 [Duoneb -] Albuterol Sulfate Inhaler - 2 inh PO Q4H PRN #1 inhaler 07/04/19 [Ventolin HFA Inhaler -] Budesonide/Formeterol Fumarate 2 inh IH BID #1 inhaler 07/04/19 [SYMBICORT 160/4.5mcg -] Nicotine Patch [Nicoderm Patch -] 14 mg TD DAILY #2 patch 07/04/19 Pantoprazole Sodium [Protonix -] 40 mg PO DAILY #30 tablet.ec 07/04/19 Prednisone [Prednisone 50 MG See Taper PO DAILY #30 tablet 07/04/19 TABLETS] Verapamil HCl ER [Calan Sr -] 240 mg PO BID #60 tablet.er 07/04/19 REVIEW OF SYSTEMS- unable to obtain as pt was not cooperative with interview CONSTITUTIONAL: Absent: fever, chills, diaphoresis, generalized weakness, malaise, loss of appetite, weight change HEENT: Absent: rhinorrhea, nasal congestion, throat pain, throat swelling, difficulty swallowing, mouth swelling, ear pain, eye pain, visual changes CARDIOVASCULAR: Absent: chest pain, syncope, palpitations, irregular heart rate, lightheadedness, peripheral edema RESPIRATORY: Absent: cough, shortness of breath, dyspnea with exertion, orthopnea, wheezing, stridor, hemoptysis GASTROINTESTINAL: Absent: abdominal pain, abdominal distension, nausea, vomiting, diarrhea, constipation, melena, hematochezia GENITOURINARY: Absent: dysuria, frequency, urgency, hesitancy, hematuria, flank pain, genital pain MUSCULOSKELETAL: Absent: myalgia, arthralgia, joint swelling, back pain, neck pain SKIN: Absent: rash, itching, pallor HEMATOLOGIC/IMMUNOLOGIC: Absent: easy bleeding, easy bruising, lymphadenopathy, frequent infections ENDOCRINE: Absent: unexplained weight gain, unexplained weight loss, heat intolerance, cold intolerance NEUROLOGIC: Absent: headache, focal weakness or paresthesias, dizziness, unsteady gait, seizure, mental status changes, bladder or bowel incontinence PSYCHIATRIC: Absent: anxiety, depression, suicidal or homicidal ideation, hallucinations. PHYSICAL EXAMINATION Vital Signs - 24 hr 01/13/20 01/13/20 01/13/20 17:58 18:17 18:30 Temperature 100.4 F H Pulse Rate 94 H Pulse Rate [ 89 Apical] Respiratory 26 H 26 H Rate Blood Pressure 125/85 Blood Pressure 128/86 [Left Arm] O2 Sat by Pulse 96 100 Oximetry (%) 01/13/20 18:50 Temperature Pulse Rate Pulse Rate [ 91 H Apical] Respiratory 26 H Rate Blood Pressure Blood Pressure 131/93 [Left Arm] O2 Sat by Pulse 95 Oximetry (%) GENERAL: Sleepy, breathing comfortably on NRB HEENT: Atraumatic, PERRL, EOMI, MMM, voice normal, nonrebreather in place LUNGS: Slightly tachypnic on nonrebreather HEART: Regular rate and rhythm, normal S1 and S2 ABDOMEN: Soft, nontender, not distended Ext: Atraumatic. No LE edema. ROM intact. NEUROLOGICAL: CN grossly intact, normal speech, motor/sensory grossly intact and symmetric PSYCHIATRIC: uncooperative with interview, minimally cooperative with exam SKIN: Warm, dry, normal turgor, no rashes or lesions noted Laboratory Results - last 24 hr 01/13/20 01/13/20 01/13/20 18:35 18:35 18:35 WBC 11.2 H RBC 6.20 H Hgb 16.4 Hct 53.3 H MCV 86.0 MCH 26.5 MCHC 30.8 L RDW 21.0 H Plt Count 113 L D MPV 10.5 D Absolute Neuts (auto) 9.4 H Neutrophils % 83.9 H Lymphocytes % 7.1 L Monocytes % 8.2 Eosinophils % 0.6 D Basophils % 0.2 Nucleated RBC % 0 Hypochromia 0 Platelet Estimate Decreased Polychromasia 0 Poikilocytosis 1+ Anisocytosis 2+ Microcytosis 1+ Macrocytosis 1+ Target Cells 1+ Schistocytes 1+ PT with INR 17.50 H INR 1.48 H PTT (Actin FS) 37.7 H VBG pH 7.40 POC VBG pCO2 49.2 POC VBG pO2 < 49 H VBG HCO3 30.0 H VBG O2 Sat ([place]) 22.9 L VBG Base Excess 4.4 H Sodium Potassium Chloride Carbon Dioxide Anion Gap BUN Creatinine Est GFR (CKD-EPI)AfAm Est GFR (CKD-EPI)NonAf Random Glucose Lactic Acid Calcium Ferritin Total Bilirubin Direct Bilirubin AST ALT Alkaline Phosphatase LD Total Creatine Kinase Creatine Kinase Index CK-MB (CK-2) Troponin I Total Protein Albumin Alcohol, Quantitative 01/13/20 01/13/20 18:35 18:35 WBC RBC Hgb Hct MCV MCH MCHC RDW Plt Count MPV Absolute Neuts (auto) Neutrophils % Lymphocytes % Monocytes % Eosinophils % Basophils % Nucleated RBC % Hypochromia Platelet Estimate Polychromasia Poikilocytosis Anisocytosis Microcytosis Macrocytosis Target Cells Schistocytes PT with INR INR PTT (Actin FS) VBG pH POC VBG pCO2 POC VBG pO2 VBG HCO3 VBG O2 Sat ([place]) VBG Base Excess Sodium 140 Potassium 4.1 Chloride 104 Carbon Dioxide 28 Anion Gap 9 BUN 29.1 H Creatinine 1.3 Est GFR (CKD-EPI)AfAm 66.36 Est GFR (CKD-EPI)NonAf 57.26 Random Glucose 78 Lactic Acid 3.5 H* Calcium 9.6 Ferritin 394.8 H Total Bilirubin 4.3 H Direct Bilirubin 1.4 H AST 51 H ALT 36 Alkaline Phosphatase 90 LD Total 945 H Creatine Kinase 166 Creatine Kinase Index 4.0 CK-MB (CK-2) 6.8 H Troponin I 0.17 H Total Protein 6.8 Albumin 3.1 L Alcohol, Quantitative < 3 ASSESSMENT/PLAN: Lilia Singh is a 64yo man with a PMH of alcohol abuse, COPD on 3-4L at baseline (pt denied this on my questioning), HTN, GERD who was BIBA with low oxygen saturation. 1. Acute hypoxic respiratory failure- likely 2/2 Pneumonia vs COVID-19 infection - Oxygen saturation was in the 70's on room air. Patient was started on supplemental oxygen via non-rebreather mask and desaturated every time he took off the mask - got IM Haldol in the ER to calm him down. - CXR shows bilateral interstitial infiltrates, mostly in the lower lobes with R>L. - f/u COVID PCR Got Tylenol, Albuterol, Haldol, Solumedrol, Rocephin and Azithromycin in the ER - Plaquenil - Zinc sulfate - Vitamin C - IV Rocephin - Azithromycin - Tylenol PRN - Ventolin IH - Symbicort and Solumedrol pending Pulmonary consult - Consult ID and Pulmonary, appreciate recommendations - Monitor QTc daily - Trend LFTs, lactic acid, and platelets - obtain medical records from [facility] - Get upper abdominal sonogram given pt's elevated t.bili - f/u D-dimer to r/o PE given the pt's significant hypoxia 2. AMS likely due to metabolic encephalopathy from infection and/or hypoxia - medical management as above - continue to monitor 3. Troponin elevation- may be demand ischemia - monitor on telemetry to rule out ACS - f/u toxicology screen - Initial EKG had a lot of motion artifacts and is being repeated. 4. Polysubstance/Alcohol abuse - Pt denies recent alcohol/ substance use but is a poor historian. Monitor closely for drug withdrawal and verify his Methadone dose. - [facility] alcohol withdrawal protocol - neurochecks - seizure, fall and aspiration precautions - Treat with IV Banana bag - thiamine and folic acid - Monitor and replete electrolytes (Ca,Mg,K,P) FEN: - IV banana bag, replete fluids carefully as pt is covid suspect - replete PRN - HTN diet PPx: - DVT prophylaxis - Lovenox 40 mg SQ q 24 hours. Advance directives - Full code Visit type - Emergency Visit Emergency Visit: Yes ED Registration Date: 01/13/20 Care time: The patient presented to the Emergency Department on the above date and was hospitalized for further evaluation of their emergent condition. - New Patient This patient is new to me today: Yes Date on this admission: 01/14/20 - Critical Care Critical Care patient: No ATTENDING PHYSICIAN STATEMENT I saw and evaluated the patient. I reviewed the resident's note and discussed the case with the resident. I agree with the resident's findings and plan as documented. SUBJECTIVE: OBJECTIVE: ASSESSMENT AND PLAN:
[2020-01-13] MEDS ORDERED: chlordiazePOXIDE 5 MG CAPSULE PO PRN (22:46)
[2020-01-14] MEDS: chlordiazePOXIDE HCL 25 MG CAPSULE PO SCH ×4 (00:04→22:19)
[2020-01-14] MEDS ORDERED: ACETAMINOPHEN 325 MG TABLET (FP) PO PRN (01:09)
[2020-01-14] MEDS ORDERED: FOLIC ACID INJECTION - 1 MG, THIAMINE HCL 100 MG, MULTIVIT INJECTION ADULT 10 ML in SOD... IVPB ONE (02:00)
--- NOTE | 2020-01-14 08:00 | PN ---
Progress Note (short form) - Note Progress Note: PULMONARY CONSULTATION DICTATED 01/14/20 IMP ACUTE ON CHRONIC HYPOXEMIC RESPIRATORY FAILURE SUSPECTED COVID 19 PNEUMONIA HTN GERD ALTERED MENTAL STATUS + TROPONIN THROMBOCYTOPENIA PLAN SUPPLEMENTAL O2 ABX PER ID MONITOR LYTES TREND TROPONIN CRP,FERRATIN.LDH COVID SEROLOGY PENDING ALBUTEROL INHALER SPIRIVA MONITOR LYTES,CBC,PLT CT LIBRIUM LOVENOX PE DOSE DR CAMPUZANO Problem List - Problems (1) Acute on chronic respiratory failure with hypoxemia Code(s): J96.21 - ACUTE AND CHRONIC RESPIRATORY FAILURE WITH HYPOXIA (2) Altered mental status Code(s): R41.82 - ALTERED MENTAL STATUS, UNSPECIFIED Qualifiers: Altered mental status type: disorientation Qualified Code(s): R41.0 - Disorientation, unspecified (3) Suspected COVID-19 virus infection Code(s): Z20.828 - CONTACT W AND EXPOSURE TO OTH VIRAL COMMUNICABLE DISEASES (4) Hypertension Code(s): I10 - ESSENTIAL (PRIMARY) HYPERTENSION
[2020-01-14 08:03] LABS: BASO % 0.3 % (0-2.0); HEMATOCRIT 42.1 % (35.4-49); HEMOGLOBIN 13.2 GM/dL (11.7-16.9); LYMPH % 7.5 % (8-40); MCH 26.6 pg (25.7-33.7); MCHC 31.3 g/dl (32.0-35.9); MEAN CELL VOLUME 84.8 fl (80-96); MEAN PLT VOLUME 10.1 fl (7.5-11.1); MONO % 4.6 % (3.8-10.2); NEUT % 87.6 % (42.8-82.8); PLATELET COUNT 85 K/MM3 (134-434); RBC 4.96 M/mm3 (4.00-5.60); RDW 20.6 % (11.9-15.9); WHITE BLOOD COUNT 6.7 K/mm3 (4.0-10.0)
[2020-01-14 08:50] LABS: ALBUMIN 2.3 g/dl (3.4-5.0); BILIRUBIN,TOTAL 2.5 mg/dL (0.2-1); BLOOD UREA NITROGEN 26.3 mg/dL (7-18); CALCIUM 8.5 mg/dL (8.5-10.1); CREATININE 1.1 mg/dL (0.55-1.3); MAGNESIUM 1.9 mg/dL (1.8-2.4); PHOSPHOROUS 3.2 mg/dL (2.5-4.9); POTASSIUM 4.1 mmol/L (3.5-5.1); TOT PROT 4.9 g/dl (6.4-8.2)
[2020-01-14] MEDS ORDERED: cefTRIAXone SODIUM 1 GM VIAL ONE (09:14)
[2020-01-14] MEDS ORDERED: PT OWN MED DRAWER 7, Y5N ONE (09:14)
[2020-01-14] MEDS ORDERED: DEXTROSE 5%-WATER - 50 ML IVPB ONE (09:14)
--- NOTE | 2020-01-14 09:29 | PN ---
Physical Exam: SUBJECTIVE: Patient seen and examined at bedside patient states he is feeling a little bit better though he is still having some shortness of breath ; he is hungry- he is saturating well on 100% NRB OBJECTIVE: Vital Signs Period Temp Pulse Resp BP Sys/Causey Pulse Ox Last 24 Hr 97.9 F-100.4 F 66-94 20-26 125-159/78-101 95-100 GENERAL: The patient is awake, alert, and fully oriented, in no acute distress. EYES: PEERLA: EOMI no scleral icterus NECK: no JVD; no lymphadenopathy LUNGS: diminished breath sounds b /l. HEART: Regular rate and rhythm, S1, S2 without murmur, rub or gallop. ABDOMEN: Soft, NT ND +BS in all 4 quadrants EXTREMITIES: 2+ pulses, warm, well-perfused, no edema. PSYCH: Normal mood, normal affect. SKIN: Warm, dry, normal turgor, no rashes or lesions noted Laboratory Results - last 24 hr 01/13/20 01/13/20 01/13/20 18:35 18:35 18:35 WBC 11.2 H RBC 6.20 H Hgb 16.4 Hct 53.3 H MCV 86.0 MCH 26.5 MCHC 30.8 L RDW 21.0 H Plt Count 113 L D MPV 10.5 D Absolute Neuts (auto) 9.4 H Neutrophils % 83.9 H Lymphocytes % 7.1 L Monocytes % 8.2 Eosinophils % 0.6 D Basophils % 0.2 Nucleated RBC % 0 Hypochromia 0 Platelet Estimate Decreased Polychromasia 0 Poikilocytosis 1+ Anisocytosis 2+ Microcytosis 1+ Macrocytosis 1+ Target Cells 1+ Schistocytes 1+ PT with INR 17.50 H INR 1.48 H PTT (Actin FS) 37.7 H D-Dimer VBG pH 7.40 POC VBG pCO2 49.2 POC VBG pO2 < 49 H VBG HCO3 30.0 H VBG O2 Sat ([place]) 22.9 L VBG Base Excess 4.4 H Sodium Potassium Chloride Carbon Dioxide Anion Gap BUN Creatinine Est GFR (CKD-EPI)AfAm Est GFR (CKD-EPI)NonAf Random Glucose Lactic Acid Calcium Phosphorus Magnesium Ferritin Total Bilirubin Direct Bilirubin AST ALT Alkaline Phosphatase LD Total Creatine Kinase Creatine Kinase Index CK-MB (CK-2) Troponin I C-Reactive Protein Total Protein Albumin Alcohol, Quantitative 01/13/20 01/13/20 01/14/20 18:35 18:35 00:10 WBC RBC Hgb Hct MCV MCH MCHC RDW Plt Count MPV Absolute Neuts (auto) Neutrophils % Lymphocytes % Monocytes % Eosinophils % Basophils % Nucleated RBC % Hypochromia Platelet Estimate Polychromasia Poikilocytosis Anisocytosis Microcytosis Macrocytosis Target Cells Schistocytes PT with INR INR PTT (Actin FS) D-Dimer 1513 H VBG pH POC VBG pCO2 POC VBG pO2 VBG HCO3 VBG O2 Sat ([place]) VBG Base Excess Sodium 140 Potassium 4.1 Chloride 104 Carbon Dioxide 28 Anion Gap 9 BUN 29.1 H Creatinine 1.3 Est GFR (CKD-EPI)AfAm 66.36 Est GFR (CKD-EPI)NonAf 57.26 Random Glucose 78 Lactic Acid 3.5 H* Calcium 9.6 Phosphorus Magnesium Ferritin 394.8 H Total Bilirubin 4.3 H Direct Bilirubin 1.4 H AST 51 H ALT 36 Alkaline Phosphatase 90 LD Total 945 H Creatine Kinase 166 Creatine Kinase Index 4.0 CK-MB (CK-2) 6.8 H Troponin I 0.17 H C-Reactive Protein Total Protein 6.8 Albumin 3.1 L Alcohol, Quantitative < 3 01/14/20 01/14/20 01/14/20 02:30 02:30 06:00 WBC RBC Hgb Hct MCV MCH MCHC RDW Plt Count MPV Absolute Neuts (auto) Neutrophils % Lymphocytes % Monocytes % Eosinophils % Basophils % Nucleated RBC % Hypochromia Platelet Estimate Polychromasia Poikilocytosis Anisocytosis Microcytosis Macrocytosis Target Cells Schistocytes PT with INR INR PTT (Actin FS) D-Dimer VBG pH POC VBG pCO2 POC VBG pO2 VBG HCO3 VBG O2 Sat ([place]) VBG Base Excess Sodium 140 Potassium 4.1 Chloride 106 Carbon Dioxide 27 Anion Gap 7 L BUN 26.3 H Creatinine 1.1 Est GFR (CKD-EPI)AfAm 81.22 Est GFR (CKD-EPI)NonAf 70.07 Random Glucose 164 H Lactic Acid 1.9 Calcium 8.5 Phosphorus 3.2 Magnesium 1.9 Ferritin Total Bilirubin 2.5 H Direct Bilirubin AST 24 ALT 23 Alkaline Phosphatase 57 LD Total Creatine Kinase Creatine Kinase Index CK-MB (CK-2) Troponin I 0.14 H C-Reactive Protein 6.3 H Total Protein 4.9 L Albumin 2.3 L Alcohol, Quantitative 01/14/20 01/14/20 06:00 06:00 WBC 6.7 RBC 4.96 Hgb 13.2 Hct 42.1 D MCV 84.8 MCH 26.6 MCHC 31.3 L RDW 20.6 H Plt Count 85 L D MPV 10.1 Absolute Neuts (auto) 5.9 Neutrophils % 87.6 H Lymphocytes % 7.5 L Monocytes % 4.6 Eosinophils % 0.0 D Basophils % 0.3 Nucleated RBC % 0 Hypochromia Platelet Estimate Polychromasia Poikilocytosis Anisocytosis Microcytosis Macrocytosis Target Cells Schistocytes PT with INR INR PTT (Actin FS) D-Dimer VBG pH POC VBG pCO2 POC VBG pO2 VBG HCO3 VBG O2 Sat ([place]) VBG Base Excess Sodium Potassium Chloride Carbon Dioxide Anion Gap BUN Creatinine Est GFR (CKD-EPI)AfAm Est GFR (CKD-EPI)NonAf Random Glucose Lactic Acid Calcium Phosphorus Magnesium Ferritin Total Bilirubin Direct Bilirubin AST ALT Alkaline Phosphatase LD Total Creatine Kinase 59 Creatine Kinase Index CK-MB (CK-2) Troponin I 0.10 H C-Reactive Protein Total Protein Albumin Alcohol, Quantitative Active Medications Generic Name Dose Route Start Last Admin Trade Name Freq PRN Reason Stop Dose Admin Acetaminophen 650 mg 01/14/20 01:09 Tylenol - PO Q4H PRN FEVER Albuterol Sulfate 2 puff 01/13/20 19:04 01/13/20 19:11 Ventolin Hfa Inhaler - IH 2 puff Q4H PRN Administration SHORT OF BREATH/WHEEZING Ascorbic Acid 500 mg 01/14/20 10:00 Vitamin C - PO BID NICO Chlordiazepoxide HCl 25 mg 01/13/20 21:00 01/14/20 06:20 Librium - PO 01/14/20 21:01 25 mg Q8H NICO Administration Chlordiazepoxide HCl 10 mg 01/16/20 00:00 Librium - PO 01/16/20 23:59 Q12H PRN Signs/symptoms of Withdrawal Chlordiazepoxide HCl 10 mg 01/13/20 22:46 Librium - PO 01/15/20 23:59 Q8H PRN Signs/symptoms of Withdrawal Chlordiazepoxide HCl 15 mg 01/15/20 05:00 Librium - PO 01/15/20 21:01 Q8H [facility] Chlordiazepoxide HCl 10 mg 01/16/20 05:00 Librium - PO 01/16/20 21:01 Q8H NICO Chlordiazepoxide HCl 10 mg 01/17/20 05:00 Librium - PO 01/17/20 05:01 ONCE ONE Cholecalciferol 1,000 unit 01/14/20 10:00 Vitamin D3 - PO DAILY [facility] Enoxaparin Sodium 40 mg 01/14/20 10:00 Lovenox - SQ DAILY [facility] Folic Acid 1 mg 01/14/20 10:00 Folic Acid - PO DAILY [facility] Folic Acid 1 mg/ Thiamine HCl 1,000 mls @ 125 mls/hr 01/14/20 02:00 01/14/20 02:37 100 mg/ Multivitamins/Minerals IVPB 01/14/20 09:59 125 mls/hr 10 ml/ Sodium Chloride ONCE ONE Administration Ceftriaxone Sodium 1 gm/ 50 mls @ 100 mls/hr 01/14/20 10:00 Dextrose IVPB DAILY [facility] Protocol Azithromycin 250 mg/ Dextrose 250 mls @ 250 mls/hr 01/14/20 10:00 IVPB DAILY [facility] Multivitamins/Minerals/Vitamin C 1 tab 01/14/20 10:00 Tab-A-Vit - PO DAILY [facility] Thiamine HCl 100 mg 01/14/20 10:00 Vitamin B1 - PO DAILY [facility] Zinc Sulfate 220 mg 01/14/20 10:00 Orazinc - PO BID [facility] ASSESSMENT/PLAN: Lilia Singh is a 64yo man with a PMH of alcohol abuse, COPD on 3-4L at baseline (pt denied this on my questioning), HTN, GERD who was BIBA with low oxygen s aturation. 1. Acute hypoxic respiratory failure- likely 2/2 Pneumonia vs COVID-19 infection - - CXR shows bilateral interstitial infiltrates, mostly in the lower lobes with R>L. - f/u COVID PCR - Zinc sulfate - Vitamin C - IV Rocephin - Azithromycin - Tylenol PRN - Ventolin IH - ID and Pulmonary -Solumedrol 40 BID - Monitor QTc daily - Get upper abdominal sonogram given pt's elevated t.bili - f/u inflammatory markers -cannot give full dose AC given thrombocytopenia 2. AMS likely due to metabolic encephalopathy from infection and/or hypoxia - medical management as above - continue to monitor 3. Troponin elevation- may be demand ischemia - monitor on telemetry to rule out ACS - f/u toxicology screen 4. Polysubstance/Alcohol abuse - Pt denies recent alcohol/ substance use but is a poor historian. Monitor closely for drug withdrawal and verify his Methadone dose. - [facility] librium alcohol withdrawal protocol - neurochecks - seizure, fall and aspiration precautions - Treat with IV Banana bag - thiamine and folic acid - Monitor and replete electrolytes (Ca,Mg,K,P) FEN: - IV banana bag, - replete PRN - HTN diet PPx: - DVT prophylaxis - Lovenox 40 mg SQ q 24 hours. Problem List - Problems (1) Acute on chronic respiratory failure with hypoxemia Code(s): J96.21 - ACUTE AND CHRONIC RESPIRATORY FAILURE WITH HYPOXIA (2) Altered mental status Code(s): R41.82 - ALTERED MENTAL STATUS, UNSPECIFIED Qualifiers: Altered mental status type: disorientation Qualified Code(s): R41.0 - Disorientation, unspecified Visit type - Emergency Visit Emergency Visit: Yes ED Registration Date: 01/13/20 Care time: The patient presented to the Emergency Department on the above date and was hospitalized for further evaluation of their emergent condition. - New Patient This patient is new to me today: Yes Date on this admission: 01/14/20 - Critical Care Critical Care patient: No ATTENDING PHYSICIAN STATEMENT I saw and evaluated the patient. I reviewed the resident's note and discussed the case with the resident. I agree with the resident's findings and plan as documented. SUBJECTIVE: OBJECTIVE: ASSESSMENT AND PLAN:
--- NOTE | 2020-01-14 09:30 | PN ---
Teaching Attending Note Name of Resident: Anastacia Fernandes ATTENDING PHYSICIAN STATEMENT I saw and evaluated the patient. I reviewed the resident's note and discussed the case with the resident. I agree with the resident's findings and plan as documented. SUBJECTIVE: 96% on NR OBJECTIVE: Vital Signs Temperature 98.3 F 01/14/20 02:32 Pulse Rate 66 01/14/20 06:00 Respiratory Rate 20 01/14/20 06:00 Blood Pressure 147/101 H 01/14/20 06:00 O2 Sat by Pulse Oximetry (%) 96 01/13/20 22:04 Initial Vital Signs Pulse Resp BP Pulse Ox 94 H 26 H 125/85 96 01/13/20 17:58 01/13/20 17:58 01/13/20 17:58 01/13/20 17:58 PE: per resident's note CBCD WBC 6.7 K/mm3 (4.0-10.0) 01/14/20 06:00 RBC 4.96 M/mm3 (4.00-5.60) 01/14/20 06:00 Hgb 13.2 GM/dL (11.7-16.9) 01/14/20 06:00 Hct 42.1 % (35.4-49) D 01/14/20 06:00 MCV 84.8 fl (80-96) 01/14/20 06:00 MCHC 31.3 g/dl (32.0-35.9) L 01/14/20 06:00 RDW 20.6 % (11.9-15.9) H 01/14/20 06:00 Plt Count 85 K/MM3 (134-434) L D 01/14/20 06:00 MPV 10.1 fl (7.5-11.1) 01/14/20 06:00 CMP Sodium 140 mmol/L (136-145) 01/14/20 06:00 Potassium 4.1 mmol/L (3.5-5.1) 01/14/20 06:00 Chloride 106 mmol/L (98-107) 01/14/20 06:00 Carbon Dioxide 27 mmol/L (21-32) 01/14/20 06:00 Anion Gap 7 MMOL/L (8-16) L 01/14/20 06:00 BUN 26.3 mg/dL (7-18) H 01/14/20 06:00 Creatinine 1.1 mg/dL (0.55-1.3) 01/14/20 06:00 Random Glucose 164 mg/dL (74-106) H 01/14/20 06:00 Calcium 8.5 mg/dL (8.5-10.1) 01/14/20 06:00 Total Bilirubin 2.5 mg/dL (0.2-1) H 01/14/20 06:00 AST 24 U/L (15-37) 01/14/20 06:00 ALT 23 U/L (13-61) 01/14/20 06:00 Alkaline Phosphatase 57 U/L (45-117) 01/14/20 06:00 Total Protein 4.9 g/dl (6.4-8.2) L 01/14/20 06:00 Albumin 2.3 g/dl (3.4-5.0) L 01/14/20 06:00 CARDIAC ENZYMES Creatine Kinase 59 U/L (26-308) 01/14/20 06:00 Troponin I 0.10 ng/ml (0.00-0.05) H 01/14/20 06:00 Laboratory Tests 06/30/19 01/13/20 01/13/20 12:34 18:35 18:35 WBC 11.2 H Plt Count 113 L D D-Dimer Lactic Acid Ferritin 394.8 H Total Bilirubin 4.3 H Direct Bilirubin 1.4 H AST 51 H ALT 36 LD Total 945 H Troponin I 0.17 H B-Natriuretic Peptide 1326.2 H C-Reactive Protein COVID-19 ([facility]FA[facility]) 01/13/20 01/13/20 01/14/20 18:35 18:35 00:10 WBC Plt Count D-Dimer 1513 H Lactic Acid 3.5 H* Ferritin Total Bilirubin Direct Bilirubin AST ALT LD Total Troponin I B-Natriuretic Peptide C-Reactive Protein COVID-19 ([facility]FA[facility]) Pending 01/14/20 01/14/20 01/14/20 02:30 02:30 06:00 WBC Plt Count D-Dimer Lactic Acid 1.9 Ferritin Total Bilirubin 2.5 H Direct Bilirubin AST 24 ALT 23 LD Total Troponin I 0.14 H B-Natriuretic Peptide C-Reactive Protein 6.3 H 6.3 H COVID-19 ([facility]FA[facility]) 01/14/20 01/14/20 06:00 06:00 WBC 6.7 Plt Count 85 L D D-Dimer Lactic Acid Ferritin Total Bilirubin Direct Bilirubin AST ALT LD Total Troponin I 0.10 H B-Natriuretic Peptide C-Reactive Protein COVID-19 ([facility]FA[facility]) Current Medications Generic Name Dose Route Start Last Admin Trade Name Freq PRN Reason Stop Dose Admin Acetaminophen 650 mg 01/14/20 01:09 Tylenol - PO Q4H PRN FEVER Albuterol Sulfate 2 puff 01/13/20 19:04 01/13/20 19:11 Ventolin Hfa Inhaler - IH 2 puff Q4H PRN Administration SHORT OF BREATH/WHEEZING Ascorbic Acid 500 mg 01/14/20 10:00 01/14/20 10:41 Vitamin C - PO 500 mg BID NICO Administration Chlordiazepoxide HCl 25 mg 01/13/20 21:00 01/14/20 12:31 Librium - PO 01/14/20 21:01 25 mg Q8H NICO Administration Chlordiazepoxide HCl 10 mg 01/16/20 00:00 Librium - PO 01/16/20 23:59 Q12H PRN Signs/symptoms of Withdrawal Chlordiazepoxide HCl 10 mg 01/13/20 22:46 Librium - PO 01/15/20 23:59 Q8H PRN Signs/symptoms of Withdrawal Chlordiazepoxide HCl 15 mg 01/15/20 05:00 Librium - PO 01/15/20 21:01 Q8H NICO Chlordiazepoxide HCl 10 mg 01/16/20 05:00 Librium - PO 01/16/20 21:01 Q8H NICO Chlordiazepoxide HCl 10 mg 01/17/20 05:00 Librium - PO 01/17/20 05:01 ONCE ONE Cholecalciferol 1,000 unit 01/14/20 10:00 01/14/20 10:40 Vitamin D3 - PO 1,000 unit DAILY [facility] Administration Enoxaparin Sodium 40 mg 01/14/20 10:00 01/14/20 10:40 Lovenox - SQ 40 mg DAILY NICO Administration Famotidine 20 mg 01/14/20 14:30 Pepcid - PO DAILY [facility] Folic Acid 1 mg 01/14/20 10:00 01/14/20 10:40 Folic Acid - PO 1 mg DAILY [facility] Administration Ceftriaxone Sodium 1 gm/ 50 mls @ 100 mls/hr 01/14/20 10:00 01/14/20 10:40 Dextrose IVPB 100 mls/hr DAILY NICO Administration Protocol Azithromycin 250 mg/ Dextrose 250 mls @ 250 mls/hr 01/14/20 10:00 IVPB DAILY NICO Methylprednisolone Sodium Succinate 40 mg 01/14/20 11:15 01/14/20 12:31 Solu-Medrol - IVPUSH 40 mg BID NICO Administration Multivitamins/Minerals/Vitamin C 1 tab 01/14/20 10:00 01/14/20 10:40 Tab-A-Vit - PO 1 tab DAILY NICO Administration Thiamine HCl 100 mg 01/14/20 10:00 01/14/20 10:41 Vitamin B1 - PO 100 mg DAILY NICO Administration Zinc Sulfate 220 mg 01/14/20 10:00 01/14/20 10:40 Orazinc - PO 220 mg BID NICO Administration CXR shows bilateral interstitial infiltrates, mostly in the lower lobes with R>L ASSESSMENT AND PLAN: Patient is a 64yom with Pmhx of alcohol abuse, COPD on 3-4L at baseline , HTN, GERD presented to ED who acute respiratory failure most likely to Covid.. # Acute hypoxic respiratory failure most likely due to COVID-19 infection: o n Rocephin/zithromax now f/u COVID PCR, continue Zinc sulfate/vitamin c/albuterol inh/ ID and Pulmonary consult/Solumedrol iv 40 BID #Thrombocytopenia will follow, monitor, on Lovenox sq daily # AMS likely due to metabolic encephalopathy most likely due to Covid # Troponinemia: due to demand ischemia: rule out ACS # Polysubstance/Alcohol abuse: on librium protocol , thiamine/folic acid, will monitor electrolytes DVT prophylaxis - Lovenox 40 mg SQ q 24 hours. QTc:451 96% on NR
[2020-01-14] MEDS ORDERED: ENOXAPARIN NA (PORCINE) 40 MG/0.4 ML DISP.SYRIN SQ SCH (10:00)
[2020-01-14] MEDS ORDERED: THIAMINE HCL 100 MG TABLET (FP) PO SCH (10:00)
[2020-01-14] MEDS ORDERED: ENOXAPARIN NA (PORCINE) 80 MG/0.8 ML DISP.SYRIN SQ SCH (10:00)
[2020-01-14] MEDS: CEFTRIAXONE 1 GM in DEXTROSE 5%-WATER - 50 ML IVPB SCH (10:40)
[2020-01-14] MEDS: CHOLECALCIFEROL (VIT D3) 1,000 UNIT (25 MCG) TABLET PO SCH (10:40)
[2020-01-14] MEDS: ZINC SULFATE 220 MG CAPSULE (FP) PO SCH ×2 (10:40→22:19)
[2020-01-14] MEDS: MULTIVITAMINS (DAILY MVI) TABLET (FP) PO SCH (10:40)
[2020-01-14] MEDS: FOLIC ACID 1 MG TABLET (FP) PO SCH (10:40)
[2020-01-14] MEDS: ENOXAPARIN NA (PORCINE) 40 MG/0.4 ML DISP.SYRIN SQ SCH (10:40)
[2020-01-14] MEDS: ASCORBIC ACID 500 MG TABLET (FP) PO SCH ×2 (10:41→22:19)
[2020-01-14 12:22] LABS: ARTERIAL BLD GAS O2 SATURATION 92.3 % (95-98); ARTERIAL BLOOD GAS BASE EXCESS 3.8 mmol/L (-2-2); ARTERIAL BLOOD GAS PCO2 36.3 mmHg (35-45); ARTERIAL BLOOD GAS PO2 65.4 mmHg (80-100); ARTERIAL BLOOD GAS pH 7.48 (7.35-7.45)
[2020-01-14 12:23] LABS: ALLENS TEST POSITIVE
[2020-01-14] MEDS: methylPREDNISolone NA SUCC 40 MG/1 ML VIAL IVPUSH SCH ×2 (12:31→22:19)
--- NOTE | 2020-01-14 15:26 | CONS ---
PULMONARY CONSULTATION DATE OF CONSULTATION: 01/14/2020 REFERRING PHYSICIAN: Levon Bartholomew MD HISTORY: Patient is a 64-year-old male with past medical history of ETOH abuse, COPD on home O2 at 3-4 L, hypertension, GERD. Admitted to [facility] with hypoxemia. Patient apparently was found in the hallway of his home with saturations in the 70s on room air. He also appeared confused with illogical and nonsensical responses. Apparently, he was admitted to [facility] 11 days ago went home. It is unclear when he left [facility] as per the medical record. Apparently, he was tested 2 weeks ago for COVID, and he states he was negative but cannot state what he was admitted to the hospital for. On admission, he was known to be hypoxic, placed on supplemental O2 nonrebreather, also noted to have elevated lactate level, and a chest x-ray with bilateral infiltrates. He was admitted. He was started on antibiotic therapy as well as steroids. PAST MEDICAL HISTORY: Includes COPD on home O2, ETOH abuse, hypertension, and GERD. CURRENT MEDICATIONS: Include Solu-Medrol, Tylenol, Zithromax, ceftriaxone, Lovenox, Librium, albuterol, Pepcid, Tab-A-Alex, Orazinc, vitamin B1, vitamin C, and vitamin D3. PHYSICAL EXAMINATION: General: Patient is a well-developed, well-nourished male awake, dyspneic but in no acute distress. Vital Signs: He is currently afebrile. Blood pressure 139/93, respiratory rate is 24, O2 saturation is 96% on 100% nonrebreather. HEENT: Normocephalic, atraumatic. Neck: Supple. Heart: Regular with S1, S2. Chest: Diminished breath sounds bilaterally. Abdomen: Soft. Bowel sounds are positive. Extremities: No cyanosis or edema. LABORATORIES: WBC is 6.7, hemoglobin 13.2, hematocrit 42.1 with a platelet count of 85,000. D-dimer is 1513. Blood gas; pH 7.48, PCO2 of 36, PO2 of 65, bicarbonate 26, saturation 92.3, BUN 26, creatinine 1.1. Troponin is 0.10. CRP is 6.3. LDH from yesterday was 945, ferritin is 394. Chest x-ray, bilateral infiltrates. IMPRESSION: 1. Acute on chronic hypoxemic respiratory failure. 2. Suspected COVID-19 pneumonia. 3. Hypertension. 4. Gastroesophageal reflux disease. 5. Altered mental status. 6. Positive troponins. 7. Thrombocytopenia. 8. Ethyl alcohol abuse. PLAN: Supplemental O2 to maintain O2 saturation 90% or greater. Antibiotic as per Infectious Disease. Monitor electrolytes. Trend troponins and daily CRP, ferritin, and LDH levels. COVID serology pending. Albuterol inhaler, Spiriva, also Lovenox PE dosage. Will also monitor platelet count, CBC. ISABEL CAMPUZANO M.D. NABIL/[id number]
[2020-01-14] MEDS: FAMOTIDINE 20 MG TABLET PO SCH (16:30)
--- NOTE | 2020-01-14 17:55 | CON.GI ---
Consult - History of Present Illness History of Present Illness: telehealth visit Patient did not respond to call will attempt again later today chart thoroughly reviewed Mr. Singh is a 64yo man with a PMH of alcohol abuse, COPD , HTN, GERD who was admitted with hypoxia / pna ? covid -19 infection. This consultation is for evaluation of "cirrhosis ". He has drank alcohol - last drink months ago. There is no report of abdominal pain / nausea/ vomiting/ melena / brbr . He has not had a recent endoscopic evaluation. - History Source History Provided By: Medical Record - Past Medical History [employer]IE[employer]: No: Alzheimer's, CVA, Dementia, Migraine, Multiple Sclerosis, Peripheral Neuropathy, Parkinson's, Seizure, Syncope, TIA, Vertigo, Other Cardio/Vascular: Yes: HTN Pulmonary: Yes: COPD Gastrointestinal: Yes: GERD, Other (Hepatitis C) Musculoskeletal: Yes: Osteoarthritis - Past Surgical History Past Surgical History: No: None, AAA Repair, AICD, Amputation, Appendectomy, Arthrosocopy, AV Fistula/Graft, Bariatric Surgery, Breast Biopsy, Bypass, CABG, Carotid Endarterectomy, Cataract Removal, Cholecystectomy, Colectomy, Colonoscopy, Colostomy, Craniotomy, , Cystectomy, Hernia Repair, Hysterectomy, Ileal Conduit, Ileosotomy, Joint Replacement, Kidney Transplant, Laminectomy, Liver Transplant, Mastectomy, Nephrectomy, Oopherectomy, Orchiectomy, Permanent Pacemaker, Prostatectomy, Splenectomy, Stent, Thoracotomy, TURP, Tonsillectomy, Tubal Ligation, Upper Endoscopy, Valve Replace ment, Vasectomy, Vein Stripping/Ligation - Alcohol/Substance Use Hx Alcohol Use: Yes (past ) History of Substance Use: reports: Heroin - Smoking History Smoking history: Former smoker Have you smoked in the past 12 months: Yes Aproximately how many cigarettes per day: 5 If you are a former smoker, when did you quit?: 2 MONTHS AGO - Social History Usual Living Arrangement: Other Home Medications - Allergies Allergies/Adverse Reactions: Allergies Allergy/AdvReac Type Severity Reaction Status Date / Time No Known Allergies Allergy Verified 01/13/20 17:58 - Home Medications Home Medications: Ambulatory Orders Quetiapine Fumarate [Seroquel -] 300 mg PO HS 05/06/17 Methadone [Dolophine -] 70 mg PO DAILY 11/28/17 Albuterol 2.5/Ipratropium 0.5 [Duoneb -] 1 amp NEB RQID #25 amp 07/04/19 Albuterol Sulfate Inhaler - [Ventolin HFA Inhaler -] 2 inh PO Q4H PRN #1 inhaler 07/04/19 Budesonide/Formeterol Fumarate [SYMBICORT 160/4.5mcg -] 2 inh IH BID #1 inhaler 07/04/19 Nicotine Patch [Nicoderm Patch -] 14 mg TD DAILY #2 patch 07/04/19 Pantoprazole Sodium [Protonix -] 40 mg PO DAILY #30 tablet.ec 07/04/19 Prednisone [Prednisone 50 MG TABLETS] See Taper PO DAILY #30 tablet 07/04/19 Verapamil HCl ER [Calan Sr -] 240 mg PO BID #60 tablet.er 07/04/19 Family Medical History Family History: Unremarkable Review of Systems Unable to obtain ROS, reason: as per hpi Physical Exam-GI Vital Signs: Vital Signs Temperature 98.6 F 01/14/20 14:00 Pulse Rate 93 H 01/14/20 14:00 Respiratory Rate 24 H 01/14/20 10:00 Blood Pressure 139/93 01/14/20 14:00 O2 Sat by Pulse Oximetry (%) 96 01/14/20 09:00 Constitutional: Yes: Other (telehealth) Labs: CBC, BMP 01/14/20 06:00 01/14/20 06:00 INR, PTT INR 1.48 (0.83-1.09) H 01/13/20 18:35 Imaging - Results Chest X-ray: Report Reviewed Cat Scan: Report Reviewed Problem List - Problems (1) Abnormal liver function test Assessment/Plan: Impression: History of alcohol abuse labs reveal mild transaminitis as well as thrombocytopenia these findings may be consistent with underlying liver disease. REC: - trend liver tests daily while hospitalized - etoh abstinence - abd sonogram when able - serology for chronic liver disease - supportive care as per primary medical team for suspected covid infection. Code(s): R94.5 - ABNORMAL RESULTS OF LIVER FUNCTION STUDIES (2) Acute on chronic respiratory failure with hypoxemia Code(s): J96.21 - ACUTE AND CHRONIC RESPIRATORY FAILURE WITH HYPOXIA (3) Suspected COVID-19 virus infection Code(s): Z20.828 - CONTACT W AND EXPOSURE TO OTH VIRAL COMMUNICABLE DISEASES (4) Alcohol-induced mood disorder Code(s): F10.94 - ALCOHOL USE, UNSPECIFIED WITH ALCOHOL-INDUCED MOOD DISORDER (5) Asthma Code(s): J45.909 - UNSPECIFIED ASTHMA, UNCOMPLICATED
[2020-01-14] MEDS: AZITHROMYCIN IVPB 250 MG in DEXTROSE 5%-WATER - 250 ML IVPB SCH (18:01)
--- NOTE | 2020-01-14 18:27 | CON.ID ---
Consult - History of Present Illness History of Present Illness: 64 y.o. 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 Noted to have O2 sat in the 70s on RA and confusion. In the ER had low grade fever, was tachypneic and tachycardic with O2 sat 88% at rest and in the 70s while lying down. CXR reveals Rt basilar and possible Lt basilar infiltrate. As per pt he was recently hospitalized for PNA at [facility] for 11 days and left 3 days ago. Does not recall being treated with IV antibiotics but tested negative for COVID-19 and left. He c/o SOB/cough, weakness, abd pain which has resolved. Currently he has 96% O2 sat on 100% NRB, afebrile, and appears comfortable. - History Source History Provided By: Patient - Past Medical History GARMENT FITTER: No: Alzheimer's, CVA, Dementia, Migraine, Multiple Sclerosis, Peripheral Neuropathy, Parkinson's, Seizure, Syncope, TIA, Vertigo, Other Cardio/Vascular: Yes: HTN Pulmonary: Yes: COPD Gastrointestinal: Yes: GERD, Other (Hepatitis C) Hepatobiliary: Yes: Hepatitis C Musculoskeletal: Yes: Osteoarthritis - Past Surgical History Past Surgical History: No: None, AAA Repair, AICD, Amputation, Appendectomy, Arthrosocopy, AV Fistula/Graft, Bariatric Surgery, Breast Biopsy, Bypass, CABG, Carotid Endarterectomy, Cataract Removal, Cholecystectomy, Colectomy, Colonoscopy, Colostomy, Craniotomy, , Cystectomy, Hernia Repair, Hysterectomy, Ileal Conduit, Ileosotomy, Joint Replacement, Kidney Transplant, Laminectomy, Liver Transplant, Mastectomy, Nephrectomy, Oopherectomy, Orchiectomy, Permanent Pacemaker, Prostatectomy, Splenectomy, Stent, Thoracotomy, TURP, Tonsillectomy, Tubal Ligation, Upper Endoscopy, Valve Replac ement, Vasectomy, Vein Stripping/Ligation - Alcohol/Substance Use Hx Alcohol Use: Yes (past ) History of Substance Use: reports: Heroin - Smoking History Smoking history: Former smoker Have you smoked in the past 12 months: Yes Aproximately how many cigarettes per day: 5 If you are a former smoker, when did you quit?: 2 MONTHS AGO - Social History Usual Living Arrangement: Other History of Recent Travel: No Home Medications - Allergies Allergies/Adverse Reactions: Allergies Allergy/AdvReac Type Severity Reaction Status Date / Time No Known Allergies Allergy Verified 01/13/20 17:58 - Home Medications Home Medications: Ambulatory Orders Quetiapine Fumarate [Seroquel -] 300 mg PO HS 05/06/17 Methadone [Dolophine -] 70 mg PO DAILY 11/28/17 Albuterol 2.5/Ipratropium 0.5 [Duoneb -] 1 amp NEB RQID #25 amp 07/04/19 Albuterol Sulfate Inhaler - [Ventolin HFA Inhaler -] 2 inh PO Q4H PRN #1 inhaler 07/04/19 Budesonide/Formeterol Fumarate [SYMBICORT 160/4.5mcg -] 2 inh IH BID #1 inhaler 07/04/19 Nicotine Patch [Nicoderm Patch -] 14 mg TD DAILY #2 patch 07/04/19 Pantoprazole Sodium [Protonix -] 40 mg PO DAILY #30 tablet.ec 07/04/19 Prednisone [Prednisone 50 MG TABLETS] See Taper PO DAILY #30 tablet 07/04/19 Verapamil HCl ER [Calan Sr -] 240 mg PO BID #60 tablet.er 07/04/19 Review of Systems - Review of Systems Constitutional: reports: Weakness Eyes: reports: No Symptoms HENT: reports: No Symptoms Neck: reports: No Symptoms Cardiovascular: reports: Shortness of Breath Respiratory: reports: Cough, SOB on Exertion Gastrointestinal: reports: No Symptoms Genitourinary: reports: No Symptoms Musculoskeletal: reports: No Symptoms Integumentary: reports: No Symptoms Neurological: reports: No Symptoms Endocrine: reports: No Symptoms Hematology/Lymphatic: reports: No Symptoms Psychiatric: reports: No Symptoms Physical Exam Vital Signs: Vital Signs Temperature 97.7 F 01/14/20 17:00 Pulse Rate 82 01/14/20 17:00 Respiratory Rate 01/14/20 17:00 Blood Pressure 152/105 H 01/14/20 17:00 O2 Sat by Pulse Oximetry (%) 96 01/14/20 09:00 Constitutional: Yes: No Distress, Calm Eyes: Yes: EOM Intact HENT: Yes: Atraumatic Respiratory: Yes: Rales Gastrointestinal: Yes: Normal Bowel Sounds, Soft Renal/: Yes: WNL Integumentary: Yes: WNL Neurological: Yes: Alert, Oriented Labs: CBC, BMP 01/14/20 06:00 01/14/20 06:00 Laboratory Tests 01/13/20 01/13/20 01/13/20 18:35 18:35 18:35 WBC 11.2 H RBC 6.20 H Hgb 16.4 Hct 53.3 H MCV 86.0 MCH 26.5 MCHC 30.8 L RDW 21.0 H Plt Count 113 L D MPV 10.5 D Absolute Neuts (auto) 9.4 H Neutrophils % 83.9 H Lymphocytes % 7.1 L Monocytes % 8.2 Eosinophils % 0.6 D Basophils % 0.2 Nucleated RBC % 0 Hypochromia 0 Platelet Estimate Decreased Polychromasia 0 Poikilocytosis 1+ Anisocytosis 2+ Microcytosis 1+ Macrocytosis 1+ Target Cells 1+ Schistocytes 1+ PT with INR 17.50 H INR 1.48 H PTT (Actin FS) 37.7 H D-Dimer Anticoagulation Therapy Puncture Site ABG pH ABG pCO2 at Pt Temp ABG pO2 at Pt Temp ABG HCO3 ABG O2 Sat (Measured) ABG O2 Content ABG Base Excess Alex Test VBG pH 7.40 POC VBG pCO2 49.2 POC VBG pO2 < 49 H VBG HCO3 30.0 H VBG O2 Sat ([place]) 22.9 L VBG Base Excess 4.4 H Patient On Oxygen O2 Delivery Device Oxygen Flow Rate Vent Mode Vent Rate Mechanical Rate Pressure Support Vent Sodium Potassium Chloride Carbon Dioxide Anion Gap BUN Creatinine Est GFR (CKD-EPI)AfAm Est GFR (CKD-EPI)NonAf Random Glucose Lactic Acid Calcium Phosphorus Magnesium Ferritin Total Bilirubin Direct Bilirubin AST ALT Alkaline Phosphatase LD Total Creatine Kinase Creatine Kinase Index CK-MB (CK-2) Troponin I C-Reactive Protein Total Protein Albumin Alcohol, Quantitative 01/13/20 01/13/20 01/14/20 18:35 18:35 00:10 WBC RBC Hgb Hct MCV MCH MCHC RDW Plt Count MPV Absolute Neuts (auto) Neutrophils % Lymphocytes % Monocytes % Eosinophils % Basophils % Nucleated RBC % Hypochromia Platelet Estimate Polychromasia Poikilocytosis Anisocytosis Microcytosis Macrocytosis Target Cells Schistocytes PT with INR INR PTT (Actin FS) D-Dimer 1513 H Anticoagulation Therapy Puncture Site ABG pH ABG pCO2 at Pt Temp ABG pO2 at Pt Temp ABG HCO3 ABG O2 Sat (Measured) ABG O2 Content ABG Base Excess Alex Test VBG pH POC VBG pCO2 POC VBG pO2 VBG HCO3 VBG O2 Sat ([place]) VBG Base Excess Patient On Oxygen O2 Delivery Device Oxygen Flow Rate Vent Mode Vent Rate Mechanical Rate Pressure Support Vent Sodium 140 Potassium 4.1 Chloride 104 Carbon Dioxide 28 Anion Gap 9 BUN 29.1 H Creatinine 1.3 Est GFR (CKD-EPI)AfAm 66.36 Est GFR (CKD-EPI)NonAf 57.26 Random Glucose 78 Lactic Acid 3.5 H* Calcium 9.6 Phosphorus Magnesium Ferritin 394.8 H Total Bilirubin 4.3 H Direct Bilirubin 1.4 H AST 51 H ALT 36 Alkaline Phosphatase 90 LD Total 945 H Creatine Kinase 166 Creatine Kinase Index 4.0 CK-MB (CK-2) 6.8 H Troponin I 0.17 H C-Reactive Protein Total Protein 6.8 Albumin 3.1 L Alcohol, Quantitative < 3 01/14/20 01/14/20 01/14/20 02:30 02:30 06:00 WBC RBC Hgb Hct MCV MCH MCHC RDW Plt Count MPV Absolute Neuts (auto) Neutrophils % Lymphocytes % Monocytes % Eosinophils % Basophils % Nucleated RBC % Hypochromia Platelet Estimate Polychromasia Poikilocytosis Anisocytosis Microcytosis Macrocytosis Target Cells Schistocytes PT with INR INR PTT (Actin FS) D-Dimer Anticoagulation Therapy Puncture Site ABG pH ABG pCO2 at Pt Temp ABG pO2 at Pt Temp ABG HCO3 ABG O2 Sat (Measured) ABG O2 Content ABG Base Excess Alex Test VBG pH POC VBG pCO2 POC VBG pO2 VBG HCO3 VBG O2 Sat ([place]) VBG Base Excess Patient On Oxygen O2 Delivery Device Oxygen Flow Rate Vent Mode Vent Rate Mechanical Rate Pressure Support Vent Sodium 140 Potassium 4.1 Chloride 106 Carbon Dioxide 27 Anion Gap 7 L BUN 26.3 H Creatinine 1.1 Est GFR (CKD-EPI)AfAm 81.22 Est GFR (CKD-EPI)NonAf 70.07 Random Glucose 164 H Lactic Acid 1.9 Calcium 8.5 Phosphorus 3.2 Magnesium 1.9 Ferritin Total Bilirubin 2.5 H Direct Bilirubin AST 24 ALT 23 Alkaline Phosphatase 57 LD Total Creatine Kinase Creatine Kinase Index CK-MB (CK-2) Troponin I 0.14 H C-Reactive Protein 6.3 H 6.3 H Total Protein 4.9 L Albumin 2.3 L Alcohol, Quantitative 01/14/20 01/14/20 01/14/20 06:00 06:00 11:50 WBC 6.7 RBC 4.96 Hgb 13.2 Hct 42.1 D MCV 84.8 MCH 26.6 MCHC 31.3 L RDW 20.6 H Plt Count 85 L D MPV 10.1 Absolute Neuts (auto) 5.9 Neutrophils % 87.6 H Lymphocytes % 7.5 L Monocytes % 4.6 Eosinophils % 0.0 D Basophils % 0.3 Nucleated RBC % 0 Hypochromia Platelet Estimate Polychromasia Poikilocytosis Anisocytosis Microcytosis Macrocytosis Target Cells Schistocytes PT with INR INR PTT (Actin FS) D-Dimer Anticoagulation Therapy No Result Required. Puncture Site Right radial ABG pH 7.48 H ABG pCO2 at Pt Temp 36.3 ABG pO2 at Pt Temp 65.4 L ABG HCO3 26.8 ABG O2 Sat (Measured) 92.3 L ABG O2 Content 17.5 ABG Base Excess 3.8 H Alex Test Positive VBG pH POC VBG pCO2 POC VBG pO2 VBG HCO3 VBG O2 Sat ([place]) VBG Base Excess Patient On Oxygen Yes O2 Delivery Device No Result Required. Oxygen Flow Rate 100 Vent Mode No Result Required. Vent Rate No Result Required. Mechanical Rate No Result Required. Pressure Support Vent No Result Required. Sodium Potassium Chloride Carbon Dioxide Anion Gap BUN Creatinine Est GFR (CKD-EPI)AfAm Est GFR (CKD-EPI)NonAf Random Glucose Lactic Acid Calcium Phosphorus Magnesium Ferritin Total Bilirubin Direct Bilirubin AST ALT Alkaline Phosphatase LD Total Creatine Kinase 59 Creatine Kinase Index CK-MB (CK-2) Troponin I 0.10 H C-Reactive Protein Total Protein Albumin Alcohol, Quantitative Imaging - Results Chest X-ray: Report Reviewed Problem List - Problems (1) Abnormal liver function test Code(s): R94.5 - ABNORMAL RESULTS OF LIVER FUNCTION STUDIES (2) Acute on chronic respiratory failure with hypoxemia Code(s): J96.21 - ACUTE AND CHRONIC RESPIRATORY FAILURE WITH HYPOXIA (3) Altered mental status Code(s): R41.82 - ALTERED MENTAL STATUS, UNSPECIFIED Qualifiers: Altered mental status type: disorientation Qualified Code(s): R41.0 - Disorientation, unspecified (4) Suspected COVID-19 virus infection Code(s): Z20.828 - CONTACT W AND EXPOSURE TO OTH VIRAL COMMUNICABLE DISEASES (5) Alcohol dependence Code(s): F10.20 - ALCOHOL DEPENDENCE, UNCOMPLICATED Qualifiers: Substance use status: uncomplicated Qualified Code(s): F10.20 - Alcohol dependence, uncomplicated (6) Anxiety and depression Code(s): F41.9 - ANXIETY DISORDER, UNSPECIFIED; F32.9 - MAJOR DEPRESSIVE DISORDER, SINGLE EPISODE, UNSPECIFIED (7) COPD (chronic obstructive pulmonary disease) Code(s): J44.9 - CHRONIC OBSTRUCTIVE PULMONARY DISEASE, UNSPECIFIED Qualifiers: COPD type: unspecified COPD Qualified Code(s): J44.9 - Chronic obstructive pulmonary disease, unspecified (8) GERD (gastroesophageal reflux disease) Code(s): K21.9 - GASTRO-ESOPHAGEAL REFLUX DISEASE WITHOUT ESOPHAGITIS Qualifiers: Esophagitis presence: esophagitis presence not specified Qualified Code(s): K21.9 - Gastro-esophageal reflux disease without esophagitis (9) HTN (hypertension) Code(s): I10 - ESSENTIAL (PRIMARY) HYPERTENSION Qualifiers: Hypertension type: essential hypertension Qualified Code(s): I10 - Essential (primary) hypertension (10) Hepatitis C Code(s): B19.20 - UNSPECIFIED VIRAL HEPATITIS C WITHOUT HEPATIC COMA Qualifiers: Hepatic coma status: without hepatic coma (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 Code(s): F11.20 - OPIOID DEPENDENCE, UNCOMPLICATED (12) Nicotine dependence Code(s): F17.200 - NICOTINE DEPENDENCE, UNSPECIFIED, UNCOMPLICATED Assessment/Plan 64 y.o. 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 Noted to have O2 sat in the 70s on RA and confusion. In the ER had low grade fever, was tachypneic and tachycardic with O2 sat 88% at rest and in the 70s while lying down. CXR reveals Rt basilar and possible Lt basilar infiltrate. As per pt he was recently hospitalized for PNA at [facility] for 11 days and left 3 days ago. Does not recall being treated with IV antibiotics but tested negative for COVID-19 and left. He c/o SOB/cough, weakness, abd pain which has resolved. Currently he has 96% O2 sat on 100% NRB, afebrile, and appears comfortable. 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
[2020-01-14] MEDS: THIAMINE HCL 100 MG TABLET (FP) PO SCH (22:19)
[2020-01-15] MEDS: QUEtiapine FUMARATE 100 MG TABLET (FP) PO SCH ×2 (00:40→21:45)
[2020-01-15] MEDS: VERAPAMIL HCL 240 MG E.R. TABLET PO SCH ×3 (00:40→21:45)
[2020-01-15] MEDS: chlordiazePOXIDE 5 MG CAPSULE PO SCH ×3 (05:39→21:45)
--- NOTE | 2020-01-15 08:35 | PN.GI ---
GI Progress Note Subjective: telehealth visit - pt did not respond to call chart was thoroughly reviewed no report of abd pain / GI bleed. - Objective Vital Signs: Vital Signs Temperature 98.2 F 01/15/20 08:08 Pulse Rate 83 01/15/20 08:08 Respiratory Rate 20 01/15/20 08:08 Blood Pressure 141/91 01/15/20 08:08 O2 Sat by Pulse Oximetry (%) 100 01/14/20 21:00 Labs: CBC, BMP 01/14/20 06:00 01/14/20 06:00 INR, PTT INR 1.48 (0.83-1.09) H 01/13/20 18:35 Problem List - Problems (1) Abnormal liver function test Assessment/Plan: Impression: 1. History of alcohol abuse labs reveal mild transaminitis as well as thrombocytopenia these findings may be consistent with underlying liver disease. 2. covid -19 REC: - trend liver tests daily while hospitalized - etoh abstinence - abd sonogram pending - serology for chronic liver disease pending - supportive care as per primary medical team for suspected covid - 19 infection. Code(s): R94.5 - ABNORMAL RESULTS OF LIVER FUNCTION STUDIES (2) Acute on chronic respiratory failure with hypoxemia Code(s): J96.21 - ACUTE AND CHRONIC RESPIRATORY FAILURE WITH HYPOXIA (3) Suspected COVID-19 virus infection Code(s): Z20.828 - CONTACT W AND EXPOSURE TO OTH VIRAL COMMUNICABLE DISEASES (4) Alcohol-induced mood disorder Code(s): F10.94 - ALCOHOL USE, UNSPECIFIED WITH ALCOHOL-INDUCED MOOD DISORDER (5) Asthma Code(s): J45.909 - UNSPECIFIED ASTHMA, UNCOMPLICATED
[2020-01-15] MEDS ORDERED: DEXTROSE 5%-WATER - 50 ML IVPB ONE (08:38)
[2020-01-15] MEDS ORDERED: cefTRIAXone SODIUM 1 GM VIAL ONE (08:38)
[2020-01-15] MEDS ORDERED: PT OWN MED DRAWER 7, Y5N ONE ×2 (08:47→21:28)
[2020-01-15] MEDS: CEFTRIAXONE 1 GM in DEXTROSE 5%-WATER - 50 ML IVPB SCH (09:12)
[2020-01-15] MEDS: CHOLECALCIFEROL (VIT D3) 1,000 UNIT (25 MCG) TABLET PO SCH (09:12)
[2020-01-15] MEDS: THIAMINE HCL 100 MG TABLET (FP) PO SCH ×2 (09:13→21:46)
[2020-01-15] MEDS: FOLIC ACID 1 MG TABLET (FP) PO SCH (09:13)
[2020-01-15] MEDS: ZINC SULFATE 220 MG CAPSULE (FP) PO SCH ×2 (09:13→21:45)
[2020-01-15] MEDS: MULTIVITAMINS (DAILY MVI) TABLET (FP) PO SCH (09:13)
[2020-01-15] MEDS: ASCORBIC ACID 500 MG TABLET (FP) PO SCH ×2 (09:13→21:45)
[2020-01-15] MEDS: ENOXAPARIN NA (PORCINE) 40 MG/0.4 ML DISP.SYRIN SQ SCH (09:13)
[2020-01-15] MEDS: methylPREDNISolone NA SUCC 40 MG/1 ML VIAL IVPUSH SCH ×2 (09:14→21:44)
[2020-01-15] MEDS: FAMOTIDINE 20 MG TABLET PO SCH (09:14)
[2020-01-15] MEDS: AZITHROMYCIN IVPB 250 MG in DEXTROSE 5%-WATER - 250 ML IVPB SCH (09:59)
[2020-01-15] MEDS ORDERED: METHADONE HCL 40 MG DISPERSABLE TABLET PO SCH (10:00)
[2020-01-15] MEDS ORDERED: PANTOPRAZOLE 40 MG TABLET PO SCH (10:30)
--- NOTE | 2020-01-15 11:13 | PN ---
Physical Exam: SUBJECTIVE: Patient seen and examined at bedside no acute events overnight; patient is saturating well on NRB however he needs to keep his mask on since he desaturates when he takes the mask off ; he states his breathing is a bit better and is no longer having abdominal pain OBJECTIVE: Vital Signs Period Temp Pulse Resp BP Sys/Causey Pulse Ox Last 24 Hr 97.7 F-98.6 F 75-93 20-24 112-152/88-106 96-100 GENERAL: The patient is awake, alert, and fully oriented, in no acute distress. EYES:PEERLA: EOMI; no scleral icterus NECK: no JVD; no lymphadenopathy LUNGS: diminished breath sounds b /l HEART: Regular rate and rhythm, S1, S2 without murmur, rub or gallop. ABDOMEN: Soft,NT ND +BS in all 4 quadrants. EXTREMITIES: 2+ pulses, warm, well-perfused, no edema. PSYCH: Normal mood, normal affect. SKIN: Warm, dry, normal turgor, no rashes or lesions noted Laboratory Results - last 24 hr 01/13/20 01/14/20 01/14/20 18:35 02:30 11:50 Anticoagulation Therapy No Result Required. Puncture Site Right radial ABG pH 7.48 H ABG pCO2 at Pt Temp 36.3 ABG pO2 at Pt Temp 65.4 L ABG HCO3 26.8 ABG O2 Sat (Measured) 92.3 L ABG O2 Content 17.5 ABG Base Excess 3.8 H Alex Test Positive Patient On Oxygen Yes O2 Delivery Device No Result Required. Oxygen Flow Rate 100 Vent Mode No Result Required. Vent Rate No Result Required. Mechanical Rate No Result Required. Pressure Support Vent No Result Required. Troponin I 0.14 H C-Reactive Protein 6.3 H COVID-19 (RAFAEL) Detected H Active Medications Generic Name Dose Route Start Last Admin Trade Name Freq PRN Reason Stop Dose Admin Acetaminophen 650 mg 01/14/20 01:09 Tylenol - PO Q4H PRN FEVER Albuterol Sulfate 2 puff 01/13/20 19:04 01/13/20 19:11 Ventolin Hfa Inhaler - IH 2 puff Q4H PRN Administration SHORT OF BREATH/WHEEZING Ascorbic Acid 500 mg 01/14/20 10:00 01/15/20 09:13 Vitamin C - PO 500 mg BID NICO Administration Chlordiazepoxide HCl 10 mg 01/16/20 00:00 Librium - PO 01/16/20 23:59 Q12H PRN Signs/symptoms of Withdrawal Chlordiazepoxide HCl 10 mg 01/13/20 22:46 01/15/20 09:22 Librium - PO 01/15/20 23:59 10 mg Q8H PRN Administration Signs/symptoms of Withdrawal Chlordiazepoxide HCl 15 mg 01/15/20 05:00 01/15/20 05:39 Librium - PO 01/15/20 21:01 15 mg Q8H NICO Administration Chlordiazepoxide HCl 10 mg 01/16/20 05:00 Librium - PO 01/16/20 21:01 Q8H NICO Chlordiazepoxide HCl 10 mg 01/17/20 05:00 Librium - PO 01/17/20 05:01 ONCE ONE Cholecalciferol 1,000 unit 01/14/20 10:00 01/15/20 09:12 Vitamin D3 - PO 1,000 unit DAILY NICO Administration Famotidine 20 mg 01/14/20 14:30 01/15/20 09:14 Pepcid - PO 20 mg DAILY NICO Administration Folic Acid 1 mg 01/14/20 10:00 01/15/20 09:13 Folic Acid - PO 1 mg DAILY NICO Administration Heparin Sodium (Porcine) 7,500 unit 01/15/20 14:00 Heparin - SQ TID NICO Ceftriaxone Sodium 1 gm/ 50 mls @ 100 mls/hr 01/14/20 10:00 01/15/20 09:12 Dextrose IVPB 100 mls/hr DAILY NICO Administration Protocol Azithromycin 250 mg/ Dextrose 250 mls @ 250 mls/hr 01/14/20 10:00 01/15/20 09:59 IVPB 250 mls/hr DAILY NICO Administration Methadone HCl 70 mg 01/15/20 10:00 Dolophine - PO DAILY NICO Methylprednisolone Sodium Succinate 40 mg 01/14/20 11:15 01/15/20 09:14 Solu-Medrol - IVPUSH 40 mg BID NICO Administration Multivitamins/Minerals/Vitamin C 1 tab 01/14/20 10:00 01/15/20 09:13 Tab-A-Vit - PO 1 tab DAILY NICO Administration Quetiapine Fumarate 300 mg 01/14/20 23:45 01/15/20 00:40 Seroquel - PO 300 mg HS NICO Administration Thiamine HCl 100 mg 01/14/20 22:00 01/15/20 09:13 Vitamin B1 - PO 100 mg BID NICO Administration Verapamil HCl 240 mg 01/14/20 23:45 01/15/20 09:13 Calan Sr - PO 240 mg BID NICO Administration Zinc Sulfate 220 mg 01/14/20 10:00 01/15/20 09:13 Orazinc - PO 220 mg BID NICO Administration ASSESSMENT/PLAN: Lilia Singh is a 64yo man with a PMH of alcohol abuse, COPD on 3-4L at baseline (pt denied this on my questioning), HTN, GERD who was BIBA with low oxygen saturation. 1. Acute hypoxic respiratory failure- 2/2 COVID-19 infection - - CXR shows bilateral interstitial infiltrates, mostly in the lower lobes with R>L. -COVID POSITIVE - Zinc sulfate - Vitamin C - IV Rocephin - Azithromycin - Tylenol PRN - Ventolin IH - ID and Pulmonary -Solumedrol 40 BID - Monitor QTc daily - heparin 7500 TID for prophylaxis given thrombocytopenia - f/u inflammatory markers -will try and titrate patient off NRB 2. Polysubstance/Alcohol abuse - Pt denies recent alcohol/ substance use but is a poor historian. Monitor closely for drug withdrawal and verify his [facility]ad[facility] dose. [facility] - neurochecks - seizure, fall and aspiration precautions - thiamine and folic acid - patient states he takes 70mg of methadone however [facility] was closed and could not verify dose; will need to try back in AM 3.HTN -c/w Verapamil 240 BID FEN: - replete PRN - HTN diet PPx: - DVT prophylaxis - Lovenox 40 mg SQ q 24 hours. Problem List - Problems (1) Acute on chronic respiratory failure with hypoxemia Code(s): J96.21 - ACUTE AND CHRONIC RESPIRATORY FAILURE WITH HYPOXIA (2) Altered mental status Code(s): R41.82 - ALTERED MENTAL STATUS, UNSPECIFIED Qualifiers: Altered mental status type: disorientation Qualified Code(s): R41.0 - Disorientation, unspecified Visit type - Emergency Visit Emergency Visit: Yes ED Registration Date: 01/13/20 Care time: The patient presented to the Emergency Department on the above date and was hospitalized for further evaluation of their emergent condition. - New Patient This patient is new to me today: No - Critical Care Critical Care patient: No ATTENDING PHYSICIAN STATEMENT I saw and evaluated the patient. I reviewed the resident's note and discussed the case with the resident. I agree with the resident's findings and plan as documented. SUBJECTIVE: OBJECTIVE: ASSESSMENT AND PLAN:
[2020-01-15] MEDS ORDERED: HEPARIN NA (PORCINE) 5,000 UNITS/ML 1ML VIAL SQ SCH (14:00)
--- NOTE | 2020-01-15 15:35 | PN ---
Teaching Attending Note Name of Resident: Anastacia Fernandes ATTENDING PHYSICIAN STATEMENT I saw and evaluated the patient. I reviewed the resident's note and discussed the case with the resident. I agree with the resident's findings and plan as documented. SUBJECTIVE: 100% on NR OBJECTIVE: Vital Signs Temperature 97.4 F L 01/15/20 17:00 Pulse Rate 84 01/15/20 17:00 Respiratory Rate 20 01/15/20 17:00 Blood Pressure 100/71 01/15/20 17:00 O2 Sat by Pulse Oximetry (%) 96 01/15/20 10:00 PE: per resident's note CBCD WBC 6.7 K/mm3 (4.0-10.0) 01/14/20 06:00 RBC 4.96 M/mm3 (4.00-5.60) 01/14/20 06:00 Hgb 13.2 GM/dL (11.7-16.9) 01/14/20 06:00 Hct 42.1 % (35.4-49) D 01/14/20 06:00 MCV 84.8 fl (80-96) 01/14/20 06:00 MCHC 31.3 g/dl (32.0-35.9) L 01/14/20 06:00 RDW 20.6 % (11.9-15.9) H 01/14/20 06:00 Plt Count 85 K/MM3 (134-434) L D 01/14/20 06:00 MPV 10.1 fl (7.5-11.1) 01/14/20 06:00 CMP Sodium 140 mmol/L (136-145) 01/14/20 06:00 Potassium 4.1 mmol/L (3.5-5.1) 01/14/20 06:00 Chloride 106 mmol/L (98-107) 01/14/20 06:00 Carbon Dioxide 27 mmol/L (21-32) 01/14/20 06:00 Anion Gap 7 MMOL/L (8-16) L 01/14/20 06:00 BUN 26.3 mg/dL (7-18) H 01/14/20 06:00 Creatinine 1.1 mg/dL (0.55-1.3) 01/14/20 06:00 Random Glucose 164 mg/dL (74-106) H 01/14/20 06:00 Calcium 8.5 mg/dL (8.5-10.1) 01/14/20 06:00 Total Bilirubin 2.5 mg/dL (0.2-1) H 01/14/20 06:00 AST 24 U/L (15-37) 01/14/20 06:00 ALT 23 U/L (13-61) 01/14/20 06:00 Alkaline Phosphatase 57 U/L (45-117) 01/14/20 06:00 Total Protein 4.9 g/dl (6.4-8.2) L 01/14/20 06:00 Albumin 2.3 g/dl (3.4-5.0) L 01/14/20 06:00 CARDIAC ENZYMES Creatine Kinase 59 U/L (26-308) 01/14/20 06:00 Troponin I 0.10 ng/ml (0.00-0.05) H 01/14/20 06:00 Current Medications Generic Name Dose Route Start Last Admin Trade Name Freq PRN Reason Stop Dose Admin Acetaminophen 650 mg 01/14/20 01:09 Tylenol - PO Q4H PRN FEVER Albuterol Sulfate 2 puff 01/13/20 19:04 01/13/20 19:11 Ventolin Hfa Inhaler - IH 2 puff Q4H PRN Administration SHORT OF BREATH/WHEEZING Ascorbic Acid 500 mg 01/14/20 10:00 01/15/20 09:13 Vitamin C - PO 500 mg BID NICO Administration Chlordiazepoxide HCl 10 mg 01/16/20 00:00 Librium - PO 01/16/20 23:59 Q12H PRN Signs/symptoms of Withdrawal Chlordiazepoxide HCl 10 mg 01/13/20 22:46 01/15/20 09:22 Librium - PO 01/15/20 23:59 10 mg Q8H PRN Administration Signs/symptoms of Withdrawal Chlordiazepoxide HCl 15 mg 01/15/20 05:00 01/15/20 13:33 Librium - PO 01/15/20 21:01 15 mg Q8H NICO Administration Chlordiazepoxide HCl 10 mg 01/16/20 05:00 Librium - PO 01/16/20 21:01 Q8H NICO Chlordiazepoxide HCl 10 mg 01/17/20 05:00 Librium - PO 01/17/20 05:01 ONCE ONE Cholecalciferol 1,000 unit 01/14/20 10:00 01/15/20 09:12 Vitamin D3 - PO 1,000 unit DAILY NICO Administration Famotidine 20 mg 01/14/20 14:30 01/15/20 09:14 Pepcid - PO 20 mg DAILY NICO Administration Folic Acid 1 mg 01/14/20 10:00 01/15/20 09:13 Folic Acid - PO 1 mg DAILY NICO Administration Heparin Sodium (Porcine) 7,500 unit 01/15/20 14:00 01/15/20 13:32 Heparin - SQ Not Given TID NICO Ceftriaxone Sodium 1 gm/ 50 mls @ 100 mls/hr 01/14/20 10:00 01/15/20 09:12 Dextrose IVPB 100 mls/hr DAILY NICO Administration Protocol Azithromycin 250 mg/ Dextrose 250 mls @ 250 mls/hr 01/14/20 10:00 01/15/20 09:59 IVPB 250 mls/hr DAILY NICO Administration Methadone HCl 70 mg 01/15/20 10:00 Dolophine - PO DAILY NICO Methylprednisolone Sodium Succinate 40 mg 01/14/20 11:15 01/15/20 09:14 Solu-Medrol - IVPUSH 40 mg BID NICO Administration Multivitamins/Minerals/Vitamin C 1 tab 01/14/20 10:00 01/15/20 09:13 Tab-A-Vit - PO 1 tab DAILY NICO Administration Quetiapine Fumarate 300 mg 01/14/20 23:45 01/15/20 00:40 Seroquel - PO 300 mg HS NICO Administration Thiamine HCl 100 mg 01/14/20 22:00 01/15/20 09:13 Vitamin B1 - PO 100 mg BID NICO Administration Verapamil HCl 240 mg 01/14/20 23:45 01/15/20 09:13 Calan Sr - PO 240 mg BID NICO Administration Zinc Sulfate 220 mg 01/14/20 10:00 01/15/20 09:13 Orazinc - PO 220 mg BID NICO Administration Home Medications Medication Instructions Recorded Quetiapine Fumarate [Seroquel -] 300 mg PO HS 05/06/17 Methadone [Dolophine -] 70 mg PO DAILY 11/28/17 Albuterol 2.5/Ipratropium 0.5 1 amp NEB RQID #25 amp 07/04/19 [Duoneb -] Albuterol Sulfate Inhaler - 2 inh PO Q4H PRN #1 inhaler 07/04/19 [Ventolin HFA Inhaler -] Budesonide/Formeterol Fumarate 2 inh IH BID #1 inhaler 07/04/19 [SYMBICORT 160/4.5mcg -] Nicotine Patch [Nicoderm Patch -] 14 mg TD DAILY #2 patch 07/04/19 Pantoprazole Sodium [Protonix -] 40 mg PO DAILY #30 tablet.ec 07/04/19 Prednisone [Prednisone 50 MG See Taper PO DAILY #30 tablet 07/04/19 TABLETS] Verapamil HCl ER [Calan Sr -] 240 mg PO BID #60 tablet.er 07/04/19 CXR shows bilateral interstitial infiltrates, mostly in the lower lobes with R>L ASSESSMENT AND PLAN: Patient is a 64yom with Pmhx of alcohol abuse, COPD on 3-4L at baseline , HTN, GERD presented to ED who acute respiratory failure most likely to Covid.. # Acute hypoxic respiratory failure most likely due to COVID-19 infection: o n Rocephin/zithromax now f/u COVID PCR, continue Zinc sulfate/vitamin c/albuterol inh/ ID and Pulmonary consult/Solumedrol iv 40 BID #Thrombocytopenia will follow, monitor, HOLD Lovenox sq daily # AMS likely due to metabolic encephalopathy most likely due to Covid # Troponinemia: due to demand ischemia MOST LIKELY # Polysubstance/Alcohol abuse: on librium protocol , thiamine/folic acid, will monitor electrolytes DVT prophylaxis - WILL HOLD SINCE PATIENT DEVELOPED THROMBOCYTOPENIA , SCDS. QTc:451-->457 96% on NR #Covid Positive: follow the markers Fibrinogen: CRP: 6.3 DDimer: 1513 Ferritin: LDH:945 h/h: 16.2-->13.2 creatinine: QTc: 457 02 sat: 100% ON NR pLATELETS: 113-85 NOW AST: 51--24 ALT: 36-23 CREATININE: 1.1
[2020-01-15] MEDS ORDERED: QUEtiapine FUMARATE 100 MG TABLET (FP) PO SCH (22:00)
--- NOTE | 2020-01-15 22:21 | PN ---
Progress Note, Physician History of Present Illness: Pt remains afebrile, without new complaints. 96% O2 sat on NRB without distress. COVID+ - Current Medication List Current Medications: Active Medications Acetaminophen (Tylenol -) 650 mg PO Q4H PRN PRN Reason: FEVER Albuterol Sulfate (Ventolin Hfa Inhaler -) 2 puff IH Q4H PRN PRN Reason: SHORT OF BREATH/WHEEZING Last Admin: 01/13/20 19:11 Dose: 2 puff Documented by: Ascorbic Acid (Vitamin C -) 500 mg PO BID [facility] Last Admin: 01/15/20 21:45 Dose: 500 mg Documented by: Chlordiazepoxide HCl (Librium -) 10 mg PO Q12H PRN PRN Reason: Signs/symptoms of Withdrawal Stop: 01/16/20 23:59 Chlordiazepoxide HCl (Librium -) 10 mg PO Q8H PRN PRN Reason: Signs/symptoms of Withdrawal Stop: 01/15/20 23:59 Last Admin: 01/15/20 09:22 Dose: 10 mg Documented by: Chlordiazepoxide HCl (Librium -) 10 mg PO Q8H [facility] Stop: 01/16/20 21:01 Chlordiazepoxide HCl (Librium -) 10 mg PO ONCE ONE Stop: 01/17/20 05:01 Cholecalciferol (Vitamin D3 -) 1,000 unit PO DAILY [facility] Last Admin: 01/15/20 09:12 Dose: 1,000 unit Documented by: Famotidine (Pepcid -) 20 mg PO DAILY [facility] Last Admin: 01/15/20 09:14 Dose: 20 mg Documented by: Folic Acid (Folic Acid -) 1 mg PO DAILY [facility] Last Admin: 01/15/20 09:13 Dose: 1 mg Documented by: Ceftriaxone Sodium 1 gm/ (Dextrose) 50 mls @ 100 mls/hr IVPB DAILY [facility]; Protocol Last Admin: 01/15/20 09:12 Dose: 100 mls/hr Documented by: Azithromycin 250 mg/ Dextrose 250 mls @ 250 mls/hr IVPB DAILY [facility] Last Admin: 01/15/20 09:59 Dose: 250 mls/hr Documented by: Methadone HCl (Dolophine -) 70 mg PO DAILY [facility] Methylprednisolone Sodium Succinate (Solu-Medrol -) 40 mg IVPUSH BID [facility] Last Admin: 01/15/20 21:44 Dose: 40 mg Documented by: Multivitamins/Minerals/Vitamin C (Tab-A-Vit -) 1 tab PO DAILY [facility] Last Admin: 01/15/20 09:13 Dose: 1 tab Documented by: Quetiapine Fumarate (Seroquel -) 300 mg PO HS [facility] Last Admin: 01/15/20 21:45 Dose: 300 mg Documented by: Thiamine HCl (Vitamin B1 -) 100 mg PO BID [facility] Last Admin: 01/15/20 21:46 Dose: 100 mg Documented by: Verapamil HCl (Calan Sr -) 240 mg PO BID [facility] Last Admin: 01/15/20 21:45 Dose: 240 mg Documented by: Zinc Sulfate (Orazinc -) 220 mg PO BID [facility] Last Admin: 01/15/20 21:45 Dose: 220 mg Documented by: - Objective Vital Signs: Vital Signs Temperature 97.4 F L 01/15/20 17:00 Pulse Rate 84 01/15/20 17:00 Respiratory Rate 20 01/15/20 17:00 Blood Pressure 100/71 01/15/20 17:00 O2 Sat by Pulse Oximetry (%) 96 01/15/20 10:00 Constitutional: Yes: No Distress Cardiovascular: Yes: Regular Rate and Rhythm Respiratory: Yes: Diminished Gastrointestinal: Yes: Normal Bowel Sounds, Soft Neurological: Yes: Alert Labs: CBC, BMP 01/14/20 06:00 01/14/20 06:00 INR, PTT INR 1.48 (0.83-1.09) H 01/13/20 18:35 Laboratory Last Values WBC 6.7 K/mm3 (4.0-10.0) 01/14/20 06:00 RBC 4.96 M/mm3 (4.00-5.60) 01/14/20 06:00 Hgb 13.2 GM/dL (11.7-16.9) 01/14/20 06:00 Hct 42.1 % (35.4-49) D 01/14/20 06:00 MCV 84.8 fl (80-96) 01/14/20 06:00 MCH 26.6 pg (25.7-33.7) 01/14/20 06:00 MCHC 31.3 g/dl (32.0-35.9) L 01/14/20 06:00 RDW 20.6 % (11.9-15.9) H 01/14/20 06:00 Plt Count 85 K/MM3 (134-434) L D 01/14/20 06:00 MPV 10.1 fl (7.5-11.1) 01/14/20 06:00 Absolute Neuts (auto) 5.9 K/mm3 (1.5-8.0) 01/14/20 06:00 Neutrophils % 87.6 % (42.8-82.8) H 01/14/20 06:00 Lymphocytes % 7.5 % (8-40) L 01/14/20 06:00 Monocytes % 4.6 % (3.8-10.2) 01/14/20 06:00 Eosinophils % 0.0 % (0-4.5) D 01/14/20 06:00 Basophils % 0.3 % (0-2.0) 01/14/20 06:00 Nucleated RBC % 0 % (0-0) 01/14/20 06:00 Hypochromia 0 01/13/20 18:35 Platelet Estimate Decreased 01/13/20 18:35 Polychromasia 0 01/13/20 18:35 Poikilocytosis 1+ 01/13/20 18:35 Anisocytosis 2+ 01/13/20 18:35 Microcytosis 1+ 01/13/20 18:35 Macrocytosis 1+ 01/13/20 18:35 Target Cells 1+ 01/13/20 18:35 Schistocytes 1+ 01/13/20 18:35 PT with INR 17.50 SEC (9.7-13.0) H 01/13/20 18:35 INR 1.48 (0.83-1.09) H 01/13/20 18:35 PTT (Actin FS) 37.7 SECONDS (25.2-36.5) H 01/13/20 18:35 D-Dimer 1513 ng/ml (0-500) H 01/14/20 00:10 Anticoagulation Therapy No Result Required. 01/14/20 11:50 Puncture Site Right radial 01/14/20 11:50 ABG pH 7.48 (7.35-7.45) H 01/14/20 11:50 ABG pCO2 at Pt Temp 36.3 mmHg (35-45) 01/14/20 11:50 ABG pO2 at Pt Temp 65.4 mmHg (80-100) L 01/14/20 11:50 ABG HCO3 26.8 mmol/L (22-27) 01/14/20 11:50 ABG O2 Sat (Measured) 92.3 % (95-98) L 01/14/20 11:50 ABG O2 Content 17.5 % vol 01/14/20 11:50 ABG Base Excess 3.8 mmol/L (-2-2) H 01/14/20 11:50 Alex Test Positive 01/14/20 11:50 VBG pH 7.40 (7.31-7.41) 01/13/20 18:35 POC VBG pCO2 49.2 mmHg (38-52) 01/13/20 18:35 POC VBG pO2 < 49 mmHg (28-48) H 01/13/20 18:35 VBG HCO3 30.0 mmol/L (23-29) H 01/13/20 18:35 VBG O2 Sat ([place]) 22.9 % (70-80) L 01/13/20 18:35 VBG Base Excess 4.4 mmol/L (-2-2) H 01/13/20 18:35 Patient On Oxygen Yes 01/14/20 11:50 O2 Delivery Device No Result Required. 01/14/20 11:50 Oxygen Flow Rate 100 01/14/20 11:50 Vent Mode No Result Required. 01/14/20 11:50 Vent Rate No Result Required. 01/14/20 11:50 Mechanical Rate No Result Required. 01/14/20 11:50 Pressure Support Vent No Result Required. 01/14/20 11:50 Sodium 140 mmol/L (136-145) 01/14/20 06:00 Potassium 4.1 mmol/L (3.5-5.1) 01/14/20 06:00 Chloride 106 mmol/L (98-107) 01/14/20 06:00 Carbon Dioxide 27 mmol/L (21-32) 01/14/20 06:00 Anion Gap 7 MMOL/L (8-16) L 01/14/20 06:00 BUN 26.3 mg/dL (7-18) H 01/14/20 06:00 Creatinine 1.1 mg/dL (0.55-1.3) 01/14/20 06:00 Est GFR (CKD-EPI)AfAm 81.22 01/14/20 06:00 Est GFR (CKD-EPI)NonAf 70.07 01/14/20 06:00 Random Glucose 164 mg/dL (74-106) H 01/14/20 06:00 Lactic Acid 1.9 mmol/L (0.4-2.0) 01/14/20 02:30 Calcium 8.5 mg/dL (8.5-10.1) 01/14/20 06:00 Phosphorus 3.2 mg/dL (2.5-4.9) 01/14/20 06:00 Magnesium 1.9 mg/dL (1.8-2.4) 01/14/20 06:00 Ferritin 394.8 ng/ml (8-388) H 01/13/20 18:35 Total Bilirubin 2.5 mg/dL (0.2-1) H 01/14/20 06:00 Direct Bilirubin 1.4 mg/dL (0.0-0.2) H 01/13/20 18:35 AST 24 U/L (15-37) 01/14/20 06:00 ALT 23 U/L (13-61) 01/14/20 06:00 Alkaline Phosphatase 57 U/L (45-117) 01/14/20 06:00 LD Total 945 U/L (87-246) H 01/13/20 18:35 Creatine Kinase 59 U/L (26-308) 01/14/20 06:00 Creatine Kinase Index 4.0 % (0.0-5.0) 01/13/20 18:35 CK-MB (CK-2) 6.8 ng/mL (0.5-3.6) H 01/13/20 18:35 Troponin I 0.10 ng/ml (0.00-0.05) H 01/14/20 06:00 C-Reactive Protein 6.3 MG/DL (0.00-0.3) H 01/14/20 06:00 Total Protein 4.9 g/dl (6.4-8.2) L 01/14/20 06:00 Albumin 2.3 g/dl (3.4-5.0) L 01/14/20 06:00 Alcohol, Quantitative < 3 mg/dL (0.0-5.0) 01/13/20 18:35 COVID-19 ([facility]FA[facility]) Detected (Not Detected) H 01/13/20 18:35 Problem List - Problems (1) Abnormal liver function test Code(s): R94.5 - ABNORMAL RESULTS OF LIVER FUNCTION STUDIES (2) Acute on chronic respiratory failure with hypoxemia Code(s): J96.21 - ACUTE AND CHRONIC RESPIRATORY FAILURE WITH HYPOXIA (3) Altered mental status Code(s): R41.82 - ALTERED MENTAL STATUS, UNSPECIFIED Qualifiers: Altered mental status type: disorientation Qualified Code(s): R41.0 - Disorientation, unspecified (4) Suspected COVID-19 virus infection Code(s): Z20.828 - CONTACT W AND EXPOSURE TO OTH VIRAL COMMUNICABLE DISEASES (5) Alcohol dependence Code(s): F10.20 - ALCOHOL DEPENDENCE, UNCOMPLICATED Qualifiers: Substance use status: uncomplicated Qualified Code(s): F10.20 - Alcohol dependence, uncomplicated (6) Anxiety and depression Code(s): F41.9 - ANXIETY DISORDER, UNSPECIFIED; F32.9 - MAJOR DEPRESSIVE DISORDER, SINGLE EPISODE, UNSPECIFIED (7) COPD (chronic obstructive pulmonary disease) Code(s): J44.9 - CHRONIC OBSTRUCTIVE PULMONARY DISEASE, UNSPECIFIED Qualifiers: COPD type: unspecified COPD Qualified Code(s): J44.9 - Chronic obstructive pulmonary disease, unspecified (8) GERD (gastroesophageal reflux disease) Code(s): K21.9 - GASTRO-ESOPHAGEAL REFLUX DISEASE WITHOUT ESOPHAGITIS Qualifiers: Esophagitis presence: esophagitis presence not specified Qualified Code(s): K21.9 - Gastro-esophageal reflux disease without esophagitis (9) HTN (hypertension) Code(s): I10 - ESSENTIAL (PRIMARY) HYPERTENSION Qualifiers: Hypertension type: essential hypertension Qualified Code(s): I10 - Essential (primary) hypertension (10) Hepatitis C Code(s): B19.20 - UNSPECIFIED VIRAL HEPATITIS C WITHOUT HEPATIC COMA Qualifiers: Hepatic coma status: without hepatic coma (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 Code(s): F11.20 - OPIOID DEPENDENCE, UNCOMPLICATED (12) Nicotine dependence Code(s): F17.200 - NICOTINE DEPENDENCE, UNSPECIFIED, UNCOMPLICATED Assessment/Plan +COVID-19 PNA Acute hypoxemic resp failure COPD Chronic respiratory failure HTN Alcohol abuse Ex-IVDU on methadone Depression Hep C (treated?) -- continue antibiotics -- hold off Plaquenil due to drug interactions with pt's other meds -- O2 supplementation - currently adequate O2 sat on NRB -- monitor LDH, CRP, D-dimer, Ferritin trend -- Zinc, Vit C -- Hepatitis serology, HIV testing -- GI following -- monitor vitals -- isolation/precautions in place
[2020-01-16] MEDS ORDERED: chlordiazePOXIDE 5 MG CAPSULE PO PRN
[2020-01-16] MEDS: chlordiazePOXIDE 5 MG CAPSULE PO SCH ×3 (06:47→21:09)
--- NOTE | 2020-01-16 08:08 | PN ---
Progress Note, Physician History of Present Illness: PULMONARY' ALERT,MORE COMFORTABLE ON 100% NRB,O2 SAT 94% - Current Medication List Current Medications: Active Medications Acetaminophen (Tylenol -) 650 mg PO Q4H PRN PRN Reason: FEVER Albuterol Sulfate (Ventolin Hfa Inhaler -) 2 puff IH Q4H PRN PRN Reason: SHORT OF BREATH/WHEEZING Last Admin: 01/13/20 19:11 Dose: 2 puff Documented by: Ascorbic Acid (Vitamin C -) 500 mg PO BID [facility] Last Admin: 01/15/20 21:45 Dose: 500 mg Documented by: Chlordiazepoxide HCl (Librium -) 10 mg PO Q12H PRN PRN Reason: Signs/symptoms of Withdrawal Stop: 01/16/20 23:59 Chlordiazepoxide HCl (Librium -) 10 mg PO Q8H [facility] Stop: 01/16/20 21:01 Last Admin: 01/16/20 06:47 Dose: 10 mg Documented by: Chlordiazepoxide HCl (Librium -) 10 mg PO ONCE ONE Stop: 01/17/20 05:01 Cholecalciferol (Vitamin D3 -) 1,000 unit PO DAILY [facility] Last Admin: 01/15/20 09:12 Dose: 1,000 unit Documented by: Famotidine (Pepcid -) 20 mg PO DAILY [facility] Last Admin: 01/15/20 09:14 Dose: 20 mg Documented by: Folic Acid (Folic Acid -) 1 mg PO DAILY [facility] Last Admin: 01/15/20 09:13 Dose: 1 mg Documented by: Ceftriaxone Sodium 1 gm/ (Dextrose) 50 mls @ 100 mls/hr IVPB DAILY [facility]; Protocol Last Admin: 01/15/20 09:12 Dose: 100 mls/hr Documented by: Azithromycin 250 mg/ Dextrose 250 mls @ 250 mls/hr IVPB DAILY [facility] Last Admin: 01/15/20 09:59 Dose: 250 mls/hr Documented by: Methadone HCl (Dolophine -) 70 mg PO DAILY [facility] Methylprednisolone Sodium Succinate (Solu-Medrol -) 40 mg IVPUSH BID [facility] Last Admin: 01/15/20 21:44 Dose: 40 mg Documented by: Multivitamins/Minerals/Vitamin C (Tab-A-Vit -) 1 tab PO DAILY [facility] Last Admin: 01/15/20 09:13 Dose: 1 tab Documented by: Quetiapine Fumarate (Seroquel -) 300 mg PO [facility] Thiamine HCl (Vitamin B1 -) 100 mg PO BID [facility] Last Admin: 01/15/20 21:46 Dose: 100 mg Documented by: Verapamil HCl (Calan Sr -) 240 mg PO BID [facility] Last Admin: 01/15/20 21:45 Dose: 240 mg Documented by: Zinc Sulfate (Orazinc -) 220 mg PO BID [facility] Last Admin: 01/15/20 21:45 Dose: 220 mg Documented by: - Objective Vital Signs: Vital Signs Temperature 98 F 01/16/20 05:00 Pulse Rate 88 01/16/20 05:00 Respiratory Rate 20 01/16/20 05:00 Blood Pressure 125/94 01/16/20 05:00 O2 Sat by Pulse Oximetry (%) 94 L 01/15/20 21:00 Constitutional: Yes: Well Nourished, Calm Eyes: Yes: WNL HENT: Yes: WNL Neck: Yes: WNL Cardiovascular: Yes: Regular Rate and Rhythm, S1, S2 Gastrointestinal: Yes: Normal Bowel Sounds, Soft Extremities: Yes: WNL Edema: No Labs: INR, PTT INR 1.48 (0.83-1.09) H 01/13/20 18:35 Laboratory Tests 01/16/20 05:50 Ferritin 251.5 LD Total 488 H C-Reactive Protein 1.4 H Problem List - Problems (1) Acute on chronic respiratory failure with hypoxemia Code(s): J96.21 - ACUTE AND CHRONIC RESPIRATORY FAILURE WITH HYPOXIA (2) Altered mental status Code(s): R41.82 - ALTERED MENTAL STATUS, UNSPECIFIED Qualifiers: Altered mental status type: disorientation Qualified Code(s): R41.0 - Disorientation, unspecified (3) Suspected COVID-19 virus infection Code(s): Z20.828 - CONTACT W AND EXPOSURE TO OTH VIRAL COMMUNICABLE DISEASES (4) Hypertension Code(s): I10 - ESSENTIAL (PRIMARY) HYPERTENSION Assessment/Plan IMP ACUTE ON CHRONIC HYPOXEMIC RESPIRATORY FAILURE COVID 19 PNEUMONIA HTN GERD ALTERED MENTAL STATUS + TROPONIN THROMBOCYTOPENIA PLAN SUPPLEMENTAL O2 ABX PER ID MONITOR LYTES TREND TROPONIN CRP,FERRATIN.LDH COVID SEROLOGY PENDING ALBUTEROL INHALER SPIRIVA MONITOR LYTES,CBC,PLT CT LIBRIUM LOVENOX PE DOSE DR CAMPUZANO Problem List - Problems (1) Acute on chronic respiratory failure with hypoxemia Code(s): J96.21 - ACUTE AND CHRONIC RESPIRATORY FAILURE WITH HYPOXIA (2) Altered mental status Code(s): R41.82 - ALTERED MENTAL STATUS, UNSPECIFIED Qualifiers: Altered mental status type: disorientation Qualified Code(s): R41.0 - Disorientation, unspecified (3) Suspected COVID-19 virus infection Code(s): Z20.828 - CONTACT W AND EXPOSURE TO OTH VIRAL COMMUNICABLE DISEASES (4) Hypertension Code(s): I10 - ESSENTIAL (PRIMARY) HYPERTENSION
[2020-01-16 08:36] LABS: HEMATOCRIT 42.5 % (35.4-49); MCH 26.4 pg (25.7-33.7); MCHC 30.6 g/dl (32.0-35.9); MEAN CELL VOLUME 86.3 fl (80-96); MEAN PLT VOLUME 11.1 fl (7.5-11.1); PLATELET COUNT 96 K/MM3 (134-434); RBC 4.93 M/mm3 (4.00-5.60); RDW 20.9 % (11.9-15.9); WHITE BLOOD COUNT 13.3 K/mm3 (4.0-10.0)
[2020-01-16 08:57] LABS: ALBUMIN 2.4 g/dl (3.4-5.0); BILIRUBIN,TOTAL 1.6 mg/dL (0.2-1); BLOOD UREA NITROGEN 16.6 mg/dL (7-18); CALCIUM 8.9 mg/dL (8.5-10.1); MAGNESIUM 2.1 mg/dL (1.8-2.4); PHOSPHOROUS 2.5 mg/dL (2.5-4.9); POTASSIUM 4.4 mmol/L (3.5-5.1); TOT PROT 5.2 g/dl (6.4-8.2)
[2020-01-16] MEDS ORDERED: METHADONE HCL 40 MG DISPERSABLE TABLET ONE (09:38)
[2020-01-16] MEDS ORDERED: METHADONE HCL 10 MG TABLET ONE (09:39)
[2020-01-16] MEDS ORDERED: cefTRIAXone SODIUM 1 GM VIAL ONE (09:40)
[2020-01-16] MEDS ORDERED: DEXTROSE 5%-WATER - 50 ML IVPB ONE (09:40)
--- NOTE | 2020-01-16 09:45 | PN ---
Physical Exam: SUBJECTIVE: Patient seen and examined. No acute complaints overnight. Pt. complains of lightheadedness now and decreased PO intake as he vomited last night after dinner. Pt. states that "the top 3 floors of his building got removed and that his building only goes up to the 8th floor now and not the 11th floor where he lives." Pt. become agitated upon further questioning especially when going over how that is possible. Pt. states that his 13 cannisters of O2 at home as well as over 300 dollars raymond has been missing from his house. OBJECTIVE: Vital Signs Period Temp Pulse Resp BP Sys/Causey Pulse Ox Last 24 Hr 97.4 F-98 F 84-88 18-20 100-127/71-94 94-96 GENERAL: The patient is awake, alert, and fully oriented, in no acute distress. EYES: no scleral icterus MOUTH: Dry MM NECK: no JVD LUNGS: diminished breath sounds b /l HEART: Regular rate and rhythm, S1, S2 without murmur ABDOMEN: Soft,NT ND +BS in all 4 quadrants. EXTREMITIES: 2+ dorsal pedal pulses, warm, well-perfused, no edema. PSYCH: Normal mood, normal affect. SKIN: Warm, dry, normal turgor Laboratory Results - last 24 hr 01/13/20 01/16/20 01/16/20 18:35 05:50 05:50 WBC 13.3 H RBC 4.93 Hgb 13.0 Hct 42.5 MCV 86.3 MCH 26.4 MCHC 30.6 L RDW 20.9 H Plt Count 96 L MPV 11.1 Fibrinogen D-Dimer Sodium 140 Potassium 4.4 Chloride 105 Carbon Dioxide 29 Anion Gap 7 L BUN 16.6 Creatinine 1.0 Est GFR (CKD-EPI)AfAm 91.13 Est GFR (CKD-EPI)NonAf 78.63 Random Glucose 161 H Calcium 8.9 Phosphorus 2.5 Magnesium 2.1 Ferritin 251.5 Total Bilirubin 1.6 H AST 24 ALT 28 Alkaline Phosphatase 66 LD Total 488 H C-Reactive Protein 1.4 H Total Protein 5.2 L Albumin 2.4 L COVID-19 (RAFAEL) Detected H 01/16/20 05:50 WBC RBC Hgb Hct MCV MCH MCHC RDW Plt Count MPV Fibrinogen 184.0 L D-Dimer 1157 H Sodium Potassium Chloride Carbon Dioxide Anion Gap BUN Creatinine Est GFR (CKD-EPI)AfAm Est GFR (CKD-EPI)NonAf Random Glucose Calcium Phosphorus Magnesium Ferritin Total Bilirubin AST ALT Alkaline Phosphatase LD Total C-Reactive Protein Total Protein Albumin COVID-19 (RAFAEL) Active Medications Generic Name Dose Route Start Last Admin Trade Name Freq PRN Reason Stop Dose Admin Acetaminophen 650 mg 01/14/20 01:09 Tylenol - PO Q4H PRN FEVER Albuterol Sulfate 2 puff 01/13/20 19:04 01/13/20 19:11 Ventolin Hfa Inhaler - IH 2 puff Q4H PRN Administration SHORT OF BREATH/WHEEZING Ascorbic Acid 500 mg 01/14/20 10:00 01/15/20 21:45 Vitamin C - PO 500 mg BID NICO Administration Chlordiazepoxide HCl 10 mg 01/16/20 00:00 Librium - PO 01/16/20 23:59 Q12H PRN Signs/symptoms of Withdrawal Chlordiazepoxide HCl 10 mg 01/16/20 05:00 01/16/20 06:47 Librium - PO 01/16/20 21:01 10 mg Q8H NICO Administration Chlordiazepoxide HCl 10 mg 01/17/20 05:00 Librium - PO 01/17/20 05:01 ONCE ONE Cholecalciferol 1,000 unit 01/14/20 10:00 01/15/20 09:12 Vitamin D3 - PO 1,000 unit DAILY NICO Administration Famotidine 20 mg 01/14/20 14:30 01/15/20 09:14 Pepcid - PO 20 mg DAILY NICO Administration Folic Acid 1 mg 01/14/20 10:00 01/15/20 09:13 Folic Acid - PO 1 mg DAILY NICO Administration Ceftriaxone Sodium 1 gm/ 50 mls @ 100 mls/hr 01/14/20 10:00 01/15/20 09:12 Dextrose IVPB 100 mls/hr DAILY NICO Administration Protocol Azithromycin 250 mg/ Dextrose 250 mls @ 250 mls/hr 01/14/20 10:00 01/15/20 09:59 IVPB 250 mls/hr DAILY NICO Administration Methadone HCl 40 mg/ Methadone 70 mg 01/16/20 10:00 HCl 30 mg PO DAILY@0600 [facility] Methylprednisolone Sodium Succinate 40 mg 01/14/20 11:15 01/15/20 21:44 Solu-Medrol - IVPUSH 40 mg BID NICO Administration Multivitamins/Minerals/Vitamin C 1 tab 01/14/20 10:00 01/15/20 09:13 Tab-A-Vit - PO 1 tab DAILY NICO Administration Quetiapine Fumarate 300 mg 01/16/20 02:26 Seroquel - PO HS NICO Thiamine HCl 100 mg 01/14/20 22:00 01/15/20 21:46 Vitamin B1 - PO 100 mg BID NICO Administration Verapamil HCl 240 mg 01/14/20 23:45 01/15/20 21:45 Calan Sr - PO 240 mg BID NICO Administration Zinc Sulfate 220 mg 01/14/20 10:00 01/15/20 21:45 Orazinc - PO 220 mg BID NICO Administration ASSESSMENT/PLAN: Pt. is a 64yo man with a PMHx. of Polysubstance abuse (Etoh and IVDU-Heroin), COPD on 3-4L at baseline (pt endorsed this on my questioning this AM on 01/15), HTN, GERD who was BIBA with low oxygen saturation. #Acute hypoxic respiratory failure- 2/2 COVID-19 infection - CXR shows bilateral interstitial infiltrates, mostly in the lower lobes with R>L. - COVID POSITIVE - Zinc sulfate - Vitamin C - IV Rocephin - Azithromycin - Tylenol PRN - Ventolin IH - ID and Pulmonary - Solumedrol 40 BID - Monitor QTc daily - start Lovenox 0.5mg/kg BID given thrombocytopenia - f/u inflammatory markers - will try and titrate patient off NRB #Polysubstance/Alcohol abuse - Pt denies recent alcohol/ substance use but is a poor historian. Monitor closely for drug withdrawal and verify his Methadone dose. - [facility] librium alcohol withdrawal protocol (Day 3) - neurochecks - seizure, fall and aspiration precautions - thiamine and folic acid - c/w Methadone 70mg Daily #Hx. of Hep C - Pt. refused HIV testing - f/u Hepatitis panel - LFTs improving. - Pt. states that he goes to get blood tests and Liver US ever 6 months at [facility], Pt. states he was "cured" of Hep. C a few years ago with medication. - f/u Abd. US #HTN - c/w Verapamil 240 BID #FEN: - no IVF, encourage PO intake - replete PRN - HTN diet #PPx: - DVT prophylaxis - Lovenox 40 mg SQ q 12 hours. Visit type - Emergency Visit Emergency Visit: Yes ED Registration Date: 01/13/20 Care time: The patient presented to the Emergency Department on the above date and was hospitalized for further evaluation of their emergent condition. - New Patient This patient is new to me today: Yes Date on this admission: 01/16/20 - Critical Care Critical Care patient: No - Discharge Referral Referred to [facility] No ATTENDING PHYSICIAN STATEMENT I saw and evaluated the patient. I reviewed the resident's note and discussed the case with the resident. I agree with the resident's findings and plan as documented. SUBJECTIVE: OBJECTIVE: ASSESSMENT AND PLAN:
[2020-01-16] MEDS: ASCORBIC ACID 500 MG TABLET (FP) PO SCH ×2 (10:06→21:10)
[2020-01-16] MEDS: METHADONE 40 MG, METHADONE 30 MG PO SCH (10:06)
[2020-01-16] MEDS: methylPREDNISolone NA SUCC 40 MG/1 ML VIAL IVPUSH SCH ×2 (10:06→21:10)
[2020-01-16] MEDS: FOLIC ACID 1 MG TABLET (FP) PO SCH (10:06)
[2020-01-16] MEDS: FAMOTIDINE 20 MG TABLET PO SCH (10:06)
[2020-01-16] MEDS: CHOLECALCIFEROL (VIT D3) 1,000 UNIT (25 MCG) TABLET PO SCH (10:06)
[2020-01-16] MEDS: MULTIVITAMINS (DAILY MVI) TABLET (FP) PO SCH (10:06)
[2020-01-16] MEDS: VERAPAMIL HCL 240 MG E.R. TABLET PO SCH ×2 (10:07→21:09)
[2020-01-16] MEDS: THIAMINE HCL 100 MG TABLET (FP) PO SCH ×2 (10:08→21:10)
[2020-01-16] MEDS: CEFTRIAXONE 1 GM in DEXTROSE 5%-WATER - 50 ML IVPB SCH (10:08)
[2020-01-16] MEDS: ZINC SULFATE 220 MG CAPSULE (FP) PO SCH ×2 (10:08→21:10)
[2020-01-16] MEDS: AZITHROMYCIN IVPB 250 MG in DEXTROSE 5%-WATER - 250 ML IVPB SCH (10:09)
--- NOTE | 2020-01-16 11:47 | PN ---
Progress Note, Physician History of Present Illness: on face mask keeps on removing it clinically awake and alert - Current Medication List Current Medications: Active Medications Acetaminophen (Tylenol -) 650 mg PO Q4H PRN PRN Reason: FEVER Albuterol Sulfate (Ventolin Hfa Inhaler -) 2 puff IH Q4H PRN PRN Reason: SHORT OF BREATH/WHEEZING Last Admin: 01/13/20 19:11 Dose: 2 puff Documented by: Ascorbic Acid (Vitamin C -) 500 mg PO BID [facility] Last Admin: 01/16/20 10:06 Dose: 500 mg Documented by: Chlordiazepoxide HCl (Librium -) 10 mg PO Q12H PRN PRN Reason: Signs/symptoms of Withdrawal Stop: 01/16/20 23:59 Chlordiazepoxide HCl (Librium -) 10 mg PO Q8H [facility] Stop: 01/16/20 21:01 Last Admin: 01/16/20 06:47 Dose: 10 mg Documented by: Chlordiazepoxide HCl (Librium -) 10 mg PO ONCE ONE Stop: 01/17/20 05:01 Cholecalciferol (Vitamin D3 -) 1,000 unit PO DAILY [facility] Last Admin: 01/16/20 10:06 Dose: 1,000 unit Documented by: Enoxaparin Sodium (Lovenox -) 40 mg SQ BID [facility] Famotidine (Pepcid -) 20 mg PO DAILY [facility] Last Admin: 01/16/20 10:06 Dose: 20 mg Documented by: Folic Acid (Folic Acid -) 1 mg PO DAILY [facility] Last Admin: 01/16/20 10:06 Dose: 1 mg Documented by: Ceftriaxone Sodium 1 gm/ (Dextrose) 50 mls @ 100 mls/hr IVPB DAILY [facility]; Protocol Last Admin: 01/16/20 10:08 Dose: 100 mls/hr Documented by: Azithromycin 250 mg/ Dextrose 250 mls @ 250 mls/hr IVPB DAILY [facility] Last Admin: 01/16/20 10:09 Dose: 250 mls/hr Documented by: Methadone HCl 40 mg/ Methadone (HCl 30 mg) 70 mg PO DAILY@0600 [facility] Last Admin: 01/16/20 10:06 Dose: 70 mg Documented by: Methylprednisolone Sodium Succinate (Solu-Medrol -) 40 mg IVPUSH BID [facility] Last Admin: 01/16/20 10:06 Dose: 40 mg Documented by: Multivitamins/Minerals/Vitamin C (Tab-A-Vit -) 1 tab PO DAILY [facility] Last Admin: 01/16/20 10:06 Dose: 1 tab Documented by: Quetiapine Fumarate (Seroquel -) [address] [facility] Thiamine HCl (Vitamin B1 -) 100 mg PO BID [facility] Last Admin: 01/16/20 10:08 Dose: 100 mg Documented by: Verapamil HCl (Calan Sr -) 240 mg PO BID [facility] Last Admin: 01/16/20 10:07 Dose: 240 mg Documented by: Zinc Sulfate (Orazinc -) 220 mg PO BID [facility] Last Admin: 01/16/20 10:08 Dose: 220 mg Documented by: - Objective Vital Signs: Vital Signs Temperature 97.4 F L 01/16/20 09:00 Pulse Rate 78 01/16/20 09:00 Respiratory Rate 20 01/16/20 09:00 Blood Pressure 119/84 01/16/20 09:00 O2 Sat by Pulse Oximetry (%) 94 L 01/15/20 21:00 Constitutional: Yes: Mild Distress Cardiovascular: Yes: S1, S2 Respiratory: Yes: Poor Air Entry, Other (on face mask) Gastrointestinal: Yes: Normal Bowel Sounds, Soft Musculoskeletal: Yes: WNL Extremities: Yes: WNL Neurological: Yes: Alert, Oriented Psychiatric: Yes: Alert, Oriented Labs: CBC, BMP 01/16/20 05:50 01/16/20 05:50 INR, PTT INR 1.48 (0.83-1.09) H 01/13/20 18:35 Fibrinogen 184.0 mg/dL (238-498) L 01/16/20 05:50 Assessment/Plan Problem List - Problems (1) Abnormal liver function test Code(s): R94.5 - ABNORMAL RESULTS OF LIVER FUNCTION STUDIES (2) Acute on chronic respiratory failure with hypoxemia Code(s): J96.21 - ACUTE AND CHRONIC RESPIRATORY FAILURE WITH HYPOXIA (3) Altered mental status Code(s): R41.82 - ALTERED MENTAL STATUS, UNSPECIFIED Qualifiers: Altered mental status type: disorientation Qualified Code(s): R41.0 - Disorientation, unspecified (4) Suspected COVID-19 virus infection Code(s): Z20.828 - CONTACT W AND EXPOSURE TO OTH VIRAL COMMUNICABLE DISEASES (5) Alcohol dependence Code(s): F10.20 - ALCOHOL DEPENDENCE, UNCOMPLICATED Qualifiers: Substance use status: uncomplicated Qualified Code(s): F10.20 - Alcohol dependence, uncomplicated (6) Anxiety and depression Code(s): F41.9 - ANXIETY DISORDER, UNSPECIFIED; F32.9 - MAJOR DEPRESSIVE DISORDER, SINGLE EPISODE, UNSPECIFIED (7) COPD (chronic obstructive pulmonary disease) Code(s): J44.9 - CHRONIC OBSTRUCTIVE PULMONARY DISEASE, UNSPECIFIED Qualifiers: COPD type: unspecified COPD Qualified Code(s): J44.9 - Chronic obstructive pulmonary disease, unspecified (8) GERD (gastroesophageal reflux disease) Code(s): K21.9 - GASTRO-ESOPHAGEAL REFLUX DISEASE WITHOUT ESOPHAGITIS Qualifiers: Esophagitis presence: esophagitis presence not specified Qualified Code(s): K21.9 - Gastro-esophageal reflux disease without esophagitis (9) HTN (hypertension) Code(s): I10 - ESSENTIAL (PRIMARY) HYPERTENSION Qualifiers: Hypertension type: essential hypertension Qualified Code(s): I10 - Essential (primary) hypertension (10) Hepatitis C Code(s): B19.20 - UNSPECIFIED VIRAL HEPATITIS C WITHOUT HEPATIC COMA Qualifiers: Hepatic coma status: without hepatic coma (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
--- NOTE | 2020-01-16 12:30 | PN ---
Progress Note (short form) - Note Progress Note: LFTs have improved. Awaiting abdominal US.
--- NOTE | 2020-01-16 13:05 | PN.GI ---
GI Progress Note Subjective: On FM O2 No abdominal pain LFTs have improved - Objective Vital Signs: Vital Signs Temperature 97.4 F L 01/16/20 09:00 Pulse Rate 78 01/16/20 09:00 Respiratory Rate 20 01/16/20 09:00 Blood Pressure 119/84 01/16/20 09:00 O2 Sat by Pulse Oximetry (%) 94 L 01/15/20 21:00 Constitutional: Calm Eyes: No: Sclera Icterus Cardiovascular: Yes: Regular Rate and Rhythm Respiratory: Yes: Rhonchi (bases bilaterally), Tachypnea Gastrointestinal Inspection: No: Distention ...Auscultate: Yes: Normoactive Bowel Sounds ...Palpate: Yes: Soft. No: Hepatomegaly, Splenomegaly, Tenderness ...Percussion: No: Tympanitic Edema: No (No LE edema) Neurological: Yes: Alert Labs: CBC, BMP 01/16/20 05:50 01/16/20 05:50 INR, PTT INR 1.48 (0.83-1.09) H 01/13/20 18:35 Fibrinogen 184.0 mg/dL (238-498) L 01/16/20 05:50 Hepatic Panel Total Bilirubin 1.6 mg/dL (0.2-1) H 01/16/20 05:50 Direct Bilirubin 1.4 mg/dL (0.0-0.2) H 01/13/20 18:35 AST 24 U/L (15-37) 01/16/20 05:50 ALT 28 U/L (13-61) 01/16/20 05:50 Alkaline Phosphatase 66 U/L (45-117) 01/16/20 05:50 Albumin 2.4 g/dl (3.4-5.0) L 01/16/20 05:50 Problem List - Problems (1) Abnormal liver function test Assessment/Plan: Improved. Suspect secondary to COVID-19 pneumonitis. Denies etoh use over the last several months Follow-up abdominal US Acute hepatitis serologies are pending Code(s): R94.5 - ABNORMAL RESULTS OF LIVER FUNCTION STUDIES
--- NOTE | 2020-01-16 13:22 | PN ---
Teaching Attending Note Name of Resident: Joby Enamorado ATTENDING PHYSICIAN STATEMENT I saw and evaluated the patient. I reviewed the resident's note and discussed the case with the resident. I agree with the resident's findings and plan as documented. SUBJECTIVE: patient is confused with mild agitation OBJECTIVE: Vital Signs Temperature 97.4 F L 01/16/20 09:00 Pulse Rate 78 01/16/20 09:00 Respiratory Rate 20 01/16/20 09:00 Blood Pressure 119/84 01/16/20 09:00 O2 Sat by Pulse Oximetry (%) 94 L 01/15/20 21:00 PE : per resident's note CBCD WBC 13.3 K/mm3 (4.0-10.0) H 01/16/20 05:50 RBC 4.93 M/mm3 (4.00-5.60) 01/16/20 05:50 Hgb 13.0 GM/dL (11.7-16.9) 01/16/20 05:50 Hct 42.5 % (35.4-49) 01/16/20 05:50 MCV 86.3 fl (80-96) 01/16/20 05:50 MCHC 30.6 g/dl (32.0-35.9) L 01/16/20 05:50 RDW 20.9 % (11.9-15.9) H 01/16/20 05:50 Plt Count 96 K/MM3 (134-434) L 01/16/20 05:50 MPV 11.1 fl (7.5-11.1) 01/16/20 05:50 CMP Sodium 140 mmol/L (136-145) 01/16/20 05:50 Potassium 4.4 mmol/L (3.5-5.1) 01/16/20 05:50 Chloride 105 mmol/L (98-107) 01/16/20 05:50 Carbon Dioxide 29 mmol/L (21-32) 01/16/20 05:50 Anion Gap 7 MMOL/L (8-16) L 01/16/20 05:50 BUN 16.6 mg/dL (7-18) 01/16/20 05:50 Creatinine 1.0 mg/dL (0.55-1.3) 01/16/20 05:50 Random Glucose 161 mg/dL (74-106) H 01/16/20 05:50 Calcium 8.9 mg/dL (8.5-10.1) 01/16/20 05:50 Total Bilirubin 1.6 mg/dL (0.2-1) H 01/16/20 05:50 AST 24 U/L (15-37) 01/16/20 05:50 ALT 28 U/L (13-61) 01/16/20 05:50 Alkaline Phosphatase 66 U/L (45-117) 01/16/20 05:50 Total Protein 5.2 g/dl (6.4-8.2) L 01/16/20 05:50 Albumin 2.4 g/dl (3.4-5.0) L 01/16/20 05:50 CARDIAC ENZYMES Creatine Kinase 59 U/L (26-308) 01/14/20 06:00 Troponin I 0.10 ng/ml (0.00-0.05) H 01/14/20 06:00 Current Medications Generic Name Dose Route Start Last Admin Trade Name Freq PRN Reason Stop Dose Admin Albuterol Sulfate 2 puff 01/13/20 19:04 01/13/20 19:11 Ventolin Hfa Inhaler - IH 2 puff Q4H PRN Administration SHORT OF BREATH/WHEEZING Ascorbic Acid 500 mg 01/14/20 10:00 01/16/20 10:06 Vitamin C - PO 500 mg BID NICO Administration Chlordiazepoxide HCl 10 mg 01/16/20 00:00 Librium - PO 01/16/20 23:59 Q12H PRN Signs/symptoms of Withdrawal Chlordiazepoxide HCl 10 mg 01/16/20 05:00 01/16/20 13:09 Librium - PO 01/16/20 21:01 10 mg Q8H NICO Administration Chlordiazepoxide HCl 10 mg 01/17/20 05:00 Librium - PO 01/17/20 05:01 ONCE ONE Cholecalciferol 1,000 unit 01/14/20 10:00 01/16/20 10:06 Vitamin D3 - PO 1,000 unit DAILY [facility] Administration Enoxaparin Sodium 40 mg 01/16/20 22:00 Lovenox - SQ BID [facility] Famotidine 20 mg 01/14/20 14:30 01/16/20 10:06 Pepcid - PO 20 mg DAILY NICO Administration Folic Acid 1 mg 01/14/20 10:00 01/16/20 10:06 Folic Acid - PO 1 mg DAILY NICO Administration Ceftriaxone Sodium 1 gm/ 50 mls @ 100 mls/hr 01/14/20 10:00 01/16/20 10:08 Dextrose IVPB 100 mls/hr DAILY NICO Administration Protocol Azithromycin 250 mg/ Dextrose 250 mls @ 250 mls/hr 01/14/20 10:00 01/16/20 10:09 IVPB 250 mls/hr DAILY NICO Administration Methadone HCl 40 mg/ Methadone 70 mg 01/16/20 10:00 01/16/20 10:06 HCl 30 mg PO 70 mg DAILY@0600 NICO Administration Methylprednisolone Sodium Succinate 40 mg 01/14/20 11:15 01/16/20 10:06 Solu-Medrol - IVPUSH 40 mg BID NICO Administration Multivitamins/Minerals/Vitamin C 1 tab 01/14/20 10:00 01/16/20 10:06 Tab-A-Vit - PO 1 tab DAILY NICO Administration Quetiapine Fumarate 300 mg 01/16/20 02:26 Seroquel - PO [facility] Thiamine HCl 100 mg 01/14/20 22:00 01/16/20 10:08 Vitamin B1 - PO 100 mg BID NICO Administration Verapamil HCl 240 mg 01/14/20 23:45 01/16/20 10:07 Calan Sr - PO 240 mg BID NICO Administration Zinc Sulfate 220 mg 01/14/20 10:00 01/16/20 10:08 Orazinc - PO 220 mg BID NICO Administration Home Medications Medication Instructions Recorded Quetiapine Fumarate [Seroquel -] 300 mg PO HS 05/06/17 Methadone [Dolophine -] 70 mg PO DAILY 11/28/17 Albuterol 2.5/Ipratropium 0.5 1 amp NEB RQID #25 amp 07/04/19 [Duoneb -] Albuterol Sulfate Inhaler - 2 inh PO Q4H PRN #1 inhaler 07/04/19 [Ventolin HFA Inhaler -] Budesonide/Formeterol Fumarate 2 inh IH BID #1 inhaler 07/04/19 [SYMBICORT 160/4.5mcg -] Nicotine Patch [Nicoderm Patch -] 14 mg TD DAILY #2 patch 07/04/19 Pantoprazole Sodium [Protonix -] 40 mg PO DAILY #30 tablet.ec 07/04/19 Prednisone [Prednisone 50 MG See Taper PO DAILY #30 tablet 07/04/19 TABLETS] Verapamil HCl ER [Calan Sr -] 240 mg PO BID #60 tablet.er 07/04/19 Microbiology 01/15/20 18:00 Urine For Antigen Detection Legionella Antigen - Final 01/15/20 18:00 Urine For Antigen Detection Streptococcus pneumoniae Antigen (M - Final CXR shows bilateral interstitial infiltrates, mostly in the lower lobes with R>L ASSESSMENT AND PLAN: Patient is a 64yom with Pmhx of alcohol abuse, COPD on 3-4L at baseline , HTN, GERD presented to ED who acute respiratory failure most likely to Covid.. # Acute hypoxic respiratory failure due to COVID-19 infection: on Rocephin/zithromax continue continue Zinc sulfate/vitamin c/albuterol inh/ ID and Pulmonary consult/Solumedrol iv 40 BID c ontinue #Thrombocytopenia -->96K now continue to follow, monitor # AMS likely due to metabolic encephalopathy most likely due to Covid # Troponinemia: due to demand ischemia MOST LIKELY # Polysubstance/Alcohol abuse: on librium protocol , thiamine/folic acid, will monitor electrolytes DVT prophylaxis - WILL HOLD SINCE PATIENT DEVELOPED THROMBOCYTOPENIA , SCDS. QTc:451-->457-->320 today 96% on NR -->94% on NR DVT Px: will place back to lovenox 40mg bid , monitor platelets #Covid Positive: follow the markers Fibrinogen: 184 CRP: 6.3-->1.4 DDimer: 1513--> 1157 Ferritin: LDH:945 h/h: 16.2-->13.2-->13.0 creatinine: 1.0 QTc: 457-->320 02 sat: 94% on NR pLATELETS: 113-85 NOW AST: 51--24 ALT: 36-23 lymphocytes: 7.1-->7.5
--- NOTE | 2020-01-16 17:40 | EKG ---
Test Reason : Blood Pressure : / mmHG Vent. Rate : 087 BPM Atrial Rate : 087 BPM P-R Int : 136 ms QRS Dur : 078 ms QT Int : 354 ms P-R-T Axes : 049 266 010 degrees QTc Int : 425 ms NORMAL SINUS RHYTHM BIATRIAL ENLARGEMENT INFERIOR INFARCT , AGE UNDETERMINED ABNORMAL ECG WHEN COMPARED WITH ECG OF 30-JUN-2019 11:12, T WAVE VARIATION BASELINE ARTIFACT PRESENT LIKELY NO SIGNIFICANT CHANGES Confirmed by DANIELLA ALMEIDA, ZAK ([id number]) on 01/16/2020 5:40:19 PM Referred By: Confirmed By:ZAK BREWER MD
[2020-01-16] MEDS ORDERED: PT OWN MED DRAWER 7, Y5N ONE (20:49)
[2020-01-16] MEDS: ENOXAPARIN NA (PORCINE) 40 MG/0.4 ML DISP.SYRIN SQ SCH (21:09)
[2020-01-16] MEDS: QUEtiapine FUMARATE 300 MG TABLET PO SCH (21:10)
[2020-01-17] MEDS ORDERED: chlordiazePOXIDE HCL 10 MG CAPSULE PO ONE (05:00)
[2020-01-17] MEDS ORDERED: METHADONE HCL 40 MG DISPERSABLE TABLET ONE (05:54)
[2020-01-17] MEDS ORDERED: METHADONE HCL 10 MG TABLET ONE (05:54)
[2020-01-17] MEDS: METHADONE 40 MG, METHADONE 30 MG PO SCH (06:03)
--- NOTE | 2020-01-17 08:23 | PN ---
Progress Note, Physician History of Present Illness: PULMONARY LETHARGIC ON AVAPS - Current Medication List Current Medications: Active Medications Albuterol Sulfate (Ventolin Hfa Inhaler -) 2 puff IH Q4H PRN PRN Reason: SHORT OF BREATH/WHEEZING Last Admin: 01/13/20 19:11 Dose: 2 puff Documented by: Ascorbic Acid (Vitamin C -) 500 mg PO BID [facility] Last Admin: 01/16/20 21:10 Dose: 500 mg Documented by: Cholecalciferol (Vitamin D3 -) 1,000 unit PO DAILY [facility] Last Admin: 01/16/20 10:06 Dose: 1,000 unit Documented by: Enoxaparin Sodium (Lovenox -) 40 mg SQ BID [facility] Last Admin: 01/16/20 21:09 Dose: 40 mg Documented by: Famotidine (Pepcid -) 20 mg PO DAILY [facility] Last Admin: 01/16/20 10:06 Dose: 20 mg Documented by: Folic Acid (Folic Acid -) 1 mg PO DAILY [facility] Last Admin: 01/16/20 10:06 Dose: 1 mg Documented by: Ceftriaxone Sodium 1 gm/ (Dextrose) 50 mls @ 100 mls/hr IVPB DAILY [facility]; Protocol Last Admin: 01/16/20 10:08 Dose: 100 mls/hr Documented by: Azithromycin 250 mg/ Dextrose 250 mls @ 250 mls/hr IVPB DAILY [facility] Last Admin: 01/16/20 10:09 Dose: 250 mls/hr Documented by: Methadone HCl 40 mg/ Methadone (HCl 30 mg) 70 mg PO DAILY@0600 [facility] Last Admin: 01/17/20 06:03 Dose: 70 mg Documented by: Methylprednisolone Sodium Succinate (Solu-Medrol -) 40 mg IVPUSH BID [facility] Last Admin: 01/16/20 21:10 Dose: 40 mg Documented by: Multivitamins/Minerals/Vitamin C (Tab-A-Vit -) 1 tab PO DAILY [facility] Last Admin: 01/16/20 10:06 Dose: 1 tab Documented by: Quetiapine Fumarate (Seroquel -) 300 mg PO [facility] Last Admin: 01/16/20 21:10 Dose: 300 mg Documented by: Thiamine HCl (Vitamin B1 -) 100 mg PO BID [facility] Last Admin: 01/16/20 21:10 Dose: 100 mg Documented by: Verapamil HCl (Calan Sr -) 240 mg PO BID [facility] Last Admin: 01/16/20 21:09 Dose: 240 mg Documented by: Zinc Sulfate (Orazinc -) 220 mg PO BID [facility] Last Admin: 01/16/20 21:10 Dose: 220 mg Documented by: - Objective Vital Signs: Vital Signs Temperature 97.5 F L 01/17/20 05:00 Pulse Rate 70 01/17/20 05:00 Respiratory Rate 22 H 01/17/20 05:00 Blood Pressure 116/75 01/17/20 05:00 O2 Sat by Pulse Oximetry (%) 93 L 01/16/20 21:00 Constitutional: Yes: Obese, Other (LETHARGIC) Eyes: Yes: WNL HENT: Yes: WNL Neck: Yes: WNL Cardiovascular: Yes: Regular Rate and Rhythm, S1, S2 Respiratory: Yes: Diminished Gastrointestinal: Yes: Normal Bowel Sounds, Soft Extremities: Yes: WNL Edema: No Labs: Problem List - Problems (1) Acute on chronic respiratory failure with hypoxemia Code(s): J96.21 - ACUTE AND CHRONIC RESPIRATORY FAILURE WITH HYPOXIA (2) Altered mental status Code(s): R41.82 - ALTERED MENTAL STATUS, UNSPECIFIED Qualifiers: Altered mental status type: disorientation Qualified Code(s): R41.0 - Disorientation, unspecified (3) Suspected COVID-19 virus infection Code(s): Z20.828 - CONTACT W AND EXPOSURE TO OTH VIRAL COMMUNICABLE DISEASES (4) Hypertension Code(s): I10 - ESSENTIAL (PRIMARY) HYPERTENSION Assessment/Plan IMP ACUTE ON CHRONIC HYPOXEMIC RESPIRATORY FAILURE COVID 19 PNEUMONIA HTN GERD ALTERED MENTAL STATUS + TROPONIN THROMBOCYTOPENIA PLAN SUPPLEMENTAL O2 NIPPV ABX PER ID MONITOR LYTES TREND TROPONIN CRP,FERRATIN.LDH COVID SEROLOGY PENDING ALBUTEROL INHALER SPIRIVA MONITOR LYTES,CBC,PLT CT LIBRIUM LOVENOX PE DOSE DR CAMPUZANO Problem List - Problems (1) Acute on chronic respiratory failure with hypoxemia Code(s): J96.21 - ACUTE AND CHRONIC RESPIRATORY FAILURE WITH HYPOXIA (2) Altered mental status Code(s): R41.82 - ALTERED MENTAL STATUS, UNSPECIFIED Qualifiers: Altered mental status type: disorientation Qualified Code(s): R41.0 - Disorientation, unspecified (3) Suspected COVID-19 virus infection Code(s): Z20.828 - CONTACT W AND EXPOSURE TO OTH VIRAL COMMUNICABLE DISEASES (4) Hypertension Code(s): I10 - ESSENTIAL (PRIMARY) HYPERTENSION
[2020-01-17] MEDS ORDERED: DEXTROSE 5%-WATER - 50 ML IVPB ONE (08:46)
[2020-01-17] MEDS ORDERED: cefTRIAXone SODIUM 1 GM VIAL ONE (08:46)
[2020-01-17] MEDS: methylPREDNISolone NA SUCC 40 MG/1 ML VIAL IVPUSH SCH ×2 (09:49→21:49)
[2020-01-17] MEDS: ENOXAPARIN NA (PORCINE) 40 MG/0.4 ML DISP.SYRIN SQ SCH (09:49)
[2020-01-17] MEDS: FAMOTIDINE 20 MG TABLET PO SCH ×2 (09:49→16:40)
[2020-01-17] MEDS: MULTIVITAMINS (DAILY MVI) TABLET (FP) PO SCH ×2 (09:49→16:41)
[2020-01-17] MEDS: CEFTRIAXONE 1 GM in DEXTROSE 5%-WATER - 50 ML IVPB SCH (09:49)
[2020-01-17] MEDS: CHOLECALCIFEROL (VIT D3) 1,000 UNIT (25 MCG) TABLET PO SCH ×2 (09:49→16:41)
[2020-01-17] MEDS: FOLIC ACID 1 MG TABLET (FP) PO SCH ×2 (09:49→16:40)
[2020-01-17] MEDS: ASCORBIC ACID 500 MG TABLET (FP) PO SCH ×3 (09:50→21:49)
[2020-01-17] MEDS: ZINC SULFATE 220 MG CAPSULE (FP) PO SCH ×3 (09:50→21:49)
[2020-01-17] MEDS: THIAMINE HCL 100 MG TABLET (FP) PO SCH ×3 (09:50→21:49)
[2020-01-17] MEDS: AZITHROMYCIN IVPB 250 MG in DEXTROSE 5%-WATER - 250 ML IVPB SCH (09:52)
[2020-01-17] MEDS: VERAPAMIL HCL 240 MG E.R. TABLET PO SCH ×3 (09:52→21:48)
--- NOTE | 2020-01-17 10:56 | PN ---
Progress Note, Physician History of Present Illness: continues to be on nrb desats on removal still abit confused - Current Medication List Current Medications: Active Medications Albuterol Sulfate (Ventolin Hfa Inhaler -) 2 puff IH Q4H PRN PRN Reason: SHORT OF BREATH/WHEEZING Last Admin: 01/13/20 19:11 Dose: 2 puff Documented by: Ascorbic Acid (Vitamin C -) 500 mg PO BID [facility] Last Admin: 01/17/20 09:50 Dose: 500 mg Documented by: Cholecalciferol (Vitamin D3 -) 1,000 unit PO DAILY [facility] Last Admin: 01/17/20 09:49 Dose: 1,000 unit Documented by: Enoxaparin Sodium (Lovenox -) 40 mg SQ BID [facility] Last Admin: 01/17/20 09:49 Dose: 40 mg Documented by: Famotidine (Pepcid -) 20 mg PO DAILY [facility] Last Admin: 01/17/20 09:49 Dose: 20 mg Documented by: Folic Acid (Folic Acid -) 1 mg PO DAILY [facility] Last Admin: 01/17/20 09:49 Dose: 1 mg Documented by: Ceftriaxone Sodium 1 gm/ (Dextrose) 50 mls @ 100 mls/hr IVPB DAILY [facility]; Protocol Last Admin: 01/17/20 09:49 Dose: 100 mls/hr Documented by: Azithromycin 250 mg/ Dextrose 250 mls @ 250 mls/hr IVPB DAILY [facility] Last Admin: 01/17/20 09:52 Dose: 250 mls/hr Documented by: Methadone HCl 40 mg/ Methadone (HCl 30 mg) 70 mg PO DAILY@0600 [facility] Last Admin: 01/17/20 06:03 Dose: 70 mg Documented by: Methylprednisolone Sodium Succinate (Solu-Medrol -) 40 mg IVPUSH BID [facility] Last Admin: 01/17/20 09:49 Dose: 40 mg Documented by: Multivitamins/Minerals/Vitamin C (Tab-A-Vit -) 1 tab PO DAILY [facility] Last Admin: 01/17/20 09:49 Dose: 1 tab Documented by: Quetiapine Fumarate (Seroquel -) 300 mg PO [facility] Last Admin: 01/16/20 21:10 Dose: 300 mg Documented by: Thiamine HCl (Vitamin B1 -) 100 mg PO BID [facility] Last Admin: 01/17/20 09:50 Dose: 100 mg Documented by: Verapamil HCl (Calan Sr -) 240 mg PO BID [facility] Last Admin: 01/17/20 09:52 Dose: 240 mg Documented by: Zinc Sulfate (Orazinc -) 220 mg PO BID [facility] Last Admin: 01/17/20 09:50 Dose: 220 mg Documented by: - Objective Vital Signs: Vital Signs Temperature 97.5 F L 01/17/20 05:00 Pulse Rate 94 H 01/17/20 09:00 Respiratory Rate 18 01/17/20 09:00 Blood Pressure 91/60 01/17/20 09:00 O2 Sat by Pulse Oximetry (%) 93 L 01/16/20 21:00 Constitutional: Yes: Other Cardiovascular: Yes: S1, S2 Respiratory: Yes: Poor Air Entry, Other (on nrb) Gastrointestinal: Yes: Normal Bowel Sounds, Soft Musculoskeletal: Yes: WNL Extremities: Yes: WNL Neurological: Yes: Alert Psychiatric: Yes: Other Labs: CBC, BMP 01/16/20 05:50 01/16/20 05:50 INR, PTT INR 1.48 (0.83-1.09) H 01/13/20 18:35 Fibrinogen 184.0 mg/dL (238-498) L 01/16/20 05:50 - ....Imaging Chest X-ray: Report Reviewed, Image Reviewed Assessment/Plan Problem List - Problems (1) Abnormal liver function test Code(s): R94.5 - ABNORMAL RESULTS OF LIVER FUNCTION STUDIES (2) Acute on chronic respiratory failure with hypoxemia Code(s): J96.21 - ACUTE AND CHRONIC RESPIRATORY FAILURE WITH HYPOXIA (3) Altered mental status Code(s): R41.82 - ALTERED MENTAL STATUS, UNSPECIFIED Qualifiers: Altered mental status type: disorientation Qualified Code(s): R41.0 - Disorientation, unspecified (4) Suspected COVID-19 virus infection Code(s): Z20.828 - CONTACT W AND EXPOSURE TO OTH VIRAL COMMUNICABLE DISEASES (5) Alcohol dependence Code(s): F10.20 - ALCOHOL DEPENDENCE, UNCOMPLICATED Qualifiers: Substance use status: uncomplicated Qualified Code(s): F10.20 - Alcohol dependence, uncomplicated (6) Anxiety and depression Code(s): F41.9 - ANXIETY DISORDER, UNSPECIFIED; F32.9 - MAJOR DEPRESSIVE DISORDER, SINGLE EPISODE, UNSPECIFIED (7) COPD (chronic obstructive pulmonary disease) Code(s): J44.9 - CHRONIC OBSTRUCTIVE PULMONARY DISEASE, UNSPECIFIED Qualifiers: COPD type: unspecified COPD Qualified Code(s): J44.9 - Chronic obstructive pulmonary disease, unspecified (8) GERD (gastroesophageal reflux disease) Code(s): K21.9 - GASTRO-ESOPHAGEAL REFLUX DISEASE WITHOUT ESOPHAGITIS Qualifiers: Esophagitis presence: esophagitis presence not specified Qualified Code(s): K21.9 - Gastro-esophageal reflux disease without esophagitis (9) HTN (hypertension) Code(s): I10 - ESSENTIAL (PRIMARY) HYPERTENSION Qualifiers: Hypertension type: essential hypertension Qualified Code(s): I10 - Essential (primary) hypertension (10) Hepatitis C Code(s): B19.20 - UNSPECIFIED VIRAL HEPATITIS C WITHOUT HEPATIC COMA Qualifiers: Hepatic coma status: without hepatic coma (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
[2020-01-17 11:36] LABS: ALBUMIN 2.6 g/dl (3.4-5.0); BILIRUBIN,TOTAL 1.3 mg/dL (0.2-1); BLOOD UREA NITROGEN 15.6 mg/dL (7-18); CREATININE 1.1 mg/dL (0.55-1.3); PHOSPHOROUS 2.9 mg/dL (2.5-4.9); POTASSIUM 4.4 mmol/L (3.5-5.1); TOT PROT 5.6 g/dl (6.4-8.2)
[2020-01-17 11:37] LABS: BASO % 0.1 % (0-2.0); HEMATOCRIT 44.1 % (35.4-49); HEMOGLOBIN 13.5 GM/dL (11.7-16.9); LYMPH % 5.9 % (8-40); MCH 26.8 pg (25.7-33.7); MCHC 30.6 g/dl (32.0-35.9); MEAN CELL VOLUME 87.5 fl (80-96); MEAN PLT VOLUME 10.9 fl (7.5-11.1); MONO % 6.8 % (3.8-10.2); NEUT % 87.2 % (42.8-82.8); PLATELET COUNT 96 K/MM3 (134-434); RBC 5.04 M/mm3 (4.00-5.60); RDW 21.4 % (11.9-15.9); WHITE BLOOD COUNT 16.2 K/mm3 (4.0-10.0)
--- NOTE | 2020-01-17 12:43 | PN.GI ---
GI Progress Note Subjective: Increased FiO2 demands No acute events Abdominal US revealed large gallstone without evidence of cholecystitis - Objective Vital Signs: Vital Signs Temperature 97.5 F L 01/17/20 05:00 Pulse Rate 94 H 01/17/20 09:00 Respiratory Rate 18 01/17/20 09:00 Blood Pressure 91/60 01/17/20 09:00 O2 Sat by Pulse Oximetry (%) 93 L 01/16/20 21:00 Constitutional: Calm Eyes: No: Sclera Icterus Cardiovascular: Yes: Regular Rate and Rhythm Respiratory: Yes: Diminished (at bases, poor insp effort) Gastrointestinal Inspection: No: Distention ...Auscultate: Yes: Normoactive Bowel Sounds ...Palpate: Yes: Soft. No: Tenderness (No grimacing upon palpation) ...Percussion: No: Tympanitic Edema: No (No LE edema) Neurological: Yes: Lethargy Labs: CBC, BMP 01/17/20 10:20 01/17/20 10:20 INR, PTT INR 1.48 (0.83-1.09) H 01/13/20 18:35 Fibrinogen 184.0 mg/dL (238-498) L 01/16/20 05:50 Assessment/Plan Continuing normalizing trend of LFTs Continue to monitor Avoid hepatotoxic agents Recall GI as needed. Will sign off Problem List - Problems (1) Abnormal liver function test Code(s): R94.5 - ABNORMAL RESULTS OF LIVER FUNCTION STUDIES
[2020-01-17 13:08] LABS: ANISOCYTOSIS 0; MACROCYTOSIS 1+; PLATELET ESTIMATE DECREASED
[2020-01-17 13:10] LABS: ARTERIAL BLD GAS O2 SATURATION 95.7 % (95-98); ARTERIAL BLOOD GAS BASE EXCESS 2.1 mmol/L (-2-2); ARTERIAL BLOOD GAS PCO2 43.9 mmHg (35-45); ARTERIAL BLOOD GAS PO2 80.2 mmHg (80-100)
[2020-01-17 13:15] LABS: ALLENS TEST POSITIVE
[2020-01-17] MEDS ORDERED: LORazepam 2 MG/ML SDV VIAL IVPUSH ONE (15:36)
[2020-01-17] MEDS ORDERED: LORazepam 2 MG/ML SDV VIAL ONE (15:39)
[2020-01-17] MEDS ORDERED: LORazepam 2 MG/ML SDV VIAL IM ONE ×2 (15:39→16:33)
--- NOTE | 2020-01-17 16:03 | PN ---
Physical Exam: SUBJECTIVE: Patient seen and examined at bedside. There were no acute events overnight. This AM he is alert but not participating in medical interview. OBJECTIVE: Vital Signs Temp Pulse Resp BP Pulse Ox 97.7 F 91 H 16 128/72 100 01/17/20 14:05 01/17/20 14:05 01/17/20 14:05 01/17/20 14:05 01/17/20 10:50 GENERAL: The patient is awake, alert, but not oriented, in no acute distress. HEAD: Normal with no signs of trauma. EYES: MAXIM, chemosis, sclera anicteric, conjunctiva clear. No ptosis. ENT: Ears normal, nares patent, oropharynx clear without exudates, moist mucous membranes. NECK: Trachea midline, full range of motion, supple. LUNGS: Equal rise and fall of the chest, no accessory muscle use. HEART: Regular rate and rhythm, S1, S2 without murmur, rub or gallop. ABDOMEN: Soft, nontender, nondistended, no guarding, no rebound, no hepatosplenomegaly, no masses. EXTREMITIES: 2+ pulses, warm, well-perfused, no edema. . SKIN: Warm, dry, normal turgor, no rashes or lesions noted Laboratory Results - last 24 hr 01/15/20 01/17/20 01/17/20 21:22 10:20 10:20 WBC 16.2 H RBC 5.04 Hgb 13.5 Hct 44.1 MCV 87.5 MCH 26.8 MCHC 30.6 L RDW 21.4 H Plt Count 96 L MPV 10.9 Absolute Neuts (auto) 14.1 H Neutrophils % 87.2 H Lymphocytes % 5.9 L D Monocytes % 6.8 Eosinophils % 0.0 Basophils % 0.1 Nucleated RBC % 0 Hypochromia 0 Platelet Estimate Decreased Polychromasia 1+ Poikilocytosis 1+ Anisocytosis 0 Microcytosis 0 Macrocytosis 1+ Acanthocytes (Spur) 1+ Schistocytes 1+ D-Dimer Anticoagulation Therapy Puncture Site ABG pH ABG pCO2 at Pt Temp ABG pO2 at Pt Temp ABG HCO3 ABG O2 Sat (Measured) ABG O2 Content ABG Base Excess Alex Test Patient On Oxygen O2 Delivery Device Oxygen Flow Rate Vent Mode Vent Rate Mechanical Rate PEEP Pressure Support Vent Sodium Potassium Chloride Carbon Dioxide Anion Gap BUN Creatinine Est GFR (CKD-EPI)AfAm Est GFR (CKD-EPI)NonAf Random Glucose Calcium Phosphorus Magnesium Ferritin Total Bilirubin AST ALT Alkaline Phosphatase Ammonia 26.30 LD Total C-Reactive Protein Total Protein Albumin Hep A IgM Ab Confirm Negative Hep Bs Antigen Negative Hep B Core IgM Ab Negative Hepatitis C Ab (EIA) >11.0 H 01/17/20 01/17/20 01/17/20 10:20 10:20 12:50 WBC RBC Hgb Hct MCV MCH MCHC RDW Plt Count MPV Absolute Neuts (auto) Neutrophils % Lymphocytes % Monocytes % Eosinophils % Basophils % Nucleated RBC % Hypochromia Platelet Estimate Polychromasia Poikilocytosis Anisocytosis Microcytosis Macrocytosis Acanthocytes (Spur) Schistocytes D-Dimer 900 H Anticoagulation Therapy No Result Required. Puncture Site Right radial ABG pH 7.40 ABG pCO2 at Pt Temp 43.9 ABG pO2 at Pt Temp 80.2 ABG HCO3 26.7 ABG O2 Sat (Measured) 95.7 ABG O2 Content 17.0 ABG Base Excess 2.1 H Alex Test Positive Patient On Oxygen Yes O2 Delivery Device Vent Oxygen Flow Rate 100% Vent Mode A/c Vent Rate 20 Mechanical Rate Vent PEEP 8.0 Pressure Support Vent 525 Sodium 142 Potassium 4.4 Chloride 107 Carbon Dioxide 29 Anion Gap 5 L BUN 15.6 Creatinine 1.1 Est GFR (CKD-EPI)AfAm 81.22 Est GFR (CKD-EPI)NonAf 70.07 Random Glucose 150 H Calcium 9.0 Phosphorus 2.9 Magnesium 2.0 Ferritin 227.0 Total Bilirubin 1.3 H AST 21 ALT 30 Alkaline Phosphatase 83 Ammonia LD Total 519 H C-Reactive Protein 1.6 H Total Protein 5.6 L Albumin 2.6 L Hep A IgM Ab Confirm Hep Bs Antigen Hep B Core IgM Ab Hepatitis C Ab (EIA) Active Medications Generic Name Dose Route Start Last Admin Trade Name Freq PRN Reason Stop Dose Admin Albuterol Sulfate 2 puff 01/13/20 19:04 01/13/20 19:11 Ventolin Hfa Inhaler - IH 2 puff Q4H PRN Administration SHORT OF BREATH/WHEEZING Ascorbic Acid 500 mg 01/14/20 10:00 01/17/20 09:50 Vitamin C - PO 500 mg BID [facility]ICO Administration Cholecalciferol 1,000 unit 01/14/20 10:00 01/17/20 09:49 Vitamin D3 - PO 1,000 unit DAILY [facility] Administration Enoxaparin Sodium 90 mg 01/17/20 22:00 Lovenox - SQ BID [facility] Famotidine 20 mg 01/14/20 14:30 01/17/20 09:49 Pepcid - PO 20 mg DAILY [facility] Administration Folic Acid 1 mg 01/14/20 10:00 01/17/20 09:49 Folic Acid - PO 1 mg DAILY [facility] Administration Ceftriaxone Sodium 1 gm/ 50 mls @ 100 mls/hr 01/14/20 10:00 01/17/20 09:49 Dextrose IVPB 100 mls/hr DAILY [facility] Administration Protocol Azithromycin 250 mg/ Dextrose 250 mls @ 250 mls/hr 01/14/20 10:00 01/17/20 09:52 IVPB 250 mls/hr DAILY [facility] Administration Methadone HCl 40 mg/ Methadone 70 mg 01/16/20 10:00 01/17/20 06:03 HCl 30 mg PO 70 mg DAILY@0600 [facility] Administration Methylprednisolone Sodium Succinate 40 mg 01/14/20 11:15 01/17/20 09:49 Solu-Medrol - IVPUSH 40 mg BID [facility] Administration Multivitamins/Minerals/Vitamin C 1 tab 01/14/20 10:00 01/17/20 09:49 Tab-A-Vit - PO 1 tab DAILY [facility] Administration Quetiapine Fumarate 300 mg 01/16/20 02:26 01/16/20 21:10 Seroquel - PO 300 mg HS [facility] Administration Thiamine HCl 100 mg 01/14/20 22:00 01/17/20 09:50 Vitamin B1 - PO 100 mg BID [facility] Administration Verapamil HCl 240 mg 01/14/20 23:45 01/17/20 09:52 Calan Sr - PO 240 mg BID [facility] Administration Zinc Sulfate 220 mg 01/14/20 10:00 01/17/20 09:50 Orazinc - PO 220 mg BID [facility] Administration ASSESSMENT/PLAN: 64 y/o male PMH HTN, olysubstance abuse (etoh and IVDU-Heroin), COPD on 3L at baseline, GERD who was BIBEMS for sob, admitted for care of acute hypoxic respiratory failure 2/2 Covid-19 PNA. # Acute hypoxic respiratory failure 2/2 Covid-19 PNA - CoVid-19+ - QTC 416 - Saturating at 93% on non-rebreather - Pt becomes highly agitated and then hypoxic: consider 0.5 haldol or 1 mg ativan - Solumedrol 40 mg BID, lovenox 40 mg bid - Azithromycin - Inflammatory markers all down today - Vitamin C, vitamin D, and zinc - Isolation precautions: Contact, droplet, airborne - Strict hand washing - Consult ID # Polysubstance abuse, ?underlying psychotic disturbance - CIWA day 4 - Librium protocol - Thiamine, folate, multivitamin - Methadone 70 mg qd - Seroquel 300 mg hs # R/O DIC -Thrombocytopenia in the setting of elevated PTT and D-dimer with decreased fibrinogen -Trend labs to evaluate further # Hep C Abs+ - H/o IVDU - Out-pt GI # HTN - Verapamil 250 mg BID # FEN - PO - Cont. to monitor - Low sodium diet # DVT ppx - Lovenox 40 mg bid # Disposition - Saturating at 93% on non-rebreather - Full code Steven Martin MD Visit type - Emergency Visit Emergency Visit: No - New Patient This patient is new to me today: Yes Date on this admission: 01/17/20 - Critical Care Critical Care patient: No ATTENDING PHYSICIAN STATEMENT I saw and evaluated the patient. I reviewed the resident's note and discussed the case with the resident. I agree with the resident's findings and plan as documented. SUBJECTIVE: OBJECTIVE: ASSESSMENT AND PLAN:
--- NOTE | 2020-01-17 16:45 | PN ---
Teaching Attending Note Name of Resident: Setven Martin ATTENDING PHYSICIAN STATEMENT I saw and evaluated the patient. I reviewed the resident's note and discussed the case with the resident. I agree with the resident's findings and plan as documented. SUBJECTIVE: seen earlier this am after his methadone. , was lethargic and minimally cooperative. denied any pain. OBJECTIVE: lethargic. partially cooperative with exam. Lungs: decreased breath sounds at bases. good air entry at apex b/l. CV: RRR Abd: sfot, NT, Nd. Ext : No edema or erythema on upper or lower extremities ASSESSMENT AND PLAN: 64 y/o man with h/o polysubstance abuse , COPD on 3-4 L of O2, HTN , GERD, who was brought here by EMS for hypoxia and is being treated for acute hypoxic resp failure and COVID 19 infection 1- ACute hypoxic resp failure 2- COVID 19 infection 3- b/l PNA 4-Elevated trop 5-Transaminitis 6-dilated pancreatic duct 7-gall stone but no cholecytitis 8- ETOH withdrawal 9- H/o oipid dependence. on Methadone maintenance 10 - AMS : metabolic encephalopathy 11- thrombocytopenia Plan : - was not able to get a good Sat O2, while in room . ABG was done .PAo2 80. - lethargy is likely due to methadone sedation - later this afternooon, patient became very agitated . likely due to bad ETOH withdrawal - use benzos and cont librium protocol - cont methadone and seroquil - cont NRB - cont ceftriaxone and azithro, steroids and Lovenox - troponin decreased - Noted elevated PTT, and decreased Fibrinogen and elevated d dimer and thrombocytopenia . repeat labs to evaluate for DIC. - US reviwed. NO evidence of cholecystitis and no tenderness in RUQ. - monitor closely
[2020-01-17] MEDS: ENOXAPARIN NA (PORCINE) 100 MG/1 ML DISP.SYRIN SQ SCH (21:48)
[2020-01-17] MEDS: QUEtiapine FUMARATE 300 MG TABLET PO SCH (21:49)
[2020-01-18] MEDS ORDERED: HALOPERIDOL LACTATE 5 MG/ML IM ONE (00:02)
[2020-01-18 07:39] LABS: HEMATOCRIT 42.1 % (35.4-49); HEMOGLOBIN 13.1 GM/dL (11.7-16.9); MCH 26.8 pg (25.7-33.7); MEAN CELL VOLUME 86.4 fl (80-96); MEAN PLT VOLUME 10.9 fl (7.5-11.1); PLATELET COUNT 92 K/MM3 (134-434); RBC 4.88 M/mm3 (4.00-5.60); RDW 21.1 % (11.9-15.9); WHITE BLOOD COUNT 11.8 K/mm3 (4.0-10.0)
[2020-01-18 08:37] LABS: ALBUMIN 2.5 g/dl (3.4-5.0); BILIRUBIN,TOTAL 1.6 mg/dL (0.2-1); BLOOD UREA NITROGEN 16.7 mg/dL (7-18); CALCIUM 8.7 mg/dL (8.5-10.1); MAGNESIUM 1.8 mg/dL (1.8-2.4); PHOSPHOROUS 3.4 mg/dL (2.5-4.9); POTASSIUM 4.6 mmol/L (3.5-5.1); TOT PROT 5.6 g/dl (6.4-8.2)
[2020-01-18] MEDS ORDERED: METHADONE HCL 40 MG DISPERSABLE TABLET ONE (08:51)
[2020-01-18] MEDS ORDERED: METHADONE HCL 10 MG TABLET ONE (08:52)
[2020-01-18] MEDS ORDERED: PT OWN MED DRAWER 7, Y5N ONE (08:53)
[2020-01-18] MEDS ORDERED: cefTRIAXone SODIUM 1 GM VIAL ONE (08:53)
[2020-01-18] MEDS ORDERED: DEXTROSE 5%-WATER - 50 ML IVPB ONE (08:53)
[2020-01-18] MEDS: METHADONE 40 MG, METHADONE 30 MG PO SCH (09:29)
[2020-01-18] MEDS: VERAPAMIL HCL 240 MG E.R. TABLET PO SCH ×2 (10:17→23:13)
[2020-01-18] MEDS: CHOLECALCIFEROL (VIT D3) 1,000 UNIT (25 MCG) TABLET PO SCH (10:17)
[2020-01-18] MEDS: THIAMINE HCL 100 MG TABLET (FP) PO SCH ×2 (10:18→23:07)
[2020-01-18] MEDS: FOLIC ACID 1 MG TABLET (FP) PO SCH (10:18)
[2020-01-18] MEDS: FAMOTIDINE 20 MG TABLET PO SCH (10:18)
[2020-01-18] MEDS: ZINC SULFATE 220 MG CAPSULE (FP) PO SCH ×2 (10:18→23:07)
[2020-01-18] MEDS: MULTIVITAMINS (DAILY MVI) TABLET (FP) PO SCH (10:18)
[2020-01-18] MEDS: ENOXAPARIN NA (PORCINE) 100 MG/1 ML DISP.SYRIN SQ SCH ×2 (10:18→23:07)
[2020-01-18] MEDS: ASCORBIC ACID 500 MG TABLET (FP) PO SCH ×2 (10:18→23:08)
--- NOTE | 2020-01-18 11:21 | PN ---
Progress Note, Physician History of Present Illness: PULMONARY NO CHANGE ,LETHARGIC ON NIPPV,O2 SAT 88-90% - Current Medication List Current Medications: Active Medications Albuterol Sulfate (Ventolin Hfa Inhaler -) 2 puff IH Q4H PRN PRN Reason: SHORT OF BREATH/WHEEZING Last Admin: 01/13/20 19:11 Dose: 2 puff Documented by: Ascorbic Acid (Vitamin C -) 500 mg PO BID [facility] Last Admin: 01/18/20 10:18 Dose: 500 mg Documented by: Cholecalciferol (Vitamin D3 -) 1,000 unit PO DAILY [facility] Last Admin: 01/18/20 10:17 Dose: 1,000 unit Documented by: Enoxaparin Sodium (Lovenox -) 90 mg SQ BID [facility] Last Admin: 01/18/20 10:18 Dose: 90 mg Documented by: Famotidine (Pepcid -) 20 mg PO DAILY [facility] Last Admin: 01/18/20 10:18 Dose: 20 mg Documented by: Folic Acid (Folic Acid -) 1 mg PO DAILY [facility] Last Admin: 01/18/20 10:18 Dose: 1 mg Documented by: Ceftriaxone Sodium 1 gm/ (Dextrose) 50 mls @ 100 mls/hr IVPB DAILY [facility]; Protocol Last Admin: 01/17/20 09:49 Dose: 100 mls/hr Documented by: Azithromycin 250 mg/ Dextrose 250 mls @ 250 mls/hr IVPB DAILY [facility] Last Admin: 01/17/20 09:52 Dose: 250 mls/hr Documented by: Methadone HCl 40 mg/ Methadone (HCl 30 mg) 70 mg PO DAILY@0600 [facility] Last Admin: 01/18/20 09:29 Dose: 70 mg Documented by: Methylprednisolone Sodium Succinate (Solu-Medrol -) 40 mg IVPUSH BID [facility] Last Admin: 01/17/20 21:49 Dose: 40 mg Documented by: Multivitamins/Minerals/Vitamin C (Tab-A-Vit -) 1 tab PO DAILY [facility] Last Admin: 01/18/20 10:18 Dose: 1 tab Documented by: Quetiapine Fumarate (Seroquel -) 300 mg PO HS [facility] Last Admin: 01/17/20 21:49 Dose: Not Given Documented by: Thiamine HCl (Vitamin B1 -) 100 mg PO BID [facility] Last Admin: 01/18/20 10:18 Dose: 100 mg Documented by: Verapamil HCl (Calan Sr -) 240 mg PO BID [facility] Last Admin: 01/18/20 10:17 Dose: 240 mg Documented by: Zinc Sulfate (Orazinc -) 220 mg PO BID [facility] Last Admin: 01/18/20 10:18 Dose: 220 mg Documented by: - Objective Vital Signs: Vital Signs Temperature 97.8 F 01/18/20 10:00 Pulse Rate 105 H 01/18/20 10:00 Respiratory Rate 18 01/18/20 10:00 Blood Pressure 121/84 01/18/20 10:00 O2 Sat by Pulse Oximetry (%) 90 L 01/18/20 09:00 Constitutional: Yes: Well Nourished, Other (LETHARGIC) HENT: Yes: WNL Neck: Yes: WNL Cardiovascular: Yes: Regular Rate and Rhythm, S1, S2 Respiratory: Yes: Diminished Gastrointestinal: Yes: Normal Bowel Sounds, Soft Extremities: Yes: WNL Edema: No Labs: CBC, BMP 01/18/20 06:00 01/18/20 06:00 INR, PTT INR 1.48 (0.83-1.09) H 01/13/20 18:35 Fibrinogen 252.0 mg/dL (238-498) 01/18/20 06:00 Laboratory Tests 01/18/20 01/18/20 06:00 06:00 D-Dimer 1017 H Ferritin 233.2 LD Total 501 H C-Reactive Protein 3.0 H Problem List - Problems (1) Acute on chronic respiratory failure with hypoxemia Code(s): J96.21 - ACUTE AND CHRONIC RESPIRATORY FAILURE WITH HYPOXIA (2) Altered mental status Code(s): R41.82 - ALTERED MENTAL STATUS, UNSPECIFIED Qualifiers: Altered mental status type: disorientation Qualified Code(s): R41.0 - Disorientation, unspecified (3) Suspected COVID-19 virus infection Code(s): Z20.828 - CONTACT W AND EXPOSURE TO OTH VIRAL COMMUNICABLE DISEASES (4) Hypertension Code(s): I10 - ESSENTIAL (PRIMARY) HYPERTENSION Assessment/Plan IMP ACUTE ON CHRONIC HYPOXEMIC RESPIRATORY FAILURE COVID 19 PNEUMONIA HTN GERD ALTERED MENTAL STATUS + TROPONIN THROMBOCYTOPENIA PLAN SUPPLEMENTAL O2 NIPPV ABX PER ID MONITOR LYTES TREND TROPONIN CRP,FERRATIN.LDH COVID SEROLOGY PENDING ALBUTEROL INHALER SPIRIVA MONITOR LYTES,CBC,PLT CT LIBRIUM LOVENOX PE DOSE DR CAMPUZANO Problem List - Problems (1) Acute on chronic respiratory failure with hypoxemia Code(s): J96.21 - ACUTE AND CHRONIC RESPIRATORY FAILURE WITH HYPOXIA (2) Altered mental status Code(s): R41.82 - ALTERED MENTAL STATUS, UNSPECIFIED Qualifiers: Altered mental status type: disorientation Qualified Code(s): R41.0 - Disorientation, unspecified (3) Suspected COVID-19 virus infection Code(s): Z20.828 - CONTACT W AND EXPOSURE TO OTH VIRAL COMMUNICABLE DISEASES (4) Hypertension Code(s): I10 - ESSENTIAL (PRIMARY) HYPERTENSION
--- NOTE | 2020-01-18 11:44 | PN ---
Progress Note, Physician History of Present Illness: continues to require support weakness - Current Medication List Current Medications: Active Medications Albuterol Sulfate (Ventolin Hfa Inhaler -) 2 puff IH Q4H PRN PRN Reason: SHORT OF BREATH/WHEEZING Last Admin: 01/13/20 19:11 Dose: 2 puff Documented by: Ascorbic Acid (Vitamin C -) 500 mg PO BID [facility] Last Admin: 01/18/20 10:18 Dose: 500 mg Documented by: Cholecalciferol (Vitamin D3 -) 1,000 unit PO DAILY [facility] Last Admin: 01/18/20 10:17 Dose: 1,000 unit Documented by: Enoxaparin Sodium (Lovenox -) 90 mg SQ BID [facility] Last Admin: 01/18/20 10:18 Dose: 90 mg Documented by: Famotidine (Pepcid -) 20 mg PO DAILY [facility] Last Admin: 01/18/20 10:18 Dose: 20 mg Documented by: Folic Acid (Folic Acid -) 1 mg PO DAILY [facility] Last Admin: 01/18/20 10:18 Dose: 1 mg Documented by: Ceftriaxone Sodium 1 gm/ (Dextrose) 50 mls @ 100 mls/hr IVPB DAILY [facility]; Protocol Last Admin: 01/17/20 09:49 Dose: 100 mls/hr Documented by: Azithromycin 250 mg/ Dextrose 250 mls @ 250 mls/hr IVPB DAILY [facility] Last Admin: 01/17/20 09:52 Dose: 250 mls/hr Documented by: Methadone HCl 40 mg/ Methadone (HCl 30 mg) 70 mg PO DAILY@0600 [facility] Last Admin: 01/18/20 09:29 Dose: 70 mg Documented by: Methylprednisolone Sodium Succinate (Solu-Medrol -) 40 mg IVPUSH BID [facility] Last Admin: 01/17/20 21:49 Dose: 40 mg Documented by: Multivitamins/Minerals/Vitamin C (Tab-A-Vit -) 1 tab PO DAILY [facility] Last Admin: 01/18/20 10:18 Dose: 1 tab Documented by: Quetiapine Fumarate (Seroquel -) 300 mg PO [facility] Last Admin: 01/17/20 21:49 Dose: Not Given Documented by: Thiamine HCl (Vitamin B1 -) 100 mg PO BID [facility] Last Admin: 01/18/20 10:18 Dose: 100 mg Documented by: Verapamil HCl (Calan Sr -) 240 mg PO BID [facility] Last Admin: 01/18/20 10:17 Dose: 240 mg Documented by: Zinc Sulfate (Orazinc -) 220 mg PO BID [facility] Last Admin: 01/18/20 10:18 Dose: 220 mg Documented by: - Objective Vital Signs: Vital Signs Temperature 97.8 F 01/18/20 10:00 Pulse Rate 105 H 01/18/20 10:00 Respiratory Rate 18 01/18/20 10:00 Blood Pressure 121/84 01/18/20 10:00 O2 Sat by Pulse Oximetry (%) 90 L 01/18/20 09:00 Constitutional: Yes: Other Cardiovascular: Yes: S1, S2 Respiratory: Yes: On BiPap, Other Gastrointestinal: Yes: Normal Bowel Sounds, Soft Musculoskeletal: Yes: WNL Extremities: Yes: Other Neurological: Yes: Lethargy Labs: CBC, BMP 01/18/20 06:00 01/18/20 06:00 INR, PTT INR 1.48 (0.83-1.09) H 01/13/20 18:35 Fibrinogen 252.0 mg/dL (238-498) 01/18/20 06:00 Assessment/Plan Problem List - Problems (1) Abnormal liver function test Code(s): R94.5 - ABNORMAL RESULTS OF LIVER FUNCTION STUDIES (2) Acute on chronic respiratory failure with hypoxemia Code(s): J96.21 - ACUTE AND CHRONIC RESPIRATORY FAILURE WITH HYPOXIA (3) Altered mental status Code(s): R41.82 - ALTERED MENTAL STATUS, UNSPECIFIED Qualifiers: Altered mental status type: disorientation Qualified Code(s): R41.0 - Disorientation, unspecified (4) Suspected COVID-19 virus infection Code(s): Z20.828 - CONTACT W AND EXPOSURE TO OTH VIRAL COMMUNICABLE DISEASES (5) Alcohol dependence Code(s): F10.20 - ALCOHOL DEPENDENCE, UNCOMPLICATED Qualifiers: Substance use status: uncomplicated Qualified Code(s): F10.20 - Alcohol de pendence, uncomplicated (6) Anxiety and depression Code(s): F41.9 - ANXIETY DISORDER, UNSPECIFIED; F32.9 - MAJOR DEPRESSIVE DISORDER, SINGLE EPISODE, UNSPECIFIED (7) COPD (chronic obstructive pulmonary disease) Code(s): J44.9 - CHRONIC OBSTRUCTIVE PULMONARY DISEASE, UNSPECIFIED Qualifiers: COPD type: unspecified COPD Qualified Code(s): J44.9 - Chronic obstructive pulmonary disease, unspecified (8) GERD (gastroesophageal reflux disease) Code(s): K21.9 - GASTRO-ESOPHAGEAL REFLUX DISEASE WITHOUT ESOPHAGITIS Qualifiers: Esophagitis presence: esophagitis presence not specified Qualified Code(s): K21.9 - Gastro-esophageal reflux disease without esophagitis (9) HTN (hypertension) Code(s): I10 - ESSENTIAL (PRIMARY) HYPERTENSION Qualifiers: Hypertension type: essential hypertension Qualified Code(s): I10 - Essential (primary) hypertension (10) Hepatitis C Code(s): B19.20 - UNSPECIFIED VIRAL HEPATITIS C WITHOUT HEPATIC COMA Qualifiers: Hepatic coma status: without hepatic coma (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
[2020-01-18] MEDS: methylPREDNISolone NA SUCC 40 MG/1 ML VIAL IVPUSH SCH ×2 (12:19→23:07)
[2020-01-18] MEDS: AZITHROMYCIN IVPB 250 MG in DEXTROSE 5%-WATER - 250 ML IVPB SCH (12:19)
[2020-01-18] MEDS: CEFTRIAXONE 1 GM in DEXTROSE 5%-WATER - 50 ML IVPB SCH (12:19)
--- NOTE | 2020-01-18 14:20 | PN ---
Physical Exam: SUBJECTIVE: Patient seen and examined at bedside. There were no acute events overnight. This AM he is more alert, oriented to self and time but not able to participate in medical interview. OBJECTIVE: Vital Signs Temp Pulse Resp BP Pulse Ox 98 F 108 H 24 H 134/81 88 L 01/18/20 14:15 01/18/20 14:26 01/18/20 14:15 01/18/20 14:15 01/18/20 14:26 GENERAL: The patient is awake, alert, but oriented only to person and time, in no acute distress. HEAD: Normal with no signs of trauma. EYES: MAXIM, chemosis, sclera anicteric, conjunctiva clear. No ptosis. ENT: Ears normal, nares patent, oropharynx clear without exudates, moist mucous membranes. NECK: Trachea midline, full range of motion, supple. LUNGS: Equal rise and fall of the chest, no accessory muscle use. HEART: Regular rate and rhythm, S1, S2 without murmur, rub or gallop. ABDOMEN: Soft, nontender, nondistended, no guarding, no rebound, no hepatosplenomegaly, no masses. EXTREMITIES: 2+ pulses, warm, well-perfused, no edema. . SKIN: Warm, dry, normal turgor, no rashes or lesions noted Laboratory Results - last 24 hr 01/18/20 01/18/20 01/18/20 06:00 06:00 06:00 WBC 11.8 H RBC 4.88 Hgb 13.1 Hct 42.1 MCV 86.4 MCH 26.8 MCHC 31.0 L RDW 21.1 H Plt Count 92 L MPV 10.9 PTT (Actin FS) Fibrinogen D-Dimer 1017 H Sodium 140 Potassium 4.6 Chloride 106 Carbon Dioxide 26 Anion Gap 8 BUN 16.7 Creatinine 1.0 Est GFR (CKD-EPI)AfAm 91.13 Est GFR (CKD-EPI)NonAf 78.63 Random Glucose 127 H Calcium 8.7 Phosphorus 3.4 Magnesium 1.8 Ferritin 233.2 Total Bilirubin 1.6 H AST 24 ALT 29 Alkaline Phosphatase 78 LD Total 501 H Total Protein 5.6 L Albumin 2.5 L 01/18/20 01/18/20 06:00 06:00 WBC RBC Hgb Hct MCV MCH MCHC RDW Plt Count MPV PTT (Actin FS) 31.0 Fibrinogen 252.0 D-Dimer Sodium Potassium Chloride Carbon Dioxide Anion Gap BUN Creatinine Est GFR (CKD-EPI)AfAm Est GFR (CKD-EPI)NonAf Random Glucose Calcium Phosphorus Magnesium Ferritin Total Bilirubin AST ALT Alkaline Phosphatase LD Total Total Protein Albumin Active Medications Generic Name Dose Route Start Last Admin Trade Name Freq PRN Reason Stop Dose Admin Albuterol Sulfate 2 puff 01/13/20 19:04 01/13/20 19:11 Ventolin Hfa Inhaler - IH 2 puff Q4H PRN Administration SHORT OF BREATH/WHEEZING Ascorbic Acid 500 mg 01/14/20 10:00 01/18/20 10:18 Vitamin C - PO 500 mg BID NICO Administration Atorvastatin Calcium 80 mg 01/18/20 22:00 Lipitor - PO HS [facility] Cholecalciferol 1,000 unit 01/14/20 10:00 01/18/20 10:17 Vitamin D3 - PO 1,000 unit DAILY NICO Administration Enoxaparin Sodium 90 mg 01/17/20 22:00 01/18/20 10:18 Lovenox - SQ 90 mg BID NICO Administration Famotidine 20 mg 01/14/20 14:30 01/18/20 10:18 Pepcid - PO 20 mg DAILY NICO Administration Folic Acid 1 mg 01/14/20 10:00 01/18/20 10:18 Folic Acid - PO 1 mg DAILY NICO Administration Ceftriaxone Sodium 1 gm/ 50 mls @ 100 mls/hr 01/14/20 10:00 01/18/20 12:19 Dextrose IVPB 100 mls/hr DAILY NICO Administration Protocol Azithromycin 250 mg/ Dextrose 250 mls @ 250 mls/hr 01/14/20 10:00 01/18/20 12:19 IVPB 250 mls/hr DAILY NICO Administration Methadone HCl 40 mg/ Methadone 70 mg 01/16/20 10:00 01/18/20 09:29 HCl 30 mg PO 70 mg DAILY@0600 [facility] Administration Methylprednisolone Sodium Succinate 40 mg 01/14/20 11:15 01/18/20 12:19 Solu-Medrol - IVPUSH 40 mg BID [facility]ICO Administration Multivitamins/Minerals/Vitamin C 1 tab 01/14/20 10:00 01/18/20 10:18 Tab-A-Vit - PO 1 tab DAILY [facility] Administration Quetiapine Fumarate 300 mg 01/16/20 02:26 01/17/20 21:49 Seroquel - PO Not Given HS [facility] Tamsulosin HCl 0.4 mg 01/19/20 08:30 Flomax - PO DAILY@0830 [facility] Thiamine HCl 100 mg 01/14/20 22:00 01/18/20 10:18 Vitamin B1 - PO 100 mg BID NICO Administration Verapamil HCl 240 mg 01/14/20 23:45 01/18/20 10:17 Calan Sr - PO 240 mg BID [facility] Administration Zinc Sulfate 220 mg 01/14/20 10:00 01/18/20 10:18 Orazinc - PO 220 mg BID NICO Administration ASSESSMENT/PLAN: 64 y/o male PMH HTN, olysubstance abuse (etoh and IVDU-Heroin), COPD on 3L at baseline, GERD who was BIBEMS for sob, admitted for care of acute hypoxic respiratory failure 2/ Covid-19 PNA. # Acute hypoxic respiratory failure 2/ Covid-19 PNA - CoVid-19+ - QTC 400 - Saturating at 95% on CPAP - Pt becomes highly agitated and then hypoxic: consider 0.5 haldol or 1 mg ativan - Solumedrol 40 mg BID, lovenox 40 mg bid - Azithromycin - D-dimer increased. Cont. to monitor inflammatory markers - Vitamin C, vitamin D, and zinc - Isolation precautions: Contact, droplet, airborne - Strict hand washing - Consult ID # Polysubstance abuse, ?underlying psychotic disturbance - Librium protocol - Consider ativan when pt is anxious and removing mask - Thiamine, folate, multivitamin - Methadone 70 mg qd - Seroquel 300 mg hs # Hep C Abs+ - H/o IVDU - Out-pt GI # HTN - Verapamil 250 mg BID # FEN - PO - Cont. to monitor - Low sodium diet # DVT ppx - Lovenox 40 mg bid # Disposition - Saturating at 95% on CPAP - Full code Steven Martin MD Visit type - Emergency Visit Emergency Visit: No - New Patient This patient is new to me today: No - Critical Care Critical Care patient: No ATTENDING PHYSICIAN STATEMENT I saw and evaluated the patient. I reviewed the resident's note and discussed the case with the resident. I agree with the resident's findings and plan as documented. SUBJECTIVE: OBJECTIVE: ASSESSMENT AND PLAN:
[2020-01-18] MEDS ORDERED: LORazepam 2 MG/ML SDV VIAL IM ONE (16:30)
--- NOTE | 2020-01-18 18:43 | PN ---
Teaching Attending Note Name of Resident: Steven Martin ATTENDING PHYSICIAN STATEMENT I saw and evaluated the patient. I reviewed the resident's note and discussed the case with the resident. I agree with the resident's findings and plan as documented. SUBJECTIVE: Events over night noted fro placing him on CPAP. OBJECTIVE: lethargic but more awake compared to yesterday. talks but hard to understand through the mask Lungs: decreased breath sounds at bases. good air entry at apex b/l. CV: RRR Abd: soft, NT, Nd. Ext : No edema or erythema on upper or lower extremities ASSESSMENT AND PLAN: 64 y/o man with h/o polysubstance abuse , COPD on 3-4 L of O2, HTN , GERD, who was brought here by EMS for hypoxia and is being treated for acute hypoxic resp failure and COVID 19 infection 1- Acute hypoxic resp failure. 2- COVID 19 infection 3- b/l PNA 4- Elevated trop 5-Transaminitis 6-dilated pancreatic duct 7-gall stone but no cholecytitis 8- ETOH withdrawal 9- H/o oipid dependence. on Methadone maintenance 10 - AMS : metabolic encephalopathy 11- thrombocytopenia Plan : - cont CPap - cont librium protocol - cont methadone and seroquel . hold for sedation - cont NRB - cont ceftriaxone and azithro, steroids and Lovenox - will d/w ID stopping azithro ( day 5 today ) - QTC 390 - fibrinogen and ptt are normal today . d-dimer is up - monitor closely [facility]LOC
[2020-01-18] MEDS: ATORVASTATIN CA 80 MG TABLET (FP) PO SCH (23:07)
[2020-01-18] MEDS: QUEtiapine FUMARATE 300 MG TABLET PO SCH (23:07)
[2020-01-19] MEDS ORDERED: METHADONE HCL 40 MG DISPERSABLE TABLET ONE (05:52)
[2020-01-19] MEDS ORDERED: METHADONE HCL 10 MG TABLET ONE (05:52)
[2020-01-19] MEDS: METHADONE 40 MG, METHADONE 30 MG PO SCH (06:32)
[2020-01-19 09:42] LABS: ARTERIAL BLD GAS O2 SATURATION 78.7 % (95-98); ARTERIAL BLOOD GAS BASE EXCESS 4.3 mmol/L (-2-2); ARTERIAL BLOOD GAS PCO2 56.6 mmHg (35-45); ARTERIAL BLOOD GAS pH 7.35 (7.35-7.45)
[2020-01-19 09:43] LABS: ALLENS TEST POSITIVE
[2020-01-19 09:47] LABS: ARTERIAL BLOOD GAS PO2 49.5 mmHg (80-100)
[2020-01-19] MEDS ORDERED: METHADONE HCL 40 MG DISPERSABLE TABLET PO SCH (10:16)
[2020-01-19] MEDS ORDERED: PT OWN MED DRAWER 7, Y5N ONE ×2 (10:23→20:24)
[2020-01-19] MEDS ORDERED: DEXTROSE 5%-WATER - 50 ML IVPB ONE (10:24)
[2020-01-19] MEDS ORDERED: cefTRIAXone SODIUM 1 GM VIAL ONE (10:24)
--- NOTE | 2020-01-19 11:07 | PN ---
Progress Note, Physician History of Present Illness: lethargic on bipap - Current Medication List Current Medications: Active Medications Albuterol Sulfate (Ventolin Hfa Inhaler -) 2 puff IH Q4H PRN PRN Reason: SHORT OF BREATH/WHEEZING Last Admin: 01/13/20 19:11 Dose: 2 puff Documented by: Ascorbic Acid (Vitamin C -) 500 mg PO BID [facility] Last Admin: 01/18/20 23:08 Dose: 500 mg Documented by: Aspirin (Asa -) 81 mg PO DAILY [facility] Atorvastatin Calcium (Lipitor -) 80 mg PO HS [facility] Last Admin: 01/18/20 23:07 Dose: 80 mg Documented by: Cholecalciferol (Vitamin D3 -) 1,000 unit PO DAILY [facility] Last Admin: 01/18/20 10:17 Dose: 1,000 unit Documented by: Enoxaparin Sodium (Lovenox -) 90 mg SQ BID [facility] Last Admin: 01/18/20 23:07 Dose: 90 mg Documented by: Famotidine (Pepcid -) 20 mg PO DAILY [facility] Last Admin: 01/18/20 10:18 Dose: 20 mg Documented by: Folic Acid (Folic Acid -) 1 mg PO DAILY [facility] Last Admin: 01/18/20 10:18 Dose: 1 mg Documented by: Ceftriaxone Sodium 1 gm/ (Dextrose) 50 mls @ 100 mls/hr IVPB DAILY [facility]; Protocol Last Admin: 01/18/20 12:19 Dose: 100 mls/hr Documented by: Azithromycin 250 mg/ Dextrose 250 mls @ 250 mls/hr IVPB DAILY [facility] Last Admin: 01/18/20 12:19 Dose: 250 mls/hr Documented by: Methadone HCl 40 mg/ Methadone (HCl 10 mg/ Methadone HCl 5 mg) 55 mg PO DAILY@0600 [facility] Methylprednisolone Sodium Succinate (Solu-Medrol -) 40 mg IVPUSH BID [facility] Last Admin: 01/18/20 23:07 Dose: 40 mg Documented by: Multivitamins/Minerals/Vitamin C (Tab-A-Vit -) 1 tab PO DAILY [facility] Last Admin: 01/18/20 10:18 Dose: 1 tab Documented by: Quetiapine Fumarate (Seroquel -) 300 mg PO [facility] Last Admin: 01/18/20 23:07 Dose: 300 mg Documented by: Tamsulosin HCl (Flomax -) 0.4 mg PO DAILY@0830 [facility] Thiamine HCl (Vitamin B1 -) 100 mg PO BID [facility] Last Admin: 01/18/20 23:07 Dose: 100 mg Documented by: Verapamil HCl (Calan Sr -) 240 mg PO BID [facility] Last Admin: 01/18/20 23:13 Dose: 240 mg Documented by: Zinc Sulfate (Orazinc -) 220 mg PO BID [facility] Last Admin: 01/18/20 23:07 Dose: 220 mg Documented by: - Objective Vital Signs: Vital Signs Temperature 97 F L 01/19/20 09:00 Pulse Rate 76 01/19/20 09:00 Respiratory Rate 20 01/19/20 09:00 Blood Pressure 100/70 01/19/20 09:00 O2 Sat by Pulse Oximetry (%) 95 01/19/20 10:30 Constitutional: Yes: Other Cardiovascular: Yes: S1, S2 Respiratory: Yes: On BiPap, Poor Air Entry Gastrointestinal: Yes: Normal Bowel Sounds, Soft Musculoskeletal: Yes: WNL Extremities: Yes: WNL Neurological: Yes: Lethargy Labs: CBC, BMP 01/18/20 06:00 01/18/20 06:00 INR, PTT INR 1.48 (0.83-1.09) H 01/13/20 18:35 Fibrinogen 252.0 mg/dL (238-498) 01/18/20 06:00 Assessment/Plan Problem List - Problems (1) Abnormal liver function test Code(s): R94.5 - ABNORMAL RESULTS OF LIVER FUNCTION STUDIES (2) Acute on chronic respiratory failure with hypoxemia Code(s): J96.21 - ACUTE AND CHRONIC RESPIRATORY FAILURE WITH HYPOXIA (3) Altered mental status Code(s): R41.82 - ALTERED MENTAL STATUS, UNSPECIFIED Qualifiers: Altered mental status type: disorientation Qualified Code(s): R41.0 - Disorientation, unspecified (4) Suspected COVID-19 virus infection Code(s): Z20.828 - CONTACT W AND EXPOSURE TO OTH VIRAL COMMUNICABLE DISEASES (5) Alcohol dependence Code(s): F10.20 - ALCOHOL DEPENDENCE, UNCOMPLICATED Qualifiers: Substance use status: uncomplicated Qualified Code(s): F10.20 - Alcohol dependence, uncomplicated (6) Anxiety and depression Code(s): F41.9 - ANXIETY DISORDER, UNSPECIFIED; F32.9 - MAJOR DEPRESSIVE DISORDER, SINGLE EPISODE, UNSPECIFIED (7) COPD (chronic obstructive pulmonary disease) Code(s): J44.9 - CHRONIC OBSTRUCTIVE PULMONARY DISEASE, UNSPECIFIED Qualifiers: COPD type: unspecified COPD Qualified Code(s): J44.9 - Chronic obstructive pulmonary disease, unspecified (8) GERD (gastroesophageal reflux disease) Code(s): K21.9 - GASTRO-ESOPHAGEAL REFLUX DISEASE WITHOUT ESOPHAGITIS Qualifiers: Esophagitis presence: esophagitis presence not specified Qualified Code(s): K21.9 - Gastro-esophageal reflux disease without esophagitis (9) HTN (hypertension) Code(s): I10 - ESSENTIAL (PRIMARY) HYPERTENSION Qualifiers: Hypertension type: essential hypertension Qualified Code(s): I10 - Essent ial (primary) hypertension (10) Hepatitis C Code(s): B19.20 - UNSPECIFIED VIRAL HEPATITIS C WITHOUT HEPATIC COMA Qualifiers: Hepatic coma status: without hepatic coma (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 Code(s): F11.20 - OPIOID DEPENDENCE, UNCOMPLICATED (12) Nicotine dependence Code(s): F17.200 - NICOTINE DEPENDENCE, UNSPECIFIED, UNCOMPLICATED Assessment/Plan +COVID-19 PNA Acute hypoxemic resp failure COPD Chronic respiratory failure HTN Alcohol abuse Ex-IVDU on methadone Depression Hep C (treated?) -- continue antibiotics bipap crp has increased monitor markers resp support rest as per the team
--- NOTE | 2020-01-19 11:15 | PN ---
Progress Note, Physician History of Present Illness: PULMONARY NO CHANGE LETHARGIC ON NIPPV - Current Medication List Current Medications: Active Medications Albuterol Sulfate (Ventolin Hfa Inhaler -) 2 puff IH Q4H PRN PRN Reason: SHORT OF BREATH/WHEEZING Last Admin: 01/13/20 19:11 Dose: 2 puff Documented by: Ascorbic Acid (Vitamin C -) 500 mg PO BID [facility] Last Admin: 01/18/20 23:08 Dose: 500 mg Documented by: Aspirin (Asa -) 81 mg PO DAILY [facility] Atorvastatin Calcium (Lipitor -) 80 mg PO HS [facility] Last Admin: 01/18/20 23:07 Dose: 80 mg Documented by: Cholecalciferol (Vitamin D3 -) 1,000 unit PO DAILY [facility] Last Admin: 01/18/20 10:17 Dose: 1,000 unit Documented by: Enoxaparin Sodium (Lovenox -) 90 mg SQ BID [facility] Last Admin: 01/18/20 23:07 Dose: 90 mg Documented by: Famotidine (Pepcid -) 20 mg PO DAILY [facility] Last Admin: 01/18/20 10:18 Dose: 20 mg Documented by: Folic Acid (Folic Acid -) 1 mg PO DAILY [facility] Last Admin: 01/18/20 10:18 Dose: 1 mg Documented by: Ceftriaxone Sodium 1 gm/ (Dextrose) 50 mls @ 100 mls/hr IVPB DAILY [facility]; Protocol Last Admin: 01/18/20 12:19 Dose: 100 mls/hr Documented by: Azithromycin 250 mg/ Dextrose 250 mls @ 250 mls/hr IVPB DAILY [facility] Last Admin: 01/18/20 12:19 Dose: 250 mls/hr Documented by: Methadone HCl 40 mg/ Methadone (HCl 10 mg/ Methadone HCl 5 mg) 55 mg PO DAILY@0600 [facility] Methylprednisolone Sodium Succinate (Solu-Medrol -) 40 mg IVPUSH BID [facility] Last Admin: 01/18/20 23:07 Dose: 40 mg Documented by: Multivitamins/Minerals/Vitamin C (Tab-A-Vit -) 1 tab PO DAILY [facility] Last Admin: 01/18/20 10:18 Dose: 1 tab Documented by: Quetiapine Fumarate (Seroquel -) 300 mg PO [facility] Last Admin: 01/18/20 23:07 Dose: 300 mg Documented by: Tamsulosin HCl (Flomax -) 0.4 mg PO DAILY@0830 [facility] Thiamine HCl (Vitamin B1 -) 100 mg PO BID [facility] Last Admin: 01/18/20 23:07 Dose: 100 mg Documented by: Verapamil HCl (Calan Sr -) 240 mg PO BID [facility] Last Admin: 01/18/20 23:13 Dose: 240 mg Documented by: Zinc Sulfate (Orazinc -) 220 mg PO BID [facility] Last Admin: 01/18/20 23:07 Dose: 220 mg Documented by: - Objective Vital Signs: Vital Signs Temperature 97 F L 01/19/20 09:00 Pulse Rate 76 01/19/20 09:00 Respiratory Rate 20 01/19/20 09:00 Blood Pressure 100/70 01/19/20 09:00 O2 Sat by Pulse Oximetry (%) 95 01/19/20 10:30 Constitutional: Yes: Well Nourished, Other (LETHARGIC) Eyes: Yes: WNL HENT: Yes: WNL Neck: Yes: WNL Cardiovascular: Yes: Regular Rate and Rhythm, S1, S2 Respiratory: Yes: Diminished Gastrointestinal: Yes: Normal Bowel Sounds, Soft Extremities: Yes: WNL Edema: No Labs: CBC, BMP 01/18/20 06:00 01/18/20 06:00 INR, PTT INR 1.48 (0.83-1.09) H 01/13/20 18:35 Fibrinogen 252.0 mg/dL (238-498) 01/18/20 06:00 Laboratory Tests 01/18/20 06:00 LD Total 501 H C-Reactive Protein 3.0 H Laboratory Tests 01/19/20 09:22 ABG pH 7.35 ABG pCO2 at Pt Temp 56.6 H ABG pO2 at Pt Temp 49.5 L* ABG HCO3 30.7 H ABG O2 Sat (Measured) 78.7 L Oxygen Flow Rate 100 Problem List - Problems (1) Acute on chronic respiratory failure with hypoxemia Code(s): J96.21 - ACUTE AND CHRONIC RESPIRATORY FAILURE WITH HYPOXIA (2) Altered mental status Code(s): R41.82 - ALTERED MENTAL STATUS, UNSPECIFIED Qualifiers: Altered mental status type: disorientation Qualified Code(s): R41.0 - Disorientation, unspecified (3) Suspected COVID-19 virus infection Code(s): Z20.828 - CONTACT W AND EXPOSURE TO OTH VIRAL COMMUNICABLE DISEASES (4) Hypertension Code(s): I10 - ESSENTIAL (PRIMARY) HYPERTENSION Assessment/Plan IMP ACUTE ON CHRONIC HYPOXEMIC RESPIRATORY FAILURE COVID 19 PNEUMONIA HTN GERD ALTERED MENTAL STATUS + TROPONIN THROMBOCYTOPENIA PLAN SUPPLEMENTAL O2 CONTINUE NIPPV ABX PER ID MONITOR LYTES TREND TROPONIN CRP,FERRATIN.LDH COVID SEROLOGY PENDING ALBUTEROL INHALER SPIRIVA MONITOR LYTES,CBC,PLT CT LIBRIUM LOVENOX PE DOSE DR CAMPUZANO Problem List - Problems (1) Acute on chronic respiratory failure with hypoxemia Code(s): J96.21 - ACUTE AND CHRONIC RESPIRATORY FAILURE WITH HYPOXIA (2) Altered mental status Code(s): R41.82 - ALTERED MENTAL STATUS, UNSPECIFIED Qualifiers: Altered mental status type: disorientation Qualified Code(s): R41.0 - Disorientation, unspecified (3) Suspected COVID-19 virus infection Code(s): Z20.828 - CONTACT W AND EXPOSURE TO OTH VIRAL COMMUNICABLE DISEASES (4) Hypertension Code(s): I10 - ESSENTIAL (PRIMARY) HYPERTENSION
[2020-01-19] MEDS: TAMSULOSIN HCL 0.4 MG CAP PO SCH (11:46)
[2020-01-19] MEDS: ASPIRIN 81 MG CHEWABLE TABLETS PO SCH (11:46)
[2020-01-19] MEDS: FOLIC ACID 1 MG TABLET (FP) PO SCH (11:47)
[2020-01-19] MEDS: VERAPAMIL HCL 240 MG E.R. TABLET PO SCH ×2 (11:47→21:14)
[2020-01-19] MEDS: ENOXAPARIN NA (PORCINE) 100 MG/1 ML DISP.SYRIN SQ SCH ×2 (11:48→21:12)
[2020-01-19] MEDS: ZINC SULFATE 220 MG CAPSULE (FP) PO SCH ×2 (11:49→21:14)
[2020-01-19] MEDS: CEFTRIAXONE 1 GM in DEXTROSE 5%-WATER - 50 ML IVPB SCH (11:50)
[2020-01-19] MEDS: FAMOTIDINE 20 MG TABLET PO SCH (11:50)
[2020-01-19] MEDS: methylPREDNISolone NA SUCC 40 MG/1 ML VIAL IVPUSH SCH ×2 (11:52→21:14)
[2020-01-19] MEDS: ASCORBIC ACID 500 MG TABLET (FP) PO SCH ×2 (11:52→21:14)
[2020-01-19] MEDS: THIAMINE HCL 100 MG TABLET (FP) PO SCH ×2 (11:52→21:14)
[2020-01-19] MEDS: MULTIVITAMINS (DAILY MVI) TABLET (FP) PO SCH (11:52)
[2020-01-19] MEDS: AZITHROMYCIN IVPB 250 MG in DEXTROSE 5%-WATER - 250 ML IVPB SCH (11:53)
[2020-01-19] MEDS: CHOLECALCIFEROL (VIT D3) 1,000 UNIT (25 MCG) TABLET PO SCH (11:53)
--- NOTE | 2020-01-19 15:05 | PN ---
Physical Exam: SUBJECTIVE: Patient seen and examined at bedside. Overnight he became agitated. This AM he is alert but not oriented and is not able to participate in medical interview. OBJECTIVE: Vital Signs Temp Pulse Resp BP Pulse Ox 97.8 F 74 16 126/86 95 01/19/20 14:15 01/19/20 14:15 01/19/20 14:15 01/19/20 14:15 01/19/20 14:30 GENERAL: The patient is awake, alert, but not oriented, in no acute distress. HEAD: Normal with no signs of trauma. EYES: MAXIM, chemosis, sclera anicteric, conjunctiva clear. No ptosis. ENT: Ears normal, nares patent, oropharynx clear without exudates, moist mucous membranes. NECK: Trachea midline, full range of motion, supple. LUNGS: Equal rise and fall of the chest, no accessory muscle use. HEART: Regular rate and rhythm, S1, S2 without murmur, rub or gallop. ABDOMEN: Soft, nontender, nondistended, no guarding, no rebound, no hepatosplenomegaly, no masses. EXTREMITIES: 2+ pulses, warm, well-perfused, no edema. . SKIN: Warm, dry, normal turgor, no rashes or lesions noted Laboratory Results - last 24 hr 01/19/20 09:22 Anticoagulation Therapy No Result Required. Puncture Site Right radial ABG pH 7.35 ABG pCO2 at Pt Temp 56.6 H ABG pO2 at Pt Temp 49.5 L* ABG HCO3 30.7 H ABG O2 Sat (Measured) 78.7 L ABG O2 Content 13.3 ABG Base Excess 4.3 H Alex Test Positive Patient On Oxygen Yes O2 Delivery Device No Result Required. Oxygen Flow Rate 100 Vent Mode No Result Required. Vent Rate No Result Required. Mechanical Rate No Result Required. Pressure Support Vent No Result Required. Active Medications Generic Name Dose Route Start Last Admin Trade Name Freq PRN Reason Stop Dose Admin Albuterol Sulfate 2 puff 01/13/20 19:04 01/13/20 19:11 Ventolin Hfa Inhaler - IH 2 puff Q4H PRN Administration SHORT OF BREATH/WHEEZING Ascorbic Acid 500 mg 01/14/20 10:00 01/19/20 11:52 Vitamin C - PO Not Given BID [facility] Aspirin 81 mg 01/19/20 10:00 01/19/20 11:46 Asa - PO Not Given DAILY [facility] Atorvastatin Calcium 80 mg 01/18/20 22:00 01/18/20 23:07 Lipitor - PO 80 mg HS [facility] Administration Cholecalciferol 1,000 unit 01/14/20 10:00 01/19/20 11:53 Vitamin D3 - PO Not Given DAILY [facility] Enoxaparin Sodium 90 mg 01/17/20 22:00 01/19/20 11:48 Lovenox - SQ 90 mg BID [facility] Administration Famotidine 20 mg 01/14/20 14:30 01/19/20 11:50 Pepcid - PO Not Given DAILY [facility] Folic Acid 1 mg 01/14/20 10:00 01/19/20 11:47 Folic Acid - PO Not Given DAILY [facility] Ceftriaxone Sodium 1 gm/ 50 mls @ 100 mls/hr 01/14/20 10:00 01/19/20 11:50 Dextrose IVPB 100 mls/hr DAILY [facility] Administration Protocol Azithromycin 250 mg/ Dextrose 250 mls @ 250 mls/hr 01/14/20 10:00 01/19/20 11:53 IVPB 250 mls/hr DAILY [facility] Administration Methadone HCl 30 mg/ Methadone 35 mg 01/20/20 06:00 HCl 5 mg PO DAILY@0600 [facility] Methylprednisolone Sodium Succinate 40 mg 01/14/20 11:15 01/19/20 11:52 Solu-Medrol - IVPUSH 40 mg BID [facility] Administration Multivitamins/Minerals/Vitamin C 1 tab 01/14/20 10:00 01/19/20 11:52 Tab-A-Vit - PO Not Given DAILY [facility] Quetiapine Fumarate 300 mg 01/16/20 02:26 01/18/20 23:07 Seroquel - PO 300 mg HS [facility] Administration Tamsulosin HCl 0.4 mg 01/19/20 08:30 01/19/20 11:46 Flomax - PO Not Given DAILY@0830 [facility] Thiamine HCl 100 mg 01/14/20 22:00 01/19/20 11:52 Vitamin B1 - PO Not Given BID [facility] Verapamil HCl 240 mg 01/14/20 23:45 01/19/20 11:47 Calan Sr - PO Not Given BID [facility] Zinc Sulfate 220 mg 01/14/20 10:00 01/19/20 11:49 Orazinc - PO Not Given BID [facility] ASSESSMENT/PLAN: 64 y/o male PMH HTN, olysubstance abuse (etoh and IVDU-Heroin), COPD on 3L at baseline, GERD who was BIBEMS for sob, admitted for care of acute hypoxic respiratory failure 2/2 Covid-19 PNA. # Acute hypoxic respiratory failure 2/2 Covid-19 PNA - Reduced AM methadone to 35 mg po - Pt becomes highly agitated and then hypoxic: consider 0.5 haldol or 1 mg ativan - CoVid-19+ - QTC 424 - Saturating at 90% on CPAP - Solumedrol 40 mg BID, lovenox 40 mg bid - Ceftriaxone - Cont. to monitor inflammatory markers - Vitamin C, vitamin D, and zinc - Isolation precautions: Contact, droplet, airborne - Strict hand washing - Consult ID # Polysubstance abuse, ?underlying psychotic disturbance - Consider ativan when pt is anxious and removing mask - Thiamine, folate, multivitamin - Methadone 35 mg qd - Seroquel 300 mg hs # HTN - Verapamil 250 mg BID # FEN - PO - Cont. to monitor - Low sodium diet # DVT ppx - Lovenox 40 mg bid # Disposition - Saturating at 95% on CPAP - Full code Steven Martin MD Visit type - Emergency Visit Emergency Visit: No - New Patient This patient is new to me today: No - Critical Care Critical Care patient: No ATTENDING PHYSICIAN STATEMENT I saw and evaluated the patient. I reviewed the resident's note and discussed the case with the resident. I agree with the resident's findings and plan as documented. SUBJECTIVE: OBJECTIVE: ASSESSMENT AND PLAN:
[2020-01-19] MEDS ORDERED: MAGNESIUM SULF 50% (8.12 MEQ/2 ML-1 GM VIAL) IVPB ONE (15:15)
[2020-01-19 16:48] VITALS: BMI 25.9
[2020-01-19 17:37] LABS: ARTERIAL BLD GAS O2 SATURATION 98.4 % (95-98); ARTERIAL BLOOD GAS BASE EXCESS 2.3 mmol/L (-2-2); ARTERIAL BLOOD GAS PCO2 46.9 mmHg (35-45); ARTERIAL BLOOD GAS PO2 112 mmHg (80-100); ARTERIAL BLOOD GAS pH 7.39 (7.35-7.45)
[2020-01-19 17:40] LABS: ALLENS TEST POSITIVE
--- NOTE | 2020-01-19 18:06 | PN ---
Teaching Attending Note Name of Resident: Steven Martin ATTENDING PHYSICIAN STATEMENT I saw and evaluated the patient. I reviewed the resident's note and discussed the case with the resident. I agree with the resident's findings and plan as documented. SUBJECTIVE: Not able to obtain any hx due to condition . was placed on NRB over night. hypoxic in am . OBJECTIVE: lethargic but arousable Lungs: decreased breath sounds at bases. good air entry at apex b/l. CV: RRR Abd: soft, NT, ND. Ext: No edema or erythema on upper or lower extremities ASSESSMENT AND PLAN: 64 y/o man with h/o polysubstance abuse , COPD on 3-4 L of O2, HTN , GERD, who was brought here by EMS for hypoxia and is being treated for acute hypoxic resp failure and COVID 19 infection 1- Acute hypoxic resp failure. 2- COVID 19 infection 3- b/l PNA 4- Elevated trop 5-Transaminitis 6-dilated pancreatic duct 7-gall stone but no cholecytitis 8- ETOH withdrawal 9- H/o oipid dependence. on Methadone maintenance 10 - AMS : metabolic encephalopathy 11- thrombocytopenia Plan : - place back o n BIPAP. ABG noted - cont librium protocol - decrease methadone dose to 35 mg /day due to sedation - cont NRB - cont ceftriaxone - DC azithro ( day 6) - cont steroids and Lovenox - monitor closely HLOC
[2020-01-19] MEDS ORDERED: LORazepam 2 MG/ML SDV VIAL IVPUSH ONE (18:29)
[2020-01-19] MEDS: QUEtiapine FUMARATE 300 MG TABLET PO SCH (21:13)
[2020-01-19] MEDS: ATORVASTATIN CA 80 MG TABLET (FP) PO SCH (21:13)
[2020-01-20] MEDS ORDERED: METHADONE HCL 40 MG DISPERSABLE TABLET PO SCH (06:00)
[2020-01-20] MEDS ORDERED: METHADONE 30 MG, METHADONE 5 MG PO SCH (06:00)
[2020-01-20] MEDS ORDERED: METHADONE 40 MG, METHADONE 10 MG, METHADONE 5 MG PO SCH (06:00)
[2020-01-20 07:33] LABS: HEMATOCRIT 40.8 % (35.4-49); HEMOGLOBIN 12.6 GM/dL (11.7-16.9); MCH 27.2 pg (25.7-33.7); MEAN CELL VOLUME 87.6 fl (80-96); MEAN PLT VOLUME 10.7 fl (7.5-11.1); PLATELET COUNT 81 K/MM3 (134-434); RBC 4.66 M/mm3 (4.00-5.60); RDW 22.1 % (11.9-15.9); WHITE BLOOD COUNT 9.4 K/mm3 (4.0-10.0)
[2020-01-20 07:56] LABS: ALBUMIN 2.2 g/dl (3.4-5.0); BILIRUBIN,TOTAL 1.3 mg/dL (0.2-1); BLOOD UREA NITROGEN 18.6 mg/dL (7-18); CALCIUM 8.9 mg/dL (8.5-10.1); CREATININE 0.9 mg/dL (0.55-1.3); MAGNESIUM 2.3 mg/dL (1.8-2.4); PHOSPHOROUS 3.1 mg/dL (2.5-4.9); POTASSIUM 4.5 mmol/L (3.5-5.1); TOT PROT 5.2 g/dl (6.4-8.2)
--- NOTE | 2020-01-20 08:24 | PN ---
Progress Note, Physician History of Present Illness: PULMONARY AWAKE,COMFORTABLE ON NRB,02 SAT 92% - Current Medication List Current Medications: Active Medications Albuterol Sulfate (Ventolin Hfa Inhaler -) 2 puff IH Q4H PRN PRN Reason: SHORT OF BREATH/WHEEZING Last Admin: 01/13/20 19:11 Dose: 2 puff Documented by: Ascorbic Acid (Vitamin C -) 500 mg PO BID [facility] Last Admin: 01/19/20 21:14 Dose: 500 mg Documented by: Aspirin (Asa -) 81 mg PO DAILY [facility] Last Admin: 01/19/20 11:46 Dose: Not Given Documented by: Atorvastatin Calcium (Lipitor -) 80 mg PO [facility] Last Admin: 01/19/20 21:13 Dose: 80 mg Documented by: Cholecalciferol (Vitamin D3 -) 1,000 unit PO DAILY [facility] Last Admin: 01/19/20 11:53 Dose: Not Given Documented by: Enoxaparin Sodium (Lovenox -) 90 mg SQ BID [facility] Last Admin: 01/19/20 21:12 Dose: 90 mg Documented by: Famotidine (Pepcid -) 20 mg PO DAILY [facility] Last Admin: 01/19/20 11:50 Dose: Not Given Documented by: Folic Acid (Folic Acid -) 1 mg PO DAILY [facility] Last Admin: 01/19/20 11:47 Dose: Not Given Documented by: Ceftriaxone Sodium 1 gm/ (Dextrose) 50 mls @ 100 mls/hr IVPB DAILY [facility]; Protocol Last Admin: 01/19/20 11:50 Dose: 100 mls/hr Documented by: Methadone HCl 30 mg/ Methadone (HCl 5 mg) 35 mg PO DAILY@0600 [facility] Last Admin: 01/20/20 06:18 Dose: Not Given Documented by: Methylprednisolone Sodium Succinate (Solu-Medrol -) 40 mg IVPUSH BID [facility] Last Admin: 01/19/20 21:14 Dose: 40 mg Documented by: Multivitamins/Minerals/Vitamin C (Tab-A-Vit -) 1 tab PO DAILY [facility] Last Admin: 01/19/20 11:52 Dose: Not Given Documented by: Quetiapine Fumarate (Seroquel -) 300 mg PO [facility] Last Admin: 01/19/20 21:13 Dose: 300 mg Documented by: Tamsulosin HCl (Flomax -) 0.4 mg PO DAILY@0830 [facility] Last Admin: 01/19/20 11:46 Dose: Not Given Documented by: Thiamine HCl (Vitamin B1 -) 100 mg PO BID [facility] Last Admin: 01/19/20 21:14 Dose: 100 mg Documented by: Verapamil HCl (Calan Sr -) 240 mg PO BID [facility] Last Admin: 01/19/20 21:14 Dose: 240 mg Documented by: Zinc Sulfate (Orazinc -) 220 mg PO BID [facility] Last Admin: 01/19/20 21:14 Dose: 220 mg Documented by: - Objective Vital Signs: Vital Signs Temperature 97.0 F L 01/20/20 06:28 Pulse Rate 97 H 01/20/20 06:28 Respiratory Rate 20 01/20/20 06:28 Blood Pressure 120/73 01/20/20 06:28 O2 Sat by Pulse Oximetry (%) 100 01/19/20 20:56 Constitutional: Yes: Well Nourished, Calm Eyes: Yes: WNL HENT: Yes: WNL Neck: Yes: WNL Cardiovascular: Yes: Regular Rate and Rhythm, S1, S2 Respiratory: Yes: Diminished Gastrointestinal: Yes: Normal Bowel Sounds, Soft Extremities: Yes: WNL Edema: No Labs: CBC, BMP 01/20/20 06:00 01/20/20 06:00 INR, PTT INR 1.48 (0.83-1.09) H 01/13/20 18:35 Fibrinogen 252.0 mg/dL (238-498) 01/18/20 06:00 Laboratory Tests 01/20/20 01/20/20 06:00 06:00 D-Dimer 830 H Ferritin 177.9 LD Total 403 H C-Reactive Protein 3.1 H Problem List - Problems (1) Acute on chronic respiratory failure with hypoxemia Code(s): J96.21 - ACUTE AND CHRONIC RESPIRATORY FAILURE WITH HYPOXIA (2) Altered mental status Code(s): R41.82 - ALTERED MENTAL STATUS, UNSPECIFIED Qualifiers: Altered mental status type: disorientation Qualified Code(s): R41.0 - Disorientation, unspecified (3) Suspected COVID-19 virus infection Code(s): Z20.828 - CONTACT W AND EXPOSURE TO OTH VIRAL COMMUNICABLE DISEASES (4) Hypertension Code(s): I10 - ESSENTIAL (PRIMARY) HYPERTENSION Assessment/Plan IMP ACUTE ON CHRONIC HYPOXEMIC RESPIRATORY FAILURE COVID 19 PNEUMONIA HTN GERD ALTERED MENTAL STATUS + TROPONIN THROMBOCYTOPENIA PLAN SUPPLEMENTAL O2 NIPPV ABX PER ID MONITOR LYTES TREND TROPONIN CRP,FERRATIN.LDH COVID SEROLOGY PENDING ALBUTEROL INHALER SPIRIVA MONITOR LYTES,CBC,PLT CT LOVENOX PE DOSE DR CAMPUZANO Problem List - Problems (1) Acute on chronic respiratory failure with hypoxemia Code(s): J96.21 - ACUTE AND CHRONIC RESPIRATORY FAILURE WITH HYPOXIA (2) Altered mental status Code(s): R41.82 - ALTERED MENTAL STATUS, UNSPECIFIED Qualifiers: Altered mental status type: disorientation Qualified Code(s): R41.0 - Disorientation, unspecified (3) Suspected COVID-19 virus infection Code(s): Z20.828 - CONTACT W AND EXPOSURE TO OTH VIRAL COMMUNICABLE DISEASES (4) Hypertension Code(s): I10 - ESSENTIAL (PRIMARY) HYPERTENSION
[2020-01-20] MEDS: TAMSULOSIN HCL 0.4 MG CAP PO SCH (09:12)
[2020-01-20] MEDS ORDERED: DEXTROSE 5%-WATER - 50 ML IVPB ONE (09:21)
[2020-01-20] MEDS ORDERED: cefTRIAXone SODIUM 1 GM VIAL ONE (09:21)
[2020-01-20] MEDS: VERAPAMIL HCL 240 MG E.R. TABLET PO SCH ×2 (10:13→23:30)
--- NOTE | 2020-01-20 11:09 | PN ---
Progress Note, Physician History of Present Illness: confused more awake uncoperative in wrist restraints on nrb - Current Medication List Current Medications: Active Medications Albuterol Sulfate (Ventolin Hfa Inhaler -) 2 puff IH Q4H PRN PRN Reason: SHORT OF BREATH/WHEEZING Last Admin: 01/13/20 19:11 Dose: 2 puff Documented by: Ascorbic Acid (Vitamin C -) 500 mg PO BID [facility] Last Admin: 01/19/20 21:14 Dose: 500 mg Documented by: Aspirin (Asa -) 81 mg PO DAILY [facility] Last Admin: 01/19/20 11:46 Dose: Not Given Documented by: Atorvastatin Calcium (Lipitor -) 80 mg PO [facility] Last Admin: 01/19/20 21:13 Dose: 80 mg Documented by: Cholecalciferol (Vitamin D3 -) 1,000 unit PO DAILY [facility] Last Admin: 01/19/20 11:53 Dose: Not Given Documented by: Enoxaparin Sodium (Lovenox -) 90 mg SQ BID [facility] Last Admin: 01/19/20 21:12 Dose: 90 mg Documented by: Famotidine (Pepcid -) 20 mg PO DAILY [facility] Last Admin: 01/19/20 11:50 Dose: Not Given Documented by: Folic Acid (Folic Acid -) 1 mg PO DAILY [facility] Last Admin: 01/19/20 11:47 Dose: Not Given Documented by: Ceftriaxone Sodium 1 gm/ (Dextrose) 50 mls @ 100 mls/hr IVPB DAILY [facility]; Protocol Last Admin: 01/19/20 11:50 Dose: 100 mls/hr Documented by: Methadone HCl 30 mg/ Methadone (HCl 5 mg) 35 mg PO DAILY@0600 [facility] Last Admin: 01/20/20 06:18 Dose: Not Given Documented by: Methylprednisolone Sodium Succinate (Solu-Medrol -) 40 mg IVPUSH BID [facility] Last Admin: 01/19/20 21:14 Dose: 40 mg Documented by: Multivitamins/Minerals/Vitamin C (Tab-A-Vit -) 1 tab PO DAILY [facility] Last Admin: 01/19/20 11:52 Dose: Not Given Documented by: Quetiapine Fumarate (Seroquel -) 300 mg PO [facility] Last Admin: 01/19/20 21:13 Dose: 300 mg Documented by: Tamsulosin HCl (Flomax -) 0.4 mg PO DAILY@0830 [facility] Last Admin: 01/19/20 11:46 Dose: Not Given Documented by: Thiamine HCl (Vitamin B1 -) 100 mg PO BID [facility] Last Admin: 01/19/20 21:14 Dose: 100 mg Documented by: Verapamil HCl (Calan Sr -) 240 mg PO BID [facility] Last Admin: 01/19/20 21:14 Dose: 240 mg Documented by: Zinc Sulfate (Orazinc -) 220 mg PO BID [facility] Last Admin: 01/19/20 21:14 Dose: 220 mg Documented by: - Objective Vital Signs: Vital Signs Temperature 97.0 F L 01/20/20 06:28 Pulse Rate 97 H 01/20/20 06:28 Respiratory Rate 20 01/20/20 06:28 Blood Pressure 120/73 01/20/20 06:28 O2 Sat by Pulse Oximetry (%) 92 L 01/20/20 08:36 Constitutional: Yes: Anxious, Other Cardiovascular: Yes: S1, S2 Respiratory: Yes: Poor Air Entry, Other (on nrb) Gastrointestinal: Yes: Normal Bowel Sounds, Soft Musculoskeletal: Yes: WNL Extremities: Yes: WNL Neurological: Yes: Alert, Oriented Psychiatric: Yes: Alert, Oriented Labs: CBC, BMP 01/20/20 06:00 01/20/20 06:00 INR, PTT INR 1.48 (0.83-1.09) H 01/13/20 18:35 Fibrinogen 252.0 mg/dL (238-498) 01/18/20 06:00 Assessment/Plan Problem List - Problems (1) Abnormal liver function test Code(s): R94.5 - ABNORMAL RESULTS OF LIVER FUNCTION STUDIES (2) Acute on chronic respiratory failure with hypoxemia Code(s): J96.21 - ACUTE AND CHRONIC RESPIRATORY FAILURE WITH HYPOXIA (3) Altered mental status Code(s): R41.82 - ALTERED MENTAL STATUS, UNSPECIFIED Qualifiers: Altered mental status type: disorientation Qualified Code(s): R41.0 - Disorientation, unspecified (4) Suspected COVID-19 virus infection Code(s): Z20.828 - CONTACT W AND EXPOSURE TO OTH VIRAL COMMUNICABLE DISEASES (5) Alcohol dependence Code(s): F10.20 - ALCOHOL DEPENDENCE, UNCOMPLICATED Qualifiers: Substance use status: uncomplicated Qualified Code(s): F10.20 - Alcohol dependence, uncomplicated (6) Anxiety and depression Code(s): F41.9 - ANXIETY DISORDER, UNSPECIFIED; F32.9 - MAJOR DEPRESSIVE DISORDER, SINGLE EPISODE, UNSPECIFIED (7) COPD (chronic obstructive pulmonary disease) Code(s): J44.9 - CHRONIC OBSTRUCTIVE PULMONARY DISEASE, UNSPECIFIED Qualifiers: COPD type: unspecified COPD Qualified Code(s): J44.9 - Chronic obstructive pulmonary disease, unspecified (8) GERD (gastroesophageal reflux disease) Code(s): K21.9 - GASTRO-ESOPHAGEAL REFLUX DISEASE WITHOUT ESOPHAGITIS Qualifiers: Esophagitis presence: esophagitis presence not specified Qualified Code(s): K21.9 - Gastro-esophageal reflux disease without esophagitis (9) HTN (hypertension) Code(s): I10 - ESSENTIAL (PRIMARY) HYPERTENSION Qualifiers: Hypertension type: essential hypertension Qualified Code(s): I10 - Essential (primary) hypertension (10) Hepatitis C Code(s): B19.20 - UNSPECIFIED VIRAL HEPATITIS C WITHOUT HEPATIC COMA Qualifiers: Hepatic coma status: without hepatic coma (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
[2020-01-20] MEDS: ASPIRIN 81 MG CHEWABLE TABLETS PO SCH (11:13)
[2020-01-20] MEDS: ENOXAPARIN NA (PORCINE) 100 MG/1 ML DISP.SYRIN SQ SCH ×2 (11:13→23:25)
[2020-01-20] MEDS: FOLIC ACID 1 MG TABLET (FP) PO SCH (11:13)
[2020-01-20] MEDS: ZINC SULFATE 220 MG CAPSULE (FP) PO SCH ×2 (11:14→23:24)
[2020-01-20] MEDS: FAMOTIDINE 20 MG TABLET PO SCH (11:14)
[2020-01-20] MEDS: CHOLECALCIFEROL (VIT D3) 1,000 UNIT (25 MCG) TABLET PO SCH (11:14)
[2020-01-20] MEDS: MULTIVITAMINS (DAILY MVI) TABLET (FP) PO SCH (11:14)
[2020-01-20] MEDS: THIAMINE HCL 100 MG TABLET (FP) PO SCH ×2 (11:14→23:24)
[2020-01-20] MEDS: CEFTRIAXONE 1 GM in DEXTROSE 5%-WATER - 50 ML IVPB SCH (11:14)
[2020-01-20] MEDS: methylPREDNISolone NA SUCC 40 MG/1 ML VIAL IVPUSH SCH ×2 (11:14→23:24)
[2020-01-20] MEDS: ASCORBIC ACID 500 MG TABLET (FP) PO SCH ×2 (11:14→23:23)
[2020-01-20] MEDS ORDERED: METHADONE HCL 10 MG TABLET ONE (13:29)
[2020-01-20] MEDS ORDERED: METHADONE HCL 5 MG TABLET ONE (13:29)
[2020-01-20] MEDS: METHADONE 30 MG, METHADONE 5 MG PO SCH (13:34)
--- NOTE | 2020-01-20 18:06 | PN ---
Teaching Attending Note Name of Resident: Jenny An ATTENDING PHYSICIAN STATEMENT I saw and evaluated the patient. I reviewed the resident's note and discussed the case with the resident. I agree with the resident's findings and plan as documented. SUBJECTIVE: Not cooperative with interview. has restraints on arms and feels restricted due to that. denies SOB. has been pulling his NRB and becoming hypoxic to low 80s ( 83-84%) OBJECTIVE: awake, not cooperative. asking for water . upon drinking he did not cough or choke Lungs: decreased breath sounds at bases. good air entry at apex b/l. CV: RRR Abd: soft, NT, ND. Ext: No edema or erythema on upper or lower extremities ASSESSMENT AND PLAN: 64 y/o man with h/o polysubstance abuse , COPD on 3-4 L of O2, HTN , GERD, who was brought here by EMS for hypoxia and is being treated for acute hypoxic resp failure and COVID 19 infection 1- Acute hypoxic resp failure. 2- COVID 19 infection 3- b/l PNA 4- Elevated trop 5-Transaminitis 6-Dilated pancreatic duct 7-Gall stone but no cholecytitis 8- ETOH withdrawal 9- H/o oipid dependence. on Methadone maintenance 10 - AMS : metabolic encephalopathy 11- thrombocytopenia Plan: - Cont NRB mask . cont wrist restraints to avoid pulling his mask off - finished detox - cont decreased dose of methadone ( mental status much improved with the dose reduction ) - if needed seroquel can be stopped - cont ceftriaxone - cont steroids and Lovenox - monitor closely HLOC ASSESSMENT AND PLAN:
--- NOTE | 2020-01-20 22:20 | RAPID ---
Physical Examination Vital Signs: Vital Signs Temperature 97.8 F 01/20/20 17:00 Pulse Rate 109 H 01/20/20 17:00 Respiratory Rate 20 01/20/20 17:00 Blood Pressure 112/78 01/20/20 17:00 O2 Sat by Pulse Oximetry (%) 92 L 01/20/20 09:00 Labs: CBC, BMP 01/20/20 06:00 01/20/20 06:00 Rapid Response - Rapid Response Assessment: A rapid response was called around 9:30 PM because the patient had pulled off his BiPAP and was desaturating. Upon arrival of the rapid response team, the patient was agitated in bed, attempting to get up and wearing a NRB mask. He was satting in the low 80s. His vitals were stable with a BP of 122/93. On review of the chart it appeared his evening seroquel had been held and the pt, who is COVID+, had finished his course of azithro/ plaquinil and was awaiting consent for plasma. A CXR was ordered and we gave the pt pepcid. Once calmed down the pt was saturating in the low 90s on the NRB and was requesting water. Advised nurse to keep a close eye on patient and call back if he continues to desaturate.
[2020-01-20] MEDS: ATORVASTATIN CA 80 MG TABLET (FP) PO SCH (23:25)
[2020-01-20] MEDS: FAMOTIDINE 20 MG/50 ML IVPB 20 MG/50 ML MG IVPB SCH (23:26)
[2020-01-20] MEDS ORDERED: PT OWN MED DRAWER 7, Y5N ONE (23:30)
[2020-01-21] MEDS ORDERED: METHADONE 30 MG, METHADONE 5 MG PO SCH (06:00)
--- NOTE | 2020-01-21 07:54 | PN ---
Progress Note, Physician History of Present Illness: pulmonary awake on 100% nrb,comfortable ,o2 sat 95% - Current Medication List Current Medications: Active Medications Albuterol Sulfate (Ventolin Hfa Inhaler -) 2 puff IH Q4H PRN PRN Reason: SHORT OF BREATH/WHEEZING Last Admin: 01/13/20 19:11 Dose: 2 puff Documented by: Ascorbic Acid (Vitamin C -) 500 mg PO BID [facility] Last Admin: 01/20/20 23:23 Dose: 500 mg Documented by: Aspirin (Asa -) 81 mg PO DAILY [facility] Last Admin: 01/20/20 11:13 Dose: 81 mg Documented by: Atorvastatin Calcium (Lipitor -) 80 mg PO HS [facility] Last Admin: 01/20/20 23:25 Dose: 80 mg Documented by: Cholecalciferol (Vitamin D3 -) 1,000 unit PO DAILY [facility] Last Admin: 01/20/20 11:14 Dose: 1,000 unit Documented by: Enoxaparin Sodium (Lovenox -) 90 mg SQ BID [facility] Last Admin: 01/20/20 23:25 Dose: 90 mg Documented by: Folic Acid (Folic Acid -) 1 mg PO DAILY [facility] Last Admin: 01/20/20 11:13 Dose: 1 mg Documented by: Ceftriaxone Sodium 1 gm/ (Dextrose) 50 mls @ 100 mls/hr IVPB DAILY [facility]; Protocol Last Admin: 01/20/20 11:14 Dose: 100 mls/hr Documented by: Famotidine/Sodium Chloride (Pepcid 20 Mg Premixed Ivpb -) 20 mg in 50 mls @ 100 mls/hr IVPB BID [facility] Last Admin: 01/20/20 23:26 Dose: 100 mls/hr Documented by: Methadone HCl 30 mg/ Methadone (HCl 5 mg) 35 mg PO DAILY@0600 [facility] Methylprednisolone Sodium Succinate (Solu-Medrol -) 40 mg IVPUSH BID [facility] Last Admin: 01/20/20 23:24 Dose: 40 mg Documented by: Multivitamins/Minerals/Vitamin C (Tab-A-Vit -) 1 tab PO DAILY [facility] Last Admin: 01/20/20 11:14 Dose: 1 tab Documented by: Tamsulosin HCl (Flomax -) 0.4 mg PO DAILY@0830 [facility] Last Admin: 01/20/20 09:12 Dose: 0.4 mg Documented by: Thiamine HCl (Vitamin B1 -) 100 mg PO BID [facility] Last Admin: 01/20/20 23:24 Dose: 100 mg Documented by: Verapamil HCl (Calan Sr -) 240 mg PO BID [facility] Last Admin: 01/20/20 23:30 Dose: 240 mg Documented by: Zinc Sulfate (Orazinc -) 220 mg PO BID [facility] Last Admin: 01/20/20 23:24 Dose: 220 mg Documented by: - Objective Vital Signs: Vital Signs Temperature 97.8 F 01/20/20 17:00 Pulse Rate 109 H 01/20/20 17:00 Respiratory Rate 01/20/20 17:00 Blood Pressure 112/78 01/20/20 17:00 O2 Sat by Pulse Oximetry (%) 98 01/21/20 03:10 Constitutional: Yes: Well Nourished, Calm Eyes: Yes: WNL HENT: Yes: WNL Neck: Yes: WNL Cardiovascular: Yes: Regular Rate and Rhythm, S1, S2 Respiratory: Yes: Diminished Gastrointestinal: Yes: Normal Bowel Sounds, Soft Extremities: Yes: WNL Edema: No Labs: CBC, BMP 01/20/20 06:00 01/20/20 06:00 INR, PTT INR 1.48 (0.83-1.09) H 01/13/20 18:35 Fibrinogen 252.0 mg/dL (238-498) 01/18/20 06:00 Laboratory Tests 01/21/20 01/21/20 06:07 06:07 D-Dimer 1044 H Ferritin 183.7 LD Total 462 H C-Reactive Protein 1.5 H - ....Imaging Chest X-ray: Image Reviewed ([facility]) Problem List - Problems (1) Acute on chronic respiratory failure with hypoxemia Code(s): J96.21 - ACUTE AND CHRONIC RESPIRATORY FAILURE WITH HYPOXIA (2) Altered mental status Code(s): R41.82 - ALTERED MENTAL STATUS, UNSPECIFIED Qualifiers: Altered mental status type: disorientation Qualified Code(s): R41.0 - Disorientation, unspecified (3) Suspected COVID-19 virus infection Code(s): Z20.828 - CONTACT W AND EXPOSURE TO OTH VIRAL COMMUNICABLE DISEASES (4) Hypertension Code(s): I10 - ESSENTIAL (PRIMARY) HYPERTENSION Assessment/Plan IMP ACUTE ON CHRONIC HYPOXEMIC RESPIRATORY FAILURE COVID 19 PNEUMONIA HTN GERD ALTERED MENTAL STATUS + TROPONIN THROMBOCYTOPENIA PLAN SUPPLEMENTAL O2 NIPPV ABX PER ID MONITOR LYTES TREND TROPONIN CRP,FERRATIN.LDH COVID SEROLOGY PENDING ALBUTEROL INHALER SPIRIVA MONITOR LYTES,CBC,PLT CT LOVENOX PE DOSE IF OK WITH HEME DR CAMPUZANO Problem List - Problems (1) Acute on chronic respiratory failure with hypoxemia Code(s): J96.21 - ACUTE AND CHRONIC RESPIRATORY FAILURE WITH HYPOXIA (2) Altered mental status Code(s): R41.82 - ALTERED MENTAL STATUS, UNSPECIFIED Qualifiers: Altered mental status type: disorientation Qualified Code(s): R41.0 - Disorientation, unspecified (3) Suspected COVID-19 virus infection Code(s): Z20.828 - CONTACT W AND EXPOSURE TO OTH VIRAL COMMUNICABLE DISEASES (4) Hypertension Code(s): I10 - ESSENTIAL (PRIMARY) HYPERTENSION
[2020-01-21] MEDS: ENOXAPARIN NA (PORCINE) 100 MG/1 ML DISP.SYRIN SQ SCH ×2 (10:00→21:07)
[2020-01-21] MEDS ORDERED: PT OWN MED DRAWER 7, Y5N ONE ×2 (10:19→16:43)
[2020-01-21] MEDS ORDERED: cefTRIAXone SODIUM 1 GM VIAL ONE (10:19)
[2020-01-21] MEDS ORDERED: DEXTROSE 5%-WATER - 50 ML IVPB ONE (10:20)
[2020-01-21] MEDS: VERAPAMIL HCL 240 MG E.R. TABLET PO SCH ×2 (10:58→21:07)
[2020-01-21] MEDS: CHOLECALCIFEROL (VIT D3) 1,000 UNIT (25 MCG) TABLET PO SCH (10:58)
[2020-01-21] MEDS: FOLIC ACID 1 MG TABLET (FP) PO SCH (10:58)
[2020-01-21] MEDS: ASCORBIC ACID 500 MG TABLET (FP) PO SCH ×2 (10:58→21:07)
[2020-01-21] MEDS: TAMSULOSIN HCL 0.4 MG CAP PO SCH (10:59)
[2020-01-21] MEDS: MULTIVITAMINS (DAILY MVI) TABLET (FP) PO SCH (10:59)
[2020-01-21] MEDS: ASPIRIN 81 MG CHEWABLE TABLETS PO SCH (10:59)
[2020-01-21] MEDS: THIAMINE HCL 100 MG TABLET (FP) PO SCH ×2 (10:59→21:07)
[2020-01-21] MEDS: methylPREDNISolone NA SUCC 40 MG/1 ML VIAL IVPUSH SCH ×2 (11:00→21:06)
[2020-01-21] MEDS: CEFTRIAXONE 1 GM in DEXTROSE 5%-WATER - 50 ML IVPB SCH (11:02)
--- NOTE | 2020-01-21 12:16 | PN ---
Progress Note, Physician History of Present Illness: awake looks comfortable today still on 100 percent nrb - Current Medication List Current Medications: Active Medications Albuterol Sulfate (Ventolin Hfa Inhaler -) 2 puff IH Q4H PRN PRN Reason: SHORT OF BREATH/WHEEZING Last Admin: 01/13/20 19:11 Dose: 2 puff Documented by: Ascorbic Acid (Vitamin C -) 500 mg PO BID [facility] Last Admin: 01/21/20 10:58 Dose: 500 mg Documented by: Aspirin (Asa -) 81 mg PO DAILY [facility] Last Admin: 01/21/20 10:59 Dose: 81 mg Documented by: Atorvastatin Calcium (Lipitor -) 80 mg PO [facility] Last Admin: 01/20/20 23:25 Dose: 80 mg Documented by: Cholecalciferol (Vitamin D3 -) 1,000 unit PO DAILY [facility] Last Admin: 01/21/20 10:58 Dose: 1,000 unit Documented by: Enoxaparin Sodium (Lovenox -) 90 mg SQ BID [facility] Last Admin: 01/20/20 23:25 Dose: 90 mg Documented by: Folic Acid (Folic Acid -) 1 mg PO DAILY [facility] Last Admin: 01/21/20 10:58 Dose: 1 mg Documented by: Ceftriaxone Sodium 1 gm/ (Dextrose) 50 mls @ 100 mls/hr IVPB DAILY [facility]; Protocol Last Admin: 01/21/20 11:02 Dose: 100 mls/hr Documented by: Famotidine/Sodium Chloride (Pepcid 20 Mg Premixed Ivpb -) 20 mg in 50 mls @ 100 mls/hr IVPB BID [facility] Last Admin: 01/20/20 23:26 Dose: 100 mls/hr Documented by: Methadone HCl 30 mg/ Methadone (HCl 5 mg) 35 mg PO DAILY@0600 [facility] Methylprednisolone Sodium Succinate (Solu-Medrol -) 40 mg IVPUSH BID [facility] Last Admin: 01/21/20 11:00 Dose: 40 mg Documented by: Multivitamins/Minerals/Vitamin C (Tab-A-Vit -) 1 tab PO DAILY [facility] Last Admin: 01/21/20 10:59 Dose: 1 tab Documented by: Tamsulosin HCl (Flomax -) 0.4 mg PO DAILY@0830 [facility] Last Admin: 01/21/20 10:59 Dose: 0.4 mg Documented by: Thiamine HCl (Vitamin B1 -) 100 mg PO BID [facility] Last Admin: 01/21/20 10:59 Dose: 100 mg Documented by: Verapamil HCl (Calan Sr -) 240 mg PO BID [facility] Last Admin: 01/21/20 10:58 Dose: 240 mg Documented by: Zinc Sulfate (Orazinc -) 220 mg PO BID [facility] Last Admin: 01/20/20 23:24 Dose: 220 mg Documented by: - Objective Vital Signs: Vital Signs Temperature 97.8 F 01/21/20 06:00 Pulse Rate 91 H 01/21/20 06:00 Respiratory Rate 16 01/21/20 10:00 Blood Pressure 138/94 01/21/20 06:00 O2 Sat by Pulse Oximetry (%) 95 01/21/20 09:00 Constitutional: Yes: No Distress, Calm Cardiovascular: Yes: S1, S2 Respiratory: Yes: Poor Air Entry, Other (on nrb) Gastrointestinal: Yes: Normal Bowel Sounds, Soft Musculoskeletal: Yes: WNL Extremities: Yes: WNL Neurological: Yes: Alert, Oriented Psychiatric: Yes: Alert, Oriented Labs: CBC, BMP 01/20/20 06:00 01/20/20 06:00 INR, PTT INR 1.48 (0.83-1.09) H 01/13/20 18:35 Fibrinogen 252.0 mg/dL (238-498) 01/18/20 06:00 Assessment/Plan Problem List - Problems (1) Abnormal liver function test Code(s): R94.5 - ABNORMAL RESULTS OF LIVER FUNCTION STUDIES (2) Acute on chronic respiratory failure with hypoxemia Code(s): J96.21 - ACUTE AND CHRONIC RESPIRATORY FAILURE WITH HYPOXIA (3) Altered mental status Code(s): R41.82 - ALTERED MENTAL STATUS, UNSPECIFIED Qualifiers: Altered mental status type: disorientation Qualified Code(s): R41.0 - Disorientation, unspecified (4) Suspected COVID-19 virus infection Code(s): Z20.828 - CONTACT W AND EXPOSURE TO OTH VIRAL COMMUNICABLE DISEASES (5) Alcohol dependence Code(s): F10.20 - ALCOHOL DEPENDENCE, UNCOMPLICATED Qualifiers: Substance use status: uncomplicated Qualified Code(s): F10.20 - Alcohol dependence, uncomplicated (6) Anxiety and depression Code(s): F41.9 - ANXIETY DISORDER, UNSPECIFIED; F32.9 - MAJOR DEPRESSIVE DISORDER, SINGLE EPISODE, UNSPECIFIED (7) COPD (chronic obstructive pulmonary disease) Code(s): J44.9 - CHRONIC OBSTRUCTIVE PULMONARY DISEASE, UNSPECIFIED Qualifiers: COPD type: unspecified COPD Qualified Code(s): J44.9 - Chronic obstructive pulmonary disease, unspecified (8) GERD (gastroesophageal reflux disease) Code(s): K21.9 - GASTRO-ESOPHAGEAL REFLUX DISEASE WITHOUT ESOPHAGITIS Qualifiers: Esophagitis presence: esophagitis presence not specified Qualified Code(s): K21.9 - Gastro-esophageal reflux disease without esophagitis (9) HTN (hypertension) Code(s): I10 - ESSENTIAL (PRIMARY) HYPERTENSION Qualifiers: Hypertension type: essential hypertension Qualified Code(s): I10 - Essential (primary) hypertension (10) Hepatitis C Code(s): B19.20 - UNSPECIFIED VIRAL HEPATITIS C WITHOUT HEPATIC COMA Qualifiers: Hepatic coma status: without hepatic coma (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
[2020-01-21] MEDS: METHADONE 30 MG, METHADONE 5 MG PO SCH ×2 (13:51→16:47)
--- NOTE | 2020-01-21 15:00 | PN ---
Physical Exam: SUBJECTIVE: Patient seen and examined at bedside. Overnight he became agitated. This AM he is alert but not oriented and is not able to participate in medical interview. OBJECTIVE: Vital Signs Temp Pulse Resp BP Pulse Ox 97.6 F 93 H 18 114/72 94 L 01/21/20 14:20 01/21/20 14:20 01/21/20 14:20 01/21/20 14:20 01/21/20 15:17 GENERAL: The patient is awake, alert, but not oriented, in no acute distress. HEAD: Normal with no signs of trauma. EYES: MAXIM, chemosis, sclera anicteric, conjunctiva clear. No ptosis. ENT: Ears normal, nares patent, oropharynx clear without exudates, moist mucous membranes. NECK: Trachea midline, full range of motion, supple. LUNGS: Equal rise and fall of the chest, no accessory muscle use. HEART: Regular rate and rhythm, S1, S2 without murmur, rub or gallop. ABDOMEN: Soft, nontender, nondistended, no guarding, no rebound, no hepatosplenomegaly, no masses. EXTREMITIES: 2+ pulses, warm, well-perfused, no edema. . SKIN: Warm, dry, normal turgor, no rashes or lesions noted Laboratory Results - last 24 hr 01/21/20 01/21/20 06:07 06:07 D-Dimer 1044 H Ferritin 183.7 LD Total 462 H C-Reactive Protein 1.5 H Active Medications Generic Name Dose Route Start Last Admin Trade Name Freq PRN Reason Stop Dose Admin Albuterol Sulfate 2 puff 01/13/20 19:04 01/13/20 19:11 Ventolin Hfa Inhaler - IH 2 puff Q4H PRN Administration SHORT OF BREATH/WHEEZING Ascorbic Acid 500 mg 01/14/20 10:00 01/21/20 10:58 Vitamin C - PO 500 mg BID [facility] Administration Aspirin 81 mg 01/19/20 10:01/21/20 10:59 Asa - PO 81 mg DAILY [facility] Administration Atorvastatin Calcium 80 mg 01/18/20 22:00 01/20/20 23:25 Lipitor - PO 80 mg HS [facility] Administration Cholecalciferol 1,000 unit 01/14/20 10:00 01/21/20 10:58 Vitamin D3 - PO 1,000 unit DAILY [facility] Administration Enoxaparin Sodium 90 mg 01/17/20 22:00 01/21/20 10:00 Lovenox - SQ 90 mg BID [facility] Administration Folic Acid 1 mg 01/14/20 10:00 01/21/20 10:58 Folic Acid - PO 1 mg DAILY [facility] Administration Ceftriaxone Sodium 1 gm/ 50 mls @ 100 mls/hr 01/14/20 10:00 01/21/20 11:02 Dextrose IVPB 100 mls/hr DAILY [facility] Administration Protocol Famotidine/Sodium Chloride 20 mg in 50 mls @ 100 mls/hr 01/20/20 22:00 01/20/20 23:26 Pepcid 20 Mg Premixed Ivpb - IVPB 100 mls/hr BID [facility] Administration Methadone HCl 30 mg/ Methadone 35 mg 01/21/20 07:00 HCl 5 mg PO DAILY@0600 [facility] Methylprednisolone Sodium Succinate 40 mg 01/14/20 11:15 01/21/20 11:00 Solu-Medrol - IVPUSH 40 mg BID [facility] Administration Multivitamins/Minerals/Vitamin C 1 tab 01/14/20 10:00 01/21/20 10:59 Tab-A-Vit - PO 1 tab DAILY [facility] Administration Quetiapine Fumarate 100 mg 01/21/20 22:00 Seroquel - PO HS [facility] Tamsulosin HCl 0.4 mg 01/19/20 08:30 01/21/20 10:59 Flomax - PO 0.4 mg DAILY@0830 [facility] Administration Thiamine HCl 100 mg 01/14/20 22:00 01/21/20 10:59 Vitamin B1 - PO 100 mg BID [facility] Administration Verapamil HCl 240 mg 01/14/20 23:45 01/21/20 10:58 Calan Sr - PO 240 mg BID [facility] Administration Zinc Sulfate 220 mg 01/14/20 10:00 01/20/20 23:24 Orazinc - PO 220 mg BID [facility] Administration ASSESSMENT/PLAN: 64 y/o male PMH HTN, olysubstance abuse (etoh and IVDU-Heroin), COPD on 3L at baseline, GERD who was BIBEMS for sob, admitted for care of acute hypoxic respiratory failure 2/2 Covid-19 PNA. # Acute hypoxic respiratory failure 2/2 Covid-19 PNA - Pt becomes highly agitated and then hypoxic: consider 0.5 haldol or 1 mg ativan - CoVid-19+ - QTC 404 - Saturating at 98% on NRB 15L - Solumedrol 40 mg BID, lovenox 40 mg bid - Ceftriaxone (consider stopping) f/u ID in AM - Cont. to monitor inflammatory markers - Vitamin C, vitamin D, and zinc - Isolation precautions: Contact, droplet, airborne - Strict hand washing - Consult ID # Polysubstance abuse, ?underlying psychotic disturbance - Consider ativan or 0.5 haldol when pt is anxious and removing mask - Thiamine, folate, multivitamin - Methadone 35 mg qd - Seroquel 100 mg hs # HTN - Verapamil 250 mg BID # FEN - PO - Cont. to monitor - Low sodium diet # DVT ppx - Lovenox 40 mg bid # Disposition - Saturating at 98% on NRB 15L - Full code Steven Martin MD Visit type - Emergency Visit Emergency Visit: No - New Patient This patient is new to me today: No - Critical Care Critical Care patient: No ATTENDING PHYSICIAN STATEMENT I saw and evaluated the patient. I reviewed the resident's note and discussed the case with the resident. I agree with the resident's findings and plan as documented. SUBJECTIVE: OBJECTIVE: ASSESSMENT AND PLAN:
[2020-01-21] MEDS: FAMOTIDINE 20 MG/50 ML IVPB 20 MG/50 ML MG IVPB SCH ×2 (16:47→21:07)
[2020-01-21] MEDS: ZINC SULFATE 220 MG CAPSULE (FP) PO SCH ×2 (16:47→21:07)
--- NOTE | 2020-01-21 17:00 | PN ---
Teaching Attending Note Name of Resident: Anastacia Fernandes ATTENDING PHYSICIAN STATEMENT I saw and evaluated the patient. I reviewed the resident's note and discussed the case with the resident. I agree with the resident's findings and plan as documented. SUBJECTIVE: was confused last night . still pulls his mask off. was agitated. seroquel last night was held. this am , he denies any pain, he feels better OBJECTIVE: More Awake, cooperative. [place] and wrist restraints on. Lungs: clear anteriorly CV: RRR Abd: soft, NT, ND. Ext: No edema or erythema on upper or lower extremities ASSESSMENT AND PLAN: 64 y/o man with h/o polysubstance abuse , COPD on 3-4 L of O2, HTN , GERD, who was brought here by EMS for hypoxia and is being treated for acute hypoxic resp failure and COVID 19 infection 1- Acute hypoxic resp failure. 2- COVID 19 infection 3- b/l PNA 4- Elevated trop 5-Transaminitis 6-Dilated pancreatic duct 7-Gall stone but no cholecytitis 8- ETOH withdrawal 9- H/o oipid dependence. on Methadone maintenance 10 - AMS : metabolic encephalopathy 11- thrombocytopenia Plan: - Cont NRB mask . cont wrist restraints to avoid pulling his mask off - finished detox - resume lower dose of seroquel 100 mg q HS - cont decreased dose of methadone at 35 mg . - Dc Ceftriaxone per ID Recs - cont steroids ( day 8 ) and Lovenox - monitor closely HLOC
[2020-01-21] MEDS: ATORVASTATIN CA 80 MG TABLET (FP) PO SCH (21:07)
[2020-01-21] MEDS ORDERED: QUEtiapine FUMARATE 100 MG TABLET (FP) PO SCH (22:00)
[2020-01-22] MEDS ORDERED: HALOPERIDOL LACTATE 5 MG/ML IM ONE (00:22)
[2020-01-22] MEDS ORDERED: METHADONE 30 MG, METHADONE 5 MG PO SCH (06:25)
[2020-01-22] MEDS ORDERED: METHADONE HCL 10 MG TABLET ONE (06:29)
[2020-01-22] MEDS ORDERED: METHADONE HCL 5 MG TABLET (FOR PAIN ONLY) ONE (06:29)
[2020-01-22] MEDS: METHADONE 30 MG, METHADONE 5 MG PO SCH (06:39)
--- NOTE | 2020-01-22 07:36 | PN ---
Progress Note, Physician - Current Medication List Current Medications: Active Medications Albuterol Sulfate (Ventolin Hfa Inhaler -) 2 puff IH Q4H PRN PRN Reason: SHORT OF BREATH/WHEEZING Last Admin: 01/13/20 19:11 Dose: 2 puff Documented by: Ascorbic Acid (Vitamin C -) 500 mg PO BID [facility] Last Admin: 01/21/20 21:07 Dose: 500 mg Documented by: Aspirin (Asa -) 81 mg PO DAILY [facility] Last Admin: 01/21/20 10:59 Dose: 81 mg Documented by: Atorvastatin Calcium (Lipitor -) 80 mg PO [facility] Last Admin: 01/21/20 21:07 Dose: 80 mg Documented by: Cholecalciferol (Vitamin D3 -) 1,000 unit PO DAILY [facility] Last Admin: 01/21/20 10:58 Dose: 1,000 unit Documented by: Enoxaparin Sodium (Lovenox -) 90 mg SQ BID [facility] Last Admin: 01/21/20 21:07 Dose: 90 mg Documented by: Folic Acid (Folic Acid -) 1 mg PO DAILY [facility] Last Admin: 01/21/20 10:58 Dose: 1 mg Documented by: Famotidine/Sodium Chloride (Pepcid 20 Mg Premixed Ivpb -) 20 mg in 50 mls @ 100 mls/hr IVPB BID [facility] Last Admin: 01/21/20 21:07 Dose: 100 mls/hr Documented by: Methadone HCl 30 mg/ Methadone (HCl 5 mg) 35 mg PO DAILY@0600 [facility] Last Admin: 01/22/20 06:33 Dose: 35 mg Documented by: Methylprednisolone Sodium Succinate (Solu-Medrol -) 40 mg IVPUSH BID [facility] Last Admin: 01/21/20 21:06 Dose: 40 mg Documented by: Multivitamins/Minerals/Vitamin C (Tab-A-Vit -) 1 tab PO DAILY [facility] Last Admin: 01/21/20 10:59 Dose: 1 tab Documented by: Quetiapine Fumarate (Seroquel -) 100 mg PO [facility] Last Admin: 01/21/20 21:07 Dose: 100 mg Documented by: Tamsulosin HCl (Flomax -) 0.4 mg PO DAILY@0830 [facility] Last Admin: 01/21/20 10:59 Dose: 0.4 mg Documented by: Thiamine HCl (Vitamin B1 -) 100 mg PO BID [facility] Last Admin: 01/21/20 21:07 Dose: 100 mg Documented by: Verapamil HCl (Calan Sr -) 240 mg PO BID [facility] Last Admin: 01/21/20 21:07 Dose: 240 mg Documented by: Zinc Sulfate (Orazinc -) 220 mg PO BID [facility] Last Admin: 01/21/20 21:07 Dose: 220 mg Documented by: - Objective Vital Signs: Vital Signs Temperature 97 F L 01/22/20 02:00 Pulse Rate 90 01/22/20 06:00 Respiratory Rate 20 01/22/20 06:00 Blood Pressure 131/90 01/22/20 06:00 O2 Sat by Pulse Oximetry (%) 90 L 01/22/20 03:00 Labs: CBC, BMP 01/20/20 06:00 01/20/20 06:00 INR, PTT INR 1.48 (0.83-1.09) H 01/13/20 18:35 Fibrinogen 252.0 mg/dL (238-498) 01/18/20 06:00 Problem List - Problems (1) Acute on chronic respiratory failure with hypoxemia Code(s): J96.21 - ACUTE AND CHRONIC RESPIRATORY FAILURE WITH HYPOXIA (2) Altered mental status Code(s): R41.82 - ALTERED MENTAL STATUS, UNSPECIFIED Qualifiers: Altered mental status type: disorientation Qualified Code(s): R41.0 - Dis orientation, unspecified (3) Suspected COVID-19 virus infection Code(s): Z20.828 - CONTACT W AND EXPOSURE TO OTH VIRAL COMMUNICABLE DISEASES (4) Hypertension Code(s): I10 - ESSENTIAL (PRIMARY) HYPERTENSION Assessment/Plan IMP ACUTE ON CHRONIC HYPOXEMIC RESPIRATORY FAILURE COVID 19 PNEUMONIA HTN GERD ALTERED MENTAL STATUS + TROPONIN THROMBOCYTOPENIA PLAN SUPPLEMENTAL O2 NIPPV ABX PER ID MONITOR LYTES TREND TROPONIN CRP,FERRATIN.LDH COVID SEROLOGY PENDING ALBUTEROL INHALER SPIRIVA MONITOR LYTES,CBC,PLT CT LOVENOX PE DOSE IF OK WITH HEME DR CAMPUZANO Problem List - Problems (1) Acute on chronic respiratory failure with hypoxemia Code(s): J96.21 - ACUTE AND CHRONIC RESPIRATORY FAILURE WITH HYPOXIA (2) Altered mental status Code(s): R41.82 - ALTERED MENTAL STATUS, UNSPECIFIED Qualifiers: Altered mental status type: disorientation Qualified Code(s): R41.0 - Disorientation, unspecified (3) Suspected COVID-19 virus infection Code(s): Z20.828 - CONTACT W AND EXPOSURE TO OTH VIRAL COMMUNICABLE DISEASES (4) Hypertension Code(s): I10 - ESSENTIAL (PRIMARY) HYPERTENSION
[2020-01-22] MEDS ORDERED: PT OWN MED DRAWER 7, Y5N ONE (08:31)
[2020-01-22 09:13] LABS: ARTERIAL BLD GAS O2 SATURATION 88.6 % (95-98); ARTERIAL BLOOD GAS BASE EXCESS 4.2 mmol/L (-2-2); ARTERIAL BLOOD GAS PCO2 47.1 mmHg (35-45); ARTERIAL BLOOD GAS PO2 62.8 mmHg (80-100); ARTERIAL BLOOD GAS pH 7.41 (7.35-7.45)
[2020-01-22 09:14] LABS: ALLENS TEST POSITIVE
[2020-01-22] MEDS ORDERED: MIDAZOLAM 100 MG/100 ML MG IVPB ONE (10:17)
[2020-01-22] MEDS ORDERED: MIDAZOLAM HCL 2 MG/2 ML SINGLE DOSE VIAL ONE (10:28)
--- NOTE | 2020-01-22 11:06 | CONSULT ---
Consult Consult Specialty:: Pulm/CCM Reason for Consultation:: Hypoxic respiratory failure 2/2 COVID PNA - History of Present Illness Chief Complaint: Hypoxia History of Present Illness: 64 y/o man with h/o polysubstance abuse(ETOH and heroin) , COPD on 3-4 L of O2, HTN , GERD, who was brought here by EMS for hypoxia, found to be + for COVID 19 infection. Treatment included Ceftriaxone, steroids, lovenox and convalescent plasma. His course is ccb ETOH and opioid withdrawal and agitation requiring antipsychotics and restraints. On the floor he has had increasing oxygen requirement from nasal cannula now to BiPAP support. Currently with AMS and hypoxia despite BiPAP support and being transferred to ICU with hypoxemic respiratory failure m/l d/t worsening COVID PNA +/- HAP+/- aspiration pneumonitis and now requiring intubation. - Past Medical History [employer]: No: Alzheimer's, CVA, Dementia, Migraine, Multiple Sclerosis, Peripheral Neuropathy, Parkinson's, Seizure, Syncope, TIA, Vertigo, Other Cardio/Vascular: Yes: HTN Pulmonary: Yes: COPD Gastrointestinal: Yes: GERD, Other (Hepatitis C) Hepatobiliary: Yes: Hepatitis C Musculoskeletal: Yes: Osteoarthritis - Past Surgical History Past Surgical History: No: None, AAA Repair, AICD, Amputation, Appendectomy, Arthrosocopy, AV Fistula/Graft, Bariatric Surgery, Breast Biopsy, Bypass, CABG, Carotid Endarterectomy, Cataract Removal, Cholecystectomy, Colectomy, Colonoscopy, Colostomy, Craniotomy, , Cystectomy, Hernia Repair, Hysterectomy, Ileal Conduit, Ileosotomy, Joint Replacement, Kidney Transplant, Laminectomy, Liver Transplant, Mastectomy, Nephrectomy, Oopherectomy, Orchiectomy, Permanent Pacemaker, Prostatectomy, Splenectomy, Stent, Thoracotomy, TURP, Tonsillectomy, Tubal Ligation, Upper Endoscopy, Valve Replacement, Vasectomy, Vein Stripping/Ligation - Alcohol/Substance Use Hx Alcohol Use: No History of Substance Use: reports: Heroin - Smoking History Smoking history: Former smoker Have you smoked in the past 12 months: Yes Aproximately how many cigarettes per day: 5 If you are a former smoker, when did you quit?: 2 MONTHS AGO - Social History Usual Living Arrangement: Other History of Recent Travel: No Home Medications - Allergies Allergies/Adverse Reactions: Allergies Allergy/AdvReac Type Severity Reaction Status Date / Time No Known Allergies Allergy Verified 01/13/20 17:58 - Home Medications Home Medications: Ambulatory Orders Quetiapine Fumarate [Seroquel -] 300 mg PO HS 05/06/17 Methadone [Dolophine -] 70 mg PO DAILY 11/28/17 Pantoprazole Sodium [Protonix -] 40 mg PO DAILY #30 tablet.ec 07/04/19 Verapamil HCl ER [Calan Sr -] 240 mg PO BID #60 tablet.er 07/04/19 Aspirin [ASA -] 81 mg PO DAILY 01/18/20 Atorvastatin Ca [Lipitor] 80 mg PO HS 01/18/20 Lisinopril [Zestril] 2.5 mg PO DAILY 01/18/20 Tamsulosin HCl 0.4 mg PO DAILY 01/18/20 Ticagrelor [Brilinta] 90 mg PO BID 01/18/20 Torsemide [Demadex] 20 mg PO BID 01/18/20 Family Medical History Family History: Unable to Obtain Review of Systems Unable to obtain ROS, reason: Unable -dyspneic Physical Exam Vital Signs: Vital Signs Temperature 97 F L 01/22/20 08:30 Pulse Rate 96 H 01/22/20 08:30 Respiratory Rate 19 01/22/20 08:30 Blood Pressure 179/86 H 01/22/20 08:30 O2 Sat by Pulse Oximetry (%) 88 L 01/22/20 09:12 Constitutional: Yes: Well Nourished, Calm Eyes: Yes: Conjunctiva Clear, PERRL HENT: Yes: Atraumatic, Normocephalic Neck: Yes: Supple Cardiovascular: Yes: Regular Rate and Rhythm, S1, S2 Respiratory: Yes: Intubated, Mechanically Ventilated, Rhonchi Gastrointestinal: Yes: Soft, Other (Non tender, non distended) ...Rectal Exam: Yes: Deferred Renal/: Yes: [place] Present Musculoskeletal: Yes: WNL Extremities: Yes: WNL Edema: No Peripheral Pulses WNL: Yes Integumentary: Yes: Other (dry and intact) Neurological: Yes: Other (RASS-4) Psychiatric: Yes: Other (Sedated) Labs: CBC, BMP 01/20/20 06:00 01/20/20 06:00 ABG Results ABG pH 7.26 (7.35-7.45) L 01/22/20 11:50 ABG pCO2 at Pt Temp 64.6 mmHg (35-45) H 01/22/20 11:50 ABG pO2 at Pt Temp 107 mmHg (80-100) H 01/22/20 11:50 ABG HCO3 28.3 mmol/L (22-27) H 01/22/20 11:50 ABG O2 Sat (Measured) 96 % (95-98) 01/22/20 11:50 ABG O2 Content 19.5 % vol 01/22/20 11:50 ABG Base Excess -0.1 mmol/L (-2-2) 01/22/20 11:50 Imaging - Results Chest X-ray: Image Reviewed (diffused patchy opacities, dense bilat LL; bilat effusions) Problem List - Problems (1) Acute on chronic respiratory failure with hypoxemia Code(s): J96.21 - ACUTE AND CHRONIC RESPIRATORY FAILURE WITH HYPOXIA (2) Altered mental status Code(s): R41.82 - ALTERED MENTAL STATUS, UNSPECIFIED Qualifiers: Altered mental status type: disorientation Qualified Code(s): R41.0 - Disorientation, unspecified (3) Suspected COVID-19 virus infection Code(s): Z20.828 - CONTACT W AND EXPOSURE TO OTH VIRAL COMMUNICABLE DISEASES (4) Acute hypoxemic respiratory failure Code(s): J96.01 - ACUTE RESPIRATORY FAILURE WITH HYPOXIA (5) Asthma Code(s): J45.909 - UNSPECIFIED ASTHMA, UNCOMPLICATED (6) COPD exacerbation Code(s): J44.1 - CHRONIC OBSTRUCTIVE PULMONARY DISEASE W (ACUTE) EXACERBATION (7) Essential hypertension Code(s): I10 - ESSENTIAL (PRIMARY) HYPERTENSION (8) GERD (gastroesophageal reflux disease) Code(s): K21.9 - GASTRO-ESOPHAGEAL REFLUX DISEASE WITHOUT ESOPHAGITIS Qualifiers: Esophagitis presence: esophagitis presence not specified Qualified Code(s): K21.9 - Gastro-esophageal reflux disease without esophagitis Assessment/Plan 64 y/o man with h/o polysubstance abuse , COPD on 3-4 L of O2, HTN , GERD, who was brought here by EMS for hypoxia and is being treated for acute hypoxic resp failure and COVID 19 infection. Now with hypoxemic respiratory failure refractory to BiPAP support and AMS, being transferred to ICU for intubation m/l 2/2 worsening COVID PNA+/- HAP+/- aspiration pneumonitis+/- COPD exacerbation. 1- Acute hypoxic resp failure. 2- COVID 19 infection 3- b/l PNA 4- Elevated trop 5-Transaminitis 6-Dilated pancreatic duct 7-Gall stone but no cholecytitis 8- ETOH withdrawal 9- H/o opioid dependence. on Methadone maintenance 10 -AMS : metabolic encephalopathy 11- thrombocytopenia Plan: -LTVV for goal<30; O2 sat >88% -Consider proning for P:F ratio<150 -Diuresis as tollerated -Sedation for vent synchrony -Hold seroquel and methadone -ABG and CXR -Cont steroids (day 8) -Cont Lovenox -Monitor inflammatory markers -Send sanchez cxl -ID consult for empiric HAP coverage. -Cont atrovent and albuterol nebs -NGT for meds and feeds -Monitor HD -Low threshold for vasopressors for MAP<60 -Keep even to net negative -Monitor BMP and UOP -Cont famotidine BID -Cont thiamine, folic acid etc for ETOH use. Kelly Candelaria, HALEYP CCT 45mins
--- NOTE | 2020-01-22 11:13 | PROC ---
Intubation - Intubation Reason for Intubation: Respiratory Insufficiency, Respiratory Failure Intubation Method: orotracheal Blade used: Glidescope Tube Size (cm): 7.5 Tube position @ lip (cm): 22 Tube position confirmed by: Direct visualization, CO2 detector, Breath sounds Breath Sounds after Intubation: equal Remarks: Pt sent from floor to ICu for worsening resp condition. Sats on NRB mid 60s prior to intubation. Induced with Versed/ketamine and Suc. ETT placed atraumaticlly without issue using glidescope #4 blade. Post intubation, sats improved to mid-high 80s. Post intuduction A-line placed L radial artery. +Alex test. Well tolerated without issue.
[2020-01-22] MEDS ORDERED: MORPHINE SULFATE 2 MG/ML VIAL IVPUSH PRN (11:54)
[2020-01-22 12:07] LABS: HEMATOCRIT 44.6 % (35.4-49); HEMOGLOBIN 13.6 GM/dL (11.7-16.9); MCH 27.2 pg (25.7-33.7); MCHC 30.5 g/dl (32.0-35.9); MEAN CELL VOLUME 89.1 fl (80-96); PLATELET COUNT 88 K/MM3 (134-434); RDW 26.3 % (11.9-15.9); WHITE BLOOD COUNT 12.6 K/mm3 (4.0-10.0)
--- NOTE | 2020-01-22 12:13 | PROC ---
Central Line Insertion Indication: Vasopressor Risks and Benefits Explained: No Consent on Chart: No (COVID-19 CRISIS - RUSSO CONSENT) Central Line: Triple Lumen Catheter Anesthesia: 1% Lidocaine Sterile Technique: Yes Ultrasound Guided Assistance: No Position: Left Subclavian Post Insertion: Yes: Bilateral Breath Sounds, Bilateral Chest Expansion, Chest X-Ray Ordered Sterile Dressing Applied: Yes Remarks: REQUIRES EXPERIENCED ICU PROVIDER
[2020-01-22] MEDS ORDERED: NOREPINEPHRINE BITARTRATE 4,000 MCG in DEXTROSE 5%-WATER - 496 ML IV SCH (12:15)
--- NOTE | 2020-01-22 12:20 | PN ---
Progress Note, Physician History of Present Illness: continues to be intubated/sedated not doing well - Current Medication List Current Medications: Active Medications Ascorbic Acid (Vitamin C -) 500 mg PO BID [facility] Last Admin: 01/21/20 21:07 Dose: 500 mg Documented by: Aspirin (Asa -) 81 mg PO DAILY [facility] Last Admin: 01/21/20 10:59 Dose: 81 mg Documented by: Atorvastatin Calcium (Lipitor -) 80 mg PO HS [facility] Last Admin: 01/21/20 21:07 Dose: 80 mg Documented by: Cholecalciferol (Vitamin D3 -) 1,000 unit PO DAILY [facility] Last Admin: 01/21/20 10:58 Dose: 1,000 unit Documented by: Enoxaparin Sodium (Lovenox -) 90 mg SQ BID [facility] Last Admin: 01/21/20 21:07 Dose: 90 mg Documented by: Folic Acid (Folic Acid -) 1 mg PO DAILY [facility] Last Admin: 01/21/20 10:58 Dose: 1 mg Documented by: Famotidine/Sodium Chloride (Pepcid 20 Mg Premixed Ivpb -) 20 mg in 50 mls @ 100 mls/hr IVPB BID [facility] Last Admin: 01/21/20 21:07 Dose: 100 mls/hr Documented by: Norepinephrine Bitartrate 4, (000 mcg/ Dextrose) 500 mls @ 37.5 mls/hr IV TITR [facility]; Protocol Methylprednisolone Sodium Succinate (Solu-Medrol -) 40 mg IVPUSH BID [facility] Last Admin: 01/21/20 21:06 Dose: 40 mg Documented by: Morphine Sulfate (Morphine Sulfate) 2 mg IVPUSH Q4H PRN PRN Reason: PAIN LEVEL 1-5 Multivitamins/Minerals/Vitamin C (Tab-A-Vit -) 1 tab PO DAILY [facility] Last Admin: 01/21/20 10:59 Dose: 1 tab Documented by: Thiamine HCl (Vitamin B1 -) 100 mg PO BID [facility] Last Admin: 01/21/20 21:07 Dose: 100 mg Documented by: Zinc Sulfate (Orazinc -) 220 mg PO BID [facility] Last Admin: 01/21/20 21:07 Dose: 220 mg Documented by: - Objective Vital Signs: Vital Signs Temperature 97 F L 01/22/20 08:30 Pulse Rate 96 H 01/22/20 08:30 Respiratory Rate 19 01/22/20 08:30 Blood Pressure 179/86 H 01/22/20 08:30 O2 Sat by Pulse Oximetry (%) 88 L 01/22/20 09:12 Constitutional: Yes: Other Cardiovascular: Yes: Tachycardia, S1, S2 Respiratory: Yes: Intubated, Mechanically Ventilated Gastrointestinal: Yes: Normal Bowel Sounds, Soft Musculoskeletal: Yes: WNL Extremities: Yes: Other Labs: CBC, BMP 01/22/20 11:45 INR, PTT INR 1.48 (0.83-1.09) H 01/13/20 18:35 Fibrinogen 252.0 mg/dL (238-498) 01/18/20 06:00 - ....Imaging Chest X-ray: Report Reviewed, Image Reviewed Assessment/Plan zainab List - Problems (1) Acute on chronic respiratory failure with hypoxemia Code(s): J96.21 - ACUTE AND CHRONIC RESPIRATORY FAILURE WITH HYPOXIA (2) Altered mental status Code(s): R41.82 - ALTERED MENTAL STATUS, UNSPECIFIED Qualifiers: Altered mental status type: disorientation Qualified Code(s): R41.0 - Disorientation, unspecified (3) Suspected COVID-19 virus infection Code(s): Z20.828 - CONTACT W AND EXPOSURE TO OTH VIRAL COMMUNICABLE DISEASES (4) Acute hypoxemic respiratory failure Code(s): J96.01 - ACUTE RESPIRATORY FAILURE WITH HYPOXIA (5) Asthma Code(s): J45.909 - UNSPECIFIED ASTHMA, UNCOMPLICATED (6) COPD exacerbation Code(s): J44.1 - CHRONIC OBSTRUCTIVE PULMONARY DISEASE W (ACUTE) EXACERBATION (7) Essential hypertension Code(s): I10 - ESSENTIAL (PRIMARY) HYPERTENSION (8) GERD (gastroesophageal reflux disease) Code(s): K21.9 - GASTRO-ESOPHAGEAL REFLUX DISEASE WITHOUT ESOPHAGITIS Qualifiers: Esophagitis presence: esophagitis presence not specified Qualified Code(s): K21.9 - Gastro-esophageal reflux disease without esophagitis Assessment/Plan Acute hypoxic resp failure due to ARDS due to COVID19 infection. Elevated trop ransaminitis Dilated pancreatic duct ETOH withdrawal H/o opioid dependence. on Methadone maintenance AMS : metabolic encephalopathy Thrombocytopenia Plan: -Steroids -Monitor inflammatory markers -Follow cultures -NGT feeds -Famotidine BID -Thiamine, folic acid -S/P Convalescent plasma monitor wbc cc 35 min
[2020-01-22] MEDS ORDERED: LACTATED RINGERS SOLUTION 1,000 ML/1,000 ML INFUS.BAG IV STA (12:26)
[2020-01-22] MEDS ORDERED: HEPARIN NA (PORCINE) 5,000 UNITS/ML 1ML VIAL IVPUSH PRN ×2 (12:27)
[2020-01-22] MEDS ORDERED: HEPARIN INFUSION - 25,000 UNITS/500 ML INFUS.BAG IVPB SCH (12:30)
[2020-01-22] MEDS ORDERED: NOREPINEPHRINE D5W PREMIX 16,000 MCG/500 ML BAG IVPB SCH (12:30)
[2020-01-22 12:34] LABS: ALBUMIN 2.4 g/dl (3.4-5.0); BILIRUBIN,TOTAL 1.1 mg/dL (0.2-1); BLOOD UREA NITROGEN 27.5 mg/dL (7-18); CALCIUM 8.7 mg/dL (8.5-10.1); MAGNESIUM 1.9 mg/dL (1.8-2.4); PHOSPHOROUS 3.6 mg/dL (2.5-4.9); POTASSIUM 4.6 mmol/L (3.5-5.1); TOT PROT 5.6 g/dl (6.4-8.2)
[2020-01-22 12:50] LABS: ARTERIAL BLD GAS O2 SATURATION 96 % (95-98); ARTERIAL BLOOD GAS BASE EXCESS -0.1 mmol/L (-2-2); ARTERIAL BLOOD GAS PCO2 64.6 mmHg (35-45); ARTERIAL BLOOD GAS PO2 107 mmHg (80-100); ARTERIAL BLOOD GAS pH 7.26 (7.35-7.45)
[2020-01-22 12:51] LABS: ALLENS TEST POSITIVE
[2020-01-22] MEDS ORDERED: FENTANYL IVPB 500 MCG/100 ML BAG IVPB SCH ×2 (13:30→14:14)
--- NOTE | 2020-01-22 15:13 | RAPID ---
Physical Examination Vital Signs: Vital Signs Temperature 97 F L 01/22/20 08:30 Pulse Rate 96 H 01/22/20 08:30 Respiratory Rate 19 01/22/20 08:30 Blood Pressure 179/86 H 01/22/20 08:30 O2 Sat by Pulse Oximetry (%) 88 L 01/22/20 09:12 Findings/Remarks: Rapid response was called at 8:33AM. Patient was desaturating to 65-68% range with BiPAP mask off. Mask placed back on and saturation steadily increased up to 90%, however extremities were cold. Patient was lethargic and barely communicating with medical staff. Only received Methadone 35 mg in the morning. ICU was consulted, and patient continued to have low O2 saturation even with BiPAP mask on. ABG was done and patient was transferred to ICU. Constitutional: Yes: Mild Distress Eyes: Yes: WNL HENT: Yes: Other (BiPAP mask was on but not optimally placed.) Respiratory: Yes: Diminished, On BiPap Gastrointestinal: Yes: WNL Labs: CBC, BMP 01/22/20 11:45 01/22/20 11:45
--- NOTE | 2020-01-22 15:27 | PN ---
Physical Exam: SUBJECTIVE: Patient seen and examined in the morning; had a rapid response called for desaturation in the morning. Patient transferred to ICU-2. OBJECTIVE: Vital Signs Period Temp Pulse Resp BP Sys/Causey Pulse Ox Last 24 Hr 97 F-98.5 F 90-117 18-20 114-179/65-90 77-95 GENERAL: The patient is awake, alert, but not oriented, in mild distress. Not using extrarespiratory muscles. HEAD: Normal with no signs of trauma. EYES: MAXIM, chemosis, sclera anicteric, conjunctiva clear. No ptosis. ENT: Ears normal, nares patent, oropharynx clear without exudates, moist mucous membranes. NECK: Trachea midline, full range of motion, supple. LUNGS: Poor air entry b/l . HEART: Regular rate and rhythm, S1, S2 without murmur, rub or gallop. ABDOMEN: Soft, nontender, nondistended, no guarding, no rebound, no hepatosplenomegaly, no masses. EXTREMITIES: 2+ pulses, fingers cool to touch. Laboratory Results - last 24 hr 01/21/20 01/22/20 01/22/20 16:15 08:48 11:45 WBC RBC Hgb Hct MCV MCH MCHC RDW Plt Count MPV D-Dimer Anticoagulation Therapy No Result Required. Puncture Site Right radial ABG pH 7.41 ABG pCO2 at Pt Temp 47.1 H ABG pO2 at Pt Temp 62.8 L ABG HCO3 29.2 H ABG O2 Sat (Measured) 88.6 L ABG O2 Content 16.9 ABG Base Excess 4.2 H Alex Test Positive Patient On Oxygen Yes O2 Delivery Device Bopap Oxygen Flow Rate 100 Vent Mode S/t Vent Rate 14 Mechanical Rate No Result Required. PEEP Pressure Support Vent 16/7 Sodium 142 Potassium 4.6 Chloride 107 Carbon Dioxide 29 Anion Gap 6 L BUN 27.5 H Creatinine 1.0 Est GFR (CKD-EPI)AfAm 91.13 Est GFR (CKD-EPI)NonAf 78.63 Random Glucose 111 H Calcium 8.7 Phosphorus 3.6 Magnesium 1.9 Ferritin 373.6 Total Bilirubin 1.1 H AST 27 ALT 30 Alkaline Phosphatase 102 LD Total 546 H C-Reactive Protein 1.2 H Total Protein 5.6 L Albumin 2.4 L Blood Type O POSITIVE Antibody Screen Negative 01/22/20 01/22/2001/21/20 11:45 11:45 11:50 WBC 12.6 H RBC 5.00 Hgb 13.6 Hct 44.6 MCV 89.1 MCH 27.2 MCHC 30.5 L RDW 26.3 H Plt Count 88 L MPV 10.0 D-Dimer 965 H Anticoagulation Therapy No Result Required. Puncture Site Other ABG pH 7.26 L ABG pCO2 at Pt Temp 64.6 H ABG pO2 at Pt Temp 107 H ABG HCO3 28.3 H ABG O2 Sat (Measured) 96 ABG O2 Content 19.5 ABG Base Excess -0.1 Alex Test Positive Patient On Oxygen Ye O2 Delivery Device No Result Required. Oxygen Flow Rate 100 Vent Mode No Result Required. Vent Rate 22 Mechanical Rate No Result Required. PEEP 8.0 Pressure Support Vent 400 Sodium Potassium Chloride Carbon Dioxide Anion Gap BUN Creatinine Est GFR (CKD-EPI)AfAm Est GFR (CKD-EPI)NonAf Random Glucose Calcium Phosphorus Magnesium Ferritin Total Bilirubin AST ALT Alkaline Phosphatase LD Total C-Reactive Protein Total Protein Albumin Blood Type Antibody Screen Active Medications Generic Name Dose Route Start Last Admin Trade Name Freq PRN Reason Stop Dose Admin Ascorbic Acid 500 mg 01/14/20 10:00 01/21/20 21:07 Vitamin C - PO 500 mg BID [facility] Administration Aspirin 81 mg 01/19/20 10:00 01/21/20 10:59 Asa - PO 81 mg DAILY [facility] Administration Atorvastatin Calcium 80 mg 01/18/20 22:00 01/21/20 21:07 Lipitor - PO 80 mg HS [facility] Administration Cholecalciferol 1,000 unit 01/14/20 10:00 01/21/20 10:58 Vitamin D3 - PO 1,000 unit DAILY [facility] Administration Fentanyl 50 mcg 01/22/20 12:42 Sublimaze Injection - IVPUSH 01/23/20 12:41 ONCE PRN AGITATION Folic Acid 1 mg 01/14/20 10:00 01/21/20 10:58 Folic Acid - PO 1 mg DAILY [facility] Administration Heparin Sodium (Porcine) 1,000 unit 01/22/20 12:27 Heparin - IVPUSH PRN PRN Heparin Heparin Sodium (Porcine) 5,000 unit 01/22/20 12:27 Heparin - IVPUSH PRN PRN Heparin Famotidine/Sodium Chloride 20 mg in 50 mls @ 100 mls/hr 01/20/20 22:00 01/21/20 21:07 Pepcid 20 Mg Premixed Ivpb - IVPB 100 mls/hr BID [facility] Administration Norepinephrine Bitartrate 16,000 mcg in 500 mls @ 9.375 mls/hr 01/22/20 12:30 Levophed Bag IVPB TITR [facility] Protocol 5 MCG/MIN Lactated Ringer's 1,000 ml in 1,000 mls @ 100 mls/hr 01/22/20 13:25 Lactated Ringers Solution IV ASDIR [facility] Midazolam HCl 100 mg in 100 mls @ 1 mls/hr 01/22/20 13:00 Midazolam 100mg/100ml-0.9%Nacl IVPB TITR [facility] Protocol 1 MG/HR Fentanyl 500 mcg in 100 mls @ 40 mls/hr 01/22/20 14:14 Sublimaze Ivpb IVPB TITR [facility] Protocol 200 MCG/HR Methylprednisolone Sodium Succinate 40 mg 01/14/20 11:15 01/21/20 21:06 Solu-Medrol - IVPUSH 40 mg BID [facility] Administration Multivitamins/Minerals/Vitamin C 1 tab 01/14/20 10:00 01/21/20 10:59 Tab-A-Vit - PO 1 tab DAILY [facility] Administration Thiamine HCl 100 mg 01/14/20 22:00 01/21/20 21:07 Vitamin B1 - PO 100 mg BID [facility] Administration Zinc Sulfate 220 mg 01/14/20 10:00 01/21/20 21:07 Orazinc - PO 220 mg BID [facility] Administration ASSESSMENT/PLAN: 64M PMH HTN, PSA (Alcohol and Heroin), COPD (3L home O2), GERD, who presents with acute hypoxic respiratory failure 2/2 COVID. 1) Septic Shock 2/2 Acute Hypoxic Respiratory Failure - Patient is now intubated and sedated in ICU-2 after rapid response was called for patient desaturating while on BiPAP. - Continue Solumedrol 40 BID - Continue Lovnoex 40 BID - LR @ 100 ml/hr - Levophed drip, titrate as needed - Vitamin C, D, zinc - LDH, Ferritin, CRP - Patient consented for plasma, pending availabilty of blood 2) PSA - Thamine, folate, MVI - Methadone 35 mg daily 3) Hx of HTN - Currently hypotensive. - Hold Verapamil 250 BID F: LR@ 100 E: Monitor CMP N: NPO, initiate tube feeds when appropriate Dispo: Transferred to ICU. Requires further monitoring. Visit type - Emergency Visit Emergency Visit: Yes ED Registration Date: 01/13/20 Care time: The patient presented to the Emergency Department on the above date and was hospitalized for further evaluation of their emergent condition. - New Patient This patient is new to me today: No - Critical Care Critical Care patient: Yes Total Critical Care Time (in minutes): 35 Critical Care Statement: The care of this patient involved high complexity decision making to prevent further life threatening deterioration of the patient's condition and/or to evaluate & treat vital organ system(s) failure or risk of failure. ATTENDING PHYSICIAN STATEMENT I saw and evaluated the patient. I reviewed the resident's note and discussed the case with the resident. I agree with the resident's findings and plan as documented. SUBJECTIVE: OBJECTIVE: ASSESSMENT AND PLAN:
--- NOTE | 2020-01-22 17:10 | PN ---
Teaching Attending Note Name of Resident: Jenny An ATTENDING PHYSICIAN STATEMENT I saw and evaluated the patient. I reviewed the resident's note and discussed the case with the resident. I agree with the resident's findings and plan as documented. SUBJECTIVE: unable to obtain hx due to condition [employer] was called on him as he was hypoxic off his face mask. he was placed on BIPap and his sats improved after a while from initiating BIPAP OBJECTIVE: minimally responsive Lungs: clear anteriorly CV: RRR Abd: soft, NT, ND. Ext: No edema or erythema on upper or lower extremities ASSESSMENT AND PLAN: 64 y/o man with h/o polysubstance abuse , COPD on 3-4 L of O2, HTN , GERD, who was brought here by EMS for hypoxia and is being treated for acute hypoxic resp failure and COVID 19 infection 1- Acute hypoxic resp failure. 2- COVID 19 infection 3- b/l PNA 4- Elevated trop 5-Transaminitis 6-Dilated pancreatic duct 7-Gall stone but no cholecytitis 8- ETOH withdrawal 9- H/o oipid dependence. on Methadone maintenance 10 - AMS : metabolic encephalopathy 11- Thrombocytopenia Plan: - Respiratory status has deteriorated. placed on BIPAP. transfer to ICU for possible intubation - finished detox - methadone and seroquel - s/p a course of ceftriaxone - cont steroids ( day 9) and Lovenox dispo : tx to ICU CCT 30 min
[2020-01-22] MEDS: MORPHINE SULFATE/0.9% NACL/PF 100 MG/100 ML BAG IVPB SCH (18:21)
[2020-01-22] MEDS: LACTATED RINGERS SOLUTION 1,000 ML/1,000 ML INFUS.BAG IV SCH (19:00)
[2020-01-22] MEDS ORDERED: ATORVASTATIN CA 40 MG TABLET (FP) ONE (22:04)
[2020-01-22] MEDS: ZINC SULFATE 220 MG CAPSULE (FP) PO SCH (22:27)
[2020-01-22] MEDS: ASCORBIC ACID 500 MG TABLET (FP) PO SCH (22:28)
[2020-01-22] MEDS: methylPREDNISolone NA SUCC 40 MG/1 ML VIAL IVPUSH SCH (22:28)
[2020-01-22] MEDS: ATORVASTATIN CA 80 MG TABLET (FP) PO SCH (22:29)
[2020-01-23] MEDS: THIAMINE HCL 100 MG TABLET (FP) PO SCH ×5 (00:36→22:06)
[2020-01-23] MEDS: FAMOTIDINE 20 MG/50 ML IVPB 20 MG/50 ML MG IVPB SCH ×5 (00:37→22:06)
[2020-01-23] MEDS ORDERED: MIDAZOLAM 100 MG/100 ML MG IVPB ONE ×2 (01:16→15:50)
[2020-01-23] MEDS: MIDAZOLAM IN 0.9 % SOD.CHLORID 100 MG/100 ML PLAST..BAG IVPB SCH ×2 (01:23→18:05)
[2020-01-23 05:11] LABS: HEMATOCRIT 42.3 % (35.4-49); MCH 27.4 pg (25.7-33.7); MCHC 30.7 g/dl (32.0-35.9); MEAN CELL VOLUME 89.3 fl (80-96); MEAN PLT VOLUME 10.2 fl (7.5-11.1); PLATELET COUNT 81 K/MM3 (134-434); RBC 4.74 M/mm3 (4.00-5.60); RDW 25.3 % (11.9-15.9); WHITE BLOOD COUNT 11.3 K/mm3 (4.0-10.0)
[2020-01-23] MEDS: MORPHINE SULFATE/0.9% NACL/PF 100 MG/100 ML BAG IVPB SCH ×2 (05:30→18:06)
[2020-01-23 06:00] LABS: ALBUMIN 2.4 g/dl (3.4-5.0); BILIRUBIN,DIRECT 0.8 mg/dL (0.0-0.2); BILIRUBIN,TOTAL 1.3 mg/dL (0.2-1); BLOOD UREA NITROGEN 25.8 mg/dL (7-18); CALCIUM 8.8 mg/dL (8.5-10.1); CREATININE 1.1 mg/dL (0.55-1.3); MAGNESIUM 1.8 mg/dL (1.8-2.4); PHOSPHOROUS 3.3 mg/dL (2.5-4.9); POTASSIUM 5.3 mmol/L (3.5-5.1); TOT PROT 5.6 g/dl (6.4-8.2)
[2020-01-23 06:31] LABS: ARTERIAL BLD GAS O2 SATURATION 89.9 % (95-98); ARTERIAL BLOOD GAS BASE EXCESS 1.1 mmol/L (-2-2); ARTERIAL BLOOD GAS PO2 66.1 mmHg (80-100); ARTERIAL BLOOD GAS pH 7.33 (7.35-7.45)
[2020-01-23 06:44] LABS: COCAINE, UR NEGATIVE ng/ml (CUTOFF=300); PHENCYCLIDINE,URINE NEGATIVE ng/ml (CUTOFF=25); URINE AMPHETAMINES NEGATIVE ng/ml (CUTOFF=500)
[2020-01-23 06:48] LABS: URINE BARBITURATES POSITIVE ng/ml (CUTOFF=200); URINE BENZODIAZEPINES POSITIVE ng/ml (CUTOFF=200)
[2020-01-23 06:49] LABS: METHADONE, UR POSITIVE ng/ml (CUTOFF=300); OPIATES, URI POSITIVE ng/ml (CUTOFF=300)
[2020-01-23] MEDS: ASPIRIN 81 MG CHEWABLE TABLETS PO SCH ×2 (08:50→10:00)
[2020-01-23] MEDS: MULTIVITAMINS (DAILY MVI) TABLET (FP) PO SCH ×2 (08:50→11:19)
[2020-01-23] MEDS: ASCORBIC ACID 500 MG TABLET (FP) PO SCH ×3 (08:50→22:06)
[2020-01-23] MEDS: FOLIC ACID 1 MG TABLET (FP) PO SCH ×2 (08:50→11:19)
[2020-01-23] MEDS: ZINC SULFATE 220 MG CAPSULE (FP) PO SCH ×3 (08:50→22:05)
[2020-01-23] MEDS: methylPREDNISolone NA SUCC 40 MG/1 ML VIAL IVPUSH SCH ×3 (08:50→22:06)
[2020-01-23] MEDS: CHOLECALCIFEROL (VIT D3) 1,000 UNIT (25 MCG) TABLET PO SCH ×2 (08:51→10:00)
--- NOTE | 2020-01-23 11:13 | PN ---
Progress Note (short form) - Note Progress Note: Patient seen and examined in the ICU. Intubated and sedated. AC Mode of vent, 100%. PPlat: 24 No pressors. Intake & Output 01/20/20 01/21/20 01/22/20 01/23/20 23:59 23:59 23:59 23:59 Intake Total 3792 220 2785 1570 Output Total 1450 225 Balance 1060 470 -164 1345 Last Vital Signs Temp Pulse Resp BP Pulse Ox 97.7 F 93 H 26 H 97/76 90 L 01/23/20 10:00 01/23/20 10:00 01/23/20 10:00 01/23/20 10:00 01/23/20 10:00 Active Medications Ascorbic Acid (Vitamin C -) 500 mg PO BID [facility] Last Admin: 01/23/20 10:00 Dose: 500 mg Documented by: Aspirin (Asa -) 81 mg PO DAILY [facility] Last Admin: 01/23/20 10:00 Dose: 81 mg Documented by: Atorvastatin Calcium (Lipitor -) 80 mg PO HS [facility] Last Admin: 01/22/20 22:29 Dose: 80 mg Documented by: Cholecalciferol (Vitamin D3 -) 1,000 unit PO DAILY [facility] Last Admin: 01/23/20 10:00 Dose: 1,000 unit Documented by: Fentanyl (Sublimaze Injection -) 50 mcg IVPUSH ONCE PRN PRN Reason: AGITATION Stop: 01/23/20 12:41 Folic Acid (Folic Acid -) 1 mg PO DAILY [facility] Last Admin: 01/23/20 08:50 Dose: Not Given Documented by: Heparin Sodium (Porcine) (Heparin -) 1,000 unit IVPUSH PRN PRN PRN Reason: Heparin Heparin Sodium (Porcine) (Heparin -) 5,000 unit IVPUSH PRN PRN PRN Reason: Heparin Famotidine/Sodium Chloride (Pepcid 20 Mg Premixed Ivpb -) 20 mg in 50 mls @ 100 mls/hr IVPB BID [facility] Last Admin: 01/23/20 03:23 Dose: Not Given Documented by: Norepinephrine Bitartrate (Levophed Bag) 16,000 mcg in 500 mls @ 9.375 mls/hr IVPB TITR [facility]; Protocol Lactated Ringer's (Lactated Ringers Solution) 1,000 ml in 1,000 mls @ 100 mls/hr IV [facility] Last Admin: 01/22/20 19:00 Dose: 100 mls/hr Documented by: Midazolam HCl (Midazolam 100mg/100ml-0.9%Nacl) 100 mg in 100 mls @ 1 mls/hr IVPB TITR [facility]; Protocol Last Admin: 01/23/20 01:23 Dose: 5 mg/hr, 5 mls/hr Documented by: Morphine Sulfate (Morphine 100mg/100ml-0.9% Nacl) 100 mg in 100 mls @ 6 mls/hr IVPB TITR [facility]; Protocol Last Admin: 01/23/20 05:30 Dose: 5 mg/hr, 5 mls/hr Documented by: Methylprednisolone Sodium Succinate (Solu-Medrol -) 40 mg IVPUSH BID [facility] Last Admin: 01/23/20 10:00 Dose: 40 mg Documented by: Multivitamins/Minerals/Vitamin C (Tab-A-Vit -) 1 tab PO DAILY [facility] Last Admin: 01/23/20 08:50 Dose: Not Given Documented by: Thiamine HCl (Vitamin B1 -) 100 mg PO BID [facility] Last Admin: 01/23/20 03:24 Dose: Not Given Documented by: Zinc Sulfate (Orazinc -) 220 mg PO BID [facility] Last Admin: 01/23/20 08:50 Dose: Not Given Documented by: Constitutional: Yes: Intubated and sedated Eyes: Yes: Conjunctiva Clear HENT: Yes: Atraumatic, Normocephalic Neck: Yes: Supple Cardiovascular: Yes: Regular Rate and Rhythm, S1, S2 Respiratory: Yes: Intubated, Mechanically Ventilated, Rhonchi Gastrointestinal: Yes: Soft, (+) BS ...Rectal Exam: Yes: Deferred Renal/: Yes: [place] Present Musculoskeletal: Yes: WNL Extremities: Yes: WNL Edema: No Peripheral Pulses WNL: Yes Integumentary: Yes: Other (dry and intact) Neurological: Yes: Other (Sedated) Psychiatric: Yes: Other (Sedated) Labs: Laboratory Results - last 24 hr 01/22/20 01/22/20 01/22/20 11:45 11:45 11:45 WBC 12.6 H RBC 5.00 Hgb 13.6 Hct 44.6 MCV 89.1 MCH 27.2 MCHC 30.5 L RDW 26.3 H Plt Count 88 L MPV 10.0 D-Dimer 965 H Anticoagulation Therapy Puncture Site ABG pH ABG pCO2 at Pt Temp ABG pO2 at Pt Temp ABG HCO3 ABG O2 Sat (Measured) ABG O2 Content ABG Base Excess Alex Test Patient On Oxygen O2 Delivery Device Oxygen Flow Rate Vent Mode Vent Rate Mechanical Rate PEEP Pressure Support Vent Sodium 142 Potassium 4.6 Chloride 107 Carbon Dioxide 29 Anion Gap 6 L BUN 27.5 H Creatinine 1.0 Est GFR (CKD-EPI)AfAm 91.13 Est GFR (CKD-EPI)NonAf 78.63 Random Glucose 111 H Calcium 8.7 Phosphorus 3.6 Magnesium 1.9 Ferritin 373.6 Total Bilirubin 1.1 H Direct Bilirubin AST 27 ALT 30 Alkaline Phosphatase 102 LD Total 546 H C-Reactive Protein 1.2 H Total Protein 5.6 L Albumin 2.4 L Opiates Screen Methadone Screen Barbiturate Screen Phencyclidine Screen Ur Amphetamines Screen MDMA (Ecstasy) Screen Benzodiazepines Screen Cocaine Screen U Marijuana (THC) Screen 01/22/20 01/23/20 01/23/20 11:50 04:15 04:15 WBC 11.3 H RBC 4.74 Hgb 13.0 Hct 42.3 MCV 89.3 MCH 27.4 MCHC 30.7 L RDW 25.3 H Plt Count 81 L MPV 10.2 D-Dimer Anticoagulation Therapy No Result Required. Puncture Site Other ABG pH 7.26 L ABG pCO2 at Pt Temp 64.6 H ABG pO2 at Pt Temp 107 H ABG HCO3 28.3 H ABG O2 Sat (Measured) 96 ABG O2 Content 19.5 ABG Base Excess -0.1 Alex Test Positive Patient On Oxygen Ye O2 Delivery Device No Result Required. Oxygen Flow Rate 100 Vent Mode No Result Required. Vent Rate 22 Mechanical Rate No Result Required. PEEP 8.0 Pressure Support Vent 400 Sodium 142 Potassium 5.3 H Chloride 107 Carbon Dioxide 29 Anion Gap 6 L BUN 25.8 H Creatinine 1.1 Est GFR (CKD-EPI)AfAm 81.22 Est GFR (CKD-EPI)NonAf 70.07 Random Glucose 104 Calcium 8.8 Phosphorus 3.3 Magnesium 1.8 Ferritin Total Bilirubin 1.3 H Direct Bilirubin 0.8 H AST 24 ALT 30 Alkaline Phosphatase 92 LD Total C-Reactive Protein Total Protein 5.6 L Albumin 2.4 L Opiates Screen Methadone Screen Barbiturate Screen Phencyclidine Screen Ur Amphetamines Screen MDMA (Ecstasy) Screen Benzodiazepines Screen Cocaine Screen U Marijuana (THC) Screen 01/23/20 01/23/20 04:15 06:15 WBC RBC Hgb Hct MCV MCH MCHC RDW Plt Count MPV D-Dimer Anticoagulation Therapy No Result Required. Puncture Site Arterial line ABG pH 7.33 L ABG pCO2 at Pt Temp 54.0 H ABG pO2 at Pt Temp 66.1 L ABG HCO3 27.5 H ABG O2 Sat (Measured) 89.9 L ABG O2 Content 15.5 ABG Base Excess 1.1 Alex Test Not applicable Patient On Oxygen Yes O2 Delivery Device Vent Oxygen Flow Rate 80% Vent Mode A/c Vent Rate 26 Mechanical Rate Yes PEEP 10.0 Pressure Support Vent 400 Sodium Potassium Chloride Carbon Dioxide Anion Gap BUN Creatinine Est GFR (CKD-EPI)AfAm Est GFR (CKD-EPI)NonAf Random Glucose Calcium Phosphorus Magnesium Ferritin Total Bilirubin Direct Bilirubin AST ALT Alkaline Phosphatase LD Total C-Reactive Protein Total Protein Albumin Opiates Screen Positive A* Methadone Screen Positive A* Barbiturate Screen Positive A* Phencyclidine Screen Negative Ur Amphetamines Screen Negative MDMA (Ecstasy) Screen Negative Benzodiazepines Screen Positive A* Cocaine Screen Negative U Marijuana (THC) Screen Negative Imaging - Results Chest X-ray: Image Reviewed (diffused patchy opacities, dense bilat LL; bilat effusions) Problem List - Problems (1) Acute on chronic respiratory failure with hypoxemia Code(s): J96.21 - ACUTE AND CHRONIC RESPIRATORY FAILURE WITH HYPOXIA (2) Altered mental status Code(s): R41.82 - ALTERED MENTAL STATUS, UNSPECIFIED Qualifiers: Altered mental status type: disorientation Qualified Code(s): R41.0 - Disorientation, unspecified (3) Suspected COVID-19 virus infection Code(s): Z20.828 - CONTACT W AND EXPOSURE TO OTH VIRAL COMMUNICABLE DISEASES (4) Acute hypoxemic respiratory failure Code(s): J96.01 - ACUTE RESPIRATORY FAILURE WITH HYPOXIA (5) Asthma Code(s): J45.909 - UNSPECIFIED ASTHMA, UNCOMPLICATED (6) COPD exacerbation Code(s): J44.1 - CHRONIC OBSTRUCTIVE PULMONARY DISEASE W (ACUTE) EXACERBATION (7) Essential hypertension Code(s): I10 - ESSENTIAL (PRIMARY) HYPERTENSION (8) GERD (gastroesophageal reflux disease) Code(s): K21.9 - GASTRO-ESOPHAGEAL REFLUX DISEASE WITHOUT ESOPHAGITIS Qualifiers: Esophagitis presence: esophagitis presence not specified Qualified Code(s): K21.9 - Gastro-esophageal reflux disease without esophagitis Assessment/Plan Acute hypoxic resp failure due to ARDS due to COVID19 infection. Elevated trop ransaminitis Dilated pancreatic duct ETOH withdrawal H/o opioid dependence. on Methadone maintenance AMS : metabolic encephalopathy thrombocytopenia Plan: -LTVV for goal<30; O2 sat >88% -Sedation for vent synchrony -Hold seroquel and methadone -Follow ABG and CXR -Steroids -Cont Lovenox -Monitor inflammatory markers PRN -Follow cultures -NGT feeds -Famotidine BID -Thiamine, folic acid etc for ETOH use. -For Convalescent plasma Dr Espinoza Critical care time spent in reviewing chart, evaluating patient and formulating plan - 36 minutes.
--- NOTE | 2020-01-23 12:21 | PN ---
Progress Note, Physician History of Present Illness: continues to be intubated/sedated not doing well not on pressors - Current Medication List Current Medications: Active Medications Ascorbic Acid (Vitamin C -) 500 mg PO BID [facility] Last Admin: 01/23/20 10:00 Dose: 500 mg Documented by: Aspirin (Asa -) 81 mg PO DAILY [facility] Last Admin: 01/23/20 10:00 Dose: 81 mg Documented by: Atorvastatin Calcium (Lipitor -) 80 mg PO HS [facility] Last Admin: 01/22/20 22:29 Dose: 80 mg Documented by: Cholecalciferol (Vitamin D3 -) 1,000 unit PO DAILY [facility] Last Admin: 01/23/20 10:00 Dose: 1,000 unit Documented by: Fentanyl (Sublimaze Injection -) 50 mcg IVPUSH ONCE PRN PRN Reason: AGITATION Stop: 01/23/20 12:41 Folic Acid (Folic Acid -) 1 mg PO DAILY [facility] Last Admin: 01/23/20 11:19 Dose: 1 mg Documented by: Heparin Sodium (Porcine) (Heparin -) 1,000 unit IVPUSH PRN PRN PRN Reason: Heparin Heparin Sodium (Porcine) (Heparin -) 5,000 unit IVPUSH PRN PRN PRN Reason: Heparin Famotidine/Sodium Chloride (Pepcid 20 Mg Premixed Ivpb -) 20 mg in 50 mls @ 100 mls/hr IVPB BID [facility] Last Admin: 01/23/20 11:19 Dose: 100 mls/hr Documented by: Norepinephrine Bitartrate (Levophed Bag) 16,000 mcg in 500 mls @ 9.375 mls/hr IVPB TITR [facility]; Protocol Lactated Ringer's (Lactated Ringers Solution) 1,000 ml in 1,000 mls @ 100 mls/hr IV ASDIR [facility] Last Admin: 01/22/20 19:00 Dose: 100 mls/hr Documented by: Midazolam HCl (Midazolam 100mg/100ml-0.9%Nacl) 100 mg in 100 mls @ 1 mls/hr IVPB TITR [facility]; Protocol Last Admin: 01/23/20 01:23 Dose: 5 mg/hr, 5 mls/hr Documented by: Morphine Sulfate (Morphine 100mg/100ml-0.9% Nacl) 100 mg in 100 mls @ 6 mls/hr IVPB TITR [facility]; Protocol Last Admin: 01/23/20 05:30 Dose: 5 mg/hr, 5 mls/hr Documented by: Methylprednisolone Sodium Succinate (Solu-Medrol -) 40 mg IVPUSH BID [facility] Last Admin: 01/23/20 10:00 Dose: 40 mg Documented by: Multivitamins/Minerals/Vitamin C (Tab-A-Vit -) 1 tab PO DAILY [facility] Last Admin: 01/23/20 11:19 Dose: 1 tab Documented by: Thiamine HCl (Vitamin B1 -) 100 mg PO BID [facility] Last Admin: 01/23/20 11:19 Dose: 100 mg Documented by: Zinc Sulfate (Orazinc -) 220 mg PO BID [facility] Last Admin: 01/23/20 11:19 Dose: 220 mg Documented by: - Objective Vital Signs: Vital Signs Temperature 98.1 F 01/23/20 12:00 Pulse Rate 88 01/23/20 12:00 Respiratory Rate 26 H 01/23/20 12:00 Blood Pressure 97/73 01/23/20 12:00 O2 Sat by Pulse Oximetry (%) 89 L 01/23/20 12:00 Constitutional: Yes: Other Cardiovascular: Yes: Tachycardia, S1, S2 Respiratory: Yes: Intubated, Mechanically Ventilated Gastrointestinal: Yes: Normal Bowel Sounds, Soft Neurological: Yes: Other Labs: CBC, BMP 01/23/20 04:15 01/23/20 04:15 INR, PTT INR 1.48 (0.83-1.09) H 01/13/20 18:35 Fibrinogen 252.0 mg/dL (238-498) 01/18/20 06:00 - ....Imaging Chest X-ray: Report Reviewed, Image Reviewed Assessment/Plan roblem List - Problems (1) Acute on chronic respiratory failure with hypoxemia Code(s): J96.21 - ACUTE AND CHRONIC RESPIRATORY FAILURE WITH HYPOXIA (2) Altered mental status Code(s): R41.82 - ALTERED MENTAL STATUS, UNSPECIFIED Qualifiers: Altered mental status type: disorientation Qualified Code(s): R41.0 - Disorientation, unspecified (3) Suspected COVID-19 virus infection Code(s): Z20.828 - CONTACT W AND EXPOSURE TO OTH VIRAL COMMUNICABLE DISEASES (4) Acute hypoxemic respiratory failure Code(s): J96.01 - ACUTE RESPIRATORY FAILURE WITH HYPOXIA (5) Asthma Code(s): J45.909 - UNSPECIFIED ASTHMA, UNCOMPLICATED (6) COPD exacerbation Code(s): J44.1 - CHRONIC OBSTRUCTIVE PULMONARY DISEASE W (ACUTE) EXACERBATION (7) Essential hypertension Code(s): I10 - ESSENTIAL (PRIMARY) HYPERTENSION (8) GERD (gastroesophageal reflux disease) Code(s): K21.9 - GASTRO-ESOPHAGEAL REFLUX DISEASE WITHOUT ESOPHAGITIS Qualifiers: Esophagitis presence: esophagitis presence not specified Qualified Code(s): K21.9 - Gastro-esophageal reflux disease without esophagitis Assessment/Plan Acute hypoxic resp failure due to ARDS due to COVID19 infection. Elevated trop ransaminitis Dilated pancreatic duct ETOH withdrawal H/o opioid dependence. on Methadone maintenance AMS : metabolic encephalopathy Thrombocytopenia Plan: -Steroids -Monitor inflammatory markers -NGT feeds -Famotidine BID -Thiamine, folic acid -S/P Convalescent plasma monitor wbc not doing well cc 35 min
[2020-01-23] MEDS ORDERED: PROPOFOL 1,000,000 MCG/100 ML VIAL ONE (13:50)
[2020-01-23] MEDS: LACTATED RINGERS SOLUTION 1,000 ML/1,000 ML INFUS.BAG IV SCH (18:05)
[2020-01-23] MEDS: AMINO ACIDS/PROTEIN HYDROLYS 30 ML LIQUID.PKT NGT SCH (18:07)
[2020-01-23] MEDS ORDERED: ATORVASTATIN CA 40 MG TABLET (FP) ONE (21:07)
[2020-01-23] MEDS: ATORVASTATIN CA 80 MG TABLET (FP) PO SCH (22:05)
[2020-01-24] MEDS ORDERED: MIDAZOLAM 100 MG/100 ML MG IVPB ONE ×2 (04:25→16:28)
[2020-01-24 07:48] LABS: HEMATOCRIT 37.1 % (35.4-49); HEMOGLOBIN 11.4 GM/dL (11.7-16.9); MCH 27.6 pg (25.7-33.7); MCHC 30.8 g/dl (32.0-35.9); MEAN CELL VOLUME 89.7 fl (80-96); MEAN PLT VOLUME 10.8 fl (7.5-11.1); PLATELET COUNT 76 K/MM3 (134-434); RBC 4.14 M/mm3 (4.00-5.60); RDW 24.7 % (11.9-15.9); WHITE BLOOD COUNT 9.4 K/mm3 (4.0-10.0)
[2020-01-24 07:57] LABS: ARTERIAL BLD GAS O2 SATURATION 91.7 % (95-98); ARTERIAL BLOOD GAS BASE EXCESS -0.5 mmol/L (-2-2); ARTERIAL BLOOD GAS PCO2 52.2 mmHg (35-45); ARTERIAL BLOOD GAS PO2 70.6 mmHg (80-100); ARTERIAL BLOOD GAS pH 7.31 (7.35-7.45)
[2020-01-24 08:17] LABS: ALBUMIN 2.2 g/dl (3.4-5.0); BLOOD UREA NITROGEN 29.6 mg/dL (7-18); CALCIUM 8.5 mg/dL (8.5-10.1); CREATININE 0.9 mg/dL (0.55-1.3); POTASSIUM 4.7 mmol/L (3.5-5.1); TOT PROT 5.1 g/dl (6.4-8.2)
--- NOTE | 2020-01-24 09:53 | PN ---
Progress Note (short form) - Note Progress Note: Patient seen and examined in the ICU. Intubated and sedated. AC Mode of vent, 100%. PPlat: 22 No pressors. Intake & Output 01/21/20 01/22/20 01/23/20 01/24/20 23:59 23:59 23:59 23:59 Intake Total 470 1286 4072 1107 Output Total 1450 850 300 Balance 470 -164 3222 807 Last Vital Signs Temp Pulse Resp BP Pulse Ox 97.0 F L 79 26 H 97/68 90 L 01/24/20 06:00 01/24/20 06:00 01/24/20 08:50 01/24/20 06:00 01/23/20 20:49 Active Medications Amino Acids (Prosource No Carb Liquid Pkt) 30 ml NGT BID@0800,1730 [facility] Last Admin: 01/23/20 18:07 Dose: 30 ml Documented by: Ascorbic Acid (Vitamin C -) 500 mg PO BID [facility] Last Admin: 01/23/20 22:06 Dose: 500 mg Documented by: Aspirin (Asa -) 81 mg PO DAILY [facility] Last Admin: 01/23/20 10:00 Dose: 81 mg Documented by: Atorvastatin Calcium (Lipitor -) 80 mg PO HS [facility] Last Admin: 01/23/20 22:05 Dose: 80 mg Documented by: Cholecalciferol (Vitamin D3 -) 1,000 unit PO DAILY [facility] Last Admin: 01/23/20 10:00 Dose: 1,000 unit Documented by: Folic Acid (Folic Acid -) 1 mg PO DAILY [facility] Last Admin: 01/23/20 11:19 Dose: 1 mg Documented by: Heparin Sodium (Porcine) (Heparin -) 1,000 unit IVPUSH PRN PRN PRN Reason: Heparin Heparin Sodium (Porcine) (Heparin -) 5,000 unit IVPUSH PRN PRN PRN Reason: Heparin Famotidine/Sodium Chloride (Pepcid 20 Mg Premixed Ivpb -) 20 mg in 50 mls @ 100 mls/hr IVPB BID [facility] Last Admin: 01/23/20 22:06 Dose: 100 mls/hr Documented by: Norepinephrine Bitartrate (Levophed Bag) 16,000 mcg in 500 mls @ 9.375 mls/hr IVPB TITR [facility]; Protocol Lactated Ringer's (Lactated Ringers Solution) 1,000 ml in 1,000 mls @ 100 mls/hr IV [facility] Last Admin: 01/23/20 18:05 Dose: 100 mls/hr Documented by: Midazolam HCl (Midazolam 100mg/100ml-0.9%Nacl) 100 mg in 100 mls @ 1 mls/hr IVPB TITR [facility]; Protocol Last Admin: 01/23/20 18:05 Dose: 8 mg/hr, 8 mls/hr Documented by: Morphine Sulfate (Morphine 100mg/100ml-0.9% Nacl) 100 mg in 100 mls @ 6 mls/hr IVPB TITR [facility]; Protocol Last Admin: 01/23/20 18:06 Dose: 5 mg/hr, 5 mls/hr Documented by: Methylprednisolone Sodium Succinate (Solu-Medrol -) 40 mg IVPUSH BID [facility] Last Admin: 01/23/20 22:06 Dose: 40 mg Documented by: Multivitamins/Minerals/Vitamin C (Tab-A-Vit -) 1 tab PO DAILY [facility] Last Admin: 01/23/20 11:19 Dose: 1 tab Documented by: Thiamine HCl (Vitamin B1 -) 100 mg PO BID [facility] Last Admin: 01/23/20 22:06 Dose: 100 mg Documented by: Zinc Sulfate (Orazinc -) 220 mg PO BID [facility] Last Admin: 01/23/20 22:05 Dose: 220 mg Documented by: Constitutional: Yes: Intubated and sedated Eyes: Yes: Conjunctiva Clear HENT: Yes: Atraumatic, Normocephalic Neck: Yes: Supple Cardiovascular: Yes: Regular Rate and Rhythm, S1, S2 Respiratory: Yes: Intubated, Mechanically Ventilated, Rhonchi Gastrointestinal: Yes: Soft, (+) BS ...Rectal Exam: Yes: Deferred Renal/: Yes: Greene Present Musculoskeletal: Yes: WNL Extremities: Yes: WNL Edema: No Peripheral Pulses WNL: Yes Integumentary: Yes: Other (dry and intact) Neurological: Yes: Other (Sedated) Psychiatric: Yes: Other (Sedated) Labs: Laboratory Results - last 24 hr 01/24/20 01/24/20 01/24/20 05:30 05:30 05:30 WBC 9.4 RBC 4.14 Hgb 11.4 L Hct 37.1 MCV 89.7 MCH 27.6 MCHC 30.8 L RDW 24.7 H Plt Count 76 L MPV 10.8 PTT (Actin FS) 32.4 Anticoagulation Therapy Puncture Site ABG pH ABG pCO2 at Pt Temp ABG pO2 at Pt Temp ABG HCO3 ABG O2 Sat (Measured) ABG O2 Content ABG Base Excess Alex Test Patient On Oxygen O2 Delivery Device Oxygen Flow Rate Vent Mode Vent Rate Mechanical Rate PEEP Pressure Support Vent Sodium 142 Potassium 4.7 Chloride 106 Carbon Dioxide 32 Anion Gap 4 L BUN 29.6 H Creatinine 0.9 Est GFR (CKD-EPI)AfAm 103.51 Est GFR (CKD-EPI)NonAf 89.31 Random Glucose 210 H Calcium 8.5 Total Bilirubin 1.0 AST 23 ALT 27 Alkaline Phosphatase 77 Total Protein 5.1 L Albumin 2.2 L 01/24/20 05:30 WBC RBC Hgb Hct MCV MCH MCHC RDW Plt Count MPV PTT (Actin FS) Anticoagulation Therapy No Result Required. Puncture Site Arterial line ABG pH 7.31 L ABG pCO2 at Pt Temp 52.2 H ABG pO2 at Pt Temp 70.6 L ABG HCO3 25.7 ABG O2 Sat (Measured) 91.7 L ABG O2 Content 13.3 ABG Base Excess -0.5 Alex Test Not applicable Patient On Oxygen Yes O2 Delivery Device Vent Oxygen Flow Rate 100% Vent Mode A/c Vent Rate 26 Mechanical Rate Yes PEEP 10.0 Pressure Support Vent 400 Sodium Potassium Chloride Carbon Dioxide Anion Gap BUN Creatinine Est GFR (CKD-EPI)AfAm Est GFR (CKD-EPI)NonAf Random Glucose Calcium Total Bilirubin AST ALT Alkaline Phosphatase Total Protein Albumin Imaging - Results Chest X-ray: Image Reviewed (diffused patchy opacities, dense bilat LL; bilat effusions) Problem List - Problems (1) Acute on chronic respiratory failure with hypoxemia Code(s): J96.21 - ACUTE AND CHRONIC RESPIRATORY FAILURE WITH HYPOXIA (2) Altered mental status Code(s): R41.82 - ALTERED MENTAL STATUS, UNSPECIFIED Qualifiers: Altered mental status type: disorientation Qualified Code(s): R41.0 - Disorientation, unspecified (3) Suspected COVID-19 virus infection Code(s): Z20.828 - CONTACT W AND EXPOSURE TO OTH VIRAL COMMUNICABLE DISEASES (4) Acute hypoxemic respiratory failure Code(s): J96.01 - ACUTE RESPIRATORY FAILURE WITH HYPOXIA (5) Asthma Code(s): J45.909 - UNSPECIFIED ASTHMA, UNCOMPLICATED (6) COPD exacerbation Code(s): J44.1 - CHRONIC OBSTRUCTIVE PULMONARY DISEASE W (ACUTE) EXACERBATION (7) Essential hypertension Code(s): I10 - ESSENTIAL (PRIMARY) HYPERTENSION (8) GERD (gastroesophageal reflux disease) Code(s): K21.9 - GASTRO-ESOPHAGEAL REFLUX DISEASE WITHOUT ESOPHAGITIS Qualifiers: Esophagitis presence: esophagitis presence not specified Qualified Code(s): K21.9 - Gastro-esophageal reflux disease without esophagitis Assessment/Plan Acute hypoxic resp failure due to ARDS due to COVID19 infection. Elevated trop ransaminitis Dilated pancreatic duct ETOH withdrawal H/o opioid dependence. on Methadone maintenance AMS : metabolic encephalopathy Thrombocytopenia Plan: -LTVV for goal<30 -Sedation for vent synchrony -Continue to hold seroquel and methadone -Steroids -Cont AC -Monitor inflammatory markers PRN -Follow cultures -NGT feeds -Famotidine BID -Thiamine, folic acid -S/P Convalescent plasma Dr Espinoza Critical care time spent in reviewing chart, evaluating patient and formulating plan - 36 minutes.
[2020-01-24] MEDS: AMINO ACIDS/PROTEIN HYDROLYS 30 ML LIQUID.PKT NGT SCH ×2 (10:28→18:58)
[2020-01-24] MEDS: methylPREDNISolone NA SUCC 40 MG/1 ML VIAL IVPUSH SCH ×2 (10:28→22:30)
[2020-01-24] MEDS: ASCORBIC ACID 500 MG TABLET (FP) PO SCH ×2 (10:28→22:30)
[2020-01-24] MEDS: MULTIVITAMINS (DAILY MVI) TABLET (FP) PO SCH (10:28)
[2020-01-24] MEDS: FOLIC ACID 1 MG TABLET (FP) PO SCH (10:28)
[2020-01-24] MEDS: ASPIRIN 81 MG CHEWABLE TABLETS PO SCH (10:28)
[2020-01-24] MEDS: CHOLECALCIFEROL (VIT D3) 1,000 UNIT (25 MCG) TABLET PO SCH (10:28)
[2020-01-24] MEDS: ZINC SULFATE 220 MG CAPSULE (FP) PO SCH ×2 (10:28→22:30)
[2020-01-24] MEDS: FAMOTIDINE 20 MG/50 ML IVPB 20 MG/50 ML MG IVPB SCH ×2 (10:28→22:30)
[2020-01-24] MEDS: THIAMINE HCL 100 MG TABLET (FP) PO SCH ×2 (10:28→22:30)
--- NOTE | 2020-01-24 13:09 | PN ---
Progress Note, Physician History of Present Illness: intubated/sedated - Current Medication List Current Medications: Active Medications Amino Acids (Prosource No Carb Liquid Pkt) 30 ml NGT BID@0800,1730 [facility] Last Admin: 01/24/20 10:28 Dose: 30 ml Documented by: Ascorbic Acid (Vitamin C -) 500 mg PO BID [facility] Last Admin: 01/24/20 10:28 Dose: 500 mg Documented by: Aspirin (Asa -) 81 mg PO DAILY [facility] Last Admin: 01/24/20 10:28 Dose: 81 mg Documented by: Atorvastatin Calcium (Lipitor -) 80 mg PO HS [facility] Last Admin: 01/23/20 22:05 Dose: 80 mg Documented by: Cholecalciferol (Vitamin D3 -) 1,000 unit PO DAILY [facility] Last Admin: 01/24/20 10:28 Dose: 1,000 unit Documented by: Folic Acid (Folic Acid -) 1 mg PO DAILY [facility] Last Admin: 01/24/20 10:28 Dose: 1 mg Documented by: Heparin Sodium (Porcine) (Heparin -) 1,000 unit IVPUSH PRN PRN PRN Reason: Heparin Heparin Sodium (Porcine) (Heparin -) 5,000 unit IVPUSH PRN PRN PRN Reason: Heparin Famotidine/Sodium Chloride (Pepcid 20 Mg Premixed Ivpb -) 20 mg in 50 mls @ 100 mls/hr IVPB BID [facility] Last Admin: 01/24/20 10:28 Dose: 100 mls/hr Documented by: Norepinephrine Bitartrate (Levophed Bag) 16,000 mcg in 500 mls @ 9.375 mls/hr IVPB TITR [facility]; Protocol Lactated Ringer's (Lactated Ringers Solution) 1,000 ml in 1,000 mls @ 100 mls/hr IV ASDIR [facility] Last Admin: 01/23/20 18:05 Dose: 100 mls/hr Documented by: Midazolam HCl (Midazolam 100mg/100ml-0.9%Nacl) 100 mg in 100 mls @ 1 mls/hr IVPB TITR [facility]; Protocol Last Admin: 01/23/20 18:05 Dose: 8 mg/hr, 8 mls/hr Documented by: Morphine Sulfate (Morphine 100mg/100ml-0.9% Nacl) 100 mg in 100 mls @ 6 mls/hr IVPB TITR [facility]; Protocol Last Admin: 01/23/20 18:06 Dose: 5 mg/hr, 5 mls/hr Documented by: Methylprednisolone Sodium Succinate (Solu-Medrol -) 40 mg IVPUSH BID [facility] Last Admin: 01/24/20 10:28 Dose: 40 mg Documented by: Multivitamins/Minerals/Vitamin C (Tab-A-Vit -) 1 tab PO DAILY [facility] Last Admin: 01/24/20 10:28 Dose: 1 tab Documented by: Thiamine HCl (Vitamin B1 -) 100 mg PO BID [facility] Last Admin: 01/24/20 10:28 Dose: 100 mg Documented by: Zinc Sulfate (Orazinc -) 220 mg PO BID [facility] Last Admin: 01/24/20 10:28 Dose: 220 mg Documented by: - Objective Vital Signs: Vital Signs Temperature 97.6 F 01/24/20 09:54 Pulse Rate 80 01/24/20 09:54 Respiratory Rate 26 H 01/24/20 09:54 Blood Pressure 106/73 01/24/20 09:54 O2 Sat by Pulse Oximetry (%) 94 L 01/24/20 09:54 Constitutional: Yes: Other Cardiovascular: Yes: S1, S2 Respiratory: Yes: Intubated, Mechanically Ventilated Gastrointestinal: Yes: Soft Labs: CBC, BMP 01/24/20 05:30 01/24/20 05:30 INR, PTT INR 1.48 (0.83-1.09) H 01/13/20 18:35 Fibrinogen 252.0 mg/dL (238-498) 01/18/20 06:00 Assessment/Plan roblem List - Problems (1) Acute on chronic respiratory failure with hypoxemia Code(s): J96.21 - ACUTE AND CHRONIC RESPIRATORY FAILURE WITH HYPOXIA (2) Altered mental status Code(s): R41.82 - ALTERED MENTAL STATUS, UNSPECIFIED Qualifiers: Altered mental status type: disorientation Qualified Code(s): R41.0 - Disorientation, unspecified (3) Suspected COVID-19 virus infection Code(s): Z20.828 - CONTACT W AND EXPOSURE TO OTH VIRAL COMMUNICABLE DISEASES (4) Acute hypoxemic respiratory failure Code(s): J96.01 - ACUTE RESPIRATORY FAILURE WITH HYPOXIA (5) Asthma Code(s): J45.909 - UNSPECIFIED ASTHMA, UNCOMPLICATED (6) COPD exacerbation Code(s): J44.1 - CHRONIC OBSTRUCTIVE PULMONARY DISEASE W (ACUTE) EXACERBATION (7) Essential hypertension Code(s): I10 - ESSENTIAL (PRIMARY) HYPERTENSION (8) GERD (gastroesophageal reflux disease) Code(s): K21.9 - GASTRO-ESOPHAGEAL REFLUX DISEASE WITHOUT ESOPHAGITIS Qualifiers: Esophagitis presence: esophagitis presence not specified Qualified Code(s): K21.9 - Gastro-esophageal reflux disease without esophagitis Assessment/Plan Acute hypoxic resp failure due to ARDS due to COVID19 infection. Elevated trop ransaminitis Dilated pancreatic duct ETOH withdrawal H/o opioid dependence. on Methadone maintenance AMS : metabolic encephalopathy Thrombocytopenia Plan: -Steroids -Cont AC -Monitor inflammatory markers PRN -Follow cultures -NGT feeds -Famotidine BID -Thiamine, folic acid -S/P Convalescent plasma cc 40 min
[2020-01-24] MEDS ORDERED: PROPOFOL 200 MG/20 ML VIAL IVPUSH ONE (16:42)
[2020-01-24] MEDS: MIDAZOLAM IN 0.9 % SOD.CHLORID 100 MG/100 ML PLAST..BAG IVPB SCH (17:39)
[2020-01-24] MEDS: MORPHINE SULFATE/0.9% NACL/PF 100 MG/100 ML BAG IVPB SCH (21:05)
[2020-01-24] MEDS: ATORVASTATIN CA 80 MG TABLET (FP) PO SCH (22:30)
[2020-01-25] MEDS ORDERED: MIDAZOLAM 100 MG/100 ML MG IVPB SCH (03:48)
[2020-01-25] MEDS: MORPHINE SULFATE/0.9% NACL/PF 100 MG/100 ML BAG IVPB SCH ×2 (06:55→22:36)
[2020-01-25] MEDS: AMINO ACIDS/PROTEIN HYDROLYS 30 ML LIQUID.PKT NGT SCH ×2 (08:00→22:34)
[2020-01-25 08:21] LABS: HEMATOCRIT 38.4 % (35.4-49); HEMOGLOBIN 11.9 GM/dL (11.7-16.9); MCH 28.1 pg (25.7-33.7); MEAN CELL VOLUME 90.6 fl (80-96); MEAN PLT VOLUME 10.6 fl (7.5-11.1); PLATELET COUNT 74 K/MM3 (134-434); RBC 4.24 M/mm3 (4.00-5.60); RDW 25.5 % (11.9-15.9); WHITE BLOOD COUNT 12.7 K/mm3 (4.0-10.0)
[2020-01-25] MEDS: LACTATED RINGERS SOLUTION 1,000 ML/1,000 ML INFUS.BAG IV SCH ×2 (08:52→22:33)
[2020-01-25] MEDS: ASPIRIN 81 MG CHEWABLE TABLETS PO SCH (10:00)
[2020-01-25] MEDS: methylPREDNISolone NA SUCC 40 MG/1 ML VIAL IVPUSH SCH ×2 (10:00→22:34)
[2020-01-25] MEDS: ASCORBIC ACID 500 MG TABLET (FP) PO SCH ×2 (10:00→22:34)
[2020-01-25] MEDS: FOLIC ACID 1 MG TABLET (FP) PO SCH (10:00)
[2020-01-25] MEDS: THIAMINE HCL 100 MG TABLET (FP) PO SCH ×2 (10:00→22:34)
[2020-01-25] MEDS: MULTIVITAMINS (DAILY MVI) TABLET (FP) PO SCH (10:00)
[2020-01-25] MEDS: ZINC SULFATE 220 MG CAPSULE (FP) PO SCH ×2 (10:00→22:34)
[2020-01-25] MEDS: FAMOTIDINE 20 MG/50 ML IVPB 20 MG/50 ML MG IVPB SCH ×2 (10:00→22:34)
[2020-01-25] MEDS: CHOLECALCIFEROL (VIT D3) 1,000 UNIT (25 MCG) TABLET PO SCH (10:00)
--- NOTE | 2020-01-25 10:50 | PN ---
Progress Note (short form) - Note Progress Note: Patient seen and examined in the ICU. Intubated and sedated. AC Mode of vent, 100%. PPlat: 23 No pressors. Intake & Output 01/22/20 01/23/20 01/24/20 01/25/20 23:59 23:59 23:59 23:59 Intake Total 1286 4072 1107 1848 Output Total 1450 850 950 400 Balance -164 3222 157 1448 Last Vital Signs Temp Pulse Resp BP Pulse Ox 98.2 F 89 26 H 98/79 91 L 01/25/20 06:04 01/25/20 06:04 01/25/20 06:04 01/25/20 06:04 01/24/20 16:00 Active Medications Amino Acids (Prosource No Carb Liquid Pkt) 30 ml NGT BID@0800,1730 [facility] Last Admin: 01/24/20 18:58 Dose: 30 ml Documented by: Ascorbic Acid (Vitamin C -) 500 mg PO BID [facility] Last Admin: 01/24/20 22:30 Dose: 500 mg Documented by: Aspirin (Asa -) 81 mg PO DAILY [facility] Last Admin: 01/24/20 10:28 Dose: 81 mg Documented by: Atorvastatin Calcium (Lipitor -) 80 mg PO HS [facility] Last Admin: 01/24/20 22:30 Dose: 80 mg Documented by: Cholecalciferol (Vitamin D3 -) 1,000 unit PO DAILY [facility] Last Admin: 01/24/20 10:28 Dose: 1,000 unit Documented by: Folic Acid (Folic Acid -) 1 mg PO DAILY [facility] Last Admin: 01/24/20 10:28 Dose: 1 mg Documented by: Heparin Sodium (Porcine) (Heparin -) 1,000 unit IVPUSH PRN PRN PRN Reason: Heparin Heparin Sodium (Porcine) (Heparin -) 5,000 unit IVPUSH PRN PRN PRN Reason: Heparin Famotidine/Sodium Chloride (Pepcid 20 Mg Premixed Ivpb -) 20 mg in 50 mls @ 100 mls/hr IVPB BID [facility] Last Admin: 01/24/20 22:30 Dose: 100 mls/hr Documented by: Norepinephrine Bitartrate (Levophed Bag) 16,000 mcg in 500 mls @ 9.375 mls/hr IVPB TITR [facility]; Protocol Lactated Ringer's (Lactated Ringers Solution) 1,000 ml in 1,000 mls @ 100 mls/hr IV [facility]IR [facility] Last Admin: 01/25/20 08:52 Dose: 100 mls/hr Documented by: Morphine Sulfate (Morphine 100mg/100ml-0.9% Nacl) 100 mg in 100 mls @ 6 mls/hr IVPB TITR [facility]; Protocol Last Infusion: 01/25/20 08:53 Dose: 10 mg/hr, 10 mls/hr Documented by: Midazolam HCl (Versed -) 100 mg in 100 mls @ 1 mls/hr IVPB TITR [facility]; Protocol Last Admin: 01/25/20 08:52 Dose: 10 mg/hr, 10 mls/hr Documented by: Methylprednisolone Sodium Succinate (Solu-Medrol -) 20 mg IVPUSH BID [facility] Last Admin: 01/24/20 22:30 Dose: 20 mg Documented by: Multivitamins/Minerals/Vitamin C (Tab-A-Vit -) 1 tab PO DAILY [facility] Last Admin: 01/24/20 10:28 Dose: 1 tab Documented by: Thiamine HCl (Vitamin B1 -) 100 mg PO BID [facility] Last Admin: 01/24/20 22:30 Dose: 100 mg Documented by: Zinc Sulfate (Orazinc -) 220 mg PO BID [facility] Last Admin: 01/24/20 22:30 Dose: 220 mg Documented by: Constitutional: Yes: Intubated and sedated Eyes: Yes: Conjunctiva Clear HENT: Yes: Atraumatic, Normocephalic Neck: Yes: Supple Cardiovascular: Yes: Regular Rate and Rhythm, S1, S2 Respiratory: Yes: Intubated, Mechanically Ventilated, Rhonchi Gastrointestinal: Yes: Soft, (+) BS ...Rectal Exam: Yes: Deferred Renal/: Yes: Greene Present Musculoskeletal: Yes: WNL Extremities: Yes: WNL Edema: No Peripheral Pulses WNL: Yes Integumentary: Yes: Other (dry and intact) Neurological: Yes: Other (Sedated) Psychiatric: Yes: Other (Sedated) Labs: Laboratory Results - last 24 hr 01/25/20 01/25/20 01/25/20 06:06 06:06 10:18 WBC 12.7 H RBC 4.24 Hgb 11.9 Hct 38.4 MCV 90.6 MCH 28.1 MCHC 31.0 L RDW 25.5 H Plt Count 74 L MPV 10.6 PTT (Actin FS) 32.7 Anticoagulation Therapy No Result Required. O2 Delivery Device No Result Required. Oxygen Flow Rate No Result Required. Vent Mode No Result Required. Vent Rate No Result Required. Mechanical Rate No Result Required. Pressure Support Vent No Result Required. Imaging - Results Chest X-ray: Image Reviewed (diffused patchy opacities, dense bilat LL; bilateral effusions) Problem List - Problems (1) Acute on chronic respiratory failure with hypoxemia Code(s): J96.21 - ACUTE AND CHRONIC RESPIRATORY FAILURE WITH HYPOXIA (2) Altered mental status Code(s): R41.82 - ALTERED MENTAL STATUS, UNSPECIFIED Qualifiers: Altered mental status type: disorientation Qualified Code(s): R41.0 - Disorientation, unspecified (3) Suspected COVID-19 virus infection Code(s): Z20.828 - CONTACT W AND EXPOSURE TO OTH VIRAL COMMUNICABLE DISEASES (4) Acute hypoxemic respiratory failure Code(s): J96.01 - ACUTE RESPIRATORY FAILURE WITH HYPOXIA (5) Asthma Code(s): J45.909 - UNSPECIFIED ASTHMA, UNCOMPLICATED (6) COPD exacerbation Code(s): J44.1 - CHRONIC OBSTRUCTIVE PULMONARY DISEASE W (ACUTE) EXACERBATION (7) Essential hypertension Code(s): I10 - ESSENTIAL (PRIMARY) HYPERTENSION (8) GERD (gastroesophageal reflux disease) Code(s): K21.9 - GASTRO-ESOPHAGEAL REFLUX DISEASE WITHOUT ESOPHAGITIS Qualifiers: Esophagitis presence: esophagitis presence not specified Qualified Code(s): K21.9 - Gastro-esophageal reflux disease without esophagitis Assessment/Plan Acute hypoxic resp failure due to ARDS due to COVID19 infection. Elevated trop ransaminitis Dilated pancreatic duct ETOH withdrawal H/o opioid dependence. on Methadone maintenance AMS : metabolic encephalopathy Thrombocytopenia Plan: -LTVV for goal<30 -Sedation for vent synchrony -Continue to hold seroquel and methadone -Steroids -Cont AC -Monitor inflammatory markers PRN -Follow cultures -NGT feeds -Famotidine BID -Thiamine, folic acid -S/P Convalescent plasma Dr Espinoza Critical care time spent in reviewing chart, evaluating patient and formulating plan - 36 minutes.
[2020-01-25 11:01] LABS: ARTERIAL BLD GAS O2 SATURATION 95.6 % (95-98); ARTERIAL BLOOD GAS PCO2 60.3 mmHg (35-45); ARTERIAL BLOOD GAS PO2 90.3 mmHg (80-100)
[2020-01-25 11:02] LABS: ARTERIAL BLOOD GAS BASE EXCESS 1.7 mmol/L (-2-2)
[2020-01-25 11:26] LABS: BLOOD UREA NITROGEN 26.4 mg/dL (7-18); CALCIUM 8.8 mg/dL (8.5-10.1); CREATININE 0.8 mg/dL (0.55-1.3); POTASSIUM 4.8 mmol/L (3.5-5.1)
--- NOTE | 2020-01-25 13:56 | PN ---
Progress Note, Physician History of Present Illness: continues to be intubated/sedated wbc has increased - Current Medication List Current Medications: Active Medications Amino Acids (Prosource No Carb Liquid Pkt) 30 ml NGT BID@0800,1730 [facility] Last Admin: 01/25/20 08:00 Dose: 30 ml Documented by: Ascorbic Acid (Vitamin C -) 500 mg PO BID [facility] Last Admin: 01/25/20 10:00 Dose: 500 mg Documented by: Aspirin (Asa -) 81 mg PO DAILY [facility] Last Admin: 01/25/20 10:00 Dose: 81 mg Documented by: Atorvastatin Calcium (Lipitor -) 80 mg PO HS [facility] Last Admin: 01/24/20 22:30 Dose: 80 mg Documented by: Cholecalciferol (Vitamin D3 -) 1,000 unit PO DAILY [facility] Last Admin: 01/25/20 10:00 Dose: 1,000 unit Documented by: Folic Acid (Folic Acid -) 1 mg PO DAILY [facility] Last Admin: 01/25/20 10:00 Dose: 1 mg Documented by: Heparin Sodium (Porcine) (Heparin -) 1,000 unit IVPUSH PRN PRN PRN Reason: Heparin Heparin Sodium (Porcine) (Heparin -) 5,000 unit IVPUSH PRN PRN PRN Reason: Heparin Famotidine/Sodium Chloride (Pepcid 20 Mg Premixed Ivpb -) 20 mg in 50 mls @ 100 mls/hr IVPB BID [facility] Last Admin: 01/25/20 10:00 Dose: 100 mls/hr Documented by: Norepinephrine Bitartrate (Levophed Bag) 16,000 mcg in 500 mls @ 9.375 mls/hr IVPB TITR [facility]; Protocol Lactated Ringer's (Lactated Ringers Solution) 1,000 ml in 1,000 mls @ 100 mls/hr IV ASDIR [facility] Last Admin: 01/25/20 08:52 Dose: 100 mls/hr Documented by: Morphine Sulfate (Morphine 100mg/100ml-0.9% Nacl) 100 mg in 100 mls @ 6 mls/hr IVPB TITR [facility]; Protocol Last Infusion: 01/25/20 11:30 Dose: 8 mg/hr, 8 mls/hr Documented by: Midazolam HCl (Versed -) 100 mg in 100 mls @ 1 mls/hr IVPB TITR [facility]; Protocol Last Titration: 01/25/20 13:27 Dose: 10 mg/hr, 10 mls/hr Documented by: Methylprednisolone Sodium Succinate (Solu-Medrol -) 20 mg IVPUSH BID [facility] Last Admin: 01/25/20 10:00 Dose: 20 mg Documented by: Multivitamins/Minerals/Vitamin C (Tab-A-Vit -) 1 tab PO DAILY [facility] Last Admin: 01/25/20 10:00 Dose: 1 tab Documented by: Thiamine HCl (Vitamin B1 -) 100 mg PO BID [facility] Last Admin: 01/25/20 10:00 Dose: 100 mg Documented by: Zinc Sulfate (Orazinc -) 220 mg PO BID [facility] Last Admin: 01/25/20 10:00 Dose: 220 mg Documented by: - Objective Vital Signs: Vital Signs Temperature 97.1 F L 01/25/20 12:00 Pulse Rate 97 H 01/25/20 12:00 Respiratory Rate 29 H 01/25/20 12:00 Blood Pressure 97/71 01/25/20 12:00 O2 Sat by Pulse Oximetry (%) 91 L 01/24/20 16:00 Constitutional: Yes: Other Cardiovascular: Yes: S1, S2 Respiratory: Yes: Intubated, Mechanically Ventilated Gastrointestinal: Yes: Normal Bowel Sounds, Soft Genitourinary: Yes: Greene Present Extremities: Yes: Other Labs: CBC, BMP 01/25/20 06:06 01/25/20 06:06 INR, PTT INR 1.48 (0.83-1.09) H 01/13/20 18:35 Fibrinogen 252.0 mg/dL (238-498) 01/18/20 06:00 - ....Imaging Chest X-ray: Report Reviewed, Image Reviewed Assessment/Plan roblem List - Problems (1) Acute on chronic respiratory failure with hypoxemia Code(s): J96.21 - ACUTE AND CHRONIC RESPIRATORY FAILURE WITH HYPOXIA (2) Altered mental status Code(s): R41.82 - ALTERED MENTAL STATUS, UNSPECIFIED Qualifiers: Altered mental status type: disorientation Qualified Code(s): R41.0 - Disorientation, unspecified (3) Suspected COVID-19 virus infection Code(s): Z20.828 - CONTACT W AND EXPOSURE TO OTH VIRAL COMMUNICABLE DISEASES (4) Acute hypoxemic respiratory failure Code(s): J96.01 - ACUTE RESPIRATORY FAILURE WITH HYPOXIA (5) Asthma Code(s): J45.909 - UNSPECIFIED ASTHMA, UNCOMPLICATED (6) COPD exacerbation Code(s): J44.1 - CHRONIC OBSTRUCTIVE PULMONARY DISEASE W (ACUTE) EXACERBATION (7) Essential hypertension Code(s): I10 - ESSENTIAL (PRIMARY) HYPERTENSION (8) GERD (gastroesophageal reflux disease) Code(s): K21.9 - GASTRO-ESOPHAGEAL REFLUX DISEASE WITHOUT ESOPHAGITIS Qualifiers: Esophagitis presence: esophagitis presence not specified Qualified Code(s): K21.9 - Gastro-esophageal reflux disease without esophagitis Assessment/Plan Acute hypoxic resp failure due to ARDS due to COVID19 infection. Elevated trop ransaminitis Dilated pancreatic duct ETOH withdrawal H/o opioid dependence. on Methadone maintenance AMS : metabolic encephalopathy Thrombocytopenia Plan: -Steroids -Monitor inflammatory markers -Follow cultures -NGT feeds -Famotidine BID -Thiamine, folic acid -S/P Convalescent plasma cc 35 min
[2020-01-25] MEDS: ATORVASTATIN CA 80 MG TABLET (FP) PO SCH (22:34)
--- NOTE | 2020-01-26 02:17 | PN ---
Progress Note (short form) - Note Progress Note: Called to bedside, concern that patient is not getting adequate breaths. Patient making gurgling sounds at the bedside. Tube advanced two centimeters and given push of Versed. Mild improvement but only intermittently getting correct volumes; modulating between 150 ccs and 650 ccs. Anesthesia at bedside, patient paralyzed with rocuronium and successfully reintubated. CXR ordered. 0410: Called to bedside, patient desatting from 89% to 73%. Appears to be fighting vent. Will give rocuronium 50 and start vecuronium drip. 0432: SpO2 increased from 70% to 85%, pt tachycardic to 120 bpm (was 110 prior). Chart was reviewed, last note by placer miner recommended anticoagulation, but only Heparin PRN is ordered. Heparin gtt ordered, giving 5000 now. F/u AM PTT. 0515: Called to bedside, patient progressively worsening tachycardia and now in 140s, progressing into 150s. Mild desat to 82%. Will start propofol drip, get EKG and ABG. Has Levophed drip already ordered if necessary. Possible etiologies include inadequate sedation v PE v worsening COVID. Afebrile, getting 100ccs/hr of LR and more fluid via NGT, so likely no hypovolemia. EKG @ 0532: poor baseline quality, sinus tachycardia at 149 bpm with biatrial enlargement, new right axis deviation with RVH, S1Q3T3 pattern. ND 134, QRS 82, QTc 381. Concerning for possible PE. 0603: Pressures 80s/60s, HR 151. Propofol stopped as tachycardia was unaffected. Starting vasopressin, still holding off on Levophed as it would worsen tachycardia.
[2020-01-26] MEDS ORDERED: MIDAZOLAM 100 MG/100 ML MG IVPB SCH (02:20)
[2020-01-26] MEDS ORDERED: ROCURONIUM BROMIDE 50 MG/5 ML VIAL IV ONE (04:14)
[2020-01-26] MEDS ORDERED: VECURONIUM BROMIDE 100 MG/100 ML BAG IVPB SCH (04:15)
[2020-01-26] MEDS ORDERED: HEPARIN - 25,000 UNIT in SODIUM CHLORIDE 495 ML IV SCH ×2 (04:30→08:00)
[2020-01-26] MEDS ORDERED: PROPOFOL 20 ML ONE (05:13)
[2020-01-26] MEDS ORDERED: PROPOFOL 1,000,000 MCG/100 ML VIAL ONE (05:14)
[2020-01-26] MEDS ORDERED: PROPOFOL 1,000,000 MCG/100 ML VIAL IVPB SCH (05:30)
[2020-01-26] MEDS ORDERED: VASOPRESSIN 20 UNITS/ML VIAL IV ONE ×4 (06:03→07:42)
[2020-01-26 06:08] LABS: HEMATOCRIT 47.7 % (35.4-49); HEMOGLOBIN 14.7 GM/dL (11.7-16.9); MCH 28.2 pg (25.7-33.7); MCHC 30.8 g/dl (32.0-35.9); MEAN CELL VOLUME 91.6 fl (80-96); MEAN PLT VOLUME 10.3 fl (7.5-11.1); PLATELET COUNT 83 K/MM3 (134-434); RBC 5.21 M/mm3 (4.00-5.60); RDW 26.6 % (11.9-15.9); WHITE BLOOD COUNT 13.2 K/mm3 (4.0-10.0)
[2020-01-26] MEDS ORDERED: VASOPRESSIN 40 UNITS in SODIUM CHLORIDE 98 ML IVPB SCH (06:15)
[2020-01-26] MEDS: MORPHINE SULFATE/0.9% NACL/PF 100 MG/100 ML BAG IVPB SCH (06:40)
[2020-01-26 06:44] LABS: ARTERIAL BLD GAS O2 SATURATION 75.8 % (95-98); ARTERIAL BLOOD GAS BASE EXCESS -1.4 mmol/L (-2-2); ARTERIAL BLOOD GAS PO2 53.2 mmHg (80-100); ARTERIAL BLOOD GAS pH 7.17 (7.35-7.45)
[2020-01-26 06:54] LABS: ARTERIAL BLOOD GAS PCO2 86.1 mmHg (35-45)
[2020-01-26] MEDS ORDERED: HEPARIN NA (PORCINE) 5,000 UNITS/ML 1ML VIAL IVPUSH PRN ×2 (07:51)
--- NOTE | 2020-01-26 08:07 | PN ---
Progress Note (short form) - Note Progress Note: Signed out from PM team about desaturations as described in prior note. Patient continued to remain hypoxic with SpO2 80%. Blood gas resulted in increasing respiratory acidosis (7.14, 83, 53) and increased rate from 24 --> 28. Increased PEEP to 18 with Pplt slightly increasing to 34 after adjustment. Patient maintaining 80%. Lovenox 1mg/kg. Started pressor support for relative hypotension without resolve.
[2020-01-26] MEDS ORDERED: LACTATED RINGERS SOLUTION 1,000 ML/1,000 ML INFUS.BAG IV STA (08:27)
--- NOTE | 2020-01-26 08:40 | PN ---
Progress Note (short form) - Note Progress Note: Progress Note Pulm/CCM Pt seen and examined in the ICU. Overnight pt acutely desaturated to the 70's- 80's with HR to 140's c/f massive PE. Rec'd Heparin bolus and then therapeutic Lovenox. Sedated and paralyzed. Adjusted vent. O2 sat remains in the 80's. IR contacted for possible thrombectomy. Currently hypotensive on vasopressors. Hx of previous bleeding event. Current Medications Generic Name Dose Route Start Last Admin Trade Name Mary PRN Reason Stop Dose Admin Amino Acids 30 ml 01/23/20 17:30 01/25/20 22:34 Prosource No Carb Liquid Pkt NGT 30 ml BID@0800,1730 [facility] Administration Ascorbic Acid 500 mg 01/14/20 10:00 01/25/20 22:34 Vitamin C - PO 500 mg BID [facility] Administration Aspirin 81 mg 01/19/20 10:00 01/25/20 10:00 Asa - PO 81 mg DAILY [facility] Administration Atorvastatin Calcium 80 mg 01/18/20 22:00 01/25/20 22:34 Lipitor - PO 80 mg HS [facility] Administration Cholecalciferol 1,000 unit 01/14/20 10:00 01/25/20 10:00 Vitamin D3 - PO 1,000 unit DAILY [facility] Administration Enoxaparin Sodium 80 mg 01/26/20 10:00 Lovenox - SQ BID [facility] Folic Acid 1 mg 01/14/20 10:00 01/25/20 10:00 Folic Acid - PO 1 mg DAILY [facility] Administration Famotidine/Sodium Chloride 20 mg in 50 mls @ 100 mls/hr 01/20/20 22:00 01/25/20 22:34 Pepcid 20 Mg Premixed Ivpb - IVPB 100 mls/hr BID [facility] Administration Norepinephrine Bitartrate 16,000 mcg in 500 mls @ 9.375 mls/hr 01/22/20 12:30 Levophed Bag IVPB TITR [facility] Protocol 5 MCG/MIN Lactated Ringer's 1,000 ml in 1,000 mls @ 100 mls/hr 01/22/20 13:25 01/25/20 22:33 Lactated Ringers Solution IV 100 mls/hr ASDIR [facility] Administration Morphine Sulfate 100 mg in 100 mls @ 6 mls/hr 01/22/20 16:45 01/26/20 06:40 Morphine 100mg/100ml-0.9% Nacl IVPB 8 mg/hr TITR [facility] 8 mls/hr Administration Protocol 6 MG/HR Midazolam HCl 100 mg in 100 mls @ 10 mls/hr 01/26/20 02:20 01/26/20 02:05 Versed - IVPB 10 mg/hr TITR [facility] 10 mls/hr Administration Protocol 10 MG/HR Vecuronium Capay 100 mg in 100 mls @ 5.062 mls/hr 01/26/20 04:15 01/26/20 04:20 Vecuronium Capay IVPB 1 mcg/kg/min TITR [facility] 5.062 mls/hr Administration Protocol 1 MCG/KG/MIN Propofol 1,000,000 mcg in 100 mls @ 2.531 mls/hr 01/26/20 05:30 01/26/20 04:40 Diprivan - IVPB 5 mcg/kg/min TITR [facility] 2.531 mls/hr Administration Protocol 5 MCG/KG/MIN Vasopressin 40 units/ Sodium 100 mls @ 5 mls/hr 01/26/20 06:15 Chloride IVPB ASDIR [facility] Protocol 2 UNITS/HR Lactated Ringer's 1,000 ml in 1,000 mls @ 1,000 mls/hr 01/26/20 08:27 Lactated Ringers Solution IV 01/26/20 09:26 ONCE STA Methylprednisolone Sodium Succinate 20 mg 01/24/20 16:40 01/25/20 22:34 Solu-Medrol - IVPUSH 20 mg BID [facility] Administration Multivitamins/Minerals/Vitamin C 1 tab 01/14/20 10:00 01/25/20 10:00 Tab-A-Vit - PO 1 tab DAILY [facility] Administration Thiamine HCl 100 mg 01/14/20 22:00 01/25/20 22:34 Vitamin B1 - PO 100 mg BID [facility] Administration Zinc Sulfate 220 mg 01/14/20 10:00 01/25/20 22:34 Orazinc - PO 220 mg BID [facility] Administration Vital Signs Period Temp Pulse Resp BP Sys/Causey Pulse Ox Last 24 Hr 97.1 F-99.8 F 89-157 21-32 84-140/59-84 Intake & Output 01/23/20 01/24/20 01/25/20 01/26/20 23:59 23:59 23:59 23:59 Intake Total 4072 1107 4492.7 Output Total 850 950 900 Balance 3222 157 3592.7 Gen: Ill appearing HEENT: pinpoint pupils, scleral edema, neck supple Chest:Rales bilat CV: S1S2 tachy, Abd: Soft, NT Ext: WWP; no edema Neuro: Paralyzed CBC, BMP 01/26/20 05:55 01/25/20 06:06 Vent: 32/400/100/12 Plat 27 ABG Results ABG pH 7.17 (7.35-7.45) L* 01/26/20 06:15 ABG pCO2 at Pt Temp 86.1 mmHg (35-45) H* 01/26/20 06:15 ABG pO2 at Pt Temp 53.2 mmHg (80-100) L 01/26/20 06:15 ABG HCO3 30.3 mmol/L (22-27) H 01/26/20 06:15 ABG O2 Sat (Measured) 75.8 % (95-98) L 01/26/20 06:15 ABG O2 Content 16.2 % vol 01/26/20 06:15 ABG Base Excess -1.4 mmol/L (-2-2) 01/26/20 06:15 Imaging - Results Chest X-ray: Image Reviewed (diffused patchy opacities, dense bilat LL; bilateral effusions) Problem List - Problems (1) Acute on chronic respiratory failure with hypoxemia Code(s): J96.21 - ACUTE AND CHRONIC RESPIRATORY FAILURE WITH HYPOXIA (2) Altered mental status Code(s): R41.82 - ALTERED MENTAL STATUS, UNSPECIFIED Qualifiers: Altered mental status type: disorientation Qualified Code(s): R41.0 - Disorientation, unspecified (3) Suspected COVID-19 virus infection Code(s): Z20.828 - CONTACT W AND EXPOSURE TO OTH VIRAL COMMUNICABLE DISEASES (4) Acute hypoxemic respiratory failure Code(s): J96.01 - ACUTE RESPIRATORY FAILURE WITH HYPOXIA (5) Asthma Code(s): J45.909 - UNSPECIFIED ASTHMA, UNCOMPLICATED (6) COPD exacerbation Code(s): J44.1 - CHRONIC OBSTRUCTIVE PULMONARY DISEASE W (ACUTE) EXACERBATION (7) Essential hypertension Code(s): I10 - ESSENTIAL (PRIMARY) HYPERTENSION (8) GERD (gastroesophageal reflux disease) Code(s): K21.9 - GASTRO-ESOPHAGEAL REFLUX DISEASE WITHOUT ESOPHAGITIS Qualifiers: Esophagitis presence: esophagitis presence not specified Qualified Code(s): K21.9 - Gastro-esophageal reflux disease without esophagitis Assessment/Plan Acute hypoxic resp failure due to ARDS due to COVID19 infection. Elevated trop Transaminitis Dilated pancreatic duct ETOH withdrawal H/o opioid dependence. on Methadone maintenance AMS : metabolic encephalopathy Thrombocytopenia Now possible massive PE Plan: -LTVV for goal<30 -Sedation and paralysis for vent synchrony -Continue versed, morphine, propofol -Cont therapeutic AC -Contact IR for possible thrombectomy and focused AC; m/l too unstable for IR procedure -Cont Steroids -Monitor inflammatory markers PRN -Follow cultures -NGT feeds -Famotidine BID -Thiamine, folic acid -S/P Convalescent plasma -Update family; GOC discussion Kelly Candelaria, ACNP CCT 45mins Problem List - Problems (1) Acute on chronic respiratory failure with hypoxemia Code(s): J96.21 - ACUTE AND CHRONIC RESPIRATORY FAILURE WITH HYPOXIA (2) Altered mental status Code(s): R41.82 - ALTERED MENTAL STATUS, UNSPECIFIED Qualifiers: Altered mental status type: disorientation Qualified Code(s): R41.0 - Disorientation, unspecified (3) Suspected COVID-19 virus infection Code(s): Z20.828 - CONTACT W AND EXPOSURE TO OTH VIRAL COMMUNICABLE DISEASES (4) Acute hypoxemic respiratory failure Code(s): J96.01 - ACUTE RESPIRATORY FAILURE WITH HYPOXIA (5) Asthma Code(s): J45.909 - UNSPECIFIED ASTHMA, UNCOMPLICATED (6) COPD exacerbation Code(s): J44.1 - CHRONIC OBSTRUCTIVE PULMONARY DISEASE W (ACUTE) EXACERBATION (7) Essential hypertension Code(s): I10 - ESSENTIAL (PRIMARY) HYPERTENSION (8) GERD (gastroesophageal reflux disease) Code(s): K21.9 - GASTRO-ESOPHAGEAL REFLUX DISEASE WITHOUT ESOPHAGITIS Qualifiers: Esophagitis presence: esophagitis presence not specified Qualified Code(s): K21.9 - Gastro-esophageal reflux disease without esophagitis
[2020-01-26] MEDS ORDERED: ENOXAPARIN NA (PORCINE) 80 MG/0.8 ML DISP.SYRIN SQ SCH (10:00)
[2020-01-26] MEDS: ASPIRIN 81 MG CHEWABLE TABLETS PO SCH (10:00)
[2020-01-26] MEDS: methylPREDNISolone NA SUCC 40 MG/1 ML VIAL IVPUSH SCH (10:00)
--- NOTE | 2020-01-26 11:52 | PN ---
Progress Note, Physician History of Present Illness: Pt seen and examined in the ICU. Overnight pt acutely desaturated to the 70's- 80's with HR to 140's c/f massive PE. Rec'd Heparin bolus and then therapeutic Lovenox. Sedated and paralyzed. Adjusted vent. O2 sat remains in the 80's. IR contacted for possible thrombectomy. Currently hypotensive on vasopressors. doing poorly - Current Medication List Current Medications: Active Medications Amino Acids (Prosource No Carb Liquid Pkt) 30 ml NGT BID@0800,1730 [facility] Last Admin: 01/25/20 22:34 Dose: 30 ml Documented by: Ascorbic Acid (Vitamin C -) 500 mg PO BID [facility] Last Admin: 01/25/20 22:34 Dose: 500 mg Documented by: Aspirin (Asa -) 81 mg PO DAILY [facility] Last Admin: 01/25/20 10:00 Dose: 81 mg Documented by: Atorvastatin Calcium (Lipitor -) 80 mg PO HS [facility] Last Admin: 01/25/20 22:34 Dose: 80 mg Documented by: Cholecalciferol (Vitamin D3 -) 1,000 unit PO DAILY [facility] Last Admin: 01/25/20 10:00 Dose: 1,000 unit Documented by: Enoxaparin Sodium (Lovenox -) 80 mg SQ BID [facility] Folic Acid (Folic Acid -) 1 mg PO DAILY [facility] Last Admin: 01/25/20 10:00 Dose: 1 mg Documented by: Famotidine/Sodium Chloride (Pepcid 20 Mg Premixed Ivpb -) 20 mg in 50 mls @ 100 mls/hr IVPB BID [facility] Last Admin: 01/25/20 22:34 Dose: 100 mls/hr Documented by: Norepinephrine Bitartrate (Levophed Bag) 16,000 mcg in 500 mls @ 9.375 mls/hr IVPB TITR [facility]; Protocol Last Admin: 01/26/20 08:00 Dose: 5 mcg/min, 9.375 mls/hr Documented by: Lactated Ringer's (Lactated Ringers Solution) 1,000 ml in 1,000 mls @ 100 mls/hr IV ASDIR [facility] Last Admin: 01/25/20 22:33 Dose: 100 mls/hr Documented by: Morphine Sulfate (Morphine 100mg/100ml-0.9% Nacl) 100 mg in 100 mls @ 6 mls/hr IVPB TITR [facility]; Protocol Last Admin: 01/26/20 06:40 Dose: 8 mg/hr, 8 mls/hr Documented by: Midazolam HCl (Versed -) 100 mg in 100 mls @ 10 mls/hr IVPB TITR [facility]; Protocol Last Admin: 01/26/20 02:05 Dose: 10 mg/hr, 10 mls/hr Documented by: Vecuronium Napoleon (Vecuronium Napoleon) 100 mg in 100 mls @ 5.062 mls/hr IVPB TITR [facility]; Protocol Last Admin: 01/26/20 04:20 Dose: 1 mcg/kg/min, 5.062 mls/hr Documented by: Propofol (Diprivan -) 1,000,000 mcg in 100 mls @ 2.531 mls/hr IVPB TITR [facility]; Protocol Last Titration: 01/26/20 07:00 Dose: 0 mcg/kg/min, 0 mls/hr Documented by: Vasopressin 40 units/ Sodium (Chloride) 100 mls @ 5 mls/hr IVPB ASDIR [facility]; Protocol Last Admin: 01/26/20 08:00 Dose: 2 units/hr, 5 mls/hr Documented by: Methylprednisolone Sodium Succinate (Solu-Medrol -) 20 mg IVPUSH BID [facility] Last Admin: 01/25/20 22:34 Dose: 20 mg Documented by: Multivitamins/Minerals/Vitamin C (Tab-A-Vit -) 1 tab PO DAILY [facility] Last Admin: 01/25/20 10:00 Dose: 1 tab Documented by: Thiamine HCl (Vitamin B1 -) 100 mg PO BID [facility] Last Admin: 01/25/20 22:34 Dose: 100 mg Documented by: Zinc Sulfate (Orazinc -) 220 mg PO BID [facility] Last Admin: 01/25/20 22:34 Dose: 220 mg Documented by: - Objective Vital Signs: Vital Signs Temperature 99.5 F 01/26/20 10:00 Pulse Rate 136 H 01/26/20 10:00 Respiratory Rate 32 H 01/26/20 10:00 Blood Pressure 86/71 L 01/26/20 10:00 O2 Sat by Pulse Oximetry (%) 91 L 01/24/20 16:00 Constitutional: Yes: Other Cardiovascular: Yes: Tachycardia, S1, S2 Respiratory: Yes: Intubated, Mechanically Ventilated, Poor Air Entry Gastrointestinal: Yes: Normal Bowel Sounds, Soft Labs: CBC, BMP 01/26/20 05:55 01/25/20 06:06 INR, PTT INR 1.48 (0.83-1.09) H 01/13/20 18:35 Fibrinogen 252.0 mg/dL (238-498) 01/18/20 06:00 - ....Imaging Chest X-ray: Report Reviewed, Image Reviewed Assessment/Plan zainab List - Problems (1) Acute on chronic respiratory failure with hypoxemia Code(s): J96.21 - ACUTE AND CHRONIC RESPIRATORY FAILURE WITH HYPOXIA (2) Altered mental status Code(s): R41.82 - ALTERED MENTAL STATUS, UNSPECIFIED Qualifiers: Altered mental status type: disorientation Qualified Code(s): R41.0 - Disorientation, unspecified (3) Suspected COVID-19 virus infection Code(s): Z20.828 - CONTACT W AND EXPOSURE TO OTH VIRAL COMMUNICABLE DISEASES (4) Acute hypoxemic respiratory failure Code(s): J96.01 - ACUTE RESPIRATORY FAILURE WITH HYPOXIA (5) Asthma Code(s): J45.909 - UNSPECIFIED ASTHMA, UNCOMPLICATED (6) COPD exacerbation Code(s): J44.1 - CHRONIC OBSTRUCTIVE PULMONARY DISEASE W (ACUTE) EXACERBATION (7) Essential hypertension Code(s): I10 - ESSENTIAL (PRIMARY) HYPERTENSION (8) GERD (gastroesophageal reflux disease) Code(s): K21.9 - GASTRO-ESOPHAGEAL REFLUX DISEASE WITHOUT ESOPHAGITIS Qualifiers: Esophagitis presence: esophagitis presence not specified Qualified Code(s): K21.9 - Gastro-esophageal reflux disease without esophagitis PE Assessment/Plan Acute hypoxic resp failure due to ARDS due to COVID19 infection. Elevated trop ransaminitis Dilated pancreatic duct ETOH withdrawal H/o opioid dependence. on Methadone maintenance AMS : metabolic encephalopathy Thrombocytopenia aspiration of pe if possible Plan: -Steroids -Monitor inflammatory markers -NGT feeds -Famotidine BID -Thiamine, folic acid -S/P Convalescent plasma monitor wbc not doing well prognosis poor cc 35 min
--- NOTE | 2020-01-26 12:11 | PN ---
Progress Note (short form) - Note Progress Note: D/W with Lizbeth Miller, Francisco's niece his worsening overall condition via [employer]. Update given. Decision for DNR/DNI was made. Lizbeth has been the only family member involved in his healthcare. Francisco has an estranged son that the family has tried to reach via social media to no avail. Agree with the DNR/DNI decision as his overall outcome was previously determined to be grave given worsening ARDS due to COVID19 infection. Dr Espinoza
[2020-01-26 12:19] VITALS: TEMP 98.7
[2020-01-26 15:47] VITALS: BP 00/00; PULSE 0
== END 2020-01-26 14:10 | disposition expired | DRG 208 ==
LOC: JER 17:51 → JERBED 21:53 → J4W 23:32 → JICU-2 01-22 11:34
PROVIDERS: ADMIT Internal Medicine; ATTEND Internal Medicine Pulmonary Disease
PROC: 5A1945Z Respiratory Ventilation, 24-96 Consecutive Hours (ICD-10-PCS; principal; 2020-01-22)
PROC: 0BH17EZ Insertion of Endotracheal Airway into Trachea, Via Natural or Artificial Opening (ICD-10-PCS; 2020-01-22)
PROC: 05H633Z Insertion of Infusion Device into Left Subclavian Vein, Percutaneous Approach (ICD-10-PCS; 2020-01-22)
PROC: 30233M1 Transfusion of Nonautologous Plasma Cryoprecipitate into Peripheral Vein, Percutaneous Approach (ICD-10-PCS; 2020-01-23)
DX: U07.1 COVID-19 (principal); J12.89 Other viral pneumonia; J96.21 Acute and chronic respiratory failure with hypoxia; G93.41 Metabolic encephalopathy; I26.99 Other pulmonary embolism without acute cor pulmonale; F11.20 Opioid dependence, uncomplicated; I24.8 Other forms of acute ischemic heart disease; J44.1 Chronic obstructive pulmonary disease with (acute) exacerbation; E87.2 Acidosis; E46 Unspecified protein-calorie malnutrition; B19.20 Unspecified viral hepatitis C without hepatic coma; R94.5 Abnormal results of liver function studies; J44.9 Chronic obstructive pulmonary disease, unspecified; D69.6 Thrombocytopenia, unspecified; I95.9 Hypotension, unspecified; R41.82 Altered mental status, unspecified; I10 Essential (primary) hypertension; K21.9 Gastro-esophageal reflux disease without esophagitis; R74.0 Nonspecific elevation of levels of transaminase and lactic acid dehydrogenase [LDH]; R00.0 Tachycardia, unspecified; F41.8 Other specified anxiety disorders; E88.09 Other disorders of plasma-protein metabolism, not elsewhere classified
CPT/HCPCS: 36415; 36430; 36600; 71045-TC-FY; 76705-TC; 80048; 80053; 80074; 80076; 80307; 82140; 82248; 82550; 82553; 82728; 82803; 83605; 83615; 83735; 84100; 84484; 85025; 85027; 85379; 85384; 85610; 85730; 86140; 86850; 86900; 86901; 87040; 87070; 87077; 87086; 87205; 87899; 93005; 93010; 94002; 94660; 99291; J0131; P9017; U0003